=== PATIENT | male | born 1935 | race Caucasian/White ===

== ENCOUNTER → 2017-06-28 | Outpatient (CLI) | payer MEDICARE, BC ==
--- NOTE | 2017-06-28 16:17 | XR ---
EXAMINATION TYPE: XR pelvis AP view DATE OF EXAM: 06/28/2017 CLINICAL HISTORY: pain TECHNIQUE: Single view the pelvis is submitted. FINDINGS: No evidence for fracture, dislocation or bony lesion. Joint spaces are moderately narrowe d bilaterally. SI joints appear symmetric. Vascular calcifications noted. IMPRESSION: 1. No acute fracture or dislocation seen. ICD 10 NO FRACTURE, INITIAL EVALUATION
--- NOTE | 2017-06-28 16:18 | XR ---
EXAMINATION TYPE: XR lumbosacral spine min 4V DATE OF EXAM: 06/28/2017 CLINICAL HISTORY: pain COMPARISON: NONE TECHNIQUE: Frontal, lateral, and oblique images of the lumbar spine are obtained. FINDINGS: Severe degenerative disc disease at all levels with vacuum disc noted. There is endplate sc lerosis as well as moderate ventral and dorsal spondylosis. Severe lower lumbar facet joint arthropat hy. Rotoscoliosis convex to the right. Suspect lower lumbar foraminal encroachment bilaterally. Mild superior endplate loss of height at multiple levels likely nonacute in nature. IMPRESSION: Severe advanced degenerative changes.
== END | disposition home or self-care (01) ==
LOC: RADXRYALE 15:15
PROVIDERS: ATTEND Family Medicine
DX: M47.817 Spondylosis without myelopathy or radiculopathy, lumbosacral region (principal); C61 Malignant neoplasm of prostate
CPT/HCPCS: 72110; 72170

== ENCOUNTER 2017-07-03 13:03 | Inpatient (IN) | payer MEDICARE, BC ==
[2017-07-03] MEDS ORDERED: RX INFO: IV CONTRAST WAS GIVEN 1 EACH MISC MISCELLANE PRN (13:32)
[2017-07-03] MEDS ORDERED: SODIUM CHLORIDE 0.9% 1,000 ML IV STA (13:32)
[2017-07-03] MEDS ORDERED: PANTOPRAZOLE 40 MG/10 ML VIAL IVP STA (13:32)
[2017-07-03] MEDS ORDERED: MINERAL OIL 133 ML ENEMA RECTAL STA (13:32)
[2017-07-03] MEDS ORDERED: MAGNESIUM CITRATE 296 ML BOTTLE PO ONE (13:38)
--- NOTE | 2017-07-03 13:38 | ED ---
General Adult HPI - General Chief complaint: Extremity Injury, Lower Stated complaint: Hip Pain Time Seen by Provider: 07/03/17 13:19 Source: patient Mode of arrival: wheelchair Limitations: no limitations - History of Present Illness Initial comments: This 81-year-old white male presents with a complaint of some diffuse abdominal pain and rectal pressure as well as severe right hip pain. He states that he feels he is somewhat constipated and has not had a bowel movement in 2 days. He normally has a bowel movement once a day. He states that he is now having some difficulty with urination as well and thinks this is due to his constipation. He apparently was able to only pass "small palpable" earlier today. He states that there was a small amount of blood in his stool at that time. He relates that since 06/15/2017, he is had excruciating pain in his right hip. He states that he went to sit up in his chair and he developed severe pain in his right hip. He has had this continuously for the past 19 days. His been seen by his primary physician and had x-rays and also followed up with [facility]. He is been told that he needs a right hip replacement. He denies any trauma to the right hip. He apparently was taking some hydrocodone and believes this made him constipated. He denies any nausea vomiting or diarrhea or fever. He has been able to ambulate with a cane with significant difficulty and also has a walker at home. He denies any other complaints or modifying factors. - Related Data Home Medications Medication Instructions Recorded Confirmed Aspirin EC [Ecotrin Low Dose] 81 mg PO DAILY 07/03/17 07/03/17 Atorvastatin Calcium [Lipitor] 10 mg PO HS 07/03/17 07/03/17 Felodipine ER [Plendil] 5 mg PO DAILY 07/03/17 07/03/17 HYDROcodone/APAP 7.5-325MG [[place] 1 - 2 tab PO Q6HR PRN 07/03/17 07/03/17 7.5-325] predniSONE See Taper PO DAILY 07/03/17 07/03/17 Allergies Allergy/AdvReac Type Severity Reaction Status Date / Time No Known Allergies Allergy Verified 07/03/17 14:45 Review of Systems ROS Statement: Those systems with pertinent positive or pertinent negative responses have been documented in the HPI. ROS Other: All systems not noted in ROS Statement are negative. Past Medical History Past Medical History: Chest Pain / Angina History of Any Multi-Drug Resistant Organisms: None Reported Past Surgical History: Coronary Bypass/CABG Past Psychological History: No Psychological Hx Reported Smoking Status: Former smoker Past Alcohol Use History: Occasional Past Drug Use History: None Reported General Exam - General Exam Comments Initial Comments: GENERAL: The patient is well nourished and well hydrated. VITAL SIGNS: Heart rate, blood pressure, respiratory rate reviewed as recorded in nurse's notes. EYES: Pupils are round and reactive. Extraocular movements are intact. No conjunctival / lid redness or swelling. ENT: No external evidence of injury, swelling, or ecchymosis. Airway is patent. Throat is clear. NECK: Nontender. No swelling or evidence of injury. No subcutaneous emphysema. Trachea is midline. No thyroid mass. HEART: Regular rate and rhythm. Good peripheral pulses. LUNGS/CHEST: Breath sounds clear and equal bilaterally. No rales, rhonchi, or wheezes. No ecchymosis, subcutaneous emphysema, or tenderness. Patient is tachypneic. ABDOMEN: There is mild diffuse tenderness throughout the abdomen. No palpable masses or organomegaly. No peritoneal signs. No abdominal wall swelling or ecchymosis. EXTREMITIES: There is tenderness noted to the right hip upon palpation. There is, however, excellent range of motion of the joint without any significant difficulty. Normal muscle tone and function. No thoracolumbar tenderness. NEUROLOGIC: Sensation is grossly intact. Cranial nerve exam reveals face is symmetrical, tongue is midline, speech is clear. SKIN: No abrasions or ecchymosis is noted. No induration or masses noted. PSYCHIATRIC: Alert and oriented. Appropriate behavior and judgment. Rectal exam: There is some stool in the rectal vault the patient does have excruciating tenderness with any attempts at disimpaction. This stool is soft. It is bloody in nature as well. Limitations: no limitations Course Vital Signs 07/03/17 07/03/17 13:06 16:16 Temperature 96.7 F L 97.1 F L Pulse Rate 60 56 L Respiratory 17 16 Rate Blood Pressure 193/82 203/91 O2 Sat by Pulse 98 94 L Oximetry Medical Decision Making - Medical Decision Making The patient was seen and examined. All diagnostics were reviewed. An IV is started and he does receive some Protonix and IV fluids. An EKG is completed and this shows sinus bradycardia at a rate of 58 with a first-degree AV block. There is no acute ST-T wave changes. The laboratories reviewed and does show slight decrease in the CO2 but remainder of labs are essentially within normal limits. Since he was somewhat tachypneic initially a x-ray of the chest was done but this does not show any acute abnormalities. The computed tomography scan of the abdomen and pelvis does show a right femoral neck fracture. It also shows a significant amount of stool present in the rectal vault consistent with constipation. The patient receives a mineral oil enema and does have significant bowel movement. He is feeling much improved in this regard afterwards. He is still having the significant right hip pain. He receives 1 mg of Dilaudid IV with significant pain control. It is felt as though he would require admission to the hospital for further evaluation and treatment. He does have a history of a remote CABG. He was scheduled to see Dr. Meier yesterday but had to miss the appointment to see the orthopedic doctor instead. Case is discussed with Shelbie the ANIA with [facility] and they are agreeable to admission. It is felt as though the patient would require admission for a right hip replacement. It appears that his constipation issues are resolved at this time. He did have a small amount of blood on digital rectal examination with a positive Hemoccult but this is likely due to straining. He states that he did not have any further blood with his large bowel movement after the enema. - Lab Data Result diagrams: 07/03/17 13:57 07/03/17 13:57 Lab Results 07/03/17 07/03/17 07/03/17 Range/Units 13:57 13:57 13:57 WBC 9.3 (3.8-10.6) k/uL RBC 4.43 (4.30-5.90) m/uL Hgb 13.9 (13.0-17.5) gm/dL Hct 40.5 (39.0-53.0) % MCV 91.4 (80.0-100.0) fL MCH 31.3 (25.0-35.0) pg MCHC 34.3 (31.0-37.0) g/dL RDW 14.2 (11.5-15.5) % Plt Count 214 (150-450) k/uL Neutrophils % 84 % Lymphocytes % 9 % Monocytes % 5 % Eosinophils % 1 % Basophils % 0 % Neutrophils # 7.8 H (1.3-7.7) k/uL Lymphocytes # 0.9 L (1.0-4.8) k/uL Monocytes # 0.5 (0-1.0) k/uL Eosinophils # 0.1 (0-0.7) k/uL Basophils # 0.0 (0-0.2) k/uL PT 10.1 (9.0-12.0) sec INR 1.0 (<1.2) APTT 23.7 (22.0-30.0) sec Sodium 139 (137-145) mmol/L Potassium 4.2 (3.5-5.1) mmol/L Chloride 109 H (98-107) mmol/L Carbon Dioxide 20 L (22-30) mmol/L Anion Gap 10 mmol/L BUN 24 H (9-20) mg/dL Creatinine 0.89 (0.66-1.25) mg/dL Est GFR (MDRD) Af Amer >60 (>60 ml/min/1.73 sqM) Est GFR (MDRD) Non-Af >60 (>60 ml/min/1.73 sqM) Glucose 119 H (74-99) mg/dL Calcium 9.1 (8.4-10.2) mg/dL Total Bilirubin 0.7 (0.2-1.3) mg/dL AST 19 (17-59) U/L ALT 32 (21-72) U/L Alkaline Phosphatase 89 (38-126) U/L Total Protein 6.6 (6.3-8.2) g/dL Albumin 3.7 (3.5-5.0) g/dL Amylase 50 (30-110) U/L Lipase 129 (23-300) U/L Urine Color Urine Appearance (Clear) Urine pH (5.0-8.0) Ur Specific [place] (1.001-1.035) Urine Protein (Negative) Urine Glucose (UA) (Negative) Urine Ketones (Negative) Urine Blood (Negative) Urine Nitrite (Negative) Urine Bilirubin (Negative) Urine Urobilinogen (<2.0) mg/dL Ur Leukocyte Esterase (Negative) Stool Occult Blood (Negative) Blood Type Blood Type Recheck Antibody Screen Spec Expiration Date 07/03/17 07/03/17 07/03/17 Range/Units 13:57 14:05 16:05 WBC (3.8-10.6) k/uL RBC (4.30-5.90) m/uL Hgb (13.0-17.5) gm/dL Hct (39.0-53.0) % MCV (80.0-100.0) fL MCH (25.0-35.0) pg MCHC (31.0-37.0) g/dL RDW (11.5-15.5) % Plt Count (150-450) k/uL Neutrophils % % Lymphocytes % % Monocytes % % Eosinophils % % Basophils % % Neutrophils # (1.3-7.7) k/uL Lymphocytes # (1.0-4.8) k/uL Monocytes # (0-1.0) k/uL Eosinophils # (0-0.7) k/uL Basophils # (0-0.2) k/uL PT (9.0-12.0) sec INR (<1.2) APTT (22.0-30.0) sec Sodium (137-145) mmol/L Potassium (3.5-5.1) mmol/L Chloride (98-107) mmol/L Carbon Dioxide (22-30) mmol/L Anion Gap mmol/L BUN (9-20) mg/dL Creatinine (0.66-1.25) mg/dL Est GFR (MDRD) Af Amer (>60 ml/min/1.73 sqM) Est GFR (MDRD) Non-Af (>60 ml/min/1.73 sqM) Glucose (74-99) mg/dL Calcium (8.4-10.2) mg/dL Total Bilirubin (0.2-1.3) mg/dL AST (17-59) U/L ALT (21-72) U/L Alkaline Phosphatase (38-126) U/L Total Protein (6.3-8.2) g/dL Albumin (3.5-5.0) g/dL Amylase (30-110) U/L Lipase (23-300) U/L Urine Color Yellow Urine Appearance Clear (Clear) Urine pH 7.0 (5.0-8.0) Ur Specific [place] 1.037 H (1.001-1.035) Urine Protein Negative (Negative) Urine Glucose (UA) Negative (Negative) Urine Ketones Negative (Negative) Urine Blood Negative (Negative) Urine Nitrite Negative (Negative) Urine Bilirubin Negative (Negative) Urine Urobilinogen <2.0 (<2.0) mg/dL Ur Leukocyte Esterase Negative (Negative) Stool Occult Blood Positive (Negative) Blood Type A Negative Blood Type Recheck A Neg Antibody Screen NEGATIVE Spec Expiration Date 07/06/20171 Disposition Clinical Impression: Fracture of femoral neck, right, Constipation, Rectal bleed Disposition: ADMITTED IP TO THIS [facility] Condition: Fair Time of Disposition: 16:31 Decision Date: 07/03/17 Decision Time: 16:32
[2017-07-03 14:20] LABS: ALT 32 U/L (21-72); AST 19 U/L (17-59); Alkaline Phosphatase 89 U/L (38-126); Amylase 50 U/L (30-110); Anion Gap 10 mmol/L; Basophils % (A) 0 %; Blood Urea Nitrogen 24 mg/dL (9-20); CH 32.9; CHCM 36.1; Calcium 9.1 mg/dL (8.4-10.2); Carbon Dioxide 20 mmol/L (22-30); Chloride 109 mmol/L (98-107); Eosinophils # (A) 0.1 k/uL (0-0.7); Eosinophils % (A) 1 %; Glucose 119 mg/dL (74-99); HCT 40.5 % (39.0-53.0); HDW 2.64; HGB 13.9 gm/dL (13.0-17.5); Luc % (Auto) 1; Lymphocytes # (A) 0.9 k/uL (1.0-4.8); Lymphocytes % (A) 9 %; MCH 31.3 pg (25.0-35.0); MCHC 34.3 g/dL (31.0-37.0); MCV 91.4 fL (80.0-100.0); Mean Platelet Volume 7.5; Monocytes # (A) 0.5 k/uL (0-1.0); Monocytes % (A) 5 %; Neutrophils # (A) 7.8 k/uL (1.3-7.7); Neutrophils % (A) 84 %; Non-African American GFR(MDRD) >60 (>60 ml/min/1.73 sqM); Potassium 4.2 mmol/L (3.5-5.1); RBC 4.43 m/uL (4.30-5.90); RDW 14.2 % (11.5-15.5); Sodium 139 mmol/L (137-145); Total Bilirubin 0.7 mg/dL (0.2-1.3); Total Protein 6.6 g/dL (6.3-8.2); WBC 9.3 k/uL (3.8-10.6)
--- NOTE | 2017-07-03 14:24 | XR ---
EXAMINATION TYPE: XR chest 2V DATE OF EXAM: 07/03/2017 COMPARISON: 12/24/2010 HISTORY: Shortness of breath TECHNIQUE: Frontal and lateral views of the chest are obtained. FINDINGS: Scattered senescent parenchymal changes noted. Hyperinflation compatible with COPD. No evidence for infiltrate. No evidence for atelectasis. Heart size is stable. Mediastinal structures are stable and grossly unremarkable. No evidence for hilar prominence. Degenerative changes dorsal spine. IMPRESSION: 1. No evidence for acute pulmonary disease.
[2017-07-03 14:26] LABS: Partial Thromboplastin Time 23.7 sec (22.0-30.0); Prothrombin Time 10.1 sec (9.0-12.0)
--- NOTE | 2017-07-03 15:21 | CT ---
EXAMINATION TYPE: CT abdomen pelvis w con DATE OF EXAM: 07/03/2017 COMPARISON: NONE INDICATION: Rectal bleeding, right hip pain, pelvic pain and low back pain. DLP: 564.30 mGycm, Automated exposure control for dose reduction was used. CONTRAST: 100 mL of Omnipaque 300. Study performed without Oral Contrast TECHNIQUE: Axial images were obtained from above the diaphragm to the pubic rami in the axial plane a t 5 mm thick sections. Reconstructed images are reviewed on the computer in the coronal plane. FINDINGS: Limited CT sections are obtained the lung bases. No suspicious infiltrates or lung bases.. Coronary artery calcifications present. CT ABDOMEN: Liver: Normal Spleen: Normal Pancreas: Normal Adrenal glands: The adrenal glands are normal. Gallbladder: Normal Kidneys: No masses are evident. No hydronephrosis is present. No cysts are present. Delayed images were obtained through the kidneys, which remain unremarkable. Aorta: Vascular calcification is within the aorta. Inferior vena cava: Normal. CT PELVIS: Loops of bowel within the abdomen and pelvis are normal. There is a large fecal bolus at the leve l of rectum. Correlate for fecal impaction. Mild fecal debris is within the colon. No dilated small b owel loops are evident. Appendix: Normal as visualized. Urinary bladder: Normal. Genitourinary structures: Prostate is visualized. Correlate for prior surgery. Osseous structures: There appears to be an occult or pathologic fracture at the superior right femora l neck. This may be incomplete or be impacted at the inferior aspect of the femoral head. Clinical co rrelation is recommended. Sacroiliac joint degenerative changes are present. There appears to be sacr alization of L5 on the right. Scoliosis and degenerative disc changes are through the lumbar spine. IMPRESSIONS: 1. Fracture of the right femoral neck. This may be incomplete or impacted. Clinical correlation with history and pain is recommended. 2. Fecal bolus at the level the rectum. Correlate for impaction. 3. Degenerative changes through the lumbar spine including degenerative disc changes facet changes an d spondylosis.
[2017-07-03] MEDS ORDERED: HYDROmorphone 1 MG/ML 1 ML SYRINGE IVP STA (16:03)
[2017-07-03 16:17] LABS: Appearance,Urine Clear (Clear); Bilirubin,Urine Negative (Negative); Glucose,Urine (UA) Negative (Negative); Ketones,Urine Negative (Negative); Leukocyte Esterase,Urine Negative (Negative); Nitrite,Urine Negative (Negative); Protein,Urine Negative (Negative); Specific Gravity,Urine 1.037 (1.001-1.035); UA Billing (MACRO vs. MICRO) CHEM; Urobilinogen,Urine <2.0 mg/dL (<2.0)
[2017-07-03] MEDS ORDERED: HYDROmorphone 1 MG/ML 1 ML SYRINGE IV PRN (16:54)
[2017-07-03] MEDS ORDERED: NALOXONE 0.4 MG/ML 1 ML VIAL IV PRN (16:54)
[2017-07-03] MEDS ORDERED: ACETAMINOPHEN TAB 325 MG TAB PO PRN (16:54)
--- NOTE | 2017-07-03 18:00 | XR ---
EXAMINATION TYPE: XR Hip Complete RT DATE OF EXAM: 07/03/2017 CLINICAL HISTORY: pain TECHNIQUE: AP and frogleg views of the right hip are obtained. COMPARISON: None. FINDINGS: Partially displaced partially impacted right femoral neck fracture. Mild degenerative narro wing right hip joint space. No additional fracture seen. IMPRESSION: 1. Right femoral neck fracture. ICD 10 closed FRACTURE, INITIAL EVALUATION
[2017-07-03 18:17] VITALS: BMI 23.5
[2017-07-03] MEDS: ATORVASTATIN 10 MG TAB PO SCH (22:09)
[2017-07-04 06:51] LABS: Basophils % (A) 0 %; CH 32.6; CHCM 34.9; Eosinophils # (A) 0.1 k/uL (0-0.7); Eosinophils % (A) 1 %; HCT 39.7 % (39.0-53.0); HGB 13.2 gm/dL (13.0-17.5); Luc # (Auto) 0.16; Luc % (Auto) 2; Lymphocytes # (A) 1.1 k/uL (1.0-4.8); Lymphocytes % (A) 10 %; MCH 31.1 pg (25.0-35.0); MCHC 33.2 g/dL (31.0-37.0); MCV 93.9 fL (80.0-100.0); Mean Platelet Volume 7.3; Monocytes # (A) 0.7 k/uL (0-1.0); Monocytes % (A) 6 %; Neutrophils # (A) 8.7 k/uL (1.3-7.7); Neutrophils % (A) 81 %; RBC 4.23 m/uL (4.30-5.90); RDW 13.9 % (11.5-15.5); WBC 10.7 k/uL (3.8-10.6); WBC (Perox) 11.25
[2017-07-04 07:16] LABS: Anion Gap 6 mmol/L; Blood Urea Nitrogen 17 mg/dL (9-20); Calcium 9.1 mg/dL (8.4-10.2); Carbon Dioxide 24 mmol/L (22-30); Chloride 108 mmol/L (98-107); Glucose 101 mg/dL (74-99); Non-African American GFR(MDRD) >60 (>60 ml/min/1.73 sqM); Potassium 4.7 mmol/L (3.5-5.1); Sodium 138 mmol/L (137-145)
--- NOTE | 2017-07-04 08:43 | P.HPOR ---
History of Present Illness H&P Date: 07/04/17 This is an 81-year-old male who is admitted for right hip fracture. Patient states about 2-1/2 weeks ago he had sudden pain in the right hip. Patient denies any fall or any known cause of the pain. Patient states he has been ambulating but it is painful to walk on the right lower extremity. Patient states he presented to the emergency room on 07/03/2017 for abdominal pain and right hip pain. Patient states he has had x-rays from his PCP of the right hip that were found to be negative for fracture, but a CT scan in the emergency room showed right femoral neck fracture on 07/02/2017. Patient was then admitted for orthopedic evaluation. Patient denies any numbness, weakness, tingling, fever/chills. Review of Systems See HPI. Past Medical History Past Medical History: Chest Pain / Angina History of Any Multi-Drug Resistant Organisms: None Reported Past Surgical History: Coronary Bypass/CABG Past Psychological History: No Psychological Hx Reported Smoking Status: Former smoker Past Alcohol Use History: Occasional Past Drug Use History: None Reported Medications and Allergies Home Medications Medication Instructions Recorded Confirmed Type Aspirin EC [Ecotrin Low Dose] 81 mg PO DAILY 07/03/17 07/03/17 History Atorvastatin Calcium [Lipitor] 10 mg PO HS 07/03/17 07/03/17 History Felodipine ER [Plendil] 5 mg PO DAILY 07/03/17 07/03/17 History HYDROcodone/APAP 7.5-325MG [[place] 1 - 2 tab PO Q6HR PRN 07/03/17 07/03/17 History 7.5-325] predniSONE See Taper PO DAILY 07/03/17 07/03/17 History Allergies Allergy/AdvReac Type Severity Reaction Status Date / Time No Known Allergies Allergy Verified 07/03/17 14:45 Physical Examination Alert and oriented 3. Patient is in no acute distress. There is no deformity of the right lower extremity. There is no bruising, swelling, ecchymosis or tenderness to palpation of the right hip. Patient is able to flex and extend the right hip and knee. Calf is soft and nontender. Neurovascular status to the right lower extremity is intact. There is no tenderness or deformity of bilateral upper extremities or left lower extremity. Results X-rays of the right hip are reviewed showing subcapital fracture of the right femur. - Labs Labs: Abnormal Lab Results - Last 24 Hours (Table) 07/03/17 07/03/17 07/03/17 Range/Units 13:57 13:57 16:05 WBC (3.8-10.6) k/uL RBC (4.30-5.90) m/uL Neutrophils # 7.8 H (1.3-7.7) k/uL Lymphocytes # 0.9 L (1.0-4.8) k/uL Chloride 109 H (98-107) mmol/L Carbon Dioxide 20 L (22-30) mmol/L BUN 24 H (9-20) mg/dL Glucose 119 H (74-99) mg/dL Ur Specific [place] 1.037 H (1.001-1.035) 07/04/17 07/04/17 Range/Units 06:20 06:20 WBC 10.7 H (3.8-10.6) k/uL RBC 4.23 L (4.30-5.90) m/uL Neutrophils # 8.7 H (1.3-7.7) k/uL Lymphocytes # (1.0-4.8) k/uL Chloride 108 H (98-107) mmol/L Carbon Dioxide (22-30) mmol/L BUN (9-20) mg/dL Glucose 101 H (74-99) mg/dL Ur Specific [place] (1.001-1.035) H & H 07/03/17 07/04/17 Range/Units 13:57 06:20 Hgb 13.9 13.2 (13.0-17.5) gm/dL Hct 40.5 39.7 (39.0-53.0) % Coagulation 07/03/17 Range/Units 13:57 INR 1.0 (<1.2) Result Diagrams: 07/04/17 06:20 07/04/17 06:20 Assessment and Plan (1) Subcapital fracture of neck of right femur Status: Acute Plan: #1. Patient is to remain NPO and nonweightbearing to the right lower extremity #2. A right hemiarthroplasty is scheduled for 4 PM today. #3. Medial clearance pending.
[2017-07-04] MEDS ORDERED: amLODIPine 5 MG TAB PO SCH (09:00)
[2017-07-04] MEDS ORDERED: ENOXAPARIN 40 MG/0.4 ML SYRINGE SQ SCH (09:00)
[2017-07-04] MEDS ORDERED: predniSONE 10 MG TAB PO SCH (09:00)
[2017-07-04] MEDS: ASPIRIN 81 MG PO SCH (09:13)
[2017-07-04] MEDS: PANTOPRAZOLE 40 MG/10 ML VIAL IV SCH (09:13)
--- NOTE | 2017-07-04 13:00 | P.CONS ---
History of Present Illness - Reason for Consult Consult date: 07/04/17 Medical Management CAD,HTN Requesting physician: Troy Stout - Chief Complaint right hip pain, Right Femoral neck fracture - History of Present Illness This 81-year-old white male presents with a complaint of some diffuse abdominal pain and rectal pressure as well as severe right hip pain. He states that he feels he is somewhat constipated and has not had a bowel movement in 2 days. He normally has a bowel movement once a day. He states that he is now having some difficulty with urination as well and thinks this is due to his constipation. He apparently was able to only pass "small palpable" earlier today. He states that there was a small amount of blood in his stool at that time. Received enema, followed by normal bowel movement. He relates that since 06/15/2017, he is had excruciating pain in his right hip. He states that he went to sit up in his chair and he developed severe pain in his right hip. He has had this continuously for the past 19 days. His been seen by his primary physician and had x-rays and also [facility] with [facility] Computed tomography scan/xray reports right femoral neck fracture. He is been told that he needs a right hip replacement. He denies any trauma to the right hip. He apparently was taking some hydrocodone and believes this made him constipated. He denies any nausea vomiting or diarrhea or fever/chills. He has been able to ambulate with a cane with significant difficulty and also has a walker at home. Denies any numbness ,tingling.He denies any other complaints or modifying factors. EKG sinus rhythm with first-degree block. No ST elevation. Denies chest pain, palpitations or increasing shortness of breath. Review of Systems Review of systems: CONSTITUTIONAL: No fever, no malaise, no fatigue. HEENT: No recent visual problems or hearing problems. Denied any sore throat. CARDIOVASCULAR: No chest pain, orthopnea, PND, no palpitations, no syncope. PULMONARY: No shortness of breath, no cough, no hemoptysis. GASTROINTESTINAL: No diarrhea, no nausea, no vomiting, no abdominal pain. Normoactive bowel sounds. NEUROLOGICAL: No headaches, no weakness, no numbness. HEMATOLOGICAL: Denies any bleeding or petechiae. GENITOURINARY: Denies any burning micturition, frequency, or urgency. MUSCULOSKELETAL/RHEUMATOLOGICAL: Complains of right hip pain. ENDOCRINE: Denies any polyuria or polydipsia. PSYCHIATRIC: No anxiety, no depression The rest of the 14 point review of systems is negative. All systems: negative Past Medical History Past Medical History: Chest Pain / Angina, Hyperlipidemia Additional Past Medical History / Comment(s): History of prostate cancer, status post radiation treatment 3 years ago. 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 CABG 14 years ago. Echo of 06/20/2016 reporting normal LV function, EF 55%, mild-to- moderate aortic regurgitation, mild to moderate mitral regurgitation) Past Psychological History: No Psychological Hx Reported Smoking Status: Former smoker (The patient has smoked for approximately 30 years from ages [age], quit smoking 30 years ago.) Past Alcohol Use History: Occasional Past Drug Use History: None Reported Medications and Allergies Home Medications Medication Instructions Recorded Confirmed Type Aspirin EC [Ecotrin Low Dose] 81 mg PO DAILY 07/03/17 07/03/17 History Atorvastatin Calcium [Lipitor] 10 mg PO HS 07/03/17 07/03/17 History Felodipine ER [Plendil] 5 mg PO DAILY 07/03/17 07/03/17 History HYDROcodone/APAP 7.5-325MG [[place] 1 - 2 tab PO Q6HR PRN 07/03/17 07/03/17 History 7.5-325] predniSONE See Taper PO DAILY 07/03/17 07/03/17 History Allergies Allergy/AdvReac Type Severity Reaction Status Date / Time No Known Allergies Allergy Verified 07/03/17 14:45 Physical Exam Vitals: Vital Signs Temp Pulse Pulse Pulse Resp BP BP 07/04/17 11:10 99.0 F 54 L 16 130/56 07/04/17 09:57 99.1 F 56 L 15 125/54 07/04/17 08:11 53 L 07/04/17 07:12 99.3 F 53 L 16 141/63 07/04/17 00:40 98.3 F 60 16 145/66 07/03/17 18:55 97.4 F L 60 16 165/73 07/03/17 18:45 58 L 68 16 07/03/17 18:14 97.7 F 58 L 16 145/67 07/03/17 17:47 97.2 F L 68 18 118/64 07/03/17 17:16 57 L 16 143/64 07/03/17 16:16 97.1 F L 56 L 16 203/91 07/03/17 13:06 96.7 F L 60 17 193/82 Pulse Ox 07/04/17 11:10 97 07/04/17 09:57 97 07/04/17 08:11 07/04/17 07:12 07/04/17 00:40 97 07/03/17 18:55 92 L 07/03/17 18:45 07/03/17 18:14 98 07/03/17 17:47 96 07/03/17 17:16 96 07/03/17 16:16 94 L 07/03/17 13:06 98 Intake and Output 07/03/17 07/04/17 07/04/17 22:59 06:59 14:59 Output Total 200 300 300 Balance -200 -300 -300 Output: Urine 200 300 300 Other: # Voids 2 2 Weight 68.039 kg 68.039 kg Patient Weight 07/05/17 06:59 Weight 68.039 kg PHYSICAL EXAM: VITAL SIGNS: As above GENERAL: Sitting up in bed, no acute distress HEENT: Conjunctivae normal. eyes normal. NECK: No JVD. No thyroid enlargement. No LNs CARDIOVASCULAR: Regular S1, S2, positive systolic murmur, no rubs, no gallops RESPIRATION: Breath sounds diminished in the bases. No rhonchi or crackles. No bronchial breathing. ABDOMEN: Soft, nontender . No guarding. no masses palpable. No ascites, No hepatosplenomegaly.Bowel sounds heard. LEGS: No edema. no swelling PSYCHIATRY: Alert and oriented -3, mood and affect normal. NERVOUS SYSTEM: Cranial N 2-12 grossly normal. Moves all 4 limbs. No focal deficits. No sensory deficit. Skin: no ulcer no rash Joints: No active swelling. No inflammation. Lymphatic system. No LN neck axilla or groin. Results CBC & Chem 7: 07/04/17 06:20 07/04/17 06:20 Labs: Abnormal Lab Results - Last 24 Hours (Table) 07/03/17 07/03/17 07/03/17 Range/Units 13:57 13:57 16:05 WBC (3.8-10.6) k/uL RBC (4.30-5.90) m/uL Neutrophils # 7.8 H (1.3-7.7) k/uL Lymphocytes # 0.9 L (1.0-4.8) k/uL Chloride 109 H (98-107) mmol/L Carbon Dioxide 20 L (22-30) mmol/L BUN 24 H (9-20) mg/dL Glucose 119 H (74-99) mg/dL Ur Specific Lyles 1.037 H (1.001-1.035) 07/04/17 07/04/17 Range/Units 06:20 06:20 WBC 10.7 H (3.8-10.6) k/uL RBC 4.23 L (4.30-5.90) m/uL Neutrophils # 8.7 H (1.3-7.7) k/uL Lymphocytes # (1.0-4.8) k/uL Chloride 108 H (98-107) mmol/L Carbon Dioxide (22-30) mmol/L BUN (9-20) mg/dL Glucose 101 H (74-99) mg/dL Ur Specific Lyles (1.001-1.035) Assessment and Plan Plan: 1. Right femur neck fracture, surgical repair pending 2. CAD, history of CABG, denies history of CT 3. Mild to moderate mitral and aortic regurgitation, EF 55%. 4. History of nicotine dependence, smoked for 30 years, quit smoking 30 years ago 5. Possible COPD, chronic, not acute. 6. Constipation secondary to pain management/opioid use. Plan: Continue on current medication regime ,monitoring and symptomatic treatment. Preop clearance is given; patient is a low to intermediate risk. Functional status greater than 4 mets. Recommend holding Norvasc to avoid postoperative hypotension. Given patient's age would avoid opioids, narcotics, reccomend Ketrolac, GI prophylaxis with Pepcid. Anticoagulation and pain management per primary, orthopedic surgery. Thank you for allowing us to participate in the care of this pleasant gentleman. Further recommendations to follow. Please forward a copy of this consult to patient's primary care physician Dr. Becker. The impression and plan of care has been dictated as directed as a scribe. Dr.: I performed a H&P examination of this patient and discussed the same with the dictator. I agree with the dictator's note. Any additional findings/opinions/ etc. will be noted.
[2017-07-04] MEDS ORDERED: LACTATED RINGERS 1,000 ML IV ONE (15:11)
[2017-07-04] MEDS ORDERED: fentaNYL (PF) 50 MCG/ML 2 ML AMP ONE (16:04)
[2017-07-04] MEDS ORDERED: MIDAZOLAM 2 MG/2 ML VIAL ONE (16:04)
[2017-07-04] MEDS ORDERED: PROPOFOL 10 MG/ML 20 ML VIAL IV ONE (16:04)
[2017-07-04] MEDS ORDERED: KETAMINE 10 MG/ML 20 ML VIAL ONE (16:04)
[2017-07-04] MEDS ORDERED: ceFAZolin 3,000 MG in SODIUM CHLORIDE 0.9% IRRIGATIO 3,000 ML IRRIGATION ONE (16:25)
[2017-07-04] MEDS ORDERED: SODIUM CHLORIDE 0.9% 100 ML with ceFAZolin 2,000 MG IV ONE ×2 (16:25)
--- NOTE | 2017-07-04 17:09 | P.OP ---
Date of Procedure: 07/04/17 Preoperative Diagnosis: Subcapital fracture right hip Postoperative Diagnosis: Subcapital fracture right hip Procedure(s) Performed: Right hip hemiarthroplasty Implants: Medina and nephew Polarstem size 2 standard Medina [employer] Nephew tandem unipolar, 48 mm Medina [employer] Nephew tandem unipolar 12/14 taper sleeve, -3 mm All components were press-fit. Anesthesia: spinal Surgeon: Troy Stout Cashier Tube Room #1: Shelbie Hernandez Estimated Blood Loss (ml): 100 Pathology: other (Femoral head) Condition: stable Disposition: PACU Indications for Procedure: This is an 81-year-old gentleman sustained a fall onto his right hip. X-rays demonstrated a displaced fracture of the subcapital region of his right hip. After discussing the surgical and nonsurgical treatment options with him and his family at length, I recommended a right hip hemiarthroplasty. Informed consent was obtained. Operative Findings: The operative findings are consistent with a subcapital fracture of the right hip. Description of Procedure: Patient was seen and evaluated in the preoperative area, consent was reviewed and the operative site was marked with a skin marker. Patient was then brought to the operating room and given 2 g of Ancef intravenously. A spinal anesthetic was administered by the anesthesia department. Patient was then placed in a lateral decubitus position and held with a Montral hip positioner. The bony prominences were well-padded and an axillary roll was placed. The hip was then prepped and draped in the usual sterile fashion. A universal timeout was then performed which confirmed the patient's name, surgical site, ALLERGIES, and procedure. A standard anterolateral approach the hip was performed. Skin and subcutaneous tissues were sharply incised with an incision centered over the tip of the greater trochanter. The incision was carefully dissected down to the fascia. The fascia was then split in line with skin incision and a Charnley retractor was gently placed. The abductors were then identified, and the anterior one third of the abductors were released off the trochanter and one large sleeve. The fracture hematoma was evacuated and the proximal femur was exposed by externally rotating the femur. The fracture site was readily visualized. Next , using an osteotomy guide, the proximal femur was osteotomized at the appropriate level of the above the lesser trochanter. This bone was then removed. Attention was then turned to the femoral head. Using a corkscrew, the femoral head was removed from the acetabulum without incident. The acetabulum was inspected, and found to have no significant arthrosis. Femoral head was then measured. Attention was then redirected to the femur. Proximal femur was re-exposed and a box osteotome was used to lateralize the proximal femur. A hand cloth cutter was then used to locate the femoral canal. Sequential broaching was then performed to the appropriate size. The calcar was then planed and trial head and neck were placed. The hip was then gently reduced. Leg lengths were checked and found to be equal. Hip was then taken through a full range of motion was stable throughout. The hip was then gently dislocated with the aid of a bone hook. The trial head and neck were then removed. The femoral broach was then inspected and found to have a secure fit. The broach was then removed. The hip was then copiously irrigated with antibiotic solution with a pulse lavage. Components were then opened and the femoral stem was then impacted into the proximal femur. The trunnion was cleaned and dried, and the femoral head and neck were then impacted. Hip was again gently reduced. Again leg lengths were checked and found to be equal, and the hip was taken through a full range of motion and found to be stable. The hip was again irrigated with pulsatile lavage. The abductors were then repaired through drill holes to the bone to the greater trochanter, utilizing #5 Ethibond suture. Next the fascia was repaired with #2 strata fix suture. The subcutaneous tissue was then repaired with 3-0 Vicryl. The subcuticular tissue was then repaired with 3-0 strata fix suture. Skin was then closed with Dermabond tape. A sterile dressing was then applied and the patient was transported to the recovery room in stable condition. Cashier Tube Room ANIA Asif was required due to the complexity of surgery the need for skilled manager surgical. She assisted with positioning the patient , draping the patient, retraction during the surgery, and closure of the wound.
[2017-07-04] MEDS ORDERED: DIAZEPAM 5 MG TAB PO PRN ×2 (17:29)
[2017-07-04] MEDS ORDERED: hydrOXYzine PAMOATE 25 MG CAP PO PRN (17:29)
[2017-07-04] MEDS ORDERED: NALOXONE 0.4 MG/ML 1 ML VIAL IV PRN (17:29)
[2017-07-04] MEDS ORDERED: WARFARIN 5 MG TAB PO ONE (18:00)
--- NOTE | 2017-07-04 18:05 | XR ---
PROCEDURE: XR Hip Limited RT DATE AND TIME: 07/04/2017 5:48 PM REFERRING PHYSICIAN: Shelbie Hernandez CLINICAL INDICATION: PHH, s/p hemiarthroplasty TECHNIQUE: Department protocol. COMPARISON: 07/03/2017 at 5:51 PM FINDINGS: Single AP portable view of the right hip was obtained which shows right hip prosthesis with anatomic positioning and alignment on this single view. Generalized osteopenia and generalized ather osclerotic calcifications are noted. IMPRESSION: STATUS POST HEMIARTHROPLASTY; POSTOPERATIVE VIEW.
[2017-07-04] MEDS: KETOROLAC 30 MG/ML 1 ML VIAL IVP SCH (18:25)
[2017-07-04 18:39] LABS: Basophils % (A) 0 %; CH 32.7; Eosinophils # (A) 0.1 k/uL (0-0.7); Eosinophils % (A) 1 %; HCT 37.8 % (39.0-53.0); HDW 2.62; HGB 12.9 gm/dL (13.0-17.5); Luc # (Auto) 0.14; Luc % (Auto) 1; Lymphocytes # (A) 1.2 k/uL (1.0-4.8); Lymphocytes % (A) 10 %; MCH 32.2 pg (25.0-35.0); MCHC 34.2 g/dL (31.0-37.0); Mean Platelet Volume 7.5; Monocytes # (A) 0.7 k/uL (0-1.0); Monocytes % (A) 6 %; Neutrophils # (A) 9.8 k/uL (1.3-7.7); Neutrophils % (A) 83 %; RBC 4.03 m/uL (4.30-5.90); WBC 11.8 k/uL (3.8-10.6); WBC (Perox) 12.05
[2017-07-04] MEDS: SODIUM CHLORIDE 0.9% 1,000 ML IV SCH (21:39)
[2017-07-04] MEDS: ATORVASTATIN 10 MG TAB PO SCH (21:42)
[2017-07-05] MEDS: KETOROLAC 30 MG/ML 1 ML VIAL IVP SCH ×5 (00:37→23:19)
[2017-07-05] MEDS: ceFAZolin 2 GM in SODIUM CHLORIDE 0.9% 100 ML IVPB SCH ×2 (00:38→08:26)
[2017-07-05] MEDS: ONDANSETRON 4 MG/2 ML VIAL IVP PRN ×2 (00:40→20:01)
[2017-07-05 08:03] LABS: Basophils % (A) 0 %; CH 31.8; CHCM 34.1; Eosinophils # (A) 0.1 k/uL (0-0.7); Eosinophils % (A) 1 %; HCT 35.4 % (39.0-53.0); HDW 2.67; HGB 12.3 gm/dL (13.0-17.5); Luc # (Auto) 0.11; Luc % (Auto) 1; Lymphocytes # (A) 0.7 k/uL (1.0-4.8); Lymphocytes % (A) 8 %; MCH 32.6 pg (25.0-35.0); MCHC 34.8 g/dL (31.0-37.0); MCV 93.8 fL (80.0-100.0); Mean Platelet Volume 6.9; Monocytes # (A) 0.5 k/uL (0-1.0); Monocytes % (A) 6 %; Neutrophils # (A) 7.4 k/uL (1.3-7.7); Neutrophils % (A) 85 %; RBC 3.77 m/uL (4.30-5.90); RDW 13.4 % (11.5-15.5); WBC 8.8 k/uL (3.8-10.6); WBC (Perox) 9.33
[2017-07-05 08:12] LABS: INR 1.2 (<1.2); Prothrombin Time 12.2 sec (9.0-12.0)
[2017-07-05 08:15] LABS: Anion Gap 9 mmol/L; Blood Urea Nitrogen 18 mg/dL (9-20); Calcium 8.4 mg/dL (8.4-10.2); Carbon Dioxide 21 mmol/L (22-30); Chloride 107 mmol/L (98-107); Glucose 110 mg/dL (74-99); Non-African American GFR(MDRD) >60 (>60 ml/min/1.73 sqM); Potassium 4.6 mmol/L (3.5-5.1); Sodium 137 mmol/L (137-145)
[2017-07-05] MEDS: ASPIRIN 81 MG PO SCH (08:52)
[2017-07-05] MEDS: SODIUM CHLORIDE 0.9% 1,000 ML IV SCH (08:52)
[2017-07-05] MEDS: PANTOPRAZOLE 40 MG/10 ML VIAL IV SCH (08:52)
--- NOTE | 2017-07-05 09:29 | P.PN ---
Subjective Principal diagnosis: S/P right hemiarthroplasty, right subcapital hip fracture This is a pleasant 81yo male who is post right hemiarthroplasty. This is postoperative day #1. Patient states he has not been out of bed with therapy yet. Patient states his pain is under control. Patient denies any fever/chills , numbness, weakness or tingling. Objective - Vital Signs Vital signs: Vital Signs Temp 97.9 F 07/05/17 08:00 Pulse 58 L 07/05/17 08:00 Resp 16 07/05/17 08:00 BP 112/55 07/05/17 08:00 Pulse Ox 96 07/05/17 08:00 Intake & Output 07/04/17 07/05/17 07/05/17 18:59 06:59 18:59 Intake Total 601 Output Total 650 300 Balance -49 -300 Weight 68.039 kg Intake: IV 601 Output: Urine 550 300 Estimated Blood Loss 100 Other: # Voids 2 # Bowel Movements 1 - Exam Vital signs are stable. Patient is in no acute distress and is alert and oriented 3. Calf is soft and nontender. Incision is clean, dry, and intact. Neurovascular status intact. Patient has full foot and ankle motion. - Labs CBC & Chem 7: 07/05/17 07:18 07/05/17 07:18 Labs: Abnormal Lab Results - Last 24 Hours (Table) 07/04/17 07/05/17 07/05/17 Range/Units 18:15 07:18 07:18 WBC 11.8 H (3.8-10.6) k/uL RBC 4.03 L 3.77 L (4.30-5.90) m/uL Hgb 12.9 L 12.3 L (13.0-17.5) gm/dL Hct 37.8 L 35.4 L (39.0-53.0) % Neutrophils # 9.8 H (1.3-7.7) k/uL Lymphocytes # 0.7 L (1.0-4.8) k/uL PT (9.0-12.0) sec INR (<1.2) Carbon Dioxide 21 L (22-30) mmol/L Glucose 110 H (74-99) mg/dL 07/05/17 Range/Units 07:18 WBC (3.8-10.6) k/uL RBC (4.30-5.90) m/uL Hgb (13.0-17.5) gm/dL Hct (39.0-53.0) % Neutrophils # (1.3-7.7) k/uL Lymphocytes # (1.0-4.8) k/uL PT 12.2 H (9.0-12.0) sec INR 1.2 H (<1.2) Carbon Dioxide (22-30) mmol/L Glucose (74-99) mg/dL Assessment and Plan (1) Subcapital fracture of neck of right femur Status: Acute Plan: #1. Weightbearing as tolerated to the right lower extremity. #2. Continue heparin precautions with abductor pillow. #3. Continue Coumadin for anticoagulation. #4. Discontinue Lovenox and aspirin if okay with internal medicine. #5. Continue daily dressing changes and routine postoperative care. #6. Likely discharged home today or tomorrow.
[2017-07-05] MEDS: HYDROcodone/APAP 5-325MG 1 EACH TAB PO PRN ×2 (10:33→20:02)
[2017-07-05] MEDS ORDERED: traMADol 50 MG TAB PO PRN (15:40)
--- NOTE | 2017-07-05 15:40 | P.PN ---
Subjective Progress note being dictated for Dr. Alvarez. Interval history:This 81-year-old white male presents with a complaint of some diffuse abdominal pain and rectal pressure as well as severe right hip pain. He states that he feels he is somewhat constipated and has not had a bowel movement in 2 days. He normally has a bowel movement once a day. He states that he is now having some difficulty with urination as well and thinks this is due to his constipation. He apparently was able to only pass "small palpable" earlier today. He states that there was a small amount of blood in his stool at that time. Received enema, followed by normal bowel movement. He relates that since 06/15/2017, he is had excruciating pain in his right hip. He states that he went to sit up in his chair and he developed severe pain in his right hip. He has had this continuously for the past 19 days. His been seen by his primary physician and had x-rays and also followed up with [facility]. Computed tomography scan/xray reports right femoral neck fracture. He is been told that he needs a right hip replacement. He denies any trauma to the right hip. He apparently was taking some hydrocodone and believes this made him constipated. He denies any nausea vomiting or diarrhea or fever/ chills. He has been able to ambulate with a cane with significant difficulty and also has a walker at home. Denies any numbness ,tingling.He denies any other complaints or modifying factors. EKG sinus rhythm with first-degree block. No ST elevation. Denies chest pain, palpitations or increasing shortness of breath. 07/05/2017 status post right hemiarthroplasty, postop day #1. Sitting up in chair, pain controlled. Passing flatus, no bowel movement. Denies chest pain, palpitations or increasing shortness of breath. Anticoagulated on Coumadin as per orthopedics. Hemoglobin 12.3. Objective - Vital Signs Vital signs: Vital Signs Temp 98.1 F 07/05/17 15:14 Pulse 69 07/05/17 15:14 Resp 16 07/05/17 15:14 BP 152/56 07/05/17 15:14 Pulse Ox 96 07/05/17 15:14 Intake & Output 07/04/17 07/05/17 07/05/17 18:59 06:59 18:59 Intake Total 601 200 Output Total 650 300 Balance -49 -300 200 Weight 68.039 kg 68.039 kg Intake: IV 601 Intake, IV Titration 200 Amount Sodium Chloride 0.9% 1, 200 000 ml @ 65 mls/hr IV . [id number] [facility] Rx#:[id number] Output: Urine 550 300 Estimated Blood Loss 100 Other: # Voids 2 # Bowel Movements 1 - Exam VITAL SIGNS: As above GENERAL: Sitting up in chair, no acute distress HEENT: Conjunctivae normal. eyes normal. NECK: No JVD. No thyroid enlargement. No LNs CARDIOVASCULAR: Regular S1, S2, positive systolic murmur, no rubs, no gallops RESPIRATION: Breath sounds diminished in the bases. No rhonchi or crackles. No bronchial breathing. ABDOMEN: Soft, nontender . No guarding. no masses palpable. No ascites, No hepatosplenomegaly.Bowel sounds heard. LEGs: Status post surgery, extremity warm, flexing foot using foot sales floor associate. PSYCHIATRY: Alert and oriented -3, mood and affect normal. NERVOUS SYSTEM: Cranial N 2-12 grossly normal. Moves all 4 limbs. No focal deficits. No sensory deficit. Skin: no ulcer no rash Joints: No active swelling. No inflammation. Lymphatic system. No LN neck axilla or groin. - Labs CBC & Chem 7: 07/05/17 07:18 07/05/17 07:18 Labs: Abnormal Lab Results - Last 24 Hours (Table) 07/04/17 07/05/17 07/05/17 Range/Units 18:15 07:18 07:18 WBC 11.8 H (3.8-10.6) k/uL RBC 4.03 L 3.77 L (4.30-5.90) m/uL Hgb 12.9 L 12.3 L (13.0-17.5) gm/dL Hct 37.8 L 35.4 L (39.0-53.0) % Neutrophils # 9.8 H (1.3-7.7) k/uL Lymphocytes # 0.7 L (1.0-4.8) k/uL PT (9.0-12.0) sec INR (<1.2) Carbon Dioxide 21 L (22-30) mmol/L Glucose 110 H (74-99) mg/dL 07/05/17 Range/Units 07:18 WBC (3.8-10.6) k/uL RBC (4.30-5.90) m/uL Hgb (13.0-17.5) gm/dL Hct (39.0-53.0) % Neutrophils # (1.3-7.7) k/uL Lymphocytes # (1.0-4.8) k/uL PT 12.2 H (9.0-12.0) sec INR 1.2 H (<1.2) Carbon Dioxide (22-30) mmol/L Glucose (74-99) mg/dL Assessment and Plan Plan: 1. Right femur neck fracture, status post right hemiarthroplasty 2. CAD, history of CABG, denies history of AL 3. Mild to moderate mitral and aortic regurgitation, EF 55%. 4. History of nicotine dependence, smoked for 30 years, quit smoking 30 years ago 5. Possible COPD, chronic, not acute. 6. Constipation secondary to pain management/opioid use. Plan: Continue on current medication regime ,monitoring and symptomatic treatment. PT/OT. Given patient's age would avoid opioids, narcotics, recomend Ketrolac. GI prophylaxis in place .Anticoagulation and pain management per primary, orthopedic surgery. Further recommendations to follow. Discharge planning in progress per orthopedics , possibly a subacute rehab. The impression and plan of care has been dictated as directed as a scribe. : I performed a H&P examination of this patient and discussed the same with the dictator. I agree with the dictator's note. Any additional findings/opinions/ etc. will be noted.
[2017-07-05] MEDS ORDERED: WARFARIN 5 MG TAB PO ONE (18:00)
[2017-07-05] MEDS: ATORVASTATIN 10 MG TAB PO SCH (20:01)
[2017-07-06] MEDS: SODIUM CHLORIDE 0.9% 1,000 ML IV SCH ×2 (02:35→16:58)
[2017-07-06] MEDS: KETOROLAC 30 MG/ML 1 ML VIAL IVP SCH ×4 (04:55→23:19)
[2017-07-06] MEDS: HYDROcodone/APAP 5-325MG 1 EACH TAB PO PRN (06:23)
[2017-07-06] MEDS ORDERED: PANTOPRAZOLE 40 MG TABLET PO SCH (07:30)
[2017-07-06] MEDS ORDERED: HYDROcodone/APAP 7.5-325MG 1 EACH TAB PO PRN (08:18)
[2017-07-06] MEDS: HYDROcodone/APAP 7.5-325MG 1 EACH TAB PO PRN (08:40)
--- NOTE | 2017-07-06 08:42 | P.PN ---
Subjective Principal diagnosis: S/P right hemiarthroplasty, right subcapital hip fracture This is a pleasant 81yo male who is post right hemiarthroplasty after sustaining a right hip fracture. This is postoperative day #2. Patient complains of increased pain in the hip today. Patient states he was able to get out of bed yesterday and walk to the bathroom. Patient denies any fever/chills, numbness, weakness or tingling. Objective - Vital Signs Vital signs: Vital Signs Temp 99.3 F 07/06/17 07:15 Pulse 73 07/06/17 07:15 Resp 16 07/06/17 07:15 BP 129/62 07/06/17 07:15 Pulse Ox 93 L 07/06/17 07:15 Intake & Output 07/05/17 07/06/17 07/06/17 18:59 06:59 18:59 Intake Total 200 130 Output Total 900 250 Balance 200 -770 -250 Weight 68.039 kg Intake: Intake, IV Titration 200 130 Amount Sodium Chloride 0.9% 1, 200 130 000 ml @ 65 mls/hr IV . [id number] [facility] Rx#:[id number] Output: Urine 900 250 Uretheral ([place]) 400 250 - Exam Vital signs are stable. Patient is in no acute distress and is alert and oriented 3. Calf is soft and nontender. Dressing is clean, dry, and intact. Neurovascular status intact. Patient has full foot and ankle motion. - Labs CBC & Chem 7: 07/05/17 07:18 07/05/17 07:18 Assessment and Plan (1) Subcapital fracture of neck of right femur Status: Acute Plan: #1. Weightbearing as tolerated to the right lower extremity. #2. Continue hip precautions with abductor pillow. #3. Continue pain control and Coumadin for anticoagulation. #4. Continue daily dressing changes and routine postoperative care. #5. Discharge home or to rehab in the future.
[2017-07-06 13:19] LABS: Basophils % (A) 0 %; CH 32.9; Eosinophils # (A) 0.1 k/uL (0-0.7); Eosinophils % (A) 1 %; HCT 35.3 % (39.0-53.0); HDW 2.57; HGB 11.8 gm/dL (13.0-17.5); Luc # (Auto) 0.15; Luc % (Auto) 1; Lymphocytes # (A) 0.8 k/uL (1.0-4.8); Lymphocytes % (A) 7 %; MCH 32.4 pg (25.0-35.0); MCHC 33.3 g/dL (31.0-37.0); MCV 97.3 fL (80.0-100.0); Mean Platelet Volume 7.3; Monocytes # (A) 0.7 k/uL (0-1.0); Monocytes % (A) 7 %; Neutrophils # (A) 8.7 k/uL (1.3-7.7); Neutrophils % (A) 83 %; RBC 3.63 m/uL (4.30-5.90); WBC 10.5 k/uL (3.8-10.6); WBC (Perox) 11.19
[2017-07-06 13:22] LABS: INR 1.4 (<1.2); Prothrombin Time 13.7 sec (9.0-12.0)
--- NOTE | 2017-07-06 16:36 | P.PN ---
Subjective Progress note being dictated for Dr. Alvarez. Interval history:This 81-year-old white male presents with a complaint of some diffuse abdominal pain and rectal pressure as well as severe right hip pain. He states that he feels he is somewhat constipated and has not had a bowel movement in 2 days. He normally has a bowel movement once a day. He states that he is now having some difficulty with urination as well and thinks this is due to his constipation. He apparently was able to only pass "small palpable" earlier today. He states that there was a small amount of blood in his stool at that time. Received enema, followed by normal bowel movement. He relates that since 06/15/2017, he is had excruciating pain in his right hip. He states that he went to sit up in his chair and he developed severe pain in his right hip. He has had this continuously for the past 19 days. His been seen by his primary physician and had x-rays and also [facility]. Computed tomography scan/xray reports right femoral neck fracture. He is been told that he needs a right hip replacement. He denies any trauma to the right hip. He apparently was taking some hydrocodone and believes this made him constipated. He denies any nausea vomiting or diarrhea or fever/ chills. He has been able to ambulate with a cane with significant difficulty and also has a walker at home. Denies any numbness ,tingling.He denies any other complaints or modifying factors. EKG sinus rhythm with first-degree block. No ST elevation. Denies chest pain, palpitations or increasing shortness of breath. 07/05/2017 status post right hemiarthroplasty, postop day #1. Sitting up in chair, pain controlled. Passing flatus, no bowel movement. Denies chest pain, palpitations or increasing shortness of breath. Anticoagulated on Coumadin as per orthopedics. Hemoglobin 12.3. 07/06/2017 sitting up in chair, increased pain today with pain management adjusted to [place]. Good diet intake with no nausea or vomiting. No bowel movement, passing flatus. Anticoagulated on Coumadin. T-max 99.3, normal WBC. Incentive spirometer up to 2200. Denies chest pain, palpitations or increasing shortness of breath. Objective - Vital Signs Vital signs: Vital Signs Temp 99.3 F 07/06/17 07:15 Pulse 73 07/06/17 07:15 Resp 16 07/06/17 07:15 BP 129/62 07/06/17 07:15 Pulse Ox 93 L 07/06/17 07:15 Intake & Output 07/05/17 07/06/17 07/06/17 18:59 06:59 18:59 Intake Total 200 130 Output Total 900 250 Balance 200 -770 -250 Weight 68.039 kg Intake: Intake, IV Titration 200 130 Amount Sodium Chloride 0.9% 1, 200 130 000 ml @ 65 mls/hr IV . [id number] TREVOR Rx#:[id number] Output: Urine 900 250 Uretheral ([place]) 400 250 - Labs CBC & Chem 7: 07/06/17 12:59 07/05/17 07:18 Assessment and Plan Plan: 1. Right femur neck fracture, status post right hemiarthroplasty 2. CAD, history of CABG, denies history of MO 3. Mild to moderate mitral and aortic regurgitation, EF 55%. 4. History of nicotine dependence, smoked for 30 years, quit smoking 30 years ago 5. Possible COPD, chronic, not acute. 6. Constipation secondary to pain management/opioid use. Plan: Continue on current medication regime ,monitoring and symptomatic treatment. Aggressive pulmonary toileting, incentive spirometer. PT/OT. Anticoagulation and pain management per primary, orthopedic surgery. Further recommendations to follow. Discharge planning in progress per orthopedics , possibly a subacute rehab. The impression and plan of care has been dictated as directed as a scribe. : I performed a H&P examination of this patient and discussed the same with the dictator. I agree with the dictator's note. Any additional findings/opinions/ etc. will be noted.
[2017-07-06] MEDS ORDERED: WARFARIN 5 MG TAB PO ONE (18:00)
[2017-07-06] MEDS: ATORVASTATIN 10 MG TAB PO SCH (20:11)
[2017-07-07] MEDS: KETOROLAC 30 MG/ML 1 ML VIAL IVP SCH (05:37)
[2017-07-07] MEDS: HYDROcodone/APAP 7.5-325MG 1 EACH TAB PO PRN (05:39)
[2017-07-07 07:43] LABS: Basophils % (A) 0 %; CH 32.9; CHCM 34.2; Eosinophils # (A) 0.1 k/uL (0-0.7); Eosinophils % (A) 1 %; HCT 33.4 % (39.0-53.0); HDW 2.56; Luc # (Auto) 0.09; Luc % (Auto) 1; Lymphocytes # (A) 0.7 k/uL (1.0-4.8); Lymphocytes % (A) 10 %; MCH 31.8 pg (25.0-35.0); MCHC 32.9 g/dL (31.0-37.0); MCV 96.7 fL (80.0-100.0); Mean Platelet Volume 7.4; Monocytes # (A) 0.5 k/uL (0-1.0); Monocytes % (A) 8 %; Neutrophils # (A) 5.5 k/uL (1.3-7.7); Neutrophils % (A) 80 %; RBC 3.45 m/uL (4.30-5.90); RDW 13.6 % (11.5-15.5); WBC 6.8 k/uL (3.8-10.6); WBC (Perox) 7.16
[2017-07-07 08:04] LABS: Anion Gap 6 mmol/L; Blood Urea Nitrogen 15 mg/dL (9-20); Calcium 8.3 mg/dL (8.4-10.2); Carbon Dioxide 23 mmol/L (22-30); Chloride 103 mmol/L (98-107); Glucose 98 mg/dL (74-99); Non-African American GFR(MDRD) >60 (>60 ml/min/1.73 sqM); Potassium 4.8 mmol/L (3.5-5.1); Sodium 132 mmol/L (137-145)
[2017-07-07] MEDS: ONDANSETRON 4 MG/2 ML VIAL IVP PRN (08:30)
--- NOTE | 2017-07-07 09:23 | P.DS ---
Providers Date of admission: 07/03/17 16:54 Expected date of discharge: 07/07/17 Attending physician: Troy Stout Consults: 07/04/17 08:37 Consult Physician Stat Consulting Provider: Benoit Luna Reason/Comments: Medical clearance for right hemiarthroplasty Do you want consulting provider notified?: Yes Primary care physician: Lizzy Becker Hospital Course: This 81-year-old female that suffered a fall and subsequent right hip fracture on 07/03/2017. On 07/04/2017 she underwent a right hip hemiarthroplasty which she tolerated well without complication. Her postoperative hospital course has remained without complication. On day of discharge she is afebrile, vital signs stable, labs within acceptable ranges, tolerating by mouth meds and diet, voiding without difficulty, positive flatus, denies abdominal pain or calf pain , pain is controlled on oral pain medication and has no new complaints. Wound is benign, neurovascular status is intact, calf is soft and nontender, abdomen soft and nontender. Review of systems is negative for numbness, tingling, fever , chills, chest pain, shortness breath, nausea, vomiting, dizziness, headaches, slurred speech or other. Procedures: Right hip hemiarthroplasty Patient Condition at Discharge: Fair Plan - Discharge Summary New Discharge Prescriptions: New HYDROcodone/APAP 5-325MG [[place] 5-325] 1 - 2 tab PO Q4-6H PRN #90 tab PRN Reason: Pain Sennosides-Docusate Sodium [Senokot-S] 1 tab PO BID #60 tablet Warfarin Sodium [Coumadin] 2.5 mg PO DAILY #30 tablet No Action predniSONE See Taper PO DAILY HYDROcodone/APAP 7.5-325MG [[place] 7.5-325] 1 - 2 tab PO Q6HR PRN PRN Reason: Pain Atorvastatin Calcium [Lipitor] 10 mg PO HS Felodipine ER [Plendil] 5 mg PO DAILY Aspirin EC [Ecotrin Low Dose] 81 mg PO DAILY Discharge Medication List Aspirin EC [Ecotrin Low Dose] 81 mg PO DAILY 07/03/17 [History] Atorvastatin Calcium [Lipitor] 10 mg PO HS 07/03/17 [History] Felodipine ER [Plendil] 5 mg PO DAILY 07/03/17 [History] HYDROcodone/APAP 7.5-325MG [[place] 7.5-325] 1 - 2 tab PO Q6HR PRN 07/03/17 [ History] predniSONE See Taper PO DAILY 07/03/17 [History] HYDROcodone/APAP 5-325MG [[place] 5-325] 1 - 2 tab PO Q4-6H PRN #90 tab 07/05/17 [ Rx] Sennosides-Docusate Sodium [Senokot-S] 1 tab PO BID #60 tablet 07/05/17 [Rx] Warfarin Sodium [Coumadin] 2.5 mg PO DAILY #30 tablet 07/05/17 [Rx] Follow up Appointment(s)/Referral(s): Troy Stout DO [Doctor of Osteopathic Medicine] - 10 Days Ambulatory/Diagnostic Orders: Prothrombin Time INR [LAB.AMB] Time Frame: 4 Weeks, Location: Determined By Patient Activity/Diet/Wound Care/Special Instructions: Weightbearing as tolerated with walker May shower after 2 days if no drainage from the incision Continue use of abductor pillow for 6 weeks Follow-up with [facility] in 10 days, call [phone] with any questions or concerns Discharge Disposition: TRANSFER TO SNF/ECF
[2017-07-07] MEDS ORDERED: LOPERAMIDE 2 MG CAP PO STA (11:35)
[2017-07-07] MEDS ORDERED: PANTOPRAZOLE 40 MG/10 ML VIAL IVP SCH ×2 (12:00→21:00)
[2017-07-07] MEDS ORDERED: HYDROcodone/APAP 5-325MG 1 EACH TAB PO PRN (16:19)
[2017-07-07 17:07] LABS: INR 1.7 (<1.2); Prothrombin Time 16.8 sec (9.0-12.0)
[2017-07-07 17:09] LABS: Bilirubin, Delta 0.1 mg/dL (0.0-0.2); Total Bilirubin 0.6 mg/dL (0.2-1.3)
[2017-07-07] MEDS: LOPERAMIDE 2 MG CAP PO SCH ×2 (17:34→20:32)
[2017-07-07] MEDS ORDERED: WARFARIN 5 MG TAB PO ONE (18:00)
--- NOTE | 2017-07-07 19:38 | PN ---
PROGRESS NOTE DATE OF SERVICE: 07/07/2017 INTERVAL HISTORY: This 81-year-old gentleman who was admitted with right hip femoral neck fracture had right hip hemiarthroplasty. The patient also receiving PT/OT evaluation. Patient is slated to go to rehab today. Hemoglobin is 11 at this time. Sodium is 132, INR is 1.4. However, the patient is complaining of nausea and vomiting, not feeling well and as well as diarrhea overnight. Patient being closely monitored. PAST MEDICAL HISTORY: Reviewed. REVIEW OF SYSTEMS: Cardiovascular: No angina or palpitations. Respiratory: As mentioned earlier. GI: No nausea or vomiting. : No dysuria. Nervous system: No numbness, weakness. CURRENT MEDICATIONS ARE: Reviewed and include: 1. Tylenol 650 q.6h p.r.n. 2. [place] 7.5. 3. Lipitor 10 mg. 4. Valium. 5. Toradol 30 mg. 6. Imodium. 7. Coumadin. 8. Zofran. 9. Protonix. 10.Ultram. PHYSICAL EXAM: Patient is alert, oriented x2. Pulse 89, blood pressure 119/64, respirations 18, temperature 98.2, pulse ox 97% on room air. HEENT: Conjunctivae normal. Oral mucosa moist. Neck is no jugular venous distention. No carotid bruit. No lymph node enlargement. Cardiovascular system: S1, S2 muffled. No S3, no S4. RESPIRATORY: Breath sounds diminished in the bases. A few scattered rhonchi. No crackles. ABDOMEN: Soft, nontender. No mass palpable. Legs: Status post arthroplasty. Nervous system: Higher functions as mentioned earlier. Moves all four limbs. No focal deficits. Lymphatics: No lymph nodes palpable in the neck, axillae or groin. Skin no ulcer, rash or bleeding. LAB STUDIES: WBC 6.8, hemoglobin 11, sodium 132. ASSESSMENT: 1. Status post right femoral neck fracture and right hemiarthroplasty. 2. Coronary artery disease, coronary artery bypass grafting history. 3. Nausea, vomiting, possible acute gastritis. 4. Hyponatremia mild. 5. Mild to moderate mitral and aortic regurgitation. Ejection fraction 55%. 6. History of nicotine dependence. 7. Chronic obstructive pulmonary disease. RECOMMENDATIONS AND DISCUSSION: This 81-year-old gentleman who presented with multiple complex medical issues. We will monitor the patient closely. Continue the current management, Continue symptomatic treatment. Avoid NSAIDS. Otherwise, I would recommend proton pump inhibitors. Cut down the dose of [place] and cautious IV fluids. Repeat labs. Stool for C difficile. Prognosis guarded. Plan liquid diet and once the patient is feeling better diet may be advanced. Prognosis guarded because of multiple complex medical issues. Further recommendations to follow. MMODL / IJN: [id number] /
[2017-07-07] MEDS: SODIUM CHLORIDE 0.9% 1,000 ML IV SCH ×2 (20:23→23:22)
[2017-07-07] MEDS: ATORVASTATIN 10 MG TAB PO SCH (20:31)
[2017-07-07] MEDS: PANTOPRAZOLE 40 MG TABLET PO SCH (20:42)
[2017-07-08 07:08] LABS: Basophils % (A) 0 %; CH 32.8; CHCM 34.4; Eosinophils # (A) 0.1 k/uL (0-0.7); Eosinophils % (A) 2 %; HCT 33.4 % (39.0-53.0); HGB 11.1 gm/dL (13.0-17.5); Luc % (Auto) 2; Lymphocytes # (A) 0.9 k/uL (1.0-4.8); Lymphocytes % (A) 14 %; MCH 31.8 pg (25.0-35.0); MCHC 33.1 g/dL (31.0-37.0); Mean Platelet Volume 7.8; Monocytes # (A) 0.5 k/uL (0-1.0); Monocytes % (A) 8 %; Neutrophils # (A) 4.8 k/uL (1.3-7.7); Neutrophils % (A) 75 %; RBC 3.47 m/uL (4.30-5.90); RDW 14.1 % (11.5-15.5); WBC 6.4 k/uL (3.8-10.6); WBC (Perox) 6.43
[2017-07-08 07:10] LABS: INR 2.3 (<1.2); Prothrombin Time 22.4 sec (9.0-12.0)
[2017-07-08 07:25] LABS: Anion Gap 5 mmol/L; Blood Urea Nitrogen 14 mg/dL (9-20); Calcium 8.6 mg/dL (8.4-10.2); Carbon Dioxide 24 mmol/L (22-30); Chloride 105 mmol/L (98-107); Glucose 94 mg/dL (74-99); Non-African American GFR(MDRD) >60 (>60 ml/min/1.73 sqM); Potassium 4.4 mmol/L (3.5-5.1); Sodium 134 mmol/L (137-145)
[2017-07-08 09:04] VITALS: BP 118/64; PULSE 66; RESP 18; TEMP 98.2
[2017-07-08] MEDS: PANTOPRAZOLE 40 MG TABLET PO SCH (09:10)
[2017-07-08] MEDS: LOPERAMIDE 2 MG CAP PO SCH ×2 (09:10→12:35)
[2017-07-08] MEDS ORDERED: WARFARIN 2.5 MG TAB PO SCH (18:00)
--- NOTE | 2017-07-08 18:07 | P.PN ---
Subjective Principal diagnosis: This 81-year-old gentleman with a past medical history multiple medical problems was admitted with a right-sided femoral fracture. Patient underwent a right hip hemiarthroplasty. Patient had significant nausea vomiting. Patient treated with Protonix IV. Patient improved significantly. The medications also suggested. PTOT saw the patient . Patient is being followed Dr. Rodriguez in the outpatient setting. He he'll be referred to be admitted large for continued rehab.. I also recommended the patient to follow-up with Dr. Rodriguez after [facility] to [facility]. Orthopedics also following the patient closely. DVT progress also suggested. I also recommended continue DVT and a monitored closely in the ECF also. Review of systems Cardio system no angina palpation,. Respirator system no cough hemoptysis. GI mentioned earlier no system. Assessment. Medication list reviewed necrosis were noted. On exam, alert and oriented x3. Vitals are noted please see chart HEENT: Conjunctivae normal. eyes normal. NECK: No JVD. No thyroid enlargement. No LNs CARDIOVASCULAR: S1, S2 muffled. No murmur RESPIRATION: Breath sounds diminished in the bases. No rhonchi or crackles. No bronchial breathing. ABDOMEN: Soft, nontender . No guarding. no masses palpable. No ascites, No hepatosplenomegaly.Bowel sounds heard. LEGS: No edema. no swelling NERVOUS SYSTEM: Cranial N 2-12 grossly normal. Moves all 4 limbs. No focal deficits. No sensory deficit. No signs of cerebellar dysfucntion. Skin: no ulcer no rash Joints: No active swelling. No inflammation. Lymphatic system. No LN neck axilla or groin. Final diagnoses 1. Status post right femoral neck fracture right hip hemiarthroplasty 2. CAD CABG 3. Nausea vomiting possible acute gastritis. 4. Hyponatremia mild. 5. [id number] mitral and aortic regurgitation ejection fraction 2%. 6. History and nicotine dependence 7. COPD Recommendations. In this 81-year-old gentleman who was admitted with the multiple medical issues I would recommend the patient to be transferred to [facility]. I would recommend to continue the home medications. Continue the DVT prophylaxis with Coumadin. Monitor PT/INR closely. Also recommended to Protonix by mouth twice a day. Close follow-up with the orthopedic surgery in the outpatient setting as mentioned earlier. Follow-up with the Dr. Rodriguez also immediately after discharge from ECF. Discuss with family. Objective - Vital Signs Vital signs: Vital Signs Temp 98.2 F 07/08/17 08:00 Pulse 66 07/08/17 08:00 Resp 18 07/08/17 08:00 BP 118/64 07/08/17 08:00 Pulse Ox 95 07/08/17 08:00 Intake & Output 07/07/17 07/08/17 07/08/17 18:59 06:59 18:59 Intake Total 300 1050 Output Total 600 1600 Balance -300 -550 Intake: Oral 300 1050 Output: Urine 600 1600 Other: # Voids 5 # Bowel Movements 1 - Labs CBC & Chem 7: 07/08/17 06:45 07/08/17 06:45 Labs: Abnormal Lab Results - Last 24 Hours (Table) 07/08/17 07/08/17 07/08/17 Range/Units 06:45 06:45 06:45 RBC 3.47 L (4.30-5.90) m/uL Hgb 11.1 L (13.0-17.5) gm/dL Hct 33.4 L (39.0-53.0) % Lymphocytes # 0.9 L (1.0-4.8) k/uL PT 22.4 H (9.0-12.0) sec INR 2.3 H (<1.2) Sodium 134 L (137-145) mmol/L
== END 2017-07-08 13:39 | DRG 470 ==
LOC: EC 13:03 → 3SUR 16:54
PROVIDERS: ADMIT Orthopaedic Surgery; ATTEND Orthopaedic Surgery
PROC: 0SR901A Replacement of Right Hip Joint with Metal Synthetic Substitute, Uncemented, Open Approach (ICD-10-PCS; principal; 2017-07-04 16:00)
DX: S72.011A Unspecified intracapsular fracture of right femur, initial encounter for closed fracture (principal); E87.1 Hypo-osmolality and hyponatremia; J44.9 Chronic obstructive pulmonary disease, unspecified; K62.5 Hemorrhage of anus and rectum; I44.0 Atrioventricular block, first degree; K59.00 Constipation, unspecified; I08.0 Rheumatic disorders of both mitral and aortic valves; I25.10 Atherosclerotic heart disease of native coronary artery without angina pectoris; I10 Essential (primary) hypertension; Z95.1 Presence of aortocoronary bypass graft; E78.5 Hyperlipidemia, unspecified; Z87.891 Personal history of nicotine dependence; Z79.82 Long term (current) use of aspirin; Z79.52 Long term (current) use of systemic steroids; Z79.899 Other long term (current) drug therapy; Z85.46 Personal history of malignant neoplasm of prostate; Z85.820 Personal history of malignant melanoma of skin; Z92.3 Personal history of irradiation; X50.9XXA Other and unspecified overexertion or strenuous movements or postures, initial encounter
CPT/HCPCS: 36415; 71020; 73501; 73502; 74177; 80048; 80053; 80076; 81003; 82150; 82272; 83690; 85025; 85610; 85730; 86850; 86900; 86901; 93005; 96361; 96374; 96375; 99285

== ENCOUNTER → 2017-12-14 | Outpatient (CLI) | payer MEDICARE, BC ==
--- NOTE | 2017-12-14 12:29 | XR ---
EXAMINATION TYPE: XR chest 2V DATE OF EXAM: 12/14/2017 COMPARISON: Prior chest x-ray July 03, 2017. HISTORY: Pre-MRI clearance. History of open heart surgery 2003. TECHNIQUE: Frontal and lateral views of the chest are obtained. FINDINGS: Sternal wires and mediastinal clips are redemonstrated. There is chronic parenchymal change without suspicious new focal air space opacity, pleural effusion, or pneumothorax seen. The cardiac silhouette size is stable and upper limits of normal with atherosclerotic thoracic aorta. The osse ous structures remain demineralized with underlying scoliosis and multilevel spurring and disc space narrowing. IMPRESSION: Chronic changes without acute cardiopulmonary process. No evidence of epicardial pacer w ires to prevent MRI study.
== END | disposition home or self-care (01) ==
LOC: RADXRMAIN 11:58
PROVIDERS: ATTEND Physical Medicine & Rehabilitation
DX: Z01.818 Encounter for other preprocedural examination (principal); J98.4 Other disorders of lung
CPT/HCPCS: 71046

== ENCOUNTER → 2019-05-07 | Outpatient (CLI) | payer MEDICARE, BC ==
--- NOTE | 2019-05-07 17:06 | MR ---
EXAMINATION TYPE: MR lumbar spine wo con DATE OF EXAM: 05/07/2019 COMPARISON: Plain film dated 06/28/2017 HISTORY: LBP, RLE radic TECHNIQUE: Multiplanar, multisequence images of the lumbar spine were acquired. L1-L2: Hypertrophic changes of the facets, ligamentum flavum causes posterior lateral mass effect on the thecal sac. Circumferential extension endplate disc complex results in foraminal encroachment gre ater on the left. Broad-based posterior disc bulge causes anterior mass effect on the thecal sac, mil d central stenosis. L2-L3: Hypertrophic changes of the facets, ligamentum flavum causes some posterior lateral mass effec t on the thecal sac greater from the right. No significant foraminal encroachment. Posterior extensio n of heart disc causes some mild anterior mass effect on the thecal sac, there is mild central stenos is. L3-L4: There is severe spinal stenosis. Facet arthropathy with hypertrophic change of the ligamentum flavum as well as posterior extension endplate disc complex combines to cause the spinal stenosis. Ci rcumferential extension endplate disc complex results in foraminal encroachment greater on the right than on the left. L4-L5: Spinal stenosis is contributed by the posterior extension of heart discs, hypertrophic changes at the facets and ligamentum flavum results in severe spinal stenosis. Circumferential extension of endplates encroaches on the foramen greater on the right than on the left. The facet arthropathy encr oaches somewhat on the lateral recess greater on the left. No disc herniation. L5-S1: Facet arthropathy changes are present. Hypertrophic changes of the facets noted, there is some encroachment on the left lateral recess. Circumferential extension endplate disc complex encroaches on the left neural foramen. No evident disc herniation. No significant spinal stenosis. Lumbar segments are intact. No paraspinal masses are identified. Conus medullaris has a normal appe arance. There is obliteration of the disc space at L4-5, partial ankylosis. There is a marked scolios is. There is multilevel spondylosis with endplate discogenic marrow signal change, loss of disc heigh t signal is present at intervertebral levels, partial ankylosis also present at L2-3. IMPRESSION: Multilevel spinal stenosis, facet arthropathy, degenerative disc disease as described.
== END | disposition home or self-care (01) ==
LOC: RADMRIMAIN 15:57
PROVIDERS: ATTEND Family Medicine
DX: M48.061 Spinal stenosis, lumbar region without neurogenic claudication (principal); M51.36 Other intervertebral disc degeneration, lumbar region; M46.96 Unspecified inflammatory spondylopathy, lumbar region
CPT/HCPCS: 72148

== ENCOUNTER → 2019-09-03 | Outpatient (CLI) | payer MEDICARE, BC ==
--- NOTE | 2019-09-03 15:05 | BD ---
EXAMINATION TYPE: Axial Bone Density DATE OF EXAM: 09/03/2019 COMPARISON: NONE CLINICAL HISTORY: M 78.08 Height: 67 inches Weight: 144 FRAX RISK QUESTIONS: Alcohol (3 or more units per day): no Family History (Parent hip fracture): does not know Glucocorticoids (More than 3mos): no (Ex: prednisone, prednisolone, methylprednisolone, dexamethasone, and hydrocortisone). History of Fracture in Adulthood: yes Secondary Osteoporosis: 1. Type 1 Diabetes: no 2. Hyperthyroidism: no 3. Menopause before 45: n/a 4. Malnutrition: no 5. Chronic liver disease: no Rheumatoid Arthritis: no Current Tobacco Use: no RISK FACTORS HISTORY OF: Hip Fracture (Right): yes When: 2016 Spine Fracture: no Surgery to lumbar spine: yes When: June 2019 Surgery to Hip(right): yes When: 2016 Family History of Osteoporosis: unsure Active: somewhat-uses walker Diet low in dairy products/other sources of calcium: somewhat, occasional servings Postmenopausal woman: n/a Take estrogen and/or progesterone medications: n/a Lost more than 2 inches in height since high school: unsure Frequent falls: no Poor Health: no, states patient, except for back & hip Hyperparathyroidism: no Adrenal Insufficiency: no MEDICATIONS: Prednisone or other steroids: no Thyroid Medications: no Osteoporosis Medications: no Additional Medications: cholesterol med, pain med, baby aspirin Additional History: osteoarthritis (patient bent over, difficult to measure height standing..measured with patient flat on back on table) EXAM MEASUREMENTS: Bone mineral densitometry was performed using the [employer] System. Bone mineral density NOT measured about the Lumbar spine because of recent lumbar back surgery Bone mineral density about the L hip (g/cm2): 0.799 T Score values are as follows: -----L Neck: -1.7 -----L Total: -2.0 Bone mineral density BASELINE Bone mineral density about the L Wrist (g/cm2): 0.531 T Score values are as follows: -----Dist. R+U: -0.9 -----Prox. R+U: -3.6 -----Radius total: -3.2 Bone mineral density BASELINE IMPRESSION: Osteoporosis (T Score less than -2.5). There is increased fracture risk and therapy is usually indicated based on age. Re-Screen 1-2 years. NOTE: T-SCORE=SD OF THE YOUNG ADULT MEAN.
== END | disposition home or self-care (01) ==
LOC: RADBDWWP 10:17
PROVIDERS: ATTEND Family Medicine
DX: M81.0 Age-related osteoporosis without current pathological fracture (principal)
CPT/HCPCS: 77080

== ENCOUNTER 2020-01-16 16:47 | Inpatient (IN) | payer MEDICARE, BC ==
[2020-01-16] MEDS ORDERED: SODIUM CHLORIDE 0.9% 500 ML 500 ML IV STA (17:08)
[2020-01-16 17:20] LABS: Basophils % (A) 0 %; Eosinophils % (A) 0 %; HCT 44.7 % (39.0-53.0); HGB 15.1 gm/dL (13.0-17.5); Lymphocytes # (A) 0.7 k/uL (1.0-4.8); Lymphocytes % (A) 15 %; MCH 30.6 pg (25.0-35.0); MCHC 33.8 g/dL (31.0-37.0); MCV 90.7 fL (80.0-100.0); Mean Platelet Volume 7.8; Monocytes # (A) 0.3 k/uL (0-1.0); Monocytes % (A) 7 %; Neutrophils # (A) 3.3 k/uL (1.3-7.7); Neutrophils % (A) 75 %; Platelet Count 199 k/uL (150-450); RBC 4.93 m/uL (4.30-5.90); RDW 14.5 % (11.5-15.5); WBC 4.4 k/uL (3.8-10.6)
[2020-01-16 17:31] LABS: Partial Thromboplastin Time 23.5 sec (22.0-30.0); Prothrombin Time 10.5 sec (9.0-12.0)
[2020-01-16 17:33] LABS: Albumin 4.4 g/dL (3.5-5.0); Calcium 9.5 mg/dL (8.4-10.2); Magnesium 1.8 mg/dL (1.6-2.3); Potassium 4.6 mmol/L (3.5-5.1); Total Protein 7.5 g/dL (6.3-8.2)
--- NOTE | 2020-01-16 17:50 | XR ---
EXAMINATION TYPE: XR chest 2V DATE OF EXAM: 01/16/2020 COMPARISON: 12/14/2017 HISTORY: 84-year-old male with weakness and cough TECHNIQUE: AP and lateral views FINDINGS: Median sternotomy wires are present with post-CABG clips in the mediastinum. Heart borderline enlarge d. Hazy peripheral densities likely relate to overlying soft tissue. Mild diffuse interstitial densit y is unchanged and appears chronic. Otherwise, no wilfredo consolidation or pleural effusion. IMPRESSION: Chronic appearing changes. Some hazy peripheral densities likely relate to overlying soft tissue. No definite acute process.
[2020-01-16] MEDS ORDERED: SODIUM CHLORIDE 0.9% 500 ML 500 ML IV ONE (18:14)
[2020-01-16] MEDS ORDERED: hydrALAZINE HCL 20 MG/ML 1 ML VIAL IVP STA (18:14)
[2020-01-16] MEDS ORDERED: HEPARIN SODIUM,PORCINE 5,000 UNIT/ML 1 ML VIAL IV PRN (18:25)
[2020-01-16] MEDS ORDERED: HEPARIN SODIUM,PORCINE 5,000 UNIT/ML 1 ML VIAL IV ONE (18:25)
[2020-01-16] MEDS ORDERED: ASPIRIN 325 MG TAB PO STA (19:07)
[2020-01-16] MEDS ORDERED: NALOXONE 0.4 MG/ML 1 ML VIAL IV PRN (19:14)
--- NOTE | 2020-01-16 19:14 | ED ---
General Adult HPI - General Chief complaint: Weakness Stated complaint: Nausea, vomiting Time Seen by Provider: 01/16/20 17:00 Source: patient, family, RN notes reviewed, old records reviewed Mode of arrival: ambulatory Limitations: physical limitation - History of Present Illness Initial comments: 84-year-old male presenting for evaluation of generalized weakness, nausea and vomiting. He's had 3 days of vomiting. Denies specific abdominal pain. He had a normal bowel movement today. No melena, no bright red rectal bleeding. Patient denying central chest pain. Reports a mild cough. Denies fever. Denies dyspnea. Denies dysuria or hematuria. Denies focal numbness or weakness. Denies headache. - Related Data Home Medications Medication Instructions Recorded Confirmed Aspirin EC [Ecotrin Low Dose] 81 mg PO DAILY 07/03/17 07/03/17 Atorvastatin Calcium [Lipitor] 10 mg PO HS 07/03/17 07/03/17 Felodipine ER [Plendil] 5 mg PO DAILY 07/03/17 07/03/17 predniSONE See Taper PO DAILY 07/03/17 07/03/17 Previous Rx's Medication Instructions Recorded Warfarin Sodium [Coumadin] 2.5 mg PO DAILY #30 tablet 07/05/17 Acetaminophen Tab [Tylenol] 650 mg PO Q6HR PRN tab 07/08/17 Loperamide [Imodium] 2 mg PO QID cap 07/08/17 Pantoprazole [Protonix] 40 mg PO AC-BID #0 tab 07/08/17 traMADol HCl [Ultram] 50 mg PO Q6H PRN #20 tab 07/08/17 Allergies Allergy/AdvReac Type Severity Reaction Status Date / Time No Known Allergies Allergy Verified 01/16/20 18:31 Review of Systems ROS Statement: Those systems with pertinent positive or pertinent negative responses have been documented in the HPI. ROS Other: All systems not noted in ROS Statement are negative. Past Medical History Past Medical History: Chest Pain / Angina, Hyperlipidemia, Hypertension, Prostate Disorder Additional Past Medical History / Comment(s): History of prostate cancer, status post radiation treatment 3 years ago. 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 History of Any Multi-Drug Resistant Organisms: None Reported Past Surgical History: Back Surgery, Coronary Bypass/CABG, Orthopedic Surgery Additional Past Surgical History / Comment(s): rt hip Past Psychological History: No Psychological Hx Reported Smoking Status: Former smoker Past Alcohol Use History: Occasional Past Drug Use History: None Reported General Exam Limitations: physical limitation General appearance: alert, in no apparent distress Head exam: Present: atraumatic, normocephalic Eye exam: Present: normal appearance, PERRL ENT exam: Present: mucous membranes dry Neck exam: Present: normal inspection. Absent: tenderness, meningismus Respiratory exam: Present: normal lung sounds bilaterally. Absent: respiratory distress, wheezes Cardiovascular Exam: Present: bradycardia, irregular rhythm GI/Abdominal exam: Present: soft. Absent: distended, tenderness, guarding Extremities exam: Present: normal inspection, normal capillary refill. Absent: pedal edema Neurological exam: Present: alert, oriented X3, CN II-XII intact. Absent: motor sensory deficit Psychiatric exam: Present: normal affect, normal mood Skin exam: Present: warm, dry, intact. Absent: cyanosis, diaphoretic Course Vital Signs 01/16/20 01/16/20 01/16/20 16:52 17:20 17:28 Temperature 97.9 F Pulse Rate 40 L 36 L 39 L Respiratory 22 18 18 Rate Blood Pressure 194/74 205/66 205/68 O2 Sat by Pulse 94 L 98 98 Oximetry 01/16/20 01/16/20 18:19 18:32 Temperature Pulse Rate 35 L Respiratory 20 Rate Blood Pressure 206/72 200/99 O2 Sat by Pulse 100 Oximetry - Reevaluation(s) Reevaluation #1: 01/16/20 19:08 (Reevaluation, patient resting comfortable, vital signs have improved with IV hydration and hydralazine, heart rate in the 50s which is improved from 39. EKG Findings - EKG Comments: EKG Findings:: Atrial flutter with bradycardia and variable AV block, incomplete left bundle branch block, rate of 39, QRS duration 108, QTC 450, no ST segment elevation. Medical Decision Making - Medical Decision Making 84 yo female presenting with generalized weakness, nausea vomiting. Patient is hypertensive and bradycardic on initial evaluation. He is on a calcium channel doretha, felodipine. No beta blockers. EKG shows atrial flutter with slow ventricular response around 40. He does appear dehydrated, is given IV hydration, he has improvement in blood pressure after IV hydration and hydralazine. Patient has a normal sinus, normal CMP, he has troponin elevation 0.058. Chest x-ray negative for focal pneumonia. Urinalysis pending EKG showing atrial flutter with no history. Given a troponin elevation, new onset atrial flutter, he started on heparin. He will be admitted for telemetry, close monitoring, serial cardiac enzymes. Case discussed with the physician pediatric assistant Sanjuana cool for [facility] - Lab Data Result diagrams: 01/16/20 17:09 01/16/20 17:09 Lab Results 01/16/20 01/16/20 01/16/20 Range/Units 17:09 17:09 17:09 WBC 4.4 (3.8-10.6) k/uL RBC 4.93 (4.30-5.90) m/uL Hgb 15.1 (13.0-17.5) gm/dL Hct 44.7 (39.0-53.0) % MCV 90.7 (80.0-100.0) fL MCH 30.6 (25.0-35.0) pg MCHC 33.8 (31.0-37.0) g/dL RDW 14.5 (11.5-15.5) % Plt Count 199 (150-450) k/uL Neutrophils % 75 % Lymphocytes % 15 % Monocytes % 7 % Eosinophils % 0 % Basophils % 0 % Neutrophils # 3.3 (1.3-7.7) k/uL Lymphocytes # 0.7 L (1.0-4.8) k/uL Monocytes # 0.3 (0-1.0) k/uL Eosinophils # 0.0 (0-0.7) k/uL Basophils # 0.0 (0-0.2) k/uL PT 10.5 (9.0-12.0) sec INR 1.0 (<1.2) APTT 23.5 (22.0-30.0) sec Sodium 138 (137-145) mmol/L Potassium 4.6 (3.5-5.1) mmol/L Chloride 103 (98-107) mmol/L Carbon Dioxide 22 (22-30) mmol/L Anion Gap 13 mmol/L BUN 19 (9-20) mg/dL Creatinine 0.90 (0.66-1.25) mg/dL Est GFR (CKD-EPI)AfAm 89 (>60 ml/min/1.73 sqM) Est GFR (CKD-EPI)NonAf 77 (>60 ml/min/1.73 sqM) Glucose 178 H (74-99) mg/dL Plasma Lactic Acid Joao (0.7-2.0) mmol/L Calcium 9.5 (8.4-10.2) mg/dL Magnesium 1.8 (1.6-2.3) mg/dL Total Bilirubin 1.0 (0.2-1.3) mg/dL AST 31 (17-59) U/L ALT 17 (4-49) U/L Alkaline Phosphatase 87 (38-126) U/L Troponin I (0.000-0.034) ng/mL Total Protein 7.5 (6.3-8.2) g/dL Albumin 4.4 (3.5-5.0) g/dL 01/16/20 01/16/20 Range/Units 17:09 17:09 WBC (3.8-10.6) k/uL RBC (4.30-5.90) m/uL Hgb (13.0-17.5) gm/dL Hct (39.0-53.0) % MCV (80.0-100.0) fL MCH (25.0-35.0) pg MCHC (31.0-37.0) g/dL RDW (11.5-15.5) % Plt Count (150-450) k/uL Neutrophils % % Lymphocytes % % Monocytes % % Eosinophils % % Basophils % % Neutrophils # (1.3-7.7) k/uL Lymphocytes # (1.0-4.8) k/uL Monocytes # (0-1.0) k/uL Eosinophils # (0-0.7) k/uL Basophils # (0-0.2) k/uL PT (9.0-12.0) sec INR (<1.2) APTT (22.0-30.0) sec Sodium (137-145) mmol/L Potassium (3.5-5.1) mmol/L Chloride (98-107) mmol/L Carbon Dioxide (22-30) mmol/L Anion Gap mmol/L BUN (9-20) mg/dL Creatinine (0.66-1.25) mg/dL Est GFR (CKD-EPI)AfAm (>60 ml/min/1.73 sqM) Est GFR (CKD-EPI)NonAf (>60 ml/min/1.73 sqM) Glucose (74-99) mg/dL Plasma Lactic Acid Joao 2.8 H* (0.7-2.0) mmol/L Calcium (8.4-10.2) mg/dL Magnesium (1.6-2.3) mg/dL Total Bilirubin (0.2-1.3) mg/dL AST (17-59) U/L ALT (4-49) U/L Alkaline Phosphatase (38-126) U/L Troponin I 0.058 H* (0.000-0.034) ng/mL Total Protein (6.3-8.2) g/dL Albumin (3.5-5.0) g/dL Critical Care Time Critical Care Time: Yes Total Critical Care Time: 35 Disposition Clinical Impression: Dehydration, Elevated troponin, New onset atrial flutter Disposition: ADMITTED IP TO THIS [facility] Condition: Stable Is patient prescribed a controlled substance at d/c from ED?: No Referrals: Lzizy Becker DO [Primary Care Provider] - 1-2 days Decision to Admit Reason: Admit from EC Decision Date: 01/16/20 Decision Time: 19:14
[2020-01-16] MEDS ORDERED: PANTOPRAZOLE 40 MG/10 ML VIAL IVP STA (19:16)
[2020-01-16] MEDS ORDERED: ONDANSETRON 4 MG/2 ML VIAL IVP STA (19:16)
[2020-01-16] MEDS ORDERED: MORPHINE SULFATE 4 MG/0.8 ML SYRINGE (INJ) IVP STA (19:17)
[2020-01-16] MEDS ORDERED: MORPHINE SULFATE 4 MG/ML SYRINGE IV STA (19:22)
[2020-01-16] MEDS: SODIUM CHLORIDE 0.9% 1,000 ML IV SCH (19:27)
[2020-01-16] MEDS: HEPARIN SOD,PORK IN 0.45% NACL 25,000 UNIT in 0.45% NACL 1 250ML.BAG IV SCH (19:37)
[2020-01-16 20:16] LABS: Appearance,Urine Clear (Clear); Bacteria,Urine Rare /hpf; Bilirubin,Urine Negative (Negative); Blood,Urine Small (Negative); Color,Urine Yellow; Glucose,Urine (UA) Negative (Negative); Hyaline Casts,Urine 7 /lpf (0-2); Ketones,Urine 2+ (Negative); Leukocyte Esterase,Urine Negative (Negative); Mucus,Urine Rare /hpf; Nitrite,Urine Negative (Negative); Protein,Urine 3+ (Negative); RBC,Urine 1 /hpf (0-5); Specific Gravity,Urine 1.021 (1.001-1.035); Urobilinogen,Urine <2.0 mg/dL (<2.0); WBC,Urine 1 /hpf (0-5)
[2020-01-16] MEDS: PANTOPRAZOLE 40 MG/10 ML VIAL IVP SCH (21:41)
[2020-01-17 06:28] LABS: Basophils % (A) 0 %; Eosinophils % (A) 0 %; HCT 38.7 % (39.0-53.0); HGB 13.1 gm/dL (13.0-17.5); Lymphocytes # (A) 0.9 k/uL (1.0-4.8); Lymphocytes % (A) 21 %; MCH 30.3 pg (25.0-35.0); MCHC 33.7 g/dL (31.0-37.0); Mean Platelet Volume 8.3; Monocytes # (A) 0.3 k/uL (0-1.0); Monocytes % (A) 7 %; Neutrophils # (A) 2.9 k/uL (1.3-7.7); Neutrophils % (A) 69 %; Platelet Count 192 k/uL (150-450); RBC 4.31 m/uL (4.30-5.90); RDW 14.5 % (11.5-15.5); WBC 4.1 k/uL (3.8-10.6)
[2020-01-17] MEDS: PANTOPRAZOLE 40 MG/10 ML VIAL IVP SCH ×2 (08:32→20:56)
[2020-01-17] MEDS: SODIUM CHLORIDE 0.9% 1,000 ML IV SCH ×2 (08:32→20:57)
[2020-01-17] MEDS ORDERED: ATROPINE SULFATE 0.1 MG/ML 10ML SYRINGE ONE (11:07)
[2020-01-17 11:43] LABS: African American GFR (CKD) >90 (>60 ml/min/1.73 sqM); Anion Gap 7 mmol/L; Blood Urea Nitrogen 21 mg/dL (9-20); Calcium 8.9 mg/dL (8.4-10.2); Carbon Dioxide 22 mmol/L (22-30); Chloride 109 mmol/L (98-107); Glucose 112 mg/dL (74-99); Non-African American GFR(CKD) 80 (>60 ml/min/1.73 sqM); Sodium 138 mmol/L (137-145)
[2020-01-17] MEDS: ONDANSETRON 4 MG/2 ML VIAL IVP PRN (11:45)
--- NOTE | 2020-01-17 12:26 | P.CRDCN ---
History of Present Illness History of present illness: HISTORY OF PRESENTING ILLNESS This is a pleasant 84-year-old male past medical history significant for coronary artery disease status post four-vessel bypass grafting in 2003, aortic stenosis, hypertension, dyslipidemia and paroxysmal atrial fibrillation. He follows in the office with Dr. Meier. We have been asked to see in consultation for bradycardia. He presented to the emergency department last evening with symptoms of nausea and vomiting with overall generalized weakness that has been going on for the previous 3 days. EKG obtained on arrival revealed atrial flutter with an incomplete left bundle branch block heart rate of 39. He is seen and examined sitting on the edge of the bed. He continues to complain of persistent nausea with no active vomiting. He denies symptoms of chest pain, shortness of breath or dizziness. Chest x-ray on arrival reveals so me before meals peripheral densities likely related to overlying soft tissue with no acute cardiopulmonary process. Laboratory data reviewed, WBC 4.1, hemoglobin 13.1, platelets 192, sodium 138, potassium 4.6, creatinine 0.9, lactic acid on admission 2. 8 repeat 1.6, magnesium 1.8, troponin 0.05, 0.082 and 0.104. Chronic daily cardiac medications include felodipine 2.5 mg daily, atorvastatin 10 mg at bedtime and aspirin 81 mg daily. Most recent echocardiogram obtained in the office February 2019 reveals preserved LV systolic function with ejection fraction 55%, no regional wall motion abnormalities, normal diastolic function, severely dilated left atrium, moderate aortic regurgitation and moderate aortic stenosis with a mean gradient across the valve of 15 mmHg and a valve area of 1.46 cm. REVIEW OF SYSTEMS At the time of my exam: CONSTITUTIONAL: Denies fever or chills. CARDIOVASCULAR: Denies chest pain, shortness of breath, orthopnea, PND or palpitations. RESPIRATORY: Denies cough. GASTROINTESTINAL: Complains of persistent nausea. Denies abdominal pain, diarrhea, constipation or vomiting. MUSCULOSKELETAL: Denies myalgias. NEUROLOGIC: Denies numbness, tingling or weakness. ENDOCRINE: Denies fatigue, weight change, polydipsia or polyurina. GENITOURINARY: Denies burning, hematuria or urgency with micturation. HEMATOLOGIC: Denies history of anemia or bleeding. PHYSICAL EXAMINATION Blood pressure 154/68 heart rate 40 afebrile and maintaining oxygen saturation on a zone cannula. CONSTITUTIONAL: No apparent distress. HEENT: Head is normocephalic. Pupils are equal, round. Sclerae anicteric. Mucous membranes of the mouth are moist. No JVD. No carotid bruit. CHEST EXAMINATION: Lungs are clear to auscultation. No chest wall tenderness is noted on palpation or with deep breathing. HEART EXAMINATION: Regular rate and rhythm, bradycardic. S1, S2 heard. Systolic ejection murmur at the base, no gallops or rub. ABDOMEN: Soft, nontender. Positive bowel sounds. EXTREMITIES: 2+ peripheral pulses, no lower extremity edema and no calf tenderness. NEUROLOGIC EXAMINATION: Patient is awake, alert and oriented x3. ASSESSMENT Chronic persistent typical atrial flutter with slow ventricular rate Troponin elevation associated with persistent nausea of unclear etiology, likely related to myocardial injury versus infarct. We will obtain echo to assess for wall motion abnormality. Lactic acidosis History of coronary artery disease status post bypass grafting Hypertension Dyslipidemia Aortic stenosis PLAN Continue heparin infusion pending echocardiogram. Give Zofran for relief of nausea. Continue to monitor on telemetry. Heart rates are improving slowly. Hold any heart rate lowering medications. Continue aspirin 81 mg daily and increase atorvastatin to 40 mg at bedtime. Further recommendations to follow based upon clinical course. Thank you kindly for this consultation. Nurse Practitioner note has been reviewed, I agree with a documented findings and plan of care. Patient was seen and examined. Past Medical History Past Medical History: Chest Pain / Angina, Hyperlipidemia, Hypertension, Prostate Disorder Additional Past Medical History / Comment(s): History of prostate cancer, status post radiation treatment 3 years ago. 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 History of Any Multi-Drug Resistant Organisms: None Reported Past Surgical History: Back Surgery, Coronary Bypass/CABG, Orthopedic Surgery Additional Past Surgical History / Comment(s): rt hip Past Psychological History: No Psychological Hx Reported Smoking Status: Former smoker Past Alcohol Use History: Occasional Past Drug Use History: None Reported Medications and Allergies Home Medications Medication Instructions Recorded Confirmed Type Aspirin EC [Ecotrin Low Dose] 81 mg PO DAILY 07/03/17 01/16/20 History Atorvastatin Calcium [Lipitor] 10 mg PO HS 07/03/17 01/16/20 History Felodipine ER [Plendil] 2.5 mg PO DAILY 01/16/20 01/16/20 History Gabapentin 600 mg PO TID PRN 01/16/20 01/16/20 History Allergies Allergy/AdvReac Type Severity Reaction Status Date / Time No Known Allergies Allergy Verified 01/16/20 19:09 Physical Exam Vitals: Vital Signs Temp Pulse Pulse Resp BP BP Pulse Ox 01/17/20 04:00 34 L 16 154/68 95 01/17/20 00:00 98.2 F 34 L 16 158/64 94 L 01/16/20 21:40 98.0 F 40 L 18 158/61 99 01/16/20 21:13 98.2 F 18 98 01/16/20 19:26 98.4 F 51 L 32 H 01/16/20 19:25 98.4 F 51 L 18 154/57 95 01/16/20 18:32 200/99 01/16/20 18:19 35 L 20 206/72 100 01/16/20 17:28 39 L 18 205/68 98 01/16/20 17:20 36 L 18 205/66 98 01/16/20 16:52 97.9 F 40 L 22 194/74 94 L Intake and Output 01/16/20 01/17/20 01/17/20 22:59 06:59 14:59 Intake Total 48.996 180 Output Total 1 250 Balance 47.996 -250 180 Intake: Intake, IV Titration 48.996 Amount Heparin Sod,Pork in 0.45% 48.996 NaCl 25,000 unit In 0.45 % NaCl 1 250ml.bag @ 12 UNITS/KG/HR 8.165 mls/hr IV .Q24H [facility] Rx#: [id number] Oral 180 Output: Urine 1 250 Other: Weight 68.039 kg 62.5 kg Results 01/17/20 05:24 01/17/20 05:42 Cardiac Enzymes 01/16/20 01/16/20 01/16/20 Range/Units 17:09 17:09 23:30 AST 31 (17-59) U/L Troponin I 0.058 H* 0.082 H* (0.000-0.034) ng/mL 01/17/20 Range/Units 05:24 AST (17-59) U/L Troponin I 0.104 H* (0.000-0.034) ng/mL Coagulation 01/16/20 01/17/20 Range/Units 17:09 02:09 PT 10.5 (9.0-12.0) sec APTT 23.5 64.1 H (22.0-30.0) sec CBC 01/16/20 01/17/20 Range/Units 17:09 05:24 WBC 4.4 4.1 (3.8-10.6) k/uL RBC 4.93 4.31 (4.30-5.90) m/uL Hgb 15.1 13.1 (13.0-17.5) gm/dL Hct 44.7 38.7 L (39.0-53.0) % Plt Count 199 192 (150-450) k/uL Comprehensive Metabolic Panel 01/16/20 Range/Units 17:09 Sodium 138 (137-145) mmol/L Potassium 4.6 (3.5-5.1) mmol/L Chloride 103 (98-107) mmol/L Carbon Dioxide 22 (22-30) mmol/L BUN 19 (9-20) mg/dL Creatinine 0.90 (0.66-1.25) mg/dL Glucose 178 H (74-99) mg/dL Calcium 9.5 (8.4-10.2) mg/dL AST 31 (17-59) U/L ALT 17 (4-49) U/L Alkaline Phosphatase 87 (38-126) U/L Total Protein 7.5 (6.3-8.2) g/dL Albumin 4.4 (3.5-5.0) g/dL Current Medications Generic Name Dose Route Start Last Admin Trade Name Freq PRN Reason Stop Dose Admin Acetaminophen 650 mg 01/16/20 19:14 Tylenol Tab PO Q6HR PRN Mild Pain or Fever > 100.5 Heparin Sodium (Porcine) 0 unit 01/16/20 18:25 Heparin IV PER PROTOCOL PRN Low PTT Protocol Sodium Chloride 1,000 mls @ 75 mls/hr 01/16/20 18:15 01/17/20 08:32 Saline 0.9% IV 75 mls/hr .[id number] [facility]REVOR Administration Heparin Sodium/Sodium Chloride 250 mls @ 8.165 mls/hr 01/16/20 18:30 01/16/20 19:37 25,000 unit/ Sodium Chloride IV 12 units/kg/hr .Q24H [facility] 8.165 mls/hr Administration Protocol 12 UNITS/KG/HR Naloxone HCl 0.2 mg 01/16/20 19:14 Narcan IV Q2M PRN Opioid Reversal Pantoprazole Sodium 40 mg 01/16/20 21:00 01/17/20 08:32 Protonix IVP 40 mg BID TREVOR Administration Intake and Output 01/16/20 01/17/20 01/17/20 22:59 06:59 14:59 Intake Total 48.996 180 Output Total 1 250 Balance 47.996 -250 180 Intake: Intake, IV Titration 48.996 Amount Heparin Sod,Pork in 0.45% 48.996 NaCl 25,000 unit In 0.45 % NaCl 1 250ml.bag @ 12 UNITS/KG/HR 8.165 mls/hr IV .Q24H [facility] Rx#: [id number] Oral 180 Output: Urine 1 250 Other: Weight 68.039 kg 62.5 kg 01/17/20 05:24 01/16/20 17:09
[2020-01-17] MEDS ORDERED: TRIMETHOBENZAMIDE 100 MG/ML 2 ML VIAL IM PRN (15:54)
--- NOTE | 2020-01-17 16:18 | P.HPIM ---
History of Present Illness H&P Date: 01/17/20 Chief Complaint: Nausea/vomiting/generalized weakness 84-year-old male past medical history significant for coronary artery disease status post four-vessel bypass grafting in 2003, aortic stenosis, hypertension, dyslipidemia and paroxysmal atrial fibrillation. He follows in the office with Dr. Meier. We have been asked to see in consultation for bradycardia. He presented to the emergency department last evening with symptoms of nausea and vomiting with overall generalized weakness that has been going on for the previous 3 days. EKG obtained on arrival revealed atrial flutter with an incomplete left bundle branch block heart rate of 39. He is seen and examined sitting on the edge of the bed. He continues to complain of persistent nausea with no active vomiting. He denies symptoms of chest pain, shortness of breath or dizziness. Chest x-ray on arrival reveals some before meals peripheral densities likely related to overlying soft tissue with no acute cardiopulmonary process. Laboratory data reviewed, WBC 4.1, hemoglobin 13.1, platelets 192, sodium 138, potassium 4.6, creatinine 0.9, lactic acid on admission 2. 8 repeat 1.6, magnesium 1.8, troponin 0.05, 0.082 and 0.104. Chronic daily cardiac medications include felodipine 2.5 mg daily, atorvastatin 10 mg at bedtime and aspirin 81 mg daily. Review of Systems REVIEW OF SYSTEMS: CONSTITUTIONAL: No fever, no malaise, no fatigue. HEENT: No recent visual problems or hearing problems. Denied any sore throat. CARDIOVASCULAR: No chest pain, orthopnea, PND, no palpitations, no syncope. PULMONARY: No shortness of breath, no cough, no hemoptysis. GASTROINTESTINAL: No diarrhea, no nausea, no vomiting, no abdominal pain. NEUROLOGICAL: No headaches, no weakness, no numbness. HEMATOLOGICAL: Denies any bleeding or petechiae. GENITOURINARY: Denies any burning micturition, frequency, or urgency. MUSCULOSKELETAL/RHEUMATOLOGICAL: Denies any joint pain, swelling, or any muscle pain. ENDOCRINE: Denies any polyuria or polydipsia. The rest of the 14-point review of systems is negative. Past Medical History Past Medical History: Chest Pain / Angina, Hyperlipidemia, Hypertension, Prostate Disorder Additional Past Medical History / Comment(s): History of prostate cancer, status post radiation treatment 3 years ago. 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 History of Any Multi-Drug Resistant Organisms: None Reported Past Surgical History: Back Surgery, Coronary Bypass/CABG, Orthopedic Surgery Additional Past Surgical History / Comment(s): rt hip Past Psychological History: No Psychological Hx Reported Smoking Status: Former smoker Past Alcohol Use History: Occasional Past Drug Use History: None Reported Medications and Allergies Home Medications Medication Instructions Recorded Confirmed Type Aspirin EC [Ecotrin Low Dose] 81 mg PO DAILY 07/03/17 01/16/20 History Atorvastatin Calcium [Lipitor] 10 mg PO HS 07/03/17 01/16/20 History Felodipine ER [Plendil] 2.5 mg PO DAILY 01/16/20 01/16/20 History Gabapentin 600 mg PO TID PRN 01/16/20 01/16/20 History Allergies Allergy/AdvReac Type Severity Reaction Status Date / Time No Known Allergies Allergy Verified 01/16/20 19:09 Physical Exam Vitals: Vital Signs Temp Pulse Pulse Resp BP BP Pulse Ox 01/17/20 04:00 34 L 16 154/68 95 01/17/20 00:00 98.2 F 34 L 16 158/64 94 L 01/16/20 21:40 98.0 F 40 L 18 158/61 99 01/16/20 21:13 98.2 F 18 98 01/16/20 19:26 98.4 F 51 L 32 H 01/16/20 19:25 98.4 F 51 L 18 154/57 95 01/16/20 18:32 200/99 01/16/20 18:19 35 L 20 206/72 100 01/16/20 17:28 39 L 18 205/68 98 01/16/20 17:20 36 L 18 205/66 98 01/16/20 16:52 97.9 F 40 L 22 194/74 94 L Intake and Output 01/16/20 01/17/20 01/17/20 22:59 06:59 14:59 Intake Total 48.996 180 Output Total 1 250 Balance 47.996 -250 180 Intake: Intake, IV Titration 48.996 Amount Heparin Sod,Pork in 0.45% 48.996 NaCl 25,000 unit In 0.45 % NaCl 1 250ml.bag @ 12 UNITS/KG/HR 8.165 mls/hr IV .Q24H [facility] Rx#: [id number] Oral 180 Output: Urine 1 250 Other: Weight 68.039 kg 62.5 kg Blood pressure 154/68 heart rate 40 afebrile and maintaining oxygen saturation on a zone cannula. CONSTITUTIONAL: No apparent distress. HEENT: Head is normocephalic. Pupils are equal, round. Sclerae anicteric. Mucous membranes of the mouth are moist. No JVD. No carotid bruit. CHEST EXAMINATION: Lungs are clear to auscultation. No chest wall tenderness is noted on palpation or with deep breathing. HEART EXAMINATION: Regular rate and rhythm, bradycardic. S1, S2 heard. Systolic ejection murmur at the base, no gallops or rub. ABDOMEN: Soft, nontender. Positive bowel sounds. EXTREMITIES: 2+ peripheral pulses, no lower extremity edema and no calf tenderness. NEUROLOGIC EXAMINATION: Patient is awake, alert and oriented x3. Results CBC & Chem 7: 01/17/20 05:24 01/17/20 05:42 Labs: Abnormal Lab Results - Last 24 Hours (Table) 01/16/20 01/16/20 01/16/20 Range/Units 17:09 17:09 17:09 Hct (39.0-53.0) % Lymphocytes # 0.7 L (1.0-4.8) k/uL APTT (22.0-30.0) sec Glucose 178 H (74-99) mg/dL Plasma Lactic Acid Joao 2.8 H* (0.7-2.0) mmol/L Troponin I (0.000-0.034) ng/mL Urine Protein (Negative) Urine Ketones (Negative) Urine Blood (Negative) Urine Bacteria (None) /hpf Hyaline Casts (0-2) /lpf Urine Mucus (None) /hpf 01/16/20 01/16/20 01/16/20 Range/Units 17:09 19:21 23:30 Hct (39.0-53.0) % Lymphocytes # (1.0-4.8) k/uL APTT (22.0-30.0) sec Glucose (74-99) mg/dL Plasma Lactic Acid Joao (0.7-2.0) mmol/L Troponin I 0.058 H* 0.082 H* (0.000-0.034) ng/mL Urine Protein 3+ H (Negative) Urine Ketones 2+ H (Negative) Urine Blood Small H (Negative) Urine Bacteria Rare H (None) /hpf Hyaline Casts 7 H (0-2) /lpf Urine Mucus Rare H (None) /hpf 01/17/20 01/17/20 01/17/20 Range/Units 02:09 05:24 05:24 Hct 38.7 L (39.0-53.0) % Lymphocytes # 0.9 L (1.0-4.8) k/uL APTT 64.1 H (22.0-30.0) sec Glucose (74-99) mg/dL Plasma Lactic Acid Joao (0.7-2.0) mmol/L Troponin I 0.104 H* (0.000-0.034) ng/mL Urine Protein (Negative) Urine Ketones (Negative) Urine Blood (Negative) Urine Bacteria (None) /hpf Hyaline Casts (0-2) /lpf Urine Mucus (None) /hpf Thrombosis Risk Factor Assmnt - Choose All That Apply Any of the Below Risk Factors Present?: No Each Risk Factor Represents 3 Points: Age 75 years or older Thrombosis Risk Factor Assessment Total Risk Factor Score: 3 Thrombosis Risk Factor Assessment Level: Moderate Risk Assessment and Plan Assessment: 1. Chronic persistent typical atrial flutter with slow ventricular rate - Cardiology is following and recommending to continue with IV heparin infusion; 2-D echo is ordered and pending; patient remains on telemetry 2. Troponin elevation associated with persistent nausea of unclear etiology, likely related to myocardial injury versus infarct. We will obtain echo to assess for wall motion abnormality. 3. History of coronary artery disease status post bypass grafting; continue with aspirin and statin therapy; patient not on any beta doretha therapy 4. Hypertension; stable without any antihypertensive therapy at this time 5. Dyslipidemia; atorvastatin increased to 40 mg by mouth daily at bedtime per cardiology recommendations 6. Aortic stenosis; most recent echocardiogram done in February 2019 revealing EF of 55% along with severely dilated left atrium moderate aortic regurgitation and stenosis DVT prophylaxis; IV heparin infusion CODE STATUS; full code Time with Patient: Greater than 30
[2020-01-17] MEDS: ATORVASTATIN 40 MG TAB PO SCH (20:56)
[2020-01-17] MEDS: HEPARIN SOD,PORK IN 0.45% NACL 25,000 UNIT in 0.45% NACL 1 250ML.BAG IV SCH ×2 (20:58→23:13)
[2020-01-17] MEDS ORDERED: hydrALAZINE HCL 20 MG/ML 1 ML VIAL IVP PRN (22:37)
[2020-01-17] MEDS: ACETAMINOPHEN TAB 325 MG TAB PO PRN (23:00)
--- NOTE | 2020-01-18 00:04 | XR ---
EXAMINATION TYPE: XR abdomen 1V DATE OF EXAM: 01/17/2020 COMPARISON: NONE HISTORY: Pain TECHNIQUE: Single view FINDINGS: There is no sign of intestinal obstruction or pneumoperitoneum. Fecal pattern is normal. Th ere is mild thoracolumbar dextroscoliosis. There is right hip prosthesis. Abdominal aorta is atheroma tous. There are no definite renal calcifications. IMPRESSION: Nonacute abdomen.
[2020-01-18 06:59] LABS: Basophils % (A) 0 %; Eosinophils % (A) 0 %; HGB 13.1 gm/dL (13.0-17.5); Lymphocytes # (A) 0.7 k/uL (1.0-4.8); Lymphocytes % (A) 13 %; MCH 29.7 pg (25.0-35.0); MCHC 32.8 g/dL (31.0-37.0); MCV 90.6 fL (80.0-100.0); Mean Platelet Volume 8.5; Monocytes # (A) 0.5 k/uL (0-1.0); Monocytes % (A) 8 %; Neutrophils # (A) 4.1 k/uL (1.3-7.7); Neutrophils % (A) 77 %; Platelet Count 206 k/uL (150-450); RBC 4.41 m/uL (4.30-5.90); RDW 14.5 % (11.5-15.5); WBC 5.4 k/uL (3.8-10.6)
[2020-01-18 07:46] LABS: African American GFR (CKD) >90 (>60 ml/min/1.73 sqM); Anion Gap 8 mmol/L; Blood Urea Nitrogen 16 mg/dL (9-20); Calcium 8.6 mg/dL (8.4-10.2); Carbon Dioxide 20 mmol/L (22-30); Chloride 110 mmol/L (98-107); Glucose 105 mg/dL (74-99); Non-African American GFR(CKD) 82 (>60 ml/min/1.73 sqM); Potassium 3.4 mmol/L (3.5-5.1); Sodium 138 mmol/L (137-145)
--- NOTE | 2020-01-18 10:35 | ECHOF ---
Referral Reason:aflutter/trudy MEASUREMENTS -------- HEIGHT: 167.6 cm WEIGHT: 62.1 kg BP: 138/69 RVIDd: 3.5 cm (< 3.3) IVSd: 1.5 cm (0.6 - 1.1) LVIDd: 4.5 cm (3.9 - 5.3) LVPWd: 1.5 cm (0.6 - 1.1) IVSs: 1.8 cm LVIDs: 3.3 cm LVPWs: 1.8 cm LA Diam: 4.6 cm (2.7 - 3.8) LAESV Index (A-L): 53.06 ml/m Ao Diam: 3.6 cm (2.0 - 3.7) AV Cusp: 1.7 cm (1.5 - 2.6) MV EXCURSION: 20.130 mm (> 18.000) MV EF SLOPE: 80 mm/s (70 - 150) EPSS: 1.0 cm AV maxP.78 mmHg AV meanP.08 mmHg AR PHT: 688 ms RAP: 5.00 mmHg RVSP: 47.46 mmHg TAPSE: 14.43 mm FINDINGS -------- The rhythm appears to be atrial flutter. Suboptimal image quality - poor subcostal views. The left ventricular size is normal. There is moderate concentric left ventricular hypertrophy. O verall left ventricular systolic function is mildly impaired with, an EF between 45 - 50 %. The right ventricle is mildly enlarged. Paradoxical motion of the right ventricular septum is consi stent with post operative status. LA is severely dilated >40 ml/m2 The right atrium is normal in size. Interatrial and interventricular septum intact. There is mild to moderate aortic valve sclerosis. There is mild aortic regurgitation. There is mi ld aortic stenosis present. Peak/mean gradient across the Aortic Valve is 20.78mmHg / 10.08mmHg. The mitral valve leaflets are mildly thickened. Moderate mitral annular calcification present. Mo derate mitral regurgitation is present. Iqgi-pc-ingdrn[place] tricuspid regurgitation present. There is moderate pulmonary hypertension. The r ight ventricular systolic pressure, as measured by Doppler, is 47.46mmHg. Moderate pulmonic regurgitation. The aortic root size is normal. IVC Not well visulized. There is no pericardial effusion. CONCLUSIONS -------- 1. The rhythm appears to be atrial flutter. 2. Suboptimal image quality - poor subcostal views. 3. The left ventricular size is normal. 4. There is moderate concentric left ventricular hypertrophy. 5. Overall left ventricular systolic function is mildly impaired with, an EF between 45 - 50 %. 6. The right ventricle is mildly enlarged. 7. Paradoxical motion of the right ventricular septum is consistent with post operative status. 8. LA is severely dilated >40 ml/m2 9. The right atrium is normal in size. 10. Interatrial and interventricular septum intact. 11. There is mild to moderate aortic valve sclerosis. 12. There is mild aortic stenosis present. 13. Peak/mean gradient across the Aortic Valve is 20.78mmHg / 10.08mmHg. 14. The mitral valve leaflets are mildly thickened. 15. Moderate mitral annular calcification present. 16. Moderate mitral regurgitation is present. 17. Mpac-un-lqkvcosc tricuspid regurgitation present. 18. There is moderate pulmonary hypertension. 19. The right ventricular systolic pressure, as measured by Doppler, is 47.46mmHg. 20. Moderate pulmonic regurgitation. 21. The aortic root size is normal. 22. IVC Not well visulized. 23. There is no pericardial effusion. LIMOUSINE DRIVER: Noemi Espinal RDCS
[2020-01-18] MEDS: amLODIPine 5 MG TAB PO SCH (10:55)
[2020-01-18] MEDS: ASPIRIN 81 MG PO SCH (10:55)
[2020-01-18] MEDS: LOSARTAN 50 MG TAB PO SCH (10:56)
[2020-01-18] MEDS: PANTOPRAZOLE 40 MG/10 ML VIAL IVP SCH ×2 (10:56→19:59)
--- NOTE | 2020-01-18 11:42 | P.PN ---
Subjective HISTORY OF PRESENTING ILLNESS This is a pleasant 84-year-old male past medical history significant for coronary artery disease status post four-vessel bypass grafting in 2003, aortic stenosis, hypertension, dyslipidemia and paroxysmal atrial fibrillation. He follows in the office with Dr. Meier. Patient was seen and examined laying flat in bed. He continues to have persistent nausea with no vomiting. He denies chest pain, dizziness or palpitations. He is generally overall quite weak and unable to sit up without assistance. Blood pressure 175/64 heart rate 42 afebrile maintaining oxygen saturation on room air. Telemetry tracings reviewed and reveal persistent atrial flutter with slow ventricular rate. Laboratory data reviewed, CBC unremarkable, sodium 138, potassium 3.4, creatinine 0.77. Currently maintained on heparin infusion, aspirin 81 mg daily and atorvastatin 40 mg at bedtime. PHYSICAL EXAMINATION CONSTITUTIONAL: No apparent distress. HEENT: Head is normocephalic. Pupils are equal, round. Sclerae anicteric. Mucous membranes of the mouth are moist. No JVD. No carotid bruit. CHEST EXAMINATION: Lungs are clear to auscultation. No chest wall tenderness is noted on palpation or with deep breathing. HEART EXAMINATION: Regular rate and rhythm, bradycardic. S1, S2 heard. Systolic ejection murmur at the base, no gallops or rub. EXTREMITIES: 2+ peripheral pulses, no lower extremity edema and no calf tenderness. ASSESSMENT Chronic persistent typical atrial flutter with slow ventricular rate Troponin elevation associated with persistent nausea of unclear etiology, likely related to myocardial injury versus infarct. We will obtain echo to assess for wall motion abnormality. Lactic acidosis History of coronary artery disease status post bypass grafting Hypertension Dyslipidemia Aortic stenosis PLAN Initiate amlodipine 5 mg daily and losartan 50 mg daily for blood pressure control. Continue to hold beta blockers. Discontinue heparin infusion and initiated on subcu heparin. The patient does not want to be on long-term anticoagulation for his arrhythmia. Obtain stat troponin. If there is a significant rise in the troponin we will consider coronary angiography tomorrow. If troponin remains flat we will consider proceeding with single-chamber pacemaker implantation on Sunday. Nurse Practitioner note has been reviewed, I agree with a documented findings and plan of care. Patient was seen and examined. Objective - Vital Signs Vital signs: Vital Signs Temp 97.9 F 01/18/20 04:00 Pulse 42 L 01/18/20 04:00 Resp 20 01/18/20 04:00 BP 175/64 01/18/20 04:00 Pulse Ox 94 L 01/18/20 04:00 Intake & Output 01/17/20 01/18/20 01/18/20 18:59 06:59 18:59 Intake Total 180 325.354 67.77 Output Total 1150 1400 Balance -970 -1074.646 67.77 Weight 62.5 kg 62 kg Intake: Intake, IV Titration 225.354 67.77 Amount Heparin Sod,Pork in 0.45% 225.354 67.77 NaCl 25,000 unit In 0.45 % NaCl 1 250ml.bag @ 12 UNITS/KG/HR 8.165 mls/hr IV .Q24H [facility] Rx#: [id number] Oral 180 100 Output: Urine 1150 1400 Other: # Voids 3 2 - Labs CBC & Chem 7: 01/18/20 06:35 01/18/20 06:35 Labs: Abnormal Lab Results - Last 24 Hours (Table) 01/17/20 01/18/20 01/18/20 Range/Units 05:42 06:35 06:35 Lymphocytes # 0.7 L (1.0-4.8) k/uL APTT (22.0-30.0) sec Potassium 3.4 L (3.5-5.1) mmol/L Chloride 109 H 110 H (98-107) mmol/L Carbon Dioxide 20 L (22-30) mmol/L BUN 21 H (9-20) mg/dL Glucose 112 H 105 H (74-99) mg/dL 01/18/20 Range/Units 06:35 Lymphocytes # (1.0-4.8) k/uL APTT 113.5 H* (22.0-30.0) sec Potassium (3.5-5.1) mmol/L Chloride (98-107) mmol/L Carbon Dioxide (22-30) mmol/L BUN (9-20) mg/dL Glucose (74-99) mg/dL
--- NOTE | 2020-01-18 16:02 | P.PN ---
Subjective Progress Note Date: 01/18/20 Principal diagnosis: Typical atrial flutter with slow ventricular rate 84-year-old male past medical history significant for coronary artery disease status post four-vessel bypass grafting in 2003, aortic stenosis, hypertension, dyslipidemia and paroxysmal atrial fibrillation. He follows in the office with Dr. Meier. We have been asked to see in consultation for bradycardia. He presented to the emergency department last evening with symptoms of nausea and vomiting with overall generalized weakness that has been going on for the previous 3 days. EKG obtained on arrival revealed atrial flutter with an incomplete left bundle branch block heart rate of 39. 01/18/2020 Patient is seen and evaluated resting comfortably; continues to complain of nausea without any episodes of vomiting; remains weak and needs assistance to be able to sit up in bed Patient's blood pressure remains markedly elevated; cardiology is following and recommending to initiate amlodipine 5 mg daily and losartan 50 mg daily and continue to hold beta blockers; IV heparin has been discontinued and patient is started on subcu heparin for DVT prophylaxis; according to cardiology discussion with patient he does not want to be on long-term anticoagulation therapy for arrhythmias; cardiology is going to trend troponin with plan to consider coronary angiography tomorrow if troponin trends up; in case troponin remains flat patient is recommended to proceed with single-chamber pacemaker implantation on Sunday Objective - Vital Signs Vital signs: Vital Signs Temp 97.9 F 01/18/20 04:00 Pulse 42 L 01/18/20 04:00 Resp 20 01/18/20 04:00 BP 175/64 01/18/20 04:00 Pulse Ox 94 L 01/18/20 04:00 Intake & Output 01/17/20 01/18/20 01/18/20 18:59 06:59 18:59 Intake Total 180 325.354 67.77 Output Total 1150 1400 Balance -970 -1074.646 67.77 Weight 62.5 kg 62 kg Intake: Intake, IV Titration 225.354 67.77 Amount Heparin Sod,Pork in 0.45% 225.354 67.77 NaCl 25,000 unit In 0.45 % NaCl 1 250ml.bag @ 12 UNITS/KG/HR 8.165 mls/hr IV .Q24H [facility] Rx#: [id number] Oral 180 100 Output: Urine 1150 1400 Other: # Voids 3 2 - Exam CONSTITUTIONAL: No apparent distress. HEENT: Head is normocephalic. Pupils are equal, round. Sclerae anicteric. Mucous membranes of the mouth are moist. No JVD. No carotid bruit. CHEST EXAMINATION: Lungs are clear to auscultation. No chest wall tenderness is noted on palpation or with deep breathing. HEART EXAMINATION: Regular rate and rhythm, bradycardic. S1, S2 heard. Systolic ejection murmur at the base, no gallops or rub. ABDOMEN: Soft, nontender. Positive bowel sounds. EXTREMITIES: 2+ peripheral pulses, no lower extremity edema and no calf tenderness. NEUROLOGIC EXAMINATION: Patient is awake, alert and oriented x3. - Labs CBC & Chem 7: 01/18/20 06:35 01/18/20 06:35 Labs: Abnormal Lab Results - Last 24 Hours (Table) 01/17/20 01/18/20 01/18/20 Range/Units 05:42 06:35 06:35 Lymphocytes # 0.7 L (1.0-4.8) k/uL APTT (22.0-30.0) sec Potassium 3.4 L (3.5-5.1) mmol/L Chloride 109 H 110 H (98-107) mmol/L Carbon Dioxide 20 L (22-30) mmol/L BUN 21 H (9-20) mg/dL Glucose 112 H 105 H (74-99) mg/dL 01/18/20 Range/Units 06:35 Lymphocytes # (1.0-4.8) k/uL APTT 113.5 H* (22.0-30.0) sec Potassium (3.5-5.1) mmol/L Chloride (98-107) mmol/L Carbon Dioxide (22-30) mmol/L BUN (9-20) mg/dL Glucose (74-99) mg/dL Assessment and Plan Assessment: 1. Chronic persistent typical atrial flutter with slow ventricular rate - Cardiology is following and recommending to continue with IV heparin infusion; 2-D echo is ordered and pending; patient remains on telemetry 2. Troponin elevation associated with persistent nausea of unclear etiology, likely related to myocardial injury versus infarct. We will obtain echo to assess for wall motion abnormality. 3. History of coronary artery disease status post bypass grafting; continue with aspirin and statin therapy; patient not on any beta doretha therapy 4. Hypertension; stable without any antihypertensive therapy at this time 5. Dyslipidemia; atorvastatin increased to 40 mg by mouth daily at bedtime per cardiology recommendations 6. Aortic stenosis; most recent echocardiogram done in February 2019 revealing EF of 55% along with severely dilated left atrium moderate aortic regurgitation and stenosis DVT prophylaxis; IV heparin infusion CODE STATUS; full code Time with Patient: Greater than 30
[2020-01-18] MEDS: ATORVASTATIN 40 MG TAB PO SCH (19:59)
[2020-01-18] MEDS: HEPARIN SODIUM,PORCINE 5,000 UNIT/ML 1 ML VIAL SQ SCH (19:59)
[2020-01-18] MEDS ORDERED: amLODIPine 5 MG TAB PO STA (21:39)
[2020-01-18] MEDS: SODIUM CHLORIDE 0.9% 1,000 ML IV SCH (22:22)
[2020-01-19] MEDS: ONDANSETRON 4 MG/2 ML VIAL IVP PRN (03:20)
[2020-01-19 06:32] LABS: Basophils % (A) 0 %; Eosinophils % (A) 0 %; HCT 40.5 % (39.0-53.0); HGB 13.4 gm/dL (13.0-17.5); Lymphocytes # (A) 0.4 k/uL (1.0-4.8); Lymphocytes % (A) 9 %; MCH 29.6 pg (25.0-35.0); MCV 89.6 fL (80.0-100.0); Monocytes # (A) 0.4 k/uL (0-1.0); Monocytes % (A) 8 %; Neutrophils # (A) 4.1 k/uL (1.3-7.7); Neutrophils % (A) 82 %; Platelet Count 172 k/uL (150-450); RBC 4.52 m/uL (4.30-5.90); RDW 14.1 % (11.5-15.5)
[2020-01-19 06:41] LABS: African American GFR (CKD) >90 (>60 ml/min/1.73 sqM); Anion Gap 10 mmol/L; Blood Urea Nitrogen 14 mg/dL (9-20); Calcium 8.6 mg/dL (8.4-10.2); Carbon Dioxide 21 mmol/L (22-30); Chloride 106 mmol/L (98-107); Glucose 101 mg/dL (74-99); Non-African American GFR(CKD) 84 (>60 ml/min/1.73 sqM); Potassium 3.1 mmol/L (3.5-5.1); Sodium 137 mmol/L (137-145)
[2020-01-19] MEDS: HEPARIN SODIUM,PORCINE 5,000 UNIT/ML 1 ML VIAL SQ SCH ×2 (08:51→19:45)
[2020-01-19] MEDS: amLODIPine 5 MG TAB PO SCH (08:51)
[2020-01-19] MEDS: LOSARTAN 50 MG TAB PO SCH (08:51)
[2020-01-19] MEDS: PANTOPRAZOLE 40 MG/10 ML VIAL IVP SCH (08:51)
[2020-01-19] MEDS: ASPIRIN 81 MG PO SCH (08:51)
--- NOTE | 2020-01-19 09:20 | PN ---
PROGRESS NOTE This is a gentleman who came into the hospital with persistent nausea that seems to have improved but not resolved. He also has atrial fib, slow ventricular rate, mild aortic stenosis, CAD with prior bypass surgery. Ejection fraction is fairly well preserved in the 45% to 50% range. He remains in a flutter with rates in the 40s. He will benefit from a pacemaker, but complains of persistent nausea. I am recommending a GI evaluation and ultrasound of the abdomen and to supplement his potassium which is 3.1 today. Blood pressure is 110/70, pulse rate is about 40 per minute. JVD 1 cm, no carotid bruit, S1-S2 heard normally. Lungs reveal diminished air entry. Abdomen and lower extremity exam unchanged. Patient appears to be emaciated, malnourished somewhat. I will await further input from GI regarding his persistent nausea and also perform an abdominal ultrasound. Will consider a pacemaker tomorrow. Prognosis remains guarded. MMODL / IJN: [id number] /
--- NOTE | 2020-01-19 10:11 | US ---
EXAMINATION TYPE: US abdomen complete DATE OF EXAM: 01/19/2020 COMPARISON: NONE CLINICAL HISTORY: unexplained nausea. EXAM MEASUREMENTS: Liver Length: 14.6 cm Gallbladder Wall: 0.2 cm CBD: unable to visualize Spleen: unable to visualize Right Kidney: 10.0 x 5.2 x 5.3 cm Left Kidney: 10.7 x 5.5 x 5.1 cm Patient in pain, unable to cooperate with examiner in any way. Severe overlying bowel gas. Technicall y difficult, very limited study. Pancreas: Obscured by bowel gas Liver: very limited visualization shows, visualized intercostal only. Therefore there is difficulty in evaluating any heterogeneity of the hepatic parenchyma. There does appear to be slight decreased v isualization of the portal triads. This most commonly relates to hepatic steatosis although can be se en in other hepatocellular diseases. Gallbladder: very limited visualization, no wall thickening or sludge seen Evidence for sonographic Kelly's sign: no CBD: unable to visualize Spleen: unable to visualize Right Kidney: No hydronephrosis or masses seen, limited visualization Left Kidney: No hydronephrosis or masses seen, limited visualization Upper IVC: unable to visualize Abd Aorta: iliacs appear slightly prominent proximal not seen The proximal abdominal aorta is within normal limits. There is no evidence of cholelithiasis. Commo n bile duct is not seen. The visualized portions of the pancreas are homogenous. The spleen is nonvi sualized. Kidneys are symmetric and free of hydronephrosis. IMPRESSION: 1. Severely limited examination given patient inability to cooperate with the examination and severe overlying bowel gas. The liver appears mildly heterogenous, most commonly related to hepatic steatosi s although can be seen in other hepatocellular diseases. 2. Nonvisualization of the common bile duct. No cholelithiasis or biliary sludge seen. Sonographic Mu rphy sign was negative. 3. No gross evidence of hydronephrosis or nephrolithiasis of the kidneys. 4. Nonvisualization of the pancreas, spleen and inferior vena cava.
[2020-01-19] MEDS ORDERED: POTASSIUM CHLORIDE ER 20 MEQ TAB.ER PO SCH (13:00)
[2020-01-19] MEDS ORDERED: TRIMETHOBENZAMIDE 300 MG CAP PO PRN (13:59)
[2020-01-19] MEDS: POTASSIUM CHLORIDE 20 MEQ in WATER FOR INJECTION 1 100ML.BAG IVPB SCH ×3 (18:30→20:50)
[2020-01-19] MEDS: ONDANSETRON 4 MG/2 ML VIAL IVP SCH ×2 (18:31→22:51)
[2020-01-19] MEDS: PANTOPRAZOLE 40 MG TABLET PO SCH (18:31)
[2020-01-19] MEDS: SODIUM CHLORIDE 0.9% 1,000 ML IV SCH ×2 (19:42→22:51)
[2020-01-19] MEDS: ATORVASTATIN 40 MG TAB PO SCH (19:45)
[2020-01-19] MEDS ORDERED: Potassium Replacement Protocol 1 EACH MISC MISCELLANE PRN (23:45)
[2020-01-19] MEDS ORDERED: Magnesium Replacement Protocol 1 EACH MISC MISCELLANE PRN (23:45)
--- NOTE | 2020-01-19 23:47 | P.PN ---
Subjective 84-year-old male past medical history significant for coronary artery disease status post four-vessel bypass grafting in 2003, aortic stenosis, hypertension, dyslipidemia and paroxysmal atrial fibrillation. He follows in the office with Dr. Meier. We have been asked to see in consultation for bradycardia. He presented to the emergency department last evening with symptoms of nausea and vomiting with overall generalized weakness that has been going on for the previous 3 days. EKG obtained on arrival revealed atrial flutter with an incomplete left bundle branch block heart rate of 39. 01/18/2020 Patient is seen and evaluated resting comfortably; continues to complain of nausea without any episodes of vomiting; remains weak and needs assistance to be able to sit up in bed Patient's blood pressure remains markedly elevated; cardiology is following and recommending to initiate amlodipine 5 mg daily and losartan 50 mg daily and continue to hold beta blockers; IV heparin has been discontinued and patient is started on subcu heparin for DVT prophylaxis; according to cardiology discussion with patient he does not want to be on long-term anticoagulation therapy for arrhythmias; cardiology is going to trend troponin with plan to consider coronary angiography tomorrow if troponin trends up; in case troponin remains flat patient is recommended to proceed with single-chamber pacemaker implanta tion on Sunday01/19/2020 No new complaint. No chest pain or dyspnea. Patient looks emaciated and still complaining of from nausea but no abdominal pain. Patient is on Zofran and IM Tigan which is changed to oral pills as well. And we will GI consult upon cardiology recommendation. Possible pacemaker insertion per cardiology Follow-up potassium and magnesium Objective - Vital Signs Vital signs: Vital Signs Temp 98.5 F 01/19/20 03:24 Pulse 45 L 01/19/20 03:24 Resp 18 01/19/20 03:24 BP 168/78 01/19/20 03:24 Pulse Ox 96 01/19/20 03:24 Intake & Output 01/18/20 01/19/20 01/19/20 18:59 06:59 18:59 Intake Total 67.77 240 Output Total 800 600 Balance -732.23 -600 240 Weight 40 kg Intake: Intake, IV Titration 67.77 Amount Heparin Sod,Pork in 0.45% 67.77 NaCl 25,000 unit In 0.45 % NaCl 1 250ml.bag @ 12 UNITS/KG/HR 8.165 mls/hr IV .Q24H [facility] Rx#: [id number] Oral 240 Output: Urine 800 600 Other: # Voids 3 1 - Exam CONSTITUTIONAL: No apparent distress. HEENT: Head is normocephalic. Pupils are equal, round. Sclerae anicteric. Mucous membranes of the mouth are moist. No JVD. No carotid bruit. CHEST EXAMINATION: Lungs are clear to auscultation. No chest wall tenderness is noted on palpation or with deep breathing. HEART EXAMINATION: Regular rate and rhythm, bradycardic. S1, S2 heard. Systolic ejection murmur at the base, no gallops or rub. ABDOMEN: Soft, nontender. Positive bowel sounds. EXTREMITIES: 2+ peripheral pulses, no lower extremity edema and no calf tenderness. NEUROLOGIC EXAMINATION: Patient is awake, alert and oriented x3. - Labs CBC & Chem 7: 01/19/20 05:29 01/19/20 05:29 Labs: Abnormal Lab Results - Last 24 Hours (Table) 01/18/20 01/19/20 01/19/20 Range/Units 14:20 05:29 05:29 Lymphocytes # 0.4 L (1.0-4.8) k/uL APTT 31.3 H (22.0-30.0) sec Potassium 3.1 L (3.5-5.1) mmol/L Carbon Dioxide 21 L (22-30) mmol/L Glucose 101 H (74-99) mg/dL Assessment and Plan Assessment: 1. Chronic persistent typical atrial flutter with slow ventricular rate - Cardiology is following and recommending to continue , with recommendation of pacemaker tomorrow for cardiology. Continue subcutaneous heparin for now 2. Persistent nausea, continue with Zofran and Tigan. Call GI per mobile mechanic recommendation 3. History of coronary artery disease status post bypass grafting; continue with aspirin and statin therapy; patient not on any beta doretha therapy 4. Hypertension; stable without any antihypertensive therapy at this time 5. Dyslipidemia; atorvastatin increased to 40 mg by mouth daily at bedtime per cardiology recommendations 6. Aortic stenosis; most recent echocardiogram done in February 2019 revealing EF of 55% along with severely dilated left atrium moderate aortic regurgitation and stenosis DVT prophylaxis; IV heparin infusion CODE STATUS; full code
[2020-01-20] MEDS: PANTOPRAZOLE 40 MG TABLET PO SCH (05:08)
[2020-01-20] MEDS: ONDANSETRON 4 MG/2 ML VIAL IVP SCH ×4 (05:08→23:17)
[2020-01-20 05:48] LABS: Basophils % (A) 0 %; Eosinophils % (A) 0 %; HCT 40.4 % (39.0-53.0); HGB 13.4 gm/dL (13.0-17.5); Lymphocytes # (A) 0.6 k/uL (1.0-4.8); Lymphocytes % (A) 11 %; MCH 29.6 pg (25.0-35.0); MCHC 33.1 g/dL (31.0-37.0); MCV 89.5 fL (80.0-100.0); Monocytes # (A) 0.4 k/uL (0-1.0); Monocytes % (A) 7 %; Neutrophils # (A) 4.4 k/uL (1.3-7.7); Neutrophils % (A) 80 %; Platelet Count 165 k/uL (150-450); RBC 4.52 m/uL (4.30-5.90); RDW 14.2 % (11.5-15.5); WBC 5.5 k/uL (3.8-10.6)
[2020-01-20 06:08] LABS: African American GFR (CKD) >90 (>60 ml/min/1.73 sqM); Anion Gap 7 mmol/L; Blood Urea Nitrogen 18 mg/dL (9-20); Calcium 8.5 mg/dL (8.4-10.2); Carbon Dioxide 23 mmol/L (22-30); Chloride 107 mmol/L (98-107); Glucose 89 mg/dL (74-99); Non-African American GFR(CKD) 79 (>60 ml/min/1.73 sqM); Potassium 3.8 mmol/L (3.5-5.1); Sodium 137 mmol/L (137-145)
[2020-01-20] MEDS: HEPARIN SODIUM,PORCINE 5,000 UNIT/ML 1 ML VIAL SQ SCH ×2 (09:08→19:59)
[2020-01-20] MEDS: amLODIPine 5 MG TAB PO SCH (09:08)
[2020-01-20] MEDS: ASPIRIN 81 MG PO SCH (09:08)
[2020-01-20] MEDS: LOSARTAN 50 MG TAB PO SCH (09:08)
[2020-01-20] MEDS: SODIUM CHLORIDE 0.9% 1,000 ML IV SCH ×2 (09:44→23:17)
--- NOTE | 2020-01-20 10:35 | P.PN ---
Subjective Progress Note Date: 01/20/20 This is a pleasant 84-year-old male past medical history significant for coronary artery disease status post four-vessel bypass grafting in 2003, aortic stenosis, hypertension, dyslipidemia and paroxysmal atrial fibrillation. He follows in the office with Dr. Meier. Patient was seen and examined laying flat in bedthis morning. He denies abd pain or nausea this morning. He denies chest pain, dizziness or palpitations. He is generally overall quite weak and emaciated. He continues to be in atrial flutter this morning with a slow ventricular response, heart rate in the 40s. She was made yesterday, the patient would not be a good candidate for pacemaker implantation because of his frailty. Blood pressure 142/80 this morning. Laboratory data from this morning reviewed, white blood cell count 5.5, hemoglobin 13.4, platelet count 165. Sodium 137, potassium 3.8, BUN 18 and creatinine 0.8. Magnesium level 2.0. Objective - Vital Signs Vital signs: Vital Signs Temp 98.2 F 01/20/20 08:00 Pulse 44 L 01/20/20 08:00 Resp 20 01/20/20 04:00 BP 152/71 01/20/20 08:00 Pulse Ox 96 01/20/20 08:00 Intake & Output 01/19/20 01/20/20 01/20/20 18:59 06:59 18:59 Intake Total 240 Output Total 800 1180 Balance -560 -1180 Weight 62.2 kg Intake: Oral 240 Output: Urine 800 1180 Other: # Voids 2 - Exam PHYSICAL EXAMINATION: GENERAL: 64 year old gentleman, appears frail, emaciated HEENT: Head is atraumatic, normocephalic. Pupils equal, round. Sclera anicteric. Conjunctiva are clear. Mucous membranes of the mouth are moist. Neck is supple. There is no elevated jugular venous pressure. No carotid bruit is heard. HEART EXAMINATION: Heart S1 and S2 irregularly irregular a systolic ejection m urmur is heard CHEST EXAMINATION: Lungs are clear to auscultation and precussion. No chest wall tenderness is noted on palpation or with deep breathing. ABDOMEN: Soft, nontender. Bowel sounds are heard. No organomegaly noted. EXTREMITIES: 2+ peripheral pulses with no evidence of peripheral edema and no calf tenderness noted. NEUROLOGIC patient is awake, alert and oriented X3. . - Labs CBC & Chem 7: 01/20/20 05:27 01/20/20 05:25 Labs: Abnormal Lab Results - Last 24 Hours (Table) 01/20/20 Range/Units 05:27 Lymphocytes # 0.6 L (1.0-4.8) k/uL Assessment and Plan Plan: ASSESSMENT AND PLAN #1Chronic persistent typical atrial flutter with slow ventricular rate #2Lactic acidosis #3History of coronary artery disease status post bypass grafting #4Hypertension #5Dyslipidemia #6Aortic stenosis Plan From Cardiology's perspective, we will continue the patient on his current medications. He is not felt at this time to be a candidate for pacemaker implantation. DNP note has been reviewed, I agree with a documented findings and plan of care. Patient was seen and examined.
[2020-01-20] MEDS ORDERED: amLODIPine 5 MG TAB PO ONE (14:15)
--- NOTE | 2020-01-20 15:29 | XR ---
EXAMINATION TYPE: XR chest 1V portable DATE OF EXAM: 01/20/2020 HISTORY: Shortness of breath. COMPARISON: 01/16/2020 TECHNIQUE: Single view of the chest is submitted. FINDINGS: Demonstrated are scattered senescent parenchymal change. Persistent increased markings seen within the periphery of both mid lung zones. Correlate for possibl e underlying pneumonia. Correlate clinically and progress studies are advised. The heart is stable. Hilar and mediastinal structures are within normal limits. Degenerative changes are seen of the dorsal spine. IMPRESSION: 1. Persistent increased markings seen within the periphery of both mid lung zones. Correlate for pos sible underlying pneumonia. Correlate clinically and progress studies are advised.
[2020-01-20 15:32] LABS: ALT 14 U/L (4-49); AST 30 U/L (17-59); African American GFR (CKD) >90 (>60 ml/min/1.73 sqM); Albumin 2.9 g/dL (3.5-5.0); Alkaline Phosphatase 64 U/L (38-126); Anion Gap 8 mmol/L; Blood Urea Nitrogen 19 mg/dL (9-20); Calcium 8.2 mg/dL (8.4-10.2); Carbon Dioxide 24 mmol/L (22-30); Chloride 106 mmol/L (98-107); Glucose 102 mg/dL (74-99); Non-African American GFR(CKD) 82 (>60 ml/min/1.73 sqM); Potassium 3.5 mmol/L (3.5-5.1); Sodium 138 mmol/L (137-145); Total Bilirubin 1.2 mg/dL (0.2-1.3); Total Protein 5.7 g/dL (6.3-8.2)
--- NOTE | 2020-01-20 15:51 | PN ---
PROGRESS NOTE DATE OF SERVICE: 01/20/2020 This is an 84-year-old gentleman who was admitted with chronic persistent atrial fibrillation, atrial flutter, also had slow ventricular rate. Cardiology planning a cardiac pacemaker implantation originally, but however the patient continues to vomit and patient is extremely sick at this point. Cardiology is withholding the pacemaker implantation at this time. The Code status unknown at this time. The patient is slightly confused, unable to give a coherent history. The patient is extremely sick and unable to keep anything down. The chest x-ray done at the time of admission showed chronic appearing changes, hazy peripheral was also noted. PAST MEDICAL HISTORY: Reviewed. REVIEW OF SYSTEMS: Could not be taken. CURRENT MEDICATIONS: 1. Tylenol 650 q.6 p.r.n. 2. Norvasc 10 mg p.o. daily. 3. Aspirin 81 mg b.i.d. 4. Lipitor 40 mg q.h.s. 5. Heparin 5,000 subcu b.i.d. 6. Cozaar 50 mg p.o. daily. 7. Replacement protocols. 8. Narcan. 9. Zofran. 10.Protonix. 11.Tigan. PHYSICAL EXAMINATION: Patient is alert, oriented x2. Pulse 44, blood pressure 199/76, respiration 20, temperature 98.2, pulse ox 98% on room air skin: HEENT: Conjunctivae normal. NECK: No jugular venous distension. RESPIRATORY: Breath sounds diminished at the bases, a few scattered rhonchi, no crackles. ABDOMEN: Soft, nontender. No mass palpable. LEGS: No edema. NERVOUS SYSTEM: No focal deficits, mild diffuse weakness. SKIN: No ulcer, rash. LABS: At this time show WBC 5, hemoglobin IS 13.4 sodium 130, potassium 3.8. Troponin 0.113. ASSESSMENT: 1. Persistent atrial flutter with bradycardia. 2. Significant vomiting, possible acute gastroenteritis or gastritis r/o COVID- 19 change in mental status, metabolic encephalopathy, multifactorial. 3. Acute lactic acidosis. 4. Coronary artery disease, coronary artery bypass grafting. 5. Troponin 0.113, indeterminate. Rule out type 2 sny-AW-mnsafop-elevation myocardial infarction. 6. Hypokalemia, improved. 7. Hypertension. 8. Dyslipidemia. 9. Aortic stenosis. 10.History of prostate cancer radiation. 11.History of melanoma. 12.History of coronary artery disease, coronary artery bypass grafting. RECOMMENDATIONS: In this 84-year-old gentleman with a past medical history of multiple medical problems, will monitor the patient closely, continue with the current management and symptomatic treatment as mentioned earlier. Cardiology holding off the pacemaker at this time. I recommend COVID-19 testing also because of increased symptoms and a repeat chest x-ray also will be ordered. Otherwise, baseline evaluation of D-dimer, separate LDH is also ordered. Will continue to monitor. Prognosis guarded. Closely follow with Cardiology. Further recommendations to follow. Will talk with the family regarding the code status as well. MMODL / IJN: [id number] / AMI
[2020-01-20] MEDS: PANTOPRAZOLE 40 MG/10 ML VIAL IVP SCH ×2 (16:16→20:00)
--- NOTE | 2020-01-20 18:13 | P.CONS ---
History of Present Illness - Reason for Consult Consult date: 01/20/20 Nausea and vomiting Requesting physician: Henry E Sheet - Chief Complaint Weakness, nausea and vomiting - History of Present Illness 84-year-old male with a medical history significant for coronary artery disease status post CABG, aortic stenosis, hypertension, dyslipidemia and paroxysmal atrial fibrillation who presented to the hospital due to complaints of weakness, nausea and vomiting. EKG at that time revealed atrial flutter with an incomplete left bundle branch block and the patient has been seen by the cardiology service. The patient reports symptoms of nausea and vomiting for approximately 4 days. No further vomiting since presentation but the patient do es report he has remained nauseated. He denies any sick contacts, new medications or other triggers prior to developing the symptoms. He denies any fevers, change in bowel habits, diarrhea or abdominal pain. Ultrasound of the abdomen performed in evaluation was overall a poor study an x-ray of the abdomen was overall negative. WBC 5.5, hemoglobin 13.4, platelet count 265,000 with total bilirubin 1, alkaline phosphatase 87, AST 31 and ALTs 17. Review of Systems REVIEW OF SYSTEMS: CONSTITUTIONAL: Denies any fevers, chills, but does report overall weakness. CARDIOVASCULAR: Denies any chest pain, but does suffer from irregular heartbeat RESPIRATORY: Denies any shortness of breath, hemoptysis or cough. GENITOURINARY: No dysuria or hematuria. MUSCULOSKELETAL: No weakness reported. SKIN: Denies any new rashes or lesions, jaundice or pallor. PSYCHIATRIC: Denies any depression or anxiety. NEUROLOGY: Denies headache, denies any new focal deficits. EARS/NOSE/THROAT: No recent hearing change, congestion, nasal discharge or sore throat. EYES: No pain in eyes, discharge or change in vision. GASTROINTESTINAL: As per HPI. Past Medical History Past Medical History: Chest Pain / Angina, Hyperlipidemia, Hypertension, Prostate Disorder Additional Past Medical History / Comment(s): History of prostate cancer, status post radiation treatment 3 years ago. 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 History of Any Multi-Drug Resistant Organisms: None Reported Past Surgical History: Back Surgery, Coronary Bypass/CABG, Orthopedic Surgery Additional Past Surgical History / Comment(s): rt hip Past Psychological History: No Psychological Hx Reported Smoking Status: Former smoker Past Alcohol Use History: Occasional Past Drug Use History: None Reported Additional History: Family history: Reviewed with the patient and noncontributory to current medical presentation. Medications and Allergies Home Medications Medication Instructions Recorded Confirmed Type Aspirin EC [Ecotrin Low Dose] 81 mg PO DAILY 07/03/17 01/16/20 History Atorvastatin Calcium [Lipitor] 10 mg PO HS 07/03/17 01/16/20 History Felodipine ER [Plendil] 2.5 mg PO DAILY 01/16/20 01/16/20 History Gabapentin 600 mg PO TID PRN 01/16/20 01/16/20 History Allergies Allergy/AdvReac Type Severity Reaction Status Date / Time No Known Allergies Allergy Verified 01/16/20 19:09 Physical Exam Vitals: Vital Signs Temp Pulse Resp BP Pulse Ox 01/20/20 08:00 98.2 F 44 L 152/71 96 01/20/20 04:00 97.8 F 42 L 20 142/85 95 01/20/20 03:09 48 L 01/19/20 23:58 48 L 01/19/20 22:54 97.6 F 48 L 18 132/85 94 L 01/19/20 19:47 98.2 F 41 L 18 129/83 95 01/19/20 16:00 42 L 18 179/75 97 01/19/20 12:00 41 L 18 174/85 96 Intake and Output 01/19/20 01/20/20 01/20/20 22:59 06:59 14:59 Output Total 800 1180 Balance -800 -1180 Output: Urine 800 1180 Other: # Voids 2 Weight 62.2 kg On physical examination, patient appears comfortable in no apparent distress. HEAD: Normocephalic, atraumatic. EYES: No scleral icterus. No conjunctival injection. MOUTH: No lesions, tongue midline. NECK: Trachea midline, no gross abnormalities. CHEST: Decreased air entry in all lung henao. HEART: Irregularly irregular, S1-S2 appreciated. ABDOMEN: Soft, thin and nontender. Bowel sounds are positive. No organomegaly. No guarding or rigidity. EXTREMITIES: No pedal edema. SKIN: No rashes, no jaundice. NEUROLOGIC: Alert and interactive. Results CBC & Chem 7: 01/20/20 05:27 01/20/20 15:02 Labs: Abnormal Lab Results - Last 24 Hours (Table) 01/20/20 Range/Units 05:27 Lymphocytes # 0.6 L (1.0-4.8) k/uL US - abdomen: report reviewed (Ultrasound of the abdomen limited but grossly negative.) Assessment and Plan (1) Nausea and vomiting Narrative/Plan: 84-year-old male with multiple medical comorbidities and a significant past cardiac history who presented to the hospital with weakness, nausea and vomiting. He reports 4 days of symptoms of nausea and dry heaving. Currently no further vomiting reported but patient is still feeling somewhat nauseated. He denies any new medications prior to developing symptoms or sick contacts. No fevers, chills or change in bowel habits. Unknown etiology, may represent viral or bacterial gastroenteritis, nausea in the setting of GERD, less likely peptic ulcer disease or other etiology. Current Visit: Yes Status: Acute Code(s): R11.2 - NAUSEA WITH VOMITING, UNSPECIFIED SNOMED Code(s): 60123402 Plan: Supportive care Okay for diet as tolerated Protonix 40 mg daily added Zofran change to [id number] Tigan as needed for breakthrough nausea and Continue to monitor symptomatically No plan for endoscopic evaluation at this time Thank you for allowing us dysphagia in the care of the patient
[2020-01-20] MEDS: ATORVASTATIN 40 MG TAB PO SCH (19:59)
[2020-01-21] MEDS: ONDANSETRON 4 MG/2 ML VIAL IVP SCH ×2 (06:05→12:24)
[2020-01-21 06:17] LABS: Basophils % (A) 0 %; Eosinophils % (A) 1 %; HCT 39.3 % (39.0-53.0); HGB 13.4 gm/dL (13.0-17.5); Lymphocytes # (A) 0.7 k/uL (1.0-4.8); Lymphocytes % (A) 14 %; MCH 30.5 pg (25.0-35.0); MCV 89.7 fL (80.0-100.0); Mean Platelet Volume 7.8; Monocytes # (A) 0.3 k/uL (0-1.0); Monocytes % (A) 7 %; Neutrophils # (A) 3.7 k/uL (1.3-7.7); Neutrophils % (A) 76 %; Platelet Count 175 k/uL (150-450); RBC 4.39 m/uL (4.30-5.90); RDW 14.2 % (11.5-15.5); WBC 4.9 k/uL (3.8-10.6)
[2020-01-21] MEDS: LOSARTAN 50 MG TAB PO SCH (09:23)
[2020-01-21] MEDS: PANTOPRAZOLE 40 MG/10 ML VIAL IVP SCH ×2 (09:23→21:03)
[2020-01-21] MEDS: HEPARIN SODIUM,PORCINE 5,000 UNIT/ML 1 ML VIAL SQ SCH ×2 (09:23→21:03)
[2020-01-21] MEDS: amLODIPine 10 MG TAB PO SCH (09:23)
[2020-01-21 10:40] LABS: Erythrocyte Sedimentation Rate 9 mm/hr (0-15)
[2020-01-21] MEDS ORDERED: BISACODYL 10 MG SUPP RECTAL STA (11:43)
--- NOTE | 2020-01-21 11:43 | P.PN ---
Subjective Progress Note Date: 01/21/20 This is a pleasant 84-year-old male past medical history significant for coronary artery disease status post four-vessel bypass grafting in 2003, aortic stenosis, hypertension, dyslipidemia and paroxysmal atrial fibrillation. He follows in the office with Dr. Meier. Patient was seen and examined laying flat in bedthis morning. He denies abd pain or nausea this morning. He denies chest pain, dizziness or palpitations. He is generally overall quite weak and emaciated. He continues to be in atrial flutter this morning with a slow ventricular response, heart rate in the 40s. She was made yesterday, the patient would not be a good candidate for pacemaker implantation because of his frailty. Blood pressure 142/80 this morning. Laboratory data from this morning reviewed, white blood cell count 5.5, hemoglobin 13.4, platelet count 165. Sodium 137, potassium 3.8, BUN 18 and creatinine 0.8. Magnesium level 2.0. 01/21/2020 Patient seen and examined this morning, denies any vomiting, still has some mild nausea, extremely weak. He continues to be in an atrial flutter, heart rate mainly in the 50s, at times dipped down into the 40s. Patient's primary issue is not a cardiac problem. Dr. Lucero Malin spoke in detail with Dr. Luna. From our perspective we will continue current therapy and follow this patient along with you now on an as-needed basis only, Dr. Malin's recommendation is for Dr. Luna to speak with family regarding comfort measures. Objective - Vital Signs Vital signs: Vital Signs Temp 97.9 F 01/21/20 08:15 Pulse 45 L 01/21/20 08:15 Resp 20 01/21/20 08:15 BP 148/58 01/21/20 08:15 Pulse Ox 95 01/21/20 08:15 Intake & Output 01/20/20 01/21/20 01/21/20 18:59 06:59 18:59 Intake Total 1065 1160 Output Total 300 200 Balance 765 960 Weight 62.2 kg 62 kg Intake: IV 10 Invasive Line 2 10 Intake, IV Titration 825 600 Amount Sodium Chloride 0.9% 1, 825 600 000 ml @ 75 mls/hr IV . [id number] [facility] Rx#:[id number] Oral 240 550 Output: Urine 300 200 Other: Voiding Method Urinal - Exam PHYSICAL EXAMINATION: GENERAL: 64 year old gentleman, appears frail, emaciated HEENT: Head is atraumatic, normocephalic. Pupils equal, round. Sclera anicteric. Conjunctiva are clear. Mucous membranes of the mouth are moist. Neck is supple. There is no elevated jugular venous pressure. No carotid bruit is heard. HEART EXAMINATION: Heart S1 and S2 irregularly irregular a systolic ejection murmur is heard CHEST EXAMINATION: Lungs are clear to auscultation and precussion. No chest wall tenderness is noted on palpation or with deep breathing. ABDOMEN: Soft, nontender. Bowel sounds are heard. No organomegaly noted. EXTREMITIES: 2+ peripheral pulses with no evidence of peripheral edema and no calf tenderness noted. NEUROLOGIC patient is awake, alert and oriented X3. . - Labs CBC & Chem 7: 01/21/20 05:44 01/20/20 15:02 Labs: Abnormal Lab Results - Last 24 Hours (Table) 01/20/20 01/21/20 01/21/20 Range/Units 15:02 05:44 05:44 Lymphocytes # 0.7 L (1.0-4.8) k/uL D-Dimer 1.49 H (<0.60) mg/L FEU Glucose 102 H (74-99) mg/dL Calcium 8.2 L (8.4-10.2) mg/dL Lactate Dehydrogenase (313-618) U/L Total Protein 5.7 L (6.3-8.2) g/dL Albumin 2.9 L (3.5-5.0) g/dL 01/21/20 Range/Units 05:44 Lymphocytes # (1.0-4.8) k/uL D-Dimer (<0.60) mg/L FEU Glucose (74-99) mg/dL Calcium (8.4-10.2) mg/dL Lactate Dehydrogenase 690 H (313-618) U/L Total Protein (6.3-8.2) g/dL Albumin (3.5-5.0) g/dL Assessment and Plan Plan: ASSESSMENT AND PLAN #1Chronic persistent typical atrial flutter with slow ventricular rate #2Lactic acidosis #3History of coronary artery disease status post bypass grafting #4Hypertension #5Dyslipidemia #6Aortic stenosis Plan From Cardiology's perspective, we will continue the patient on his current medications. His primary problem is not cardiac in nature. We will follow this patient along with you now on an as-needed basis only. Please don't hesitate to call with any questions. DNP note has been reviewed, I agree with a documented findings and plan of care. Patient was seen and examined.
[2020-01-21] MEDS: TRIMETHOBENZAMIDE 300 MG CAP PO SCH ×2 (12:25→21:03)
[2020-01-21] MEDS: SODIUM CHLORIDE 0.9% 1,000 ML IV SCH (12:42)
--- NOTE | 2020-01-21 14:11 | XR ---
EXAMINATION TYPE: XR KUB portable DATE OF EXAM: 01/21/2020 COMPARISON: None INDICATION: Constipation TECHNIQUE: Single view abdomen supine view FINDINGS: There is a normal bowel gas pattern. Psoas margins are normal. No organomegaly is present. Postsurgical laminectomy is through the lumbar spine. Degenerative disc changes and spondylosis are p resent. Degenerative changes are at the sacroiliac joints greater on the left. There is a right hip p rosthesis. Narrowing of the left hip joint space and cam deformity is present. IMPRESSION: 1. Unremarkable Abdomen
--- NOTE | 2020-01-21 14:42 | PN ---
PROGRESS NOTE DATE OF SERVICE: 01/21/2020 This is an 84-year-old gentleman who was admitted with significant persistent nausea, vomiting, also had atrial flutter with low ventricular rate. Cardiology was initially planning a pacemaker implantation, but because of the multiple symptomatology at this time, the heart rate is maintained at 40 and Cardiology is only following the patient on a p.r.n. basis at this time. Troponin is indeterminate. Currently, the patient is severely nauseous. This nauseous episode started about 5 days prior to the admission according to the daughter, Tina whom I had a detailed discussion over the phone. The patient will be closely monitored at this time. The COVID-19 test is pending at this time. Chest x-ray was reviewed. Gastroenterology evaluation also ongoing at this time. PAST MEDICAL HISTORY: Reviewed. REVIEW OF SYSTEMS: CARDIOVASCULAR: As mentioned earlier. RESPIRATION: As mentioned earlier. GI: As mentioned earlier. : No dysuria. NERVOUS SYSTEM: No numbness or weakness. CURRENT MEDICATIONS: Reviewed and include: 1. Tylenol p.r.n. 2. Norvasc 10 mg p.o. daily. 3. Lipitor 40 mg q.h.s. 4. Heparin subcu b.i.d. 5. Cozaar 50 mg daily. 6. Replacement protocol. 7. Zofran. 8. Protonix. 9. Tigan. PHYSICAL EXAM: Patient is alert, oriented x3. The pulse is 43, blood pressure 173/83, respiration 20, temperature 98 degrees, pulse ox 94% on room air. HEENT: Conjunctivae normal. NECK: No jugular venous distension. CARDIOVASCULAR: S1, S2, muffled. RESPIRATION: Breath sounds diminished at the bases. Bilateral scattered rhonchi, no crackles. ABDOMEN: Soft, nontender. No mass palpable. LEGS: No edema, no swelling. NERVOUS SYSTEM: Higher functions as mentioned earlier. Moves all 4 limbs. No focal deficits. ABDOMEN: Soft, nontender. Bowel sounds diminished. NERVOUS SYSTEM: Diffusely week. LABS: At this time, WBC 4.2, hemoglobin 13.4. D-dimer is 1.49. The LDH is 690. The ESR is 9. Influenza negative, COVID-19 is pending. ASSESSMENT: 1. Incessant nausea, vomiting, possible acute gastritis or gastroenteritis, viral. 2. Rule out COVID-19. 3. Rule out peptic ulcer disease. 4. Congestive heart failure with chronic systolic dysfunction, ejection fraction 40% to 50%. 5. Change in mental status with acute metabolic encephalopathy, multifactorial. 6. Atrial flutter with bradycardia. 7. Lactic acidosis, present on admission. 8. Coronary artery disease, coronary artery bypass grafting history. 9. Troponin 0.0113, indeterminate. Rule out type 2 ykq-XO-pzpuyik-elevation myocardial infarction. 10.Hypokalemia, improved. 11.Hypertension. 12.Dyslipidemia. 13.Aortic stenosis. 14.History of prostate cancer with radiation. 15.History of melanoma. 16.History of coronary artery disease, coronary artery bypass grafting. 17.Aortic stenosis with peak and mean gradient 20/10. 18.Currently FULL CODE. RECOMMENDATION AND DISCUSSION: In this 84-year-old gentleman who presented with multiple complex medical issues, at this time I recommend to continue the current medications. Discussed at length with Dr. Gilmar Malin from Cardiology. Currently there is no indication for any pacemaker implantation. Ejection fraction was found to be 42%, mildly impaired. The patient has multiple minimal valvular abnormalities also. However, the patient is symptomatic from the gastroenterology point, despite symptomatic treatment, patient continues to have nausea, unable to keep anything down. I have recommended Gastroenterology evaluation and possible endoscopies. The COVID-19 is pending at this time and continue the rest of medications. See orders for further details. Protonix b.i.d., DVT prophylaxis and also discussed at length with, Tina, the daughter over the phone and who will discuss with the brother regarding the code status and will get back to us. The overall prognosis guarded. Further recommendations to follow. MMODL / IJN: [id number] /
--- NOTE | 2020-01-21 14:53 | CT ---
EXAMINATION TYPE: CT abdomen pelvis wo con DATE OF EXAM: 01/21/2020 COMPARISON: 07/03/2017 INDICATION: GI obstruction DLP: 731.5 mGycm, Automated exposure control for dose reduction was used. CONTRAST: 0 mL of Isovue 300. Study performed without Oral Contrast TECHNIQUE: Axial images were obtained from above the diaphragm to the pubic rami in the axial plane a t 5 mm thick sections. Reconstructed images are reviewed on the computer in the coronal plane. FINDINGS: Limited CT sections are obtained the lung bases. Some mild compressive atelectasis is within the dep endent portions of the lung bases bilaterally. Small right pleural effusion is present. Some minimal pleural calcifications along the posterior left lung base. Note is made of coronary artery calcificat ion. Heart size is mildly prominent.. CT ABDOMEN: Liver: Normal Spleen: Normal Pancreas: Normal Adrenal glands: The adrenal glands are normal. Gallbladder: Normal Kidneys: No masses are evident. No hydronephrosis is present. No cysts are present. There is a 0.4 cm calcification in the medial mid right kidney. This may extend superiorly and inferior to this loc ation could be associated with vascular calcification. More clearly vascular calcification is present bilaterally. No additional suspicious calcifications are evident. Aorta: Vascular calcification is within the aorta. Inferior vena cava: Normal. CT PELVIS: Loops of bowel within the abdomen and pelvis are normal. The studies performed without oral contr ast limiting bowel evaluation. Some diverticular changes are within the sigmoid colon beam hardening artifact limits the lower pelvis from a right hip prosthesis. No suspicious changes to suggest acute diverticulitis are evident. There may be some mild thickening of the rectum best visualized in the co stan plane. Consider some mild colitis. Appendix: There appears to be the appendix is normal. No suspicious dilated tubular structures or inf lammatory changes are evident. Urinary bladder: Normal. Genitourinary structures: Prostate contains few surgical clips. Osseous structures: No suspicious lytic or sclerotic lesions. Right hip prosthesis is present. Scolio sis is present. Degenerative sacroiliac joint degenerative changes are present. Facet hypertrophy can contribute to foraminal narrowing L4-5. Laminectomy has been performed through the lumbar spine. IMPRESSIONS: 1. No suspicious changes to suggest small bowel obstruction or colonic obstruction. A few diverticul i without acute diverticulitis are within the colon. Mild thickening of the rectum may be present. 2. Degenerative changes of the lumbar spine and scoliosis.
[2020-01-21] MEDS ORDERED: FELODIPINE 2.5 MG PO SCH (15:30)
--- NOTE | 2020-01-21 16:58 | P.PN ---
Subjective Progress Note Date: 01/21/20 Principal diagnosis: Nausea and vomiting Patient is seen lying in bed reporting that he still nauseated. No vomiting. He continues to report poor oral intake. No bowel movement for approximately 7 days per the patient. Objective - Vital Signs Vital signs: Vital Signs Temp 98.4 F 01/21/20 15:49 Pulse 43 L 01/21/20 15:49 Resp 20 01/21/20 15:49 BP 166/69 01/21/20 15:49 Pulse Ox 95 01/21/20 15:49 Intake & Output 01/20/20 01/21/20 01/21/20 18:59 06:59 18:59 Intake Total 1065 1160 Output Total 300 200 200 Balance 765 960 -200 Weight 62.2 kg 62 kg Intake: IV 10 Invasive Line 2 10 Intake, IV Titration 825 600 Amount Sodium Chloride 0.9% 1, 825 600 000 ml @ 75 mls/hr IV . [id number] [facility] Rx#:[id number] Oral 240 550 Output: Urine 300 200 200 Other: Voiding Method Urinal - Exam On physical examination, patient appears comfortable in no apparent distress. HEAD: Normocephalic, atraumatic. EYES: No scleral icterus. No conjunctival injection. MOUTH: No lesions, tongue midline. NECK: Trachea midline, no gross abnormalities. ABDOMEN: Soft, thin and nontender to palpation. Bowel sounds are positive. No organomegaly. No guarding or rigidity. EXTREMITIES: No pedal edema. SKIN: No rashes, no jaundice. NEUROLOGIC: Alert and oriented x3. No focal deficits. - Labs CBC & Chem 7: 01/21/20 05:44 01/20/20 15:02 Labs: Abnormal Lab Results - Last 24 Hours (Table) 01/20/20 01/21/20 01/21/20 Range/Units 14:11 05:44 05:44 Lymphocytes # 0.7 L (1.0-4.8) k/uL D-Dimer 1.49 H (<0.60) mg/L FEU Lactate Dehydrogenase (313-618) U/L Coronavirus (PCR) Detected H (Not Detected) 01/21/20 01/21/20 Range/Units 05:44 12:44 Lymphocytes # (1.0-4.8) k/uL D-Dimer (<0.60) mg/L FEU Lactate Dehydrogenase 690 H (313-618) U/L Coronavirus (PCR) Detected A (Not Detected) Assessment and Plan (1) Nausea and vomiting Narrative/Plan: 84-year-old male with multiple medical comorbidities and a significant past cardiac history who presented to the hospital with weakness, nausea and v omiting. He reports 4 days of symptoms of nausea and dry heaving. Currently no further vomiting reported but patient is still feeling somewhat nauseated. He denies any new medications prior to developing symptoms or sick contacts. No fevers, chills or change in bowel habits. Unknown etiology, may represent viral or bacterial gastroenteritis, nausea in the setting of GERD, less likely peptic ulcer disease or other etiology. Current Visit: Yes Status: Acute Code(s): R11.2 - NAUSEA WITH VOMITING, UNSPECIFIED SNOMED Code(s): 96180714 Plan: Supportive care Okay for diet as tolerated Protonix 40 mg twice a day Zofran change to [id number] Tigan changed to [id number] MiraLAX for bowel regimen 1 time Dulcolax suppository ordered Continue to monitor symptomatically No plan for endoscopic evaluation at this time Thank you for allowing us to participate in the care of the patient
[2020-01-21] MEDS: HYDROXYCHLOROQUINE SULFATE 200 MG TAB PO SCH (21:03)
[2020-01-21] MEDS: ATORVASTATIN 40 MG TAB PO SCH (21:03)
--- NOTE | 2020-01-22 01:00 | CONS ---
CONSULTATION DATE OF SERVICE: 01/21/2020 REASON FOR CONSULTATION: Positive COVID-19. HISTORY OF PRESENT ILLNESS: The patient is an 84-year-old man presenting to the ER about 5 days ago on 01/16/2020 with chief complaints of generalized weakness, nausea and vomiting. The patient apparently had been complaining of vomiting for 3 days before he presented to the hospital. Apparently he did have a normal bowel movement with no blood or mucus in the stool. No chest pain. He did have a mild cough and no fever. With these symptoms, the patient was evaluated by the ER physician and has been admitted to the hospital. The patient remains afebrile, with no fever recorded during this hospital stay. Oxygen saturations have been between 94% and 95%. He did not require any supplemental oxygen. The patient did have a normal white count. However, he did have lymphopenia from day 1. Troponin mildly elevated. LDH was checked today; 690. Lactic acid normal. No CRP or other testing was done. The patient did have a UA that was negative. The patient did have initial admission. No serological testing. However, on 01/20/2020 the patient did have influenza which was negative. The luna virus PCR came back positive. It was repeated and came back positive again. That prompted this infectious disease consultation for further management. The patient also had a CT of abdomen and pelvis completed today with no suspicious changes to suggest small bowel obstruction; diverticula but no diverticulitis. REVIEW OF SYSTEMS: Positive points have been mentioned in HPI. Rest of the systems are negative. PAST MEDICAL HISTORY: Hypertension, hyperlipidemia, prostate disorder/prostate cancer, status post radiation, melanoma and coronary artery disease. PAST SURGICAL HISTORY: Back surgery, coronary artery bypass grafting, right hip surgery. SOCIAL HISTORY: Remote history of smoking. Very rarely drinks. No drug use. FAMILY HISTORY: No pertinent findings noticed. ALLERGIES: NO KNOWN DRUG ALLERGIES. MEDICATIONS: The patient is currently on Tylenol, Norvasc, Lipitor, Rocephin, Cozaar, Narcan, Protonix, Tigan. PHYSICAL EXAMINATION: Blood pressure is 171/79 with a pulse of 43, temperature 98.4. He is 95% on room air. General description is an elderly male lying in bed in no distress. No tachypnea or accessory muscle of respiration use. HEENT examination shows slight pallor. No scleral icterus. Oral mucosa membrane is dry. No pharyngeal erythema or thrush. NECK: Trachea is central. No thyromegaly. LUNGS: Unlabored breathing. Clear to auscultation anteriorly. No wheeze or crackle. HEART: S1, S2. Regular rate and rhythm. ABDOMEN: Soft. No tenderness. EXTREMITIES: No edema of the feet. SKIN EXAMINATION: No rash or mass palpable. Neurologically the patient is awake and alert, oriented . Mood and affect normal. LABS: Hemoglobin 13.4, white count 4.9, BUN of 19, creatinine 0.77. Electrolytes have been normal. LDH was 690. Chest x-ray DIAGNOSTIC IMPRESSION AND PLAN: Patient presented to hospital with gastrointestinal symptoms of vomiting. No diarrhea. This patient also had mild cough; no worsening, though chest x-ray did show increased marking within the periphery of both lung zones with COVID-19 testing coming back positive x2. Elevated LDH, suspicious for acute COVID-19 infection. PLAN: 1. Will start the patient on Plaquenil 400 mg b.i.d. day 1 followed by 200 b.i.d. for 4 days. 2. and respiratory support. 3. Will follow on his clinical condition and further adjust medication if needed. Thank you for this consultation. Will follow this patient along with you. APOLINAR / RYANN: [id number] /
[2020-01-22 07:30] LABS: Basophils % (A) 0 %; Eosinophils # (A) 0.1 k/uL (0-0.7); Eosinophils % (A) 1 %; HGB 12.6 gm/dL (13.0-17.5); Lymphocytes # (A) 0.8 k/uL (1.0-4.8); Lymphocytes % (A) 18 %; MCH 30.5 pg (25.0-35.0); MCV 89.8 fL (80.0-100.0); Monocytes # (A) 0.4 k/uL (0-1.0); Monocytes % (A) 9 %; Neutrophils # (A) 3.2 k/uL (1.3-7.7); Neutrophils % (A) 70 %; Platelet Count 183 k/uL (150-450); RBC 4.12 m/uL (4.30-5.90); RDW 14.1 % (11.5-15.5); WBC 4.6 k/uL (3.8-10.6)
[2020-01-22] MEDS: HEPARIN SODIUM,PORCINE 5,000 UNIT/ML 1 ML VIAL SQ SCH ×2 (09:26→20:42)
[2020-01-22] MEDS: SODIUM CHLORIDE 0.9% 1,000 ML IV SCH ×2 (09:26→21:48)
[2020-01-22] MEDS: PANTOPRAZOLE 40 MG/10 ML VIAL IVP SCH ×2 (09:26→20:43)
[2020-01-22] MEDS: TRIMETHOBENZAMIDE 300 MG CAP PO SCH ×3 (09:27→20:42)
[2020-01-22] MEDS: LOSARTAN 50 MG TAB PO SCH (09:27)
[2020-01-22] MEDS: HYDROXYCHLOROQUINE SULFATE 200 MG TAB PO SCH ×2 (09:27→20:43)
[2020-01-22] MEDS: amLODIPine 10 MG TAB PO SCH (09:27)
--- NOTE | 2020-01-22 15:13 | PN ---
PROGRESS NOTE DATE OF SERVICE: 01/22/2020 This is an 84-year-old gentleman who was admitted with increased nausea, vomiting, and possible gastroenteritis, also is COVID positive. The patient started on Klor-Con per Infectious Disease recommendations. Abdominal CAT scan did not show any acute abnormality. Patient continues to be nauseous at this time. Gastroenterology is also following the patient closely. Endoscopy is on hold at this time. No chest pain. No palpitations. PAST MEDICAL HISTORY: Reviewed. REVIEW OF SYSTEMS: CARDIOVASCULAR: No angina. RESPIRATORY: As mentioned earlier. GI: As mentioned earlier. : No dysuria. NERVOUS SYSTEM: No numbness, weakness. CURRENT MEDICATIONS: Reviewed and include: 1. Tylenol p.r.n. 2. Norvasc 10 mg daily. 3. Lipitor 40 mg q.h.s. 4. Rocephin 1 g daily. 5. Hydroxychloroquine 200 mg p.o. b.i.d. 6. Cozaar 50 mg p.o. daily. 7. Replacement protocol Narcan. 8. Protonix 40 mg IV b.i.d. 9. Tigan p.r.n. PHYSICAL EXAM: Patient is alert, oriented x2. Pulse is 41, blood pressure 160/72, respiration 20, temperature 97.2, pulse ox 94% on room air. HEENT: Conjunctivae normal. NECK: No jugular venous distension. CARDIOVASCULAR SYSTEM: S1, S2, muffled. RESPIRATORY: Breath sounds diminished at the bases, a few rhonchi, no crackles. ABDOMEN: Soft, nontender. No mass palpable. LEGS: No edema, no swelling. NERVOUS SYSTEM: No focal deficit. Moves all 4 limbs. LABS: WBC is 4.2, hemoglobin is 12.6, ADH is 690. COVID-19 is positive. ASSESSMENT: 1. Intractable nausea, vomiting with possible acute gastritis and gastroenteritis and possibly viral. 2. COVID-19 positive. 3. Congestive heart failure with chronic systolic dysfunction, ejection fraction 40%- 50%. 4. Change in mental status with acute metabolic encephalopathy, multifactorial. 5. Atrial flutter with bradycardia, lactic acidosis present on admission. 6. Coronary artery disease, coronary artery bypass grafting history. 7. Troponin 0.0113, indeterminate, possible related COVID. Rule out myocarditis. 8. Hypokalemia, improved. 9. Hypertension. 10.Dyslipidemia. 11.Aortic stenosis. 12.History of prostate cancer with radiation. 13.History of melanoma. 14.History of coronary artery disease, coronary artery bypass grafting. 15.Aortic stenosis with peak and mean gradient 2810. 16.FULL CODE. RECOMMENDATION: In this 84-year-old gentleman with multiple complex medical issues, will monitor the patient closely, continue with the current management and symptomatic treatment. The patient has been started on high-dose chloroquine and the patient was given empiric antibiotics also for possible lower lobe infiltrates. Will continue to monitor. Address the diet when the patient has been asymptomatic. Otherwise, continue with Protonix. Closely follow with Gastroenterology. I would continue with IV fluids cautiously. The overall prognosis is guarded because of multiple complex medical issues. Further recommendations to follow. A copy of this will be forwarded to Dr. Becker who is the primary physician. APOLINAR / NIDIA: [id number] /
--- NOTE | 2020-01-22 20:02 | P.PN ---
Subjective Progress Note Date: 01/22/20 Principal diagnosis: Nausea and vomiting Patient continues to report nausea. Testing for coronavirus positive yesterday. Objective - Vital Signs Vital signs: Vital Signs Temp 97.2 F L 01/22/20 16:50 Pulse 52 L 01/22/20 16:50 Resp 18 01/22/20 16:50 BP 163/69 01/22/20 16:50 Pulse Ox 98 01/22/20 16:50 Intake & Output 01/22/20 01/22/20 01/23/20 06:59 18:59 06:59 Intake Total 250 Output Total 500 400 Balance -500 -150 Weight 62.5 kg Intake: Intake, IV Titration 100 Amount cefTRIAXone 1 gm In 100 Sodium Chloride 0.9% 50 ml @ 100 mls/hr IVPB Q24HR [facility] Rx#:[id number] Oral 150 Output: Urine 500 400 Other: Voiding Method Urinal # Voids 1 1 # Bowel Movements 0 - Exam Physical exam not performed due to Coronavirus, deferred to primary team. - Labs CBC & Chem 7: 01/22/20 06:38 01/20/20 15:02 Labs: Abnormal Lab Results - Last 24 Hours (Table) 01/22/20 Range/Units 06:38 RBC 4.12 L (4.30-5.90) m/uL Hgb 12.6 L (13.0-17.5) gm/dL Hct 37.0 L (39.0-53.0) % Lymphocytes # 0.8 L (1.0-4.8) k/uL Assessment and Plan (1) Nausea and vomiting Narrative/Plan: 84-year-old male with multiple medical comorbidities and a significant past cardiac history who presented to the hospital with weakness, nausea and vomiting. He reports 4 days of symptoms of nausea and dry heaving. Currently no further vomiting reported but patient is still feeling somewhat nauseated. He denies any new medications prior to developing symptoms or sick contacts. No fevers, chills or change in bowel habits. Unknown etiology, likely related to Darling virus with positive testing for Covid-19. Current Visit: Yes Status: Acute Code(s): R11.2 - NAUSEA WITH VOMITING, UNSPECIFIED SNOMED Code(s): 34836422 Plan: Supportive care Okay for diet as tolerated Protonix 40 mg twice a day Zofran and Tigan for anti emetic MiraLAX for bowel regimen Continue to monitor symptomatically No plan for endoscopic evaluation at this time Thank you for allowing us to participate in the care of the patient
[2020-01-22] MEDS: ATORVASTATIN 40 MG TAB PO SCH (20:42)
--- NOTE | 2020-01-22 22:50 | PN ---
PROGRESS NOTE DATE OF SERVICE: 01/22/2020 REASON FOR FOLLOWUP: Acute COVID-19 infection. INTERVAL HISTORY: The patient is currently afebrile. He is breathing comfortably; feeling weak and lethargic, though. No chest pain or shortness of breath. Occasional cough. No nausea, no vomiting or diarrhea. PHYSICAL EXAMINATION: Blood pressure 163/69 with a pulse of 51, temperature 97.2. He is 98% on room air. General description is an elderly male lying in bed in no distress. RESPIRATORY SYSTEM: Unlabored breathing with decreased intensity of breath sounds. No wheeze. HEART: S1, S2. Regular rate and rhythm. ABDOMEN: Soft. No tenderness. LABS: Hemoglobin is 12.6, white count 4.6, BUN of 19, creatinine 0.77. DIAGNOSTIC IMPRESSION AND PLAN: Patient with acute COVID-19 infection. Patient started on Plaquenil; to continue. Will add zinc and watch for any respiratory distress. Continue with supportive care. MMODL / IJN: [id number] /
[2020-01-23] MEDS: PANTOPRAZOLE 40 MG/10 ML VIAL IVP SCH ×2 (09:14→20:31)
[2020-01-23] MEDS: HYDROXYCHLOROQUINE SULFATE 200 MG TAB PO SCH ×2 (09:15→20:33)
[2020-01-23] MEDS: TRIMETHOBENZAMIDE 300 MG CAP PO SCH ×3 (09:15→20:30)
[2020-01-23] MEDS: LOSARTAN 50 MG TAB PO SCH (09:15)
[2020-01-23] MEDS: amLODIPine 10 MG TAB PO SCH (09:15)
[2020-01-23] MEDS: HEPARIN SODIUM,PORCINE 5,000 UNIT/ML 1 ML VIAL SQ SCH ×2 (09:15→20:31)
[2020-01-23] MEDS: ZINC SULFATE 220 MG CAP PO SCH (10:29)
[2020-01-23 11:04] LABS: Basophils % (A) 0 %; Eosinophils # (A) 0.1 k/uL (0-0.7); Eosinophils % (A) 2 %; HCT 38.2 % (39.0-53.0); HGB 12.8 gm/dL (13.0-17.5); Lymphocytes # (A) 0.8 k/uL (1.0-4.8); Lymphocytes % (A) 13 %; MCHC 33.4 g/dL (31.0-37.0); MCV 89.7 fL (80.0-100.0); Mean Platelet Volume 10.1; Monocytes # (A) 0.5 k/uL (0-1.0); Monocytes % (A) 8 %; Neutrophils # (A) 4.4 k/uL (1.3-7.7); Neutrophils % (A) 74 %; Platelet Count 191 k/uL (150-450); RBC 4.26 m/uL (4.30-5.90); WBC 5.9 k/uL (3.8-10.6)
[2020-01-23 11:10] LABS: ALT 15 U/L (4-49); AST 34 U/L (17-59); African American GFR (CKD) >90 (>60 ml/min/1.73 sqM); Albumin 2.5 g/dL (3.5-5.0); Alkaline Phosphatase 62 U/L (38-126); Anion Gap 6 mmol/L; Blood Urea Nitrogen 11 mg/dL (9-20); Calcium 8.1 mg/dL (8.4-10.2); Carbon Dioxide 23 mmol/L (22-30); Chloride 109 mmol/L (98-107); Glucose 88 mg/dL (74-99); Non-African American GFR(CKD) 88 (>60 ml/min/1.73 sqM); Potassium 3.2 mmol/L (3.5-5.1); Sodium 138 mmol/L (137-145); Total Bilirubin 0.9 mg/dL (0.2-1.3); Total Protein 5.2 g/dL (6.3-8.2)
[2020-01-23] MEDS: PROCHLORPERAZINE SUPPOSITORY 25 MG SUPP RECTAL SCH ×2 (11:14→20:31)
--- NOTE | 2020-01-23 11:22 | P.PN ---
Subjective Progress Note Date: 01/23/20 Principal diagnosis: Nausea and vomiting Patient continues to report nausea. Testing for coronavirus positive 2 days ago. Sitting up in chair today. Objective - Vital Signs Vital signs: Vital Signs Temp 98.2 F 01/23/20 03:00 Pulse 40 L 01/23/20 03:00 Resp 18 01/23/20 03:00 BP 168/82 01/23/20 03:00 Pulse Ox 96 01/23/20 03:00 Intake & Output 01/22/20 01/23/20 01/23/20 18:59 06:59 18:59 Intake Total 250 Output Total 400 125 150 Balance -150 -125 -150 Weight 61 kg Intake: Intake, IV Titration 100 Amount cefTRIAXone 1 gm In 100 Sodium Chloride 0.9% 50 ml @ 100 mls/hr IVPB Q24HR [facility] Rx#:[id number] Oral 150 Output: Urine 400 125 150 Other: Voiding Method Urinal # Voids 1 0 # Bowel Movements 0 - Exam Physical exam not performed due to Coronavirus, deferred to primary team. - Labs CBC & Chem 7: 01/23/20 07:20 01/23/20 07:20 Labs: Abnormal Lab Results - Last 24 Hours (Table) 01/23/20 01/23/20 Range/Units 07:20 07:20 RBC 4.26 L (4.30-5.90) m/uL Hgb 12.8 L (13.0-17.5) gm/dL Hct 38.2 L (39.0-53.0) % Lymphocytes # 0.8 L (1.0-4.8) k/uL Potassium 3.2 L (3.5-5.1) mmol/L Chloride 109 H (98-107) mmol/L Calcium 8.1 L (8.4-10.2) mg/dL Total Protein 5.2 L (6.3-8.2) g/dL Albumin 2.5 L (3.5-5.0) g/dL Assessment and Plan (1) Nausea and vomiting Narrative/Plan: 84-year-old male with multiple medical comorbidities and a significant past cardiac history who presented to the hospital with weakness, nausea and vomiting. He reports 4 days of symptoms of nausea and dry heaving. Currently no further vomiting reported but patient is still feeling somewhat nauseated. He denies any new medications prior to developing symptoms or sick contacts. No fevers, chills or change in bowel habits. Unknown etiology, likely related to Darling virus with positive testing for Covid-19. Current Visit: Yes Status: Acute Code(s): R11.2 - NAUSEA WITH VOMITING, UNSPECIFIED SNOMED Code(s): 10272369 Plan: Supportive care Okay for diet as tolerated Protonix 40 mg twice a day Zofran and Tigan for anti emetic Rectal Compazine noted today for nausea MiraLAX for bowel regimen Continue to monitor symptomatically No plan for endoscopic evaluation at this time Thank you for allowing us to participate in the care of the patient
[2020-01-23] MEDS ORDERED: Potassium Replacement Protocol 1 EACH MISC MISCELLANE PRN (13:55)
[2020-01-23] MEDS ORDERED: Magnesium Replacement Protocol 1 EACH MISC MISCELLANE PRN (13:55)
--- NOTE | 2020-01-23 15:44 | PN ---
PROGRESS NOTE DATE OF SERVICE: 01/23/2020 This is an 84-year-old gentleman who was admitted with significant nausea and vomiting, and code positive. The patient also had some minimal chest x-ray abnormality. Empiric antibiotics also have been given. Patient will be closely monitored. Gastroenterology following the patient closely as well as Infectious Disease. Patient is started on Klor-Con as well empirically. No chest pain. No palpitations. PAST MEDICAL HISTORY: Reviewed. REVIEW OF SYSTEMS: CARDIOVASCULAR SYSTEM: No angina. RESPIRATION: As mentioned earlier. GI: As mentioned earlier. ; No dysuria. NERVOUS SYSTEM: No numbness weakness. CURRENT MEDICATIONS: Reviewed and include: 1. Tylenol 650 q.6 p.r.n. 2. Norvasc 10 mg p.o. daily. 3. Lipitor 40 mg q.h.s. 4. Rocephin 1 g daily. 5. Heparin 5 subcu b.i.d. 6. Plaquenil 200 mg b.i.d. 7. Cozaar 50 mg p.o. daily. 8. Replacement protocols Narcan. 9. Protonix. 10.Compazine. 11.Tigan. 12.Zinc sulfate. PHYSICAL EXAM: Patient is alert and oriented x3. The pulse is 42, blood pressure 156/60, respiration 18, temperature 97.2, pulse ox 94% on room air. Conjunctivae normal. Oral mucosa moist. Neck is no jugular venous distension, no lymph enlargement. CARDIOVASCULAR SYSTEMS: S1, S2. RESPIRATIONS: Breath sounds diminished at the bases. A few scattered rhonchi. ABDOMEN: Soft, nontender, no mass palpable. LEGS: No edema. NERVOUS SYSTEM: No focal deficits. LABS: WBC 5.2, hemoglobin is 12.8 sodium is 138, potassium 3.2. ASSESSMENT: 1. Intractable nausea, vomiting with possible acute gastritis and gastroenteritis possibly secondary to COVID-19. 2. Congestive heart failure with chronic systolic dysfunction ejection fraction 40% - 50%. .. 3. Change in mental status with mild metabolic encephalopathy multifactorial. 4. Atrial flutter with bradycardia lactic acid lactic acidosis present on admission. 5. Coronary artery disease, coronary artery bypass grafting history. 6. Troponin 0.113, indeterminate, possibly secondary to comorbid myocarditis. 7. Hypokalemia, improved. 8. Hypertension. 9. Dyslipidemia. 10.Aortic stenosis history. 11.History of prostate cancer with radiation history of melanoma. 12.History of coronary artery disease, coronary artery bypass grafting. 13.Aortic stenosis with peak and mean gradient 28/10. 14.FULL CODE. RECOMMENDATION: 1. Comments: Continue current management and continue the antibiotics. Continue with potassium please also hypokalemia final diagnosis potassium supplementation and check the magnesium. Otherwise, continue rest of medications. Guarded prognosis. Further recommendations to follow. See orders for further details. MMODL / IJN: [id number] /
[2020-01-23] MEDS: SODIUM CHLORIDE 0.9% 1,000 ML IV SCH (15:58)
[2020-01-23] MEDS ORDERED: POTASSIUM CHLORIDE ER 20 MEQ TAB.ER PO STA (20:03)
[2020-01-23] MEDS: ATORVASTATIN 40 MG TAB PO SCH (20:31)
[2020-01-23] MEDS: ACETAMINOPHEN TAB 325 MG TAB PO PRN (20:31)
--- NOTE | 2020-01-23 23:38 | PN ---
PROGRESS NOTE DATE OF SERVICE: 01/23/2020 REASON FOR FOLLOWUP: Acute COVID-19 pneumonia. INTERVAL HISTORY: The patient is currently afebrile, has been breathing comfortably. Was complaining of not feeling that good and feeling nauseated, but no vomiting. No chest pain. Some shortness of breath. Minimal cough. No abdominal pain or diarrhea. PHYSICAL EXAMINATION: Blood pressure 162/66, pulse of 51, temperature 97.3. He is 96% on room air. General description is an elderly male lying in bed in no distress. RESPIRATORY SYSTEM: Unlabored breathing. Clear to auscultation anteriorly. HEART: S1, S2. Regular rate and rhythm. ABDOMEN: Soft. No tenderness. LABS: Hemoglobin is 12.8, white count of 5.9, BUN of 11, creatinine 0.66. DIAGNOSTIC IMPRESSION AND PLAN: Patient with acute COVID-19 infection. Patient is currently covered with Levaquin and zinc; to continue and will monitor his clinical course closely. MMODL / IJN: [id number] /
[2020-01-24] MEDS: SODIUM CHLORIDE 0.9% 1,000 ML IV SCH ×2 (05:55→22:54)
[2020-01-24 07:28] LABS: Potassium 3.1 mmol/L (3.5-5.1)
[2020-01-24 07:29] LABS: African American GFR (CKD) >90 (>60 ml/min/1.73 sqM); Anion Gap 9 mmol/L; Blood Urea Nitrogen 11 mg/dL (9-20); Calcium 8.3 mg/dL (8.4-10.2); Carbon Dioxide 21 mmol/L (22-30); Chloride 110 mmol/L (98-107); Glucose 72 mg/dL (74-99); Magnesium 1.8 mg/dL (1.6-2.3); Non-African American GFR(CKD) 86 (>60 ml/min/1.73 sqM); Sodium 140 mmol/L (137-145)
[2020-01-24] MEDS: PANTOPRAZOLE 40 MG/10 ML VIAL IVP SCH ×2 (08:57→20:59)
[2020-01-24] MEDS: LOSARTAN 50 MG TAB PO SCH (08:58)
[2020-01-24] MEDS: amLODIPine 10 MG TAB PO SCH (08:58)
[2020-01-24] MEDS: HEPARIN SODIUM,PORCINE 5,000 UNIT/ML 1 ML VIAL SQ SCH ×2 (08:58→20:59)
[2020-01-24] MEDS: PROCHLORPERAZINE SUPPOSITORY 25 MG SUPP RECTAL SCH ×2 (08:59→20:56)
[2020-01-24] MEDS: HYDROXYCHLOROQUINE SULFATE 200 MG TAB PO SCH ×2 (08:59→21:00)
[2020-01-24] MEDS: TRIMETHOBENZAMIDE 300 MG CAP PO SCH ×3 (09:00→21:00)
[2020-01-24] MEDS: ZINC SULFATE 220 MG CAP PO SCH (09:00)
[2020-01-24] MEDS ORDERED: Potassium Replacement Protocol 1 EACH MISC MISCELLANE PRN (11:17)
[2020-01-24] MEDS: POTASSIUM CHLORIDE 20 MEQ in WATER FOR INJECTION 1 100ML.BAG IVPB SCH ×3 (12:26→15:51)
--- NOTE | 2020-01-24 15:14 | PN ---
PROGRESS NOTE DATE OF SERVICE: 01/24/2020 This 84-year-old gentleman who was admitted with significant difficulty with vomiting and intestinal symptoms has COVID-19 positive. The patient is being treated symptomatically. The patient still has some nausea, but able to take some food. Patient is complaining of extreme weakness and tiredness. Potassium 3.1, which is being replaced. Magnesium is 1.8. PAST MEDICAL HISTORY: Reviewed. REVIEW OF SYSTEMS: CARDIOVASCULAR SYSTEM: No angina, palpitations. RESPIRATORY SYSTEM: As mentioned earlier. GI: As mentioned earlier. : No dysuria. NERVOUS SYSTEM: No numbness or weakness. CURRENT MEDICATIONS: Current medications are reviewed and include: 1. Tylenol p.r.n. 2. Norvasc 10 mg daily. 3. Lipitor 40 mg at bedtime. 4. Rocephin 1 gram daily. 5. Heparin subcu b.i.d. 6. Plaquenil 200 mg b.i.d. 7. Cozaar. 8. Replacement protocols. 9. Protonix. 10.Tigan. 11.Zinc. PHYSICAL EXAMINATION: Patient is alert, oriented x2. Pulse 52,blood pressure 163/79, respirations 16, temperature 98 degrees, pulse ox 97% on room air. HEENT: Conjunctivae normal. Oral mucous moist. NECK: No jugular venous distention. No carotid bruit. No lymph node enlargement. CARDIOVASCULAR: S1, S2 muffled. RESPIRATORY: Breath sounds diminished at the bases. A few scattered rhonchi and crackles. ABDOMEN: Soft, obese, nontender. LEGS: No edema, no swelling. NERVOUS SYSTEM: No focal deficits. LABS: WBC 5.9, hemoglobin 12.8, sodium 138, potassium 3.2, albumin is 2.5, total protein is 5.2. Coronavirus is positive. ASSESSMENT: 1. Intractable nausea and vomiting with possible acute gastritis and gastroenteritis possibly secondary to COVID-19. 2. Congestive heart failure with chronic systolic dysfunction, ejection fraction 40% to 50%. 3. Change in mental status with acute metabolic encephalopathy, multifactorial. 4. Atrial flutter with bradycardia. 5. Lactic acidosis present on admission, possibly secondary to sepsis. 6. Coronary artery disease, CABG history. 7. Troponin 0.113, indeterminate, possibly secondary to COVID-19 myocarditis. 8. Hypokalemia, improved. 9. Hypertension. 10.Dyslipidemia. 11.Aortic stenosis history. 12.History of prostate cancer with radiation history. 13.History of melanoma. 14.History of coronary artery disease, coronary artery bypass grafting. 15.History of aortic stenosis with peak and mean gradient 28/10. 16.FULL CODE. RECOMMENDATIONS AND DISCUSSION: I recommend to continue current medications, continue with symptomatic treatment. Continue with Protonix. Advance diet if the patient is able to tolerate. Patient is still on hydroxychloroquine as well as zinc also. Will continue to monitor closely with multiple consultants. Patient is also on empiric antibiotics. The pulse ox is rather maintained at this time. We will recommend PT, OT evaluation and possible ECF rehab once the patient is recovered. Further recommendations to follow. MMLOKIL / IJN: [id number] /
--- NOTE | 2020-01-24 19:50 | PN ---
PROGRESS NOTE DATE OF SERVICE: 01/24/2020 REASON FOR FOLLOWUP: Acute COVID-19 infection. INTERVAL HISTORY: The patient is currently afebrile. He is breathing comfortably on room air. Though has been complaining of nausea. No vomiting has been reported or any diarrhea. PHYSICAL EXAMINATION: Blood pressure 154/79 with a pulse of 50, temperature 98. He is 97% on room air. General description: The patient is an elderly male lying in bed in no distress. Respiratory system: Unlabored breathing. Clear to auscultation anteriorly. Heart S1, S2. Regular rate and rhythm. Abdomen soft, no tenderness. LABS: BUN of 11, creatinine 0.69, white count 5.9, mild neutropenia persists. DIAGNOSTIC IMPRESSION AND PLAN: Patient with acute Covid-19 infection in this patient currently covered with Plaquenil, Zinc, to continue. The patient did have persistent gastrointestinal symptoms, though CT was negative. Continue with symptomatic treatment with Tigan. Monitor clinical course closely. MMLOKIL / RYANN: [id number] /
--- NOTE | 2020-01-24 20:37 | P.PN ---
Subjective Progress Note Date: 01/24/20 Principal diagnosis: Nausea and vomiting Patient continues to receive treatment for positive testing for rotavirus. Continues to report frequent nausea. Poor oral intake. Objective - Vital Signs Vital signs: Vital Signs Temp 98 F 01/24/20 08:00 Pulse 52 L 01/24/20 08:00 Resp 16 01/24/20 11:42 BP 163/79 01/24/20 08:00 Pulse Ox 97 01/24/20 08:00 Intake & Output 01/23/20 01/24/20 01/24/20 18:59 06:59 18:59 Output Total 150 400 Balance -150 -400 Weight 61 kg 65.5 kg Output: Urine 150 400 Other: Voiding Method Urinal Urinal # Voids 0 1 - Exam Physical exam not performed due to Coronavirus, deferred to primary team. - Labs CBC & Chem 7: 01/23/20 07:20 01/24/20 06:35 Labs: Abnormal Lab Results - Last 24 Hours (Table) 01/24/20 Range/Units 06:35 Potassium 3.1 L (3.5-5.1) mmol/L Chloride 110 H (98-107) mmol/L Carbon Dioxide 21 L (22-30) mmol/L Glucose 72 L (74-99) mg/dL Calcium 8.3 L (8.4-10.2) mg/dL Assessment and Plan (1) Nausea and vomiting Narrative/Plan: 84-year-old male with multiple medical comorbidities and a significant past cardiac history who presented to the hospital with weakness, nausea and vomiting. He reports 4 days of symptoms of nausea and dry heaving. Currently no further vomiting reported but patient is still feeling somewhat nauseated. He denies any new medications prior to developing symptoms or sick contacts. No fevers, chills or change in bowel habits. Unknown etiology, likely related to Darling virus with positive testing for Covid-19. Current Visit: Yes Status: Acute Code(s): R11.2 - NAUSEA WITH VOMITING, UNSPECIFIED SNOMED Code(s): 09615849 Plan: Supportive care Okay for diet as tolerated Protonix 40 mg twice a day Tigan 3 times a day Rectal Compazine for breakthrough nausea MiraLAX for bowel regimen Continue to monitor symptomatically No plan for endoscopic evaluation at this time Thank you for allowing us to participate in the care of the patient
[2020-01-24] MEDS: ATORVASTATIN 40 MG TAB PO SCH (20:59)
[2020-01-25] MEDS: SODIUM CHLORIDE 0.9% 1,000 ML IV SCH ×2 (07:00→17:51)
[2020-01-25] MEDS ORDERED: Potassium Replacement Protocol 1 EACH MISC MISCELLANE PRN ×2 (07:37→16:59)
[2020-01-25] MEDS: PANTOPRAZOLE 40 MG/10 ML VIAL IVP SCH ×2 (08:27→21:10)
[2020-01-25] MEDS: HEPARIN SODIUM,PORCINE 5,000 UNIT/ML 1 ML VIAL SQ SCH ×2 (08:27→21:10)
[2020-01-25] MEDS: TRIMETHOBENZAMIDE 300 MG CAP PO SCH ×3 (08:28→21:10)
[2020-01-25] MEDS: POTASSIUM CHLORIDE ER 20 MEQ TAB.ER PO SCH ×4 (08:28→18:33)
[2020-01-25] MEDS: LOSARTAN 50 MG TAB PO SCH (08:28)
[2020-01-25] MEDS: PROCHLORPERAZINE SUPPOSITORY 25 MG SUPP RECTAL SCH (08:28)
[2020-01-25] MEDS: ZINC SULFATE 220 MG CAP PO SCH (08:28)
[2020-01-25] MEDS: amLODIPine 10 MG TAB PO SCH (08:28)
[2020-01-25] MEDS: hydrALAZINE HCL 20 MG/ML 1 ML VIAL IVP PRN (09:28)
[2020-01-25] MEDS: HYDROXYCHLOROQUINE SULFATE 200 MG TAB PO SCH ×2 (09:28→21:10)
[2020-01-25 09:52] LABS: African American GFR (CKD) >90 (>60 ml/min/1.73 sqM); Anion Gap 7 mmol/L; Blood Urea Nitrogen 12 mg/dL (9-20); Calcium 8.3 mg/dL (8.4-10.2); Carbon Dioxide 23 mmol/L (22-30); Chloride 109 mmol/L (98-107); Glucose 133 mg/dL (74-99); Non-African American GFR(CKD) >90 (>60 ml/min/1.73 sqM); Potassium 3.4 mmol/L (3.5-5.1); Sodium 139 mmol/L (137-145)
[2020-01-25] MEDS: HYDROcodone/APAP 5-325MG 1 EACH TAB PO PRN ×2 (13:22→21:10)
[2020-01-25 13:37] LABS: Potassium 3.5 mmol/L (3.5-5.1); Uric Acid 3.7 mg/dL (3.5-8.5)
[2020-01-25] MEDS ORDERED: PROCHLORPERAZINE SUPPOSITORY 25 MG SUPP RECTAL PRN (15:05)
--- NOTE | 2020-01-25 16:03 | XR ---
EXAMINATION TYPE: XR chest 1V portable DATE OF EXAM: 01/25/2020 HISTORY: Shortness of breath. COMPARISON: 01/20/2020 TECHNIQUE: Single view of the chest is submitted. FINDINGS: Demonstrated are scattered senescent parenchymal change. Bilateral infiltrates persist which may have increased right lower lobe. Correlate for pneumonia. The heart is stable. Hilar and mediastinal structures are within normal limits. Degenerative changes are seen of the dorsal spine. IMPRESSION: 1. Bilateral infiltrates persist which may have increased right lower lobe. Correlate for pneumonia.
--- NOTE | 2020-01-25 17:26 | PN ---
PROGRESS NOTE DATE OF SERVICE: 01/25/2020 This 84-year-old gentleman who was admitted with intractable nausea and vomiting, and Covid-19 possibly was not feeling well. The p.o. intake appears to be extremely reduced. Patient continues to be nauseous. Apparent vomiting is found. Multiple consultants are following the patient closely at this time. The potassium is 3.2, which is being corrected. PAST MEDICAL HISTORY: Reviewed. REVIEW OF SYSTEMS: Cardiovascular: No angina or palpitations. Respiratory system: As mentioned earlier. GI as mentioned earlier. no dysuria. Nervous system: Diffusely weak. CURRENT MEDICATIONS: 1. Tylenol 650 q.6h p.r.n. 2. [place] 5 mg b.i.d. 3. Norvasc 10 mg daily. 4. Lipitor 40 mg q.h.s. 5. Rocephin 1 g IV daily. 6. Heparin subcu b.i.d. 7. Apresoline. 8. Plaquenil 200 mg p.o. b.i.d. 9. Cozaar. 10.Replacement protocols. 11.IV fluids. 12.Tigan. PHYSICAL EXAM: Patient is alert, oriented x3. Pulse is 65. Blood pressure 140/66, respiration 18, temperature 97.4, pulse ox 94% on room air. HEENT is conjunctivae normal. Neck: No JVD. CARDIOVASCULAR: S1, S2 muffled RESPIRATION: Breath sounds diminished in the bases. Scattered rhonchi and crackles. ABDOMEN: Soft, nontender. LEGS: No edema. No swelling. NERVOUS SYSTEM: Diffusely weak. SKIN: No ulcers, rashes or bleeding. JOINTS: No active deforming arthropathy. LABS: At this time shows WBC 5.8, hemoglobin 12.9 and sodium 130, potassium 3.4. Other labs are noted. ASSESSMENT: 1. Intractable nausea vomiting with possible acute gastritis and gastroenteritis secondary to Covid-19. 2. Congestive heart failure with chronic systolic dysfunction ejection fraction 40-50 percent. 3. Change in mental status with acute metabolic encephalopathy multifactorial. 4. Atrial flutter with bradycardia. 5. Troponin 0.0113, indeterminate, possibly secondary to Covid myocarditis. 6. Atrial flutter with bradycardia. 7. Lactic acidosis on admission, possibly secondary to sepsis. 8. Coronary artery disease, coronary artery bypass grafting history. 9. Hypokalemia, improved. 10.Hypertension. 11.Dyslipidemia. 12.Aortic stenosis and history. 13.History of prostate cancer with radiation history. 14.History of melanoma. 15.History of coronary artery disease, coronary artery bypass grafting. 16.History of aortic stenosis with peak and mean gradient 2810. 17.FULL CODE. DISCUSSION AND RECOMMENDATIONS: This 84-year-old gentleman who presented with multiple complex medical issues, we will monitor the patient closely, continue the current medications, monitoring the patient. Covid-19 positive. I would recommend continue with diet and repeat labs. Continue to finish the dose of chloroquine. Otherwise, overall prognosis is extremely guarded because of multiple complex medical issues as mentioned above. Further recommendations to follow. MMODL / IJN: [id number] /
--- NOTE | 2020-01-25 17:52 | P.PN ---
Subjective Progress Note Date: 01/25/20 Principal diagnosis: Nausea and vomiting, Covid infection Patient continues to receive treatment for positive testing for coronavirus. Nausea is somewhat improved today. Tolerating some oral intake. Objective - Vital Signs Vital signs: Vital Signs Temp 98.1 F 01/25/20 03:10 Pulse 53 L 01/25/20 03:10 Resp 18 01/25/20 03:10 BP 158/79 01/25/20 03:10 Pulse Ox 96 01/25/20 03:10 Intake & Output 01/24/20 01/25/20 01/25/20 18:59 06:59 18:59 Intake Total 620 Output Total 400 225 350 Balance 220 -225 -350 Weight 64.8 kg Intake: Intake, IV Titration 600 Amount Sodium Chloride 0.9% 1, 600 000 ml @ 75 mls/hr IV . [id number] [facility] Rx#:[id number] Oral 20 Output: Urine 400 225 350 Other: Voiding Method Urinal Urinal # Voids 1 # Bowel Movements 0 - Exam Physical exam not performed due to Coronavirus, deferred to primary team. - Labs CBC & Chem 7: 01/23/20 07:20 01/25/20 13:06 Assessment and Plan (1) Nausea and vomiting Narrative/Plan: 84-year-old male with multiple medical comorbidities and a significant past cardiac history who presented to the hospital with weakness, nausea and vomiting. He reports 4 days of symptoms of nausea and dry heaving. Currently no further vomiting reported but patient is still feeling somewhat nauseated. He denies any new medications prior to developing symptoms or sick contacts. No fevers, chills or change in bowel habits. Unknown etiology, likely related to [place] virus with positive testing for Covid-19. Current Visit: Yes Status: Acute Code(s): R11.2 - NAUSEA WITH VOMITING, UNSPECIFIED SNOMED Code(s): 26638933 Plan: Supportive care Okay for diet as tolerated Protonix 40 mg twice a day Tigan 3 times a day Rectal Compazine for breakthrough nausea change to as needed MiraLAX for bowel regimen Continue to monitor symptomatically No plan for endoscopic evaluation at this time Thank you for allowing us to participate in the care of the patient
[2020-01-25] MEDS: ATORVASTATIN 40 MG TAB PO SCH (21:10)
--- NOTE | 2020-01-25 22:25 | PN ---
PROGRESS NOTE DATE OF SERVICE: 01/25/2020 REASON FOR FOLLOWUP: Acute COVID-19 pneumonia. INTERVAL HISTORY: The patient is currently afebrile. He seems to be more awake, alert, and is feeling better today, breathing comfortably. No chest pain, cough. No abdominal pain and no diarrhea. PHYSICAL EXAMINATION: Blood pressure 142/77 with a pulse of 65, temperature 98. He is 95% on room air. General description is an elderly male lying in bed in no distress. Respiratory system: Unlabored breathing, decreased breath sounds at the base. No wheeze. Heart: S1, S2. Regular rate and rhythm. Abdomen soft, no tenderness. LABS: BUN of 12, creatinine 0.61. DIAGNOSTIC IMPRESSION AND PLAN: Patient with acute COVID-19 pneumonia. The patient's chest x-ray did show bilateral ( ) slightly on the right side. The patient is covered with Plaquenil, zinc and Rocephin to continue and will monitor clinical course closely. MMODL / IJN: [id number] /
[2020-01-26] MEDS: SODIUM CHLORIDE 0.9% 1,000 ML IV SCH ×4 (04:38→21:16)
[2020-01-26 07:00] LABS: Potassium 3.9 mmol/L (3.5-5.1)
[2020-01-26 07:01] LABS: African American GFR (CKD) >90 (>60 ml/min/1.73 sqM); Anion Gap 5 mmol/L; Blood Urea Nitrogen 11 mg/dL (9-20); Calcium 8.2 mg/dL (8.4-10.2); Carbon Dioxide 20 mmol/L (22-30); Chloride 113 mmol/L (98-107); Glucose 100 mg/dL (74-99); Magnesium 1.8 mg/dL (1.6-2.3); Non-African American GFR(CKD) 89 (>60 ml/min/1.73 sqM); Sodium 138 mmol/L (137-145)
[2020-01-26 07:52] LABS: Basophils % (A) 0 %; Eosinophils % (A) 1 %; HCT 44.7 % (39.0-53.0); HGB 15.6 gm/dL (13.0-17.5); Lymphocytes # (A) 0.4 k/uL (1.0-4.8); Lymphocytes % (A) 7 %; MCH 31.5 pg (25.0-35.0); MCV 90.2 fL (80.0-100.0); Monocytes # (A) 0.5 k/uL (0-1.0); Monocytes % (A) 10 %; Neutrophils # (A) 4.3 k/uL (1.3-7.7); Neutrophils % (A) 81 %; Platelet Count 141 k/uL (150-450); RBC 4.96 m/uL (4.30-5.90); RDW 14.1 % (11.5-15.5); WBC 5.3 k/uL (3.8-10.6)
[2020-01-26 08:52] LABS: Poikilocytosis (M) Present
[2020-01-26] MEDS: HYDROXYCHLOROQUINE SULFATE 200 MG TAB PO SCH (09:53)
[2020-01-26] MEDS: HEPARIN SODIUM,PORCINE 5,000 UNIT/ML 1 ML VIAL SQ SCH ×2 (09:53→21:15)
[2020-01-26] MEDS: PANTOPRAZOLE 40 MG/10 ML VIAL IVP SCH ×2 (09:53→21:14)
[2020-01-26] MEDS: ZINC SULFATE 220 MG CAP PO SCH (09:53)
[2020-01-26] MEDS: amLODIPine 10 MG TAB PO SCH (09:53)
[2020-01-26] MEDS: LOSARTAN 50 MG TAB PO SCH (09:53)
--- NOTE | 2020-01-26 11:46 | PN ---
PROGRESS NOTE DATE OF DICTATION: 01/26/2020 The patient is an 84-year-old white male who was admitted to the hospital with nausea, vomiting, and diagnosed with COVID infection. He remains in isolation. History was obtained from the nursing staff. The patient apparently continues to complain of nausea and has been having decreased appetite. No obvious episodes of emesis. He denies any abdominal pain. No diarrhea. PHYSICAL EXAMINATION: On physical examination, vital signs show a blood pressure of 156/75, pulse rate 64, temperature 98.2. Rest of the physical examination deferred to the admitting physician. LABS: Labs from today WBC 5.3, hemoglobin 15.6, platelets 141. Basic metabolic panel is within normal limits. BUN is 11, creatinine 0.63. Blood sugar 100. IMPRESSION: 1. Persistent nausea for the last 10 days duration since diagnosed with acute COVID infection, symptoms are gradually improving. Remains on symptomatic therapy with Protonix 40 mg daily as well as Compazine suppositories and Tigan as needed. 2. COVID-19 pneumonia with secondary bacterial infection, presently on Rocephin. 3. History of hypertension. 4. Gastroesophageal reflux disease. RECOMMENDATIONS: 1. Continue with symptomatic and supportive care with proton pump inhibitors and antiemetics as above. 2. Continue with broad-spectrum antibiotics. 3. We will follow with you closely. 4. No plans on any endoscopic intervention. Thank you for this consultation. MMLOKIL / RYANN: [id number] /
--- NOTE | 2020-01-26 12:18 | CDI ---
Documentation Clarification Form Date: 01/26/2020 11:59:20 AM From: Haydee Gallegos CCS, CCDS Admit Date: 01/16/2020 07:14:00 PM Patient Name: Sally Hollingsworth Visit Number: [id number] Discharge Date: ATTENTION: The Clinical Documentation Specialists (CDI) and [facility] Coding Staff appreciate your assistance in clarifying documentation. Please respond to the clarification below the line at the bottom and electronically sign. The CDI & [facility] Coding staff will review the response and follow-up if needed. Please note: Queries are made part of the Legal Health Record. If you have any questions, please contact the author of this message via ITS. Dr. Sulema Malin: Per the 01/19 & 01/20 Cardiology Progress Note: "Patient appears to be emaciated, malnourished somewhat." "Not a good candidate for pacemaker implantation because of his frailty." History/Risk Factors: CAD status post CABG, Aortic stenosis, Hypertension, Hyperlipidemia & Paroxysmal Atrial Fibrillation. Clinical Indicators: Presented to the ED on 01/15 with nausea, vomiting & generalized weakness. Admitted initially with chronic persistent typical atrial flutter & elevated troponin associated with persistent nausea of unclear etiology. After study the patient is diagnosed with Sepsis due to COVID 19 pneumonia. 01/15 LAB: (WBC 4.4), Glucose 178^^, Lactic Acid 2.8^^, Troponin: 0.058^^, 0.082^^, 0.104^^. 01/19 & 01/20: COVID-10: Positive. Current BMI: 23.1 Treatment 01/15: O2, IV fluid 500 mls@999 mls/hr, IV Apresoline, IV fluid 1,000 mls@75 mls/hr, IV Heparin drip, IV Zofran, IV Protonix, IV Morphine. 01/20: IV Rocephin, po Plaquenil. 01/22: po Zinc Sulfate. Nursing Nutrition Assessment: Diet & Nutrition intake poor, Declined diet substitution, physically well-nourished, Wt 62.5 kg, Ht 5 ft 6 in; 97% ideal body weight. Meeting 75% of daily goal, needs supplements. 01/22 Assessment: Underweight. Continues to have poor intake. Consult: OT, Social Work Supplements: Ensure BID. In your professional opinion, can you please clarify if these findings signify one of the following conditions? Mild Protein-Calorie Malnutrition Moderate Protein-Calorie Malnutrition Other condition, please specify Unable to determine (Last Revision: April 2019) Unable to determine MTDD
[2020-01-26] MEDS: TRIMETHOBENZAMIDE 300 MG CAP PO SCH ×3 (12:42→21:10)
[2020-01-26] MEDS: HYDROcodone/APAP 5-325MG 1 EACH TAB PO PRN ×2 (12:45→21:58)
--- NOTE | 2020-01-26 16:28 | PN ---
PROGRESS NOTE DATE OF SERVICE: 01/26/2020 This 84-year-old gentleman who was admitted with nausea and vomiting was COVID-19 positive. The patient is still nauseous but would like to eat something more. Otherwise, the patient also has some respiratory shadows at this time, possibly acute on chronic abnormalities. The patient is on empiric antibiotics. Multiple consultants are following the patient closely. PT/OT is also evaluating the patient. longterm is requesting Dictation abruptly ends here. MMODL / IJN: [id number] /
--- NOTE | 2020-01-26 16:49 | PN ---
PROGRESS NOTE ADDENDUM TO PROGRESS NOTE (CONTINUED): FINAL DIAGNOSES: 1. Intractable nausea and vomiting with possible acute gastritis, gastroenteritis, secondary to COVID-19. 2. Congestive heart failure with chronic systolic dysfunction, ejection fraction 40% to 50%. 3. Troponin 0.113, indeterminate, possibly secondary to COVID myocarditis. 4. Atrial flutter with bradycardia, present on admission. 5. Change in mental status with acute metabolic encephalopathy, multifactorial. 6. Lactic acidosis on admission, possibly secondary to sepsis. 7. Coronary artery disease, coronary artery bypass grafting history. 8. Hypokalemia, improved. 9. Hypertension. 10.Dyslipidemia. 11.Aortic stenosis history. 12.History of prostate cancer with radiation history. 13.History of melanoma. 14.History of aortic stenosis with a peak and mean gradient of 28 and 10. 15.FULL CODE. RECOMMENDATIONS AND DISCUSSION: I recommend to continue current medications, continue with symptomatic treatment. Otherwise, advance the diet. PT/OT ECF rehab. COVID-19 test to be repeated before discharge per case technician and social security assessor. Will continue to monitor. Otherwise, prognosis guarded. Further recommendations to follow. MMODL / IJN: [id number] / MTDAnastasia
--- NOTE | 2020-01-26 18:49 | PN ---
PROGRESS NOTE DATE OF SERVICE: 01/26/2020 This 84-year-old gentleman who was admitted with intractable nausea and vomiting also had possible acute gastritis and gastroenteritis, possibly secondary to COVID-19. The patient is being treated symptomatically. REVIEW OF SYSTEMS: CARDIOVASCULAR SYSTEM: No angina or palpitations. RESPIRATORY SYSTEM: As mentioned earlier. GI: As mentioned earlier. : No dysuria, retention. NERVOUS SYSTEM: No numbness, weakness. CURRENT MEDICATIONS: Reviewed. They include: 1. Tylenol 650 q.6 p.r.n. 2. [place] 5 mg q.6 p.r.n. 3. Norvasc 10 mg p.o. daily. 4. Lipitor 40 mg at bedtime. 5. Rocephin 1 gram IV daily. 6. Heparin 5000 units subcutaneously b.i.d. 7. Apresoline 10 mg p.r.n. 8. Cozaar. 9. Replacement protocols. 10.Narcan. 11.Protonix. 12.Tigan. 13.Zinc. PHYSICAL EXAMINATION: Patient is alert, oriented x2. Pulse 60. Blood pressure 158/67, respiration 18, temperature 98.3, pulse ox 94% on room air. HEENT: Conjunctivae normal. NECK: No jugular venous distention. CARDIAC: S1, S2 muffled. RESPIRATORY: Breath sounds diminished at the bases. A few scatter rhonchi and crackles. ABDOMEN: Soft, non-tender. No mass palpable. LEGS: No edema. No swelling. NERVOUS SYSTEM: No focal deficit. LABORATORY DATA: Labs at this time show WBC 5.3, hemoglobin 15.6, platelets 141. Sodium 138, potassium 3.9. ASSESSMENT: 1. Intractable nausea and vomiting with possible acute gastritis and gastroenteritis secondary to COVID-19. 2. Congestive heart failure with chronic systolic dysfunction, ejection fraction 40% to 50%. 3. Change in mental status, metabolic encephalopathy, multifactorial. 4. Atrial flutter with bradycardia, present on admission. 5. Troponin 0.113, indeterminate, possibly secondary to COVID myocarditis. Dictation stopped here abruptly. MMODL / IJN: [id number] /
[2020-01-26] MEDS: ATORVASTATIN 40 MG TAB PO SCH (21:10)
[2020-01-26] MEDS: hydrALAZINE HCL 20 MG/ML 1 ML VIAL IVP PRN (21:59)
[2020-01-26] MEDS ORDERED: AZITHROMYCIN 500 MG in SODIUM CHLORIDE 0.9% 250 ML IVPB ONE (22:00)
--- NOTE | 2020-01-26 22:19 | PN ---
PROGRESS NOTE DATE OF SERVICE: 01/26/2020 REASON FOR FOLLOWUP: Acute COVID-19 pneumonia. INTERVAL HISTORY: The patient is currently afebrile, has been breathing comfortably. Still complaining of nausea but no vomiting. No abdominal pain. No chest pain or shortness of breath. Occasional cough. No diarrhea. PHYSICAL EXAMINATION: Blood pressure is 159/70 with a pulse of 60, temperature of 97.3. He is 97% on room air. General description is an elderly male lying in bed in no distress. RESPIRATORY SYSTEM: Unlabored breathing. Clear to auscultation anteriorly. HEART: S1, S2. Regular rate and rhythm. ABDOMEN: Soft. No tenderness. LABS: Hemoglobin is 15.3, white count 5.3. BUN of 11, creatinine 0.63. DIAGNOSTIC IMPRESSION AND PLAN: Patient with acute COVID-19 infection in this patient currently on treatment with Plaquenil, zinc, steroids. Chest x-ray with bilateral infiltrate persists, increased in right lower lobe. Patient will be monitored closely for respiratory distress and continue with supportive care. MMODL / IJN: [id number] /
[2020-01-27] MEDS: HEPARIN SODIUM,PORCINE 5,000 UNIT/ML 1 ML VIAL SQ SCH ×2 (08:41→21:31)
[2020-01-27] MEDS: amLODIPine 10 MG TAB PO SCH (08:41)
[2020-01-27] MEDS: ZINC SULFATE 220 MG CAP PO SCH (08:42)
[2020-01-27] MEDS: PANTOPRAZOLE 40 MG/10 ML VIAL IVP SCH (08:42)
[2020-01-27] MEDS: TRIMETHOBENZAMIDE 300 MG CAP PO SCH ×3 (08:42→21:35)
[2020-01-27] MEDS: LOSARTAN 50 MG TAB PO SCH (08:42)
[2020-01-27] MEDS ORDERED: ONDANSETRON 4 MG/2 ML VIAL IVP PRN (10:09)
[2020-01-27] MEDS ORDERED: POLYETHYLENE GLYCOL 3350 17 GM POWD.PACK PO SCH (10:15)
[2020-01-27] MEDS: ONDANSETRON 4 MG/2 ML VIAL IVP PRN ×2 (12:08→18:15)
[2020-01-27] MEDS: POLYETHYLENE GLYCOL 3350 17 GM POWD.PACK PO SCH ×2 (12:08→21:31)
--- NOTE | 2020-01-27 15:26 | PN ---
PROGRESS NOTE DATE OF SERVICE: 01/27/2020 REASON FOR FOLLOWUP: Acute COVID-19 infection. INTERVAL HISTORY: The patient is currently afebrile. Still complaining of some nausea, but no vomiting. No abdominal pain. No chest pain, shortness of breath or cough. PHYSICAL EXAMINATION: Blood pressure 150/67, pulse of 58, temperature 98.4. He is 92% on room air. General description is an elderly male, up in the chair in no distress. RESPIRATORY SYSTEM: Unlabored breathing, clear to auscultation anteriorly. HEART: S1, S2. Regular rate and rhythm. ABDOMEN: Soft, no tenderness. LABS: Hemoglobin is 15.4, white count 5.3, BUN of 11, creatinine 0.63. DIAGNOSTIC IMPRESSION AND PLAN: Patient with acute COVID-19 pneumonia for which the patient is currently on Plaquenil and zinc, to continue, not requiring any supplemental oxygen and no need for any open steroids use. Vanc will be added for added benefit and will monitor the clinical course closely. MMODL / IJN: [id number] /
--- NOTE | 2020-01-27 15:46 | XR ---
EXAMINATION TYPE: XR chest 1V portable DATE OF EXAM: 01/27/2020 Comparison: 01/25/2020 Clinical History: 84 year-old male shortness of breath, dyspnea Findings: Median sternotomy wires. Heart borderline enlarged. Diffuse interstitial density is unchanged. Some p atchy left basilar density is slightly increased. Possible trace effusion on the right. Impression: 1. Continued diffuse interstitial changes which may in part be chronic. Correlate for possible inters titial edema. 2. Some increased patchy atelectasis versus developing infiltrate at the left base. 3. Trace right effusion suspected.
--- NOTE | 2020-01-27 16:17 | PN ---
PROGRESS NOTE DATE OF SERVICE: 01/27/2020 This is a gentleman admitted with significant nausea, vomiting is COVID positive. The patient is still feeling and looking ill. P.o. intake appears to be low. The SARS COVI 2 was positive and the RT, PCR and system. PAST MEDICAL HISTORY: Reviewed. REVIEW OF SYSTEMS: CARDIOVASCULAR: As mentioned earlier. RESPIRATION: As mentioned earlier. GI: As mentioned earlier. : No dysuria. NERVOUS SYSTEM: As mentioned earlier. CURRENT MEDICATIONS: Reviewed and include: 1. Tylenol p.r.n. 2. [place] 5 mg q.6 p.r.n. 3. Norvasc 10 mg. 4. Lipitor 40 mg q.h.s. 5. Zithromax 250 mg daily. 6. Heparin. 7. Omeprazole. 8. Narcan. 9. Zofran. 10.Protonix. 11.MiraLAX. 12.Compazine. 13.Zinc. PHYSICAL EXAM: Patient is alert, oriented x2. Pulse 60, blood pressure 120/56, respirations 16, temperature 98.4, pulse ox 94% on 2 L. HEENT: Conjunctivae normal. NECK: No jugular venous distension. CARDIOVASCULAR: S1, S2, muffled. RESPIRATION: Breath sounds diminished at the bases, a few scattered rhonchi, no crackles. ABDOMEN: Soft, nontender. LEGS: No edema, no swelling. NERVOUS SYSTEM: No focal deficits. LABS: WBC is 5.2, hemoglobin is 15.2, sodium 138, potassium 3.9, luna virus is positive. ASSESSMENT: 1. Intractable nausea, vomiting with possible acute gastritis, gastroenteritis secondary to COVID-19. 2. Congestive heart failure with chronic systolic dysfunction, ejection fraction 45% to 50%. 3. Troponin 0.113, indeterminate, possibly secondary to COVID myocarditis. 4. Atrial flutter with bradycardia, present on admission. 5. Change in mental status with acute metabolic encephalopathy, multifactorial. 6. Lactic acidosis present on admission, possibly secondary to sepsis. 7. CAD, CABG. 8. Hypokalemia, improved. 9. Hypertension. 10.Dyslipidemia. 11.Aortic stenosis history. 12.History of prostate cancer with radiation history. 13.History of melanoma. 14.History of aortic stenosis with peak and mean gradient 28/10. 15.FULL CODE. RECOMMENDATION: Recommend to continue current management. Continue with PT, OT evaluation. Continue with the current symptomatic treatment. Please note the patient is COVID-19 positive in the PCR. Overall prognosis extremely guarded at this time. Further recommendations to follow. Will check a troponin also. Labs will be repeated. When the patient improves, recommend PT, OT evaluation, possible ECF rehab also. MMLOKIL / IJN: [id number] / MTDD
--- NOTE | 2020-01-27 16:41 | PN ---
PROGRESS NOTE DATE OF DICTATION: 01/27/2020 The patient is an 84-year-old white male admitted to the hospital with COVID-19 pneumonia and presently on broad-spectrum antibiotics. Since being admitted to the hospital, he has been having persistent intense nausea which is not improving. He is presently receiving Zofran, Tigan, and Compazine [id number] with not much help. As per the nursing staff, no episodes of emesis. He also remains on Protonix 40 mg twice daily. He complains of mild shortness of breath. He denies any chest pain. No coughing. PHYSICAL EXAMINATION: On physical examination, vital signs are stable. Blood pressure 113/67, pulse rate 58, temperature 98.4, O2 saturation 92%. Physical examination deferred to the attending physician. LABS: Labs from today: WBC 5.3, hemoglobin 15.6, platelets 141. BUN 11, creatinine 0.63. Coronavirus PCR positive. IMPRESSION: 1. Persistent nausea, probably related to medication. He is receiving multiple antiemetics with some relief in his symptoms. No emesis noted. He has decreased appetite, but tolerating diet reasonably well. 2. COVID-19 pneumonia on broad-spectrum antibiotics. RECOMMENDATIONS: 1. Continue with antiemetics as needed. 2. Small frequent meals. 3. Continue Protonix 40 mg daily. 4. Continue antibiotics as per infectious disease specialist. 5. Will follow with you closely. 6. No plans on any endoscopic intervention. Thank you for this consultation. MMODL / IJN: [id number] /
[2020-01-27] MEDS: PANTOPRAZOLE 40 MG TABLET PO SCH (18:10)
[2020-01-27] MEDS: AZITHROMYCIN 250 MG TAB PO SCH (18:11)
[2020-01-27] MEDS: ATORVASTATIN 40 MG TAB PO SCH (21:34)
[2020-01-27] MEDS: SODIUM CHLORIDE 0.9% 1,000 ML IV SCH (21:37)
[2020-01-27] MEDS: HYDROcodone/APAP 5-325MG 1 EACH TAB PO PRN (23:38)
[2020-01-28] MEDS: PANTOPRAZOLE 40 MG TABLET PO SCH ×2 (06:00→16:35)
[2020-01-28] MEDS: POLYETHYLENE GLYCOL 3350 17 GM POWD.PACK PO SCH ×2 (08:54→20:23)
[2020-01-28] MEDS: TRIMETHOBENZAMIDE 300 MG CAP PO SCH ×3 (08:54→21:23)
[2020-01-28] MEDS: HEPARIN SODIUM,PORCINE 5,000 UNIT/ML 1 ML VIAL SQ SCH ×2 (08:54→20:22)
[2020-01-28] MEDS: ZINC SULFATE 220 MG CAP PO SCH (08:55)
[2020-01-28] MEDS: amLODIPine 10 MG TAB PO SCH (08:55)
[2020-01-28] MEDS: LOSARTAN 50 MG TAB PO SCH (09:05)
--- NOTE | 2020-01-28 11:11 | P.PN ---
Subjective 84-year-old male was admitted for Covid 19. Patient has a sepsis seconded Covid 19 and cardio myopathy secondary to Covid 19. Patient repeat echo in 19 is positive patient will need disposition to subacute rehabilitation and for that he needs to negative PCR testing.patient received more than 7 days of antibiotics there is no evidence summary today quite pneumonia at this time Rocephin will be discontinued and azithromycin will be continued patient is bit bradycardic.cardiology is following the patient patient is not on any beta blockers if they recommend to discontinue azithromycin that'll be discontinued.patient nausea vomiting improved IV fluids will be discontinued Constitutional: Denied any fatigue denied any fever. Cardio vascular: denied any chest pain, palpitations Gastrointestinal denied any nausea vomiting Pulmonary: Denied any shortness of breath cough Neurologic denied any new focal deficits All inpatient medications were reviewed and appropriate changes in these medications as dictated in the interval history and assessment and plan. Objective - Vital Signs Vital signs: Vital Signs Temp 98.3 F 01/28/20 08:00 Pulse 48 L 01/28/20 08:00 Resp 18 01/28/20 08:00 BP 172/77 01/28/20 08:00 Pulse Ox 95 01/28/20 08:00 Intake & Output 01/27/20 01/28/20 01/28/20 18:59 06:59 18:59 Intake Total 610 Output Total 400 80 200 Balance 210 -80 -200 Weight 64.2 kg Intake: Intake, IV Titration 50 Amount cefTRIAXone 1 gm In 50 Sodium Chloride 0.9% 50 ml @ 100 mls/hr IVPB Q24HR [facility] Rx#:[id number] Oral 560 Output: Urine 400 80 200 Other: # Voids 1 1 # Bowel Movements 0 - Exam PHYSICAL EXAMINATION: GENERAL: The patient is alert and oriented x3, not in any acute distress. Well developed, well nourished. HEENT: Pupils are round and equally reacting to light. EOMI. No scleral icterus. No conjunctival pallor. Normocephalic, atraumatic. No pharyngeal erythema. No thyromegaly. CARDIOVASCULAR: S1 and S2 present. No murmurs, rubs, or gallops. PULMONARY: mild diffuse rhonchi or wheezing ABDOMEN: Soft, nontender, nondistended, normoactive bowel sounds. No palpable organomegaly. MUSCULOSKELETAL: No joint swelling or deformity. EXTREMITIES: No cyanosis, clubbing, or pedal edema. NEUROLOGICAL: Gross neurological examination did not reveal any focal deficits. SKIN: No rashes. - Labs CBC & Chem 7: 01/26/20 06:31 01/26/20 06:31 Labs: Abnormal Lab Results - Last 24 Hours (Table) 01/27/20 Range/Units 15:44 Troponin I 0.065 H* (0.000-0.034) ng/mL Assessment and Plan Plan: -sepsis secondary to Covid 19 and nausea secondary to that.nausea nor vomiting improved -atrial fibrillation with a slow ventricular rate. -Congestive heart failure unsure whether it's acute systolic dysfunction on chronic systolic dysfunction cannot really say patient of myocarditis is secondary to COVID Is a high possibility secondary to COVID Patient is not in heart failure exacerbation. IV fluids were discontinued patient is able to drink water. But has poor peripheral intake. -Troponin elevation secondary to : 819. 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
[2020-01-28] MEDS: HYDROcodone/APAP 5-325MG 1 EACH TAB PO PRN (11:17)
[2020-01-28] MEDS: AZITHROMYCIN 250 MG TAB PO SCH (16:35)
--- NOTE | 2020-01-28 17:08 | PN ---
PROGRESS NOTE DATE OF SERVICE: 01/28/2020 REASON FOR FOLLOWUP: Acute COVID-19 pneumonia. INTERVAL HISTORY: The patient is currently afebrile, he is breathing comfortably. Main symptom remains to be nausea, but no vomiting. Denies having any abdominal pain. No chest pain, no cough. PHYSICAL EXAMINATION: Blood pressure 150/82 with a pulse 50, temperature 98.3. General description is an elderly male, up in the chair in no distress. RESPIRATORY SYSTEM: Unlabored breathing, clear to auscultation anteriorly. HEART: S1, S2. Regular rate and rhythm. ABDOMEN: Soft, no tenderness. LABS: Hemoglobin is 15.7, white count 5.3, BUN of 11, creatinine 0.63. DIAGNOSTIC IMPRESSION AND PLAN: Patient with acute COVID-19 pneumonia. Patient completed by the course of Plaquenil. Currently on Rocephin to continue along with zinc and respiratory support and monitor clinical course closely. MMODL / IJN: [id number] /
--- NOTE | 2020-01-28 18:59 | PN ---
PROGRESS NOTE DATE OF DICTATION: 01/28/2020 This patient is an 84-year-old white male admitted to the hospital with COVID-19 pneumonia, and since admission to the hospital he has been having persistent nausea and vomiting. He is doing much better. He was started on Zofran yesterday in addition to Compazine and Tigan that he has been receiving around the clock. His oral intake is gradually improving. He still continues to complain of fatigue and weakness. He remains on broad-spectrum antibiotics for COVID-19 pneumonia. PHYSICAL EXAMINATION: Blood pressure 172/77, pulse rate 48, temperature 98.3. Examination was not done. It was referred to attending physician because of active COVID-19 pneumonia. IMPRESSION: 1. COVID-19 pneumonia, gradually improving. Remains on broad-spectrum antibiotics. 2. 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 3. Persistent nausea and vomiting which are gradually improving, presently on Zofran, Tigan and Compazine as needed. gradually improving. RECOMMENDATIONS: 1. Continue with symptomatic and supportive care. 2. Continue Protonix as well as Zofran for now. 3. Small frequent meals. 4. Thank you for this consultation. Will follow with you closely. MMODL / IJN: [id number] /
[2020-01-28] MEDS: ATORVASTATIN 40 MG TAB PO SCH (20:22)
[2020-01-28] MEDS: ONDANSETRON 4 MG/2 ML VIAL IVP PRN (20:29)
[2020-01-29] MEDS: HYDROcodone/APAP 5-325MG 1 EACH TAB PO PRN ×2 (04:47→22:04)
[2020-01-29 06:00] LABS: HCT 33.6 % (39.0-53.0); MCH 30.2 pg (25.0-35.0); MCHC 32.8 g/dL (31.0-37.0); MCV 91.8 fL (80.0-100.0); Mean Platelet Volume 7.9; Platelet Count 226 k/uL (150-450); RBC 3.66 m/uL (4.30-5.90); WBC 8.2 k/uL (3.8-10.6)
[2020-01-29 06:19] LABS: African American GFR (CKD) >90 (>60 ml/min/1.73 sqM); Anion Gap 8 mmol/L; Blood Urea Nitrogen 12 mg/dL (9-20); Carbon Dioxide 20 mmol/L (22-30); Chloride 114 mmol/L (98-107); Glucose 108 mg/dL (74-99); Non-African American GFR(CKD) 83 (>60 ml/min/1.73 sqM); Potassium 3.5 mmol/L (3.5-5.1); Sodium 142 mmol/L (137-145)
[2020-01-29] MEDS: PANTOPRAZOLE 40 MG TABLET PO SCH ×2 (06:27→16:58)
[2020-01-29] MEDS: POLYETHYLENE GLYCOL 3350 17 GM POWD.PACK PO SCH ×2 (09:04→21:59)
[2020-01-29] MEDS: HEPARIN SODIUM,PORCINE 5,000 UNIT/ML 1 ML VIAL SQ SCH ×2 (09:05→22:04)
[2020-01-29] MEDS: amLODIPine 10 MG TAB PO SCH (09:14)
[2020-01-29] MEDS: TRIMETHOBENZAMIDE 300 MG CAP PO SCH ×3 (09:14→22:04)
[2020-01-29] MEDS: ONDANSETRON 4 MG/2 ML VIAL IVP PRN (09:14)
[2020-01-29] MEDS: ZINC SULFATE 220 MG CAP PO SCH (09:14)
[2020-01-29] MEDS: ACETAMINOPHEN TAB 325 MG TAB PO PRN (09:15)
[2020-01-29] MEDS: LOSARTAN 50 MG TAB PO SCH (09:15)
--- NOTE | 2020-01-29 11:17 | P.PN ---
Subjective 84-year-old male was admitted for Covid 19. Patient has a sepsis seconded Covid 19 and cardio myopathy secondary to Covid 19. Patient repeat echo in is positive patient will need disposition to subacute rehabilitation and for that he needs to negative PCR testing.patient received more than 7 days of antibiotics there is no evidence summary today quite pneumonia at this time Rocephin will be discontinued and azithromycin will be continued patient is bit bradycardic.cardiology is following the patient patient is not on any beta blockers if they recommend to discontinue azithromycin that'll be discontinued.patient nausea vomiting improved IV fluids will be discontinued. 01/29/2020 Patient is having nausea vomiting again continue a symptomatically treatment a lot and abdominal x-ray. Constitutional: Denied any fatigue denied any fever. Cardio vascular: denied any chest pain, palpitations Gastrointestinal denied any nausea vomiting Pulmonary: Denied any shortness of breath cough Neurologic denied any new focal deficits All inpatient medications were reviewed and appropriate changes in these medications as dictated in the interval history and assessment and plan. Objective - Vital Signs Vital signs: Vital Signs Temp 99.1 F 01/29/20 08:00 Pulse 68 01/29/20 08:00 Resp 18 01/29/20 11:08 BP 155/70 01/29/20 08:00 Pulse Ox 95 01/29/20 08:00 Intake & Output 01/28/20 01/29/20 01/29/20 18:59 06:59 18:59 Intake Total 250 Output Total 200 250 Balance -200 0 Weight 63 kg Intake: IV 250 0.9@50mls/hr 250 Output: Urine 200 250 Other: # Voids 1 # Bowel Movements 1 - Exam PHYSICAL EXAMINATION: GENERAL: The patient is alert and oriented x3, not in any acute distress. Well developed, well nourished. HEENT: Pupils are round and equally reacting to light. EOMI. No scleral icterus. No conjunctival pallor. Normocephalic, atraumatic. No pharyngeal erythema. No thyromegaly. CARDIOVASCULAR: S1 and S2 present. No murmurs, rubs, or gallops. PULMONARY: mild diffuse rhonchi or wheezing ABDOMEN: Soft, nontender, nondistended, normoactive bowel sounds. No palpable organomegaly. MUSCULOSKELETAL: No joint swelling or deformity. EXTREMITIES: No cyanosis, clubbing, or pedal edema. NEUROLOGICAL: Gross neurological examination did not reveal any focal deficits. SKIN: No rashes. Note: Because of COVID 19 isolation, some of the history and physical exam findings or indirect and obtained from nursing staff, and other physician examinations to avoid unnecessary contact with the patient. - Labs CBC & Chem 7: 01/29/20 05:30 01/29/20 05:30 Labs: Abnormal Lab Results - Last 24 Hours (Table) 01/29/20 01/29/20 Range/Units 05:30 05:30 RBC 3.66 L (4.30-5.90) m/uL Hgb 11.0 L D (13.0-17.5) gm/dL Hct 33.6 L (39.0-53.0) % Chloride 114 H (98-107) mmol/L Carbon Dioxide 20 L (22-30) mmol/L Glucose 108 H (74-99) mg/dL Calcium 8.0 L (8.4-10.2) mg/dL Assessment and Plan Plan: -sepsis secondary to Covid 19 and nausea secondary to that.nausea nor vomiting was started having nausea vomiting, will obtain abdominal x-ray. -atrial fibrillation with a slow ventricular rate. -Congestive heart failure unsure whether it's acute systolic dysfunction on chronic systolic dysfunction cannot really say patient of myocarditis is secondary to COVID Is a high possibility secondary to COVID Patient is not in heart failure exacerbation. IV fluids were discontinued patient is able to drink water. But has poor peripheral intake. -Troponin elevation secondary to : 819. 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
--- NOTE | 2020-01-29 11:21 | XR ---
EXAMINATION TYPE: XR abdomen 2V DATE OF EXAM: 01/29/2020 HISTORY: Pain. Technique: 3 views of the abdomen are submitted. Comparison: None. Findings: There is no convincing evidence of pneumoperitoneum. The Bowel gas pattern is nonspecific and nonobstructive. No sizable air-fluid levels are seen. No mass effects are noted. No renal calcifications are identified. Severe degenerative changes lumbar spine with postoperative c hange. Postoperative changes right hip. IMPRESSION: 1. Nonspecific nonobstructive bowel gas pattern
[2020-01-29] MEDS: AZITHROMYCIN 250 MG TAB PO SCH (16:58)
--- NOTE | 2020-01-29 18:49 | PN ---
PROGRESS NOTE DATE OF DICTATION: 01/29/2020 This patient is an 84-year-old white male admitted to the hospital with acute COVID-19 infection. The patient since being in the hospital has been having intermittent episodes of nausea and vomiting. Yesterday he was doing well but today he has been having a small amount of emesis with every meal. He throws up about 15 to 20 mL of phlegm material following each meal. He remains on Tigan, Compazine suppository, Zofran as needed, as well as Protonix 40 mg twice daily. He received Plaquenil for a few days and he was started on azithromycin yesterday. PHYSICAL EXAMINATION: On physical examination, vital signs are stable. Blood pressure is 142/63, pulse rate 65, temperature 98.6. Physical examination is as per attending physician because of active COVID-19 infection. LABORATORY DATA: Labs from today: WBC 8.2, hemoglobin 11, platelets normal. Basic metabolic panel is within normal limits. IMPRESSION: 1. Active COVID-19 infection, on azithromycin. 2. Persistent nausea and vomiting for the last two weeks' duration. He remains on antiemetics as well as proton pump inhibitor with minimal improvement in his symptoms. 3. Possibly medication-related side effects. RECOMMENDATIONS: 1. Recommended small frequent meals. 2. Continue with antiemetics as needed. 3. Protonix 40 mg twice daily. 4. No plan for any endoscopic intervention at the present time because of active COVID- 19 infection. 5. Will follow with you closely. Thank you for this consultation. APOLINAR / RYANN: [id number] /
--- NOTE | 2020-01-29 19:26 | PN ---
PROGRESS NOTE DATE OF SERVICE: 01/29/2020 REASON FOR FOLLOWUP: Acute COVID-19 pneumonia. INTERVAL HISTORY: The patient is currently afebrile. He has been breathing comfortably on room air. Still complaining of feeling nausea. No vomiting has been reported or any diarrhea. PHYSICAL EXAMINATION: Blood pressure 142/63 with a pulse of 55, temperature 98.6. He is 94% on room air. General description is a elderly male up in the chair in no distress. RESPIRATORY SYSTEM: Unlabored breathing. Clear to auscultation anteriorly. HEART: S1, S2. Regular rate and rhythm. ABDOMEN: Soft. No tenderness. LABS: Hemoglobin is 11, white count 8.2. BUN of 12, creatinine 0.75. The patient did have abdominal x-rays, nonspecific, nonobstructive bowel gas pattern. DIAGNOSTIC IMPRESSION AND PLAN: Patient with acute COVID-19 pneumonia. Patient completed a 5-day course of Plaquenil along with zinc. Patient remains to be nauseous but no vomiting. He recently did have a CT of the abdomen and pelvis, which did not show any significant abnormality. Patient to continue with symptomatic treatment for above and we will monitor his clinical course closely. MMODL / IJN: [id number] /
[2020-01-29] MEDS: ATORVASTATIN 40 MG TAB PO SCH (21:58)
[2020-01-30] MEDS: PANTOPRAZOLE 40 MG TABLET PO SCH ×2 (06:26→17:15)
[2020-01-30 06:44] LABS: African American GFR (CKD) >90 (>60 ml/min/1.73 sqM); Anion Gap 4 mmol/L; Blood Urea Nitrogen 14 mg/dL (9-20); Calcium 8.4 mg/dL (8.4-10.2); Carbon Dioxide 22 mmol/L (22-30); Chloride 113 mmol/L (98-107); Glucose 103 mg/dL (74-99); Non-African American GFR(CKD) 84 (>60 ml/min/1.73 sqM); Potassium 3.5 mmol/L (3.5-5.1); Sodium 139 mmol/L (137-145)
[2020-01-30 06:46] LABS: Basophils % (A) 0 %; Eosinophils % (A) 0 %; HCT 33.9 % (39.0-53.0); HGB 11.1 gm/dL (13.0-17.5); Lymphocytes # (A) 0.7 k/uL (1.0-4.8); Lymphocytes % (A) 7 %; MCH 30.1 pg (25.0-35.0); MCHC 32.8 g/dL (31.0-37.0); MCV 91.8 fL (80.0-100.0); Mean Platelet Volume 7.7; Monocytes # (A) 0.6 k/uL (0-1.0); Monocytes % (A) 6 %; Neutrophils # (A) 8.2 k/uL (1.3-7.7); Neutrophils % (A) 84 %; Platelet Count 228 k/uL (150-450); RDW 13.9 % (11.5-15.5); WBC 9.8 k/uL (3.8-10.6)
[2020-01-30] MEDS: HYDROcodone/APAP 5-325MG 1 EACH TAB PO PRN ×2 (09:48→18:36)
[2020-01-30] MEDS: POLYETHYLENE GLYCOL 3350 17 GM POWD.PACK PO SCH ×2 (09:48→21:53)
[2020-01-30] MEDS: TRIMETHOBENZAMIDE 300 MG CAP PO SCH ×2 (09:50→17:15)
[2020-01-30] MEDS: ZINC SULFATE 220 MG CAP PO SCH (09:50)
[2020-01-30] MEDS: amLODIPine 10 MG TAB PO SCH (09:50)
[2020-01-30] MEDS: HEPARIN SODIUM,PORCINE 5,000 UNIT/ML 1 ML VIAL SQ SCH ×2 (09:50→21:53)
[2020-01-30] MEDS: LOSARTAN 50 MG TAB PO SCH (09:50)
--- NOTE | 2020-01-30 12:12 | P.PN ---
Subjective 84-year-old male was admitted for Covid 19. Patient has a sepsis seconded Covid 19 and cardio myopathy secondary to Covid 19. Patient repeat echo in is positive patient will need disposition to subacute rehabilitation and for that he needs to negative PCR testing.patient received more than 7 days of antibiotics there is no evidence summary today quite pneumonia at this time Rocephin will be discontinued and azithromycin will be continued patient is bit bradycardic.cardiology is following the patient patient is not on any beta blockers if they recommend to discontinue azithromycin that'll be discontinued.patient nausea vomiting improved IV fluids will be discontinued. 01/29/2020 Patient is having nausea vomiting again continue a symptomatically treatment a lot and abdominal x-ray. 01/30/2020 Patient is still nauseous. Patient did not receive nutrition for a while because of which nutrition services is recommending TPN or PPN midline will be ordered for that. Constitutional: Denied any fatigue denied any fever. Cardio vascular: denied any chest pain, palpitations Gastrointestinal denied any nausea vomiting Pulmonary: Denied any shortness of breath cough Neurologic denied any new focal deficits All inpatient medications were reviewed and appropriate changes in these medications as dictated in the interval history and assessment and plan. Objective - Vital Signs Vital signs: Vital Signs Temp 97.2 F L 01/30/20 08:10 Pulse 68 01/30/20 08:10 Resp 16 01/30/20 08:10 BP 173/74 01/30/20 08:10 Pulse Ox 91 L 01/30/20 08:10 Intake & Output 01/29/20 01/30/20 01/30/20 18:59 06:59 18:59 Intake Total 240 Output Total 600 150 Balance -360 -150 Weight 63 kg 68.5 kg Intake: Oral 240 Output: Urine 600 150 Other: Voiding Method Urinal # Voids 3 - Exam PHYSICAL EXAMINATION: GENERAL: The patient is alert and oriented x3, not in any acute distress. Well developed, well nourished. HEENT: Pupils are round and equally reacting to light. EOMI. No scleral icterus. No conjunctival pallor. Normocephalic, atraumatic. No pharyngeal erythema. No thyromegaly. CARDIOVASCULAR: S1 and S2 present. No murmurs, rubs, or gallops. PULMONARY: mild diffuse rhonchi or wheezing ABDOMEN: Soft, nontender, nondistended, normoactive bowel sounds. No palpable organomegaly. MUSCULOSKELETAL: No joint swelling or deformity. EXTREMITIES: No cyanosis, clubbing, or pedal edema. NEUROLOGICAL: Gross neurological examination did not reveal any focal deficits. SKIN: No rashes. Note: Because of COVID 19 isolation, some of the history and physical exam findings or indirect and obtained from nursing staff, and other physician examinations to avoid unnecessary contact with the patient. - Labs CBC & Chem 7: 01/30/20 06:15 01/30/20 06:15 Labs: Abnormal Lab Results - Last 24 Hours (Table) 01/30/20 01/30/20 Range/Units 06:15 06:15 RBC 3.70 L (4.30-5.90) m/uL Hgb 11.1 L (13.0-17.5) gm/dL Hct 33.9 L (39.0-53.0) % Neutrophils # 8.2 H (1.3-7.7) k/uL Lymphocytes # 0.7 L (1.0-4.8) k/uL Chloride 113 H (98-107) mmol/L Glucose 103 H (74-99) mg/dL Assessment and Plan Plan: -sepsis secondary to Covid 19, patient didn't vomit but still nauseous not eating much abdominal x-ray did not show any bowel obstruction -atrial fibrillation with a slow ventricular rate. -Congestive heart failure unsure whether it's acute systolic dysfunction on chronic systolic dysfunction cannot really say patient of myocarditis is secondary to COVID Is a high possibility secondary to COVID Patient is not in heart failure exacerbation. IV fluids were discontinued patient is able to drink water. But has poor peripheral intake. 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
[2020-01-30] MEDS: POTASSIUM CHLORIDE 10 MEQ in WATER FOR INJECTION 1 100ML.BAG IVPB SCH ×4 (12:49→17:15)
--- NOTE | 2020-01-30 14:45 | PN ---
PROGRESS NOTE DATE OF SERVICE: 01/30/2020 Patient is an 84-year-old white male with active: COVID-19 pneumonia with cardiomyopathy secondary to COVID infection. The patient has been nauseated since he has been in the hospital for the last 2 weeks. He has been on beta antiemetics as well as Protonix with minimal help. Apparently, the nursing staff yesterday gave him some of his medications in applesauce and he is feeling somewhat better. For the last 24 hours, did not have any further episodes of emesis. Currently, he is receiving Compazine every 6 hours and Protonix 40 mg twice daily. PHYSICAL EXAMINATION: He appears comfortable. Vital signs showed a blood pressure of 118/60, pulse rate 65, temperature 97.2. Physical examination was deferred to the attending physician because of active COVID-19 infection. LABS: From today WBC 9.8, hemoglobin 11.1, platelets normal. Basic metabolic panel is within normal limits. IMPRESSION: 1. Active COVID-19 pneumonia on Azithromycin, day #4. 2. Persistent nausea with emesis since being admitted to the hospital. Part of it could be related to COVID-19 infection, part of it could be related to medications that he has been receiving in the hospital. He remains on antiemetics and PPIs with some help. RECOMMENDATIONS: 1. Will continue with symptomatic and supportive care. 2. Agree with stopping the Azithromycin and hopefully this will improve some of his symptoms. 3. Increase oral intake but small frequent meals. 4. No plans on any endoscopic intervention. Will follow with you closely. Thank you for this consultation. MMODL / IJN: [id number] /
[2020-01-30] MEDS: FAT EMULSION 20% 250 ML IV SCH (17:15)
[2020-01-30] MEDS: AZITHROMYCIN 250 MG TAB PO SCH (17:15)
[2020-01-30] MEDS: MVI, ADULT NO.4 WITH VIT K 10 ML, TRACE (CONC-1ML/DOSE) 1 ML in AMINO ACID 4.25%-D10W+L... IV SCH ×3 (17:16)
[2020-01-30] MEDS: ATORVASTATIN 40 MG TAB PO SCH (21:53)
--- NOTE | 2020-01-31 00:19 | PN ---
PROGRESS NOTE DATE OF SERVICE: 01/30/2020 REASON FOR FOLLOWUP: Acute COVID-19 pneumonia. INTERVAL HISTORY: The patient is currently afebrile. Did mention feeling slightly better today. He is breathing comfortably. Some nausea but no vomiting has been reported or any diarrhea. PHYSICAL EXAMINATION: Blood pressure 153/73 with a pulse of 50, temperature 98. He is 94% on room air. General description: The patient is an elderly male up in the chair in no distress. Respiratory system: Unlabored breathing, decreased intense breath sounds. No wheeze. Heart S1, S2. Regular rate and rhythm. Abdomen soft, no tenderness. LABS: Hemoglobin 11.1, white count 9.8. BUN of 14, creatinine 0.72. DIAGNOSTIC IMPRESSION AND PLAN: Patient with acute COVID-19 pneumonia. The patient is completing a course of Plaquenil, currently on Zithromax, zinc to continue and monitor clinical course closely. MMODL / IJN: [id number] /
[2020-01-31] MEDS: TRIMETHOBENZAMIDE 300 MG CAP PO SCH ×2 (03:13→09:44)
[2020-01-31 06:37] LABS: Calcium 8.2 mg/dL (8.4-10.2); Magnesium 1.9 mg/dL (1.6-2.3); Phosphorus 3.1 mg/dL (2.5-4.5); Potassium 4.5 mmol/L (3.5-5.1)
[2020-01-31] MEDS: PANTOPRAZOLE 40 MG TABLET PO SCH ×2 (06:54→16:20)
[2020-01-31 07:02] LABS: Ionized Calcium 5.2 mg/dL (4.5-5.3)
[2020-01-31] MEDS: ZINC SULFATE 220 MG CAP PO SCH (09:45)
[2020-01-31] MEDS: HEPARIN SODIUM,PORCINE 5,000 UNIT/ML 1 ML VIAL SQ SCH ×2 (10:01→21:36)
[2020-01-31] MEDS: LOSARTAN 50 MG TAB PO SCH (10:01)
[2020-01-31] MEDS: POLYETHYLENE GLYCOL 3350 17 GM POWD.PACK PO SCH ×2 (10:01→21:33)
[2020-01-31] MEDS: amLODIPine 10 MG TAB PO SCH (10:02)
[2020-01-31] MEDS: HYDROcodone/APAP 5-325MG 1 EACH TAB PO PRN ×2 (10:13→23:36)
[2020-01-31] MEDS ORDERED: ACETAMINOPHEN IV (For NPO) 1,000 MG in EMPTY BAG 1 BAG IVPB ONE (10:30)
--- NOTE | 2020-01-31 10:47 | PN ---
PROGRESS NOTE DATE OF SERVICE: 01/31/2020 Patient is an 84-year-old pleasant white male admitted to the hospital with acute COVID- 19 infection as well as severe persistent nausea, despite being on proton pump inhibitors and different antiemetics. He still says that he has persistent nausea today, has barely eaten his breakfast. He denies any abdominal pain. He reports no headaches. No fever, chills, night sweats. PHYSICAL EXAMINATION: Blood pressure is 156/82, pulse 61, temperature 97.3. HEENT: Examination unremarkable. Conjunctivae are pink. Sclerae nonicteric. Oral cavity no lesions. HEART: Regular rate and rhythm. ABDOMEN,: Nondistended, nontender. Bowel sounds are positive. EXTREMITIES: No pedal edema. Neuro is alert, oriented to name and place. LABS: From today, basic metabolic panel is within normal limits. IMPRESSION: 1. COVID-19 pneumonia on Azithromycin. 2. Persistent nausea since hospitalization for the last 2 week's duration. No help with antiemetics or proton pump inhibitors. 3. History of hypercholesteremia. RECOMMENDATIONS: 1. Will obtain serum fasting cortisol tomorrow morning. 2. Stop medications if possible Azithromycin and hold off on the Lipitor if possible. 3. Will discontinue Tigan and Zofran for now. 4. Continue only with Compazine and Protonix and will follow with you closely. Thank you for this consultation. MMODL / IJN: [id number] /
--- NOTE | 2020-01-31 11:14 | P.PN ---
Subjective 84-year-old male was admitted for Covid 19. Patient has a sepsis seconded Covid 19 and cardio myopathy secondary to Covid 19. Patient repeat echo in is positive patient will need disposition to subacute rehabilitation and for that he needs to negative PCR testing.patient received more than 7 days of antibiotics there is no evidence summary today quite pneumonia at this time Rocephin will be discontinued and azithromycin will be continued patient is bit bradycardic.cardiology is following the patient patient is not on any beta blockers if they recommend to discontinue azithromycin that'll be discontinued.patient nausea vomiting improved IV fluids will be discontinued. 01/29/2020 Patient is having nausea vomiting again continue a symptomatically treatment a lot and abdominal x-ray. 01/30/2020 Patient is still nauseous. Patient did not receive nutrition for a while because of which nutrition services is recommending TPN or PPN midline will be ordered for that. 01/31/2020 Patient is still not tolerating oral diet not vomiting but still nauseous abdomen is soft continued peripheral parenteral nutrition Constitutional: Denied any fatigue denied any fever. Cardio vascular: denied any chest pain, palpitations Gastrointestinal denied any nausea vomiting Pulmonary: Denied any shortness of breath cough Neurologic denied any new focal deficits All inpatient medications were reviewed and appropriate changes in these medications as dictated in the interval history and assessment and plan. Objective - Vital Signs Vital signs: Vital Signs Temp 97.3 F L 01/31/20 08:00 Pulse 61 01/31/20 08:00 Resp 18 01/31/20 08:00 BP 156/66 01/31/20 08:00 Pulse Ox 94 L 01/31/20 08:00 Intake & Output 01/30/20 01/31/20 01/31/20 18:59 06:59 18:59 Intake Total 400 1306 Output Total 450 900 Balance -50 406 Weight 68.5 kg 49 kg Intake: IV 400 0.9@50mls/hr 400 Intake, IV Titration 400 666 Amount Fat Emulsion 20% 250 ml @ 166 20.833 mls/hr IV DAILY@ 1600 [facility] Rx#:[id number] Mvi, Adult No.4 with Vit 400 K 10 ml Trace (Conc-1Ml/ Dose) 1 ml In Amino Acid 4.25%-D10w+Lytes*E* 1,000 ml @ 50 mls/hr IV . [id number] [facility] Rx#:[id number] Potassium Chloride 10 meq 400 100 In Water For Injection 1 100ml.bag @ 100 mls/hr IVPB Q1HR [facility] Rx#: [id number] Oral 240 Output: Urine 450 900 Other: Voiding Method Urinal Urinal # Voids 2 - Exam PHYSICAL EXAMINATION: GENERAL: The patient is alert and oriented x3, not in any acute distress. Well developed, well nourished. HEENT: Pupils are round and equally reacting to light. EOMI. No scleral icterus. No conjunctival pallor. Normocephalic, atraumatic. No pharyngeal erythema. No thyromegaly. CARDIOVASCULAR: S1 and S2 present. No murmurs, rubs, or gallops. PULMONARY: mild diffuse rhonchi or wheezing ABDOMEN: Soft, nontender, nondistended, normoactive bowel sounds. No palpable organomegaly. MUSCULOSKELETAL: No joint swelling or deformity. EXTREMITIES: No cyanosis, clubbing, or pedal edema. NEUROLOGICAL: Gross neurological examination did not reveal any focal deficits. SKIN: No rashes. Note: Because of COVID 19 isolation, some of the history and physical exam findings or indirect and obtained from nursing staff, and other physician examinations to avoid unnecessary contact with the patient. - Labs CBC & Chem 7: 01/30/20 06:15 01/31/20 05:46 Labs: Abnormal Lab Results - Last 24 Hours (Table) 01/31/20 Range/Units 05:46 Chloride 114 H (98-107) mmol/L BUN 31 H (9-20) mg/dL Calcium 8.2 L (8.4-10.2) mg/dL Assessment and Plan Plan: -sepsis secondary to Covid 19, patient didn't vomit but still nauseous not eating much abdominal x-ray did not show any bowel obstruction -atrial fibrillation with a slow ventricular rate. -Congestive heart failure unsure whether it's acute systolic dysfunction on chronic systolic dysfunction cannot really say patient of myocarditis is secondary to COVID Is a high possibility secondary to COVID Patient is not in heart failure exacerbation. IV fluids were discontinued patient is able to drink water. But has poor peripheral intake. 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
[2020-01-31] MEDS: MVI, ADULT NO.4 WITH VIT K 10 ML, TRACE (CONC-1ML/DOSE) 1 ML in AMINO ACID 4.25%-D10W+L... IV SCH ×3 (16:18)
[2020-01-31] MEDS: FAT EMULSION 20% 250 ML IV SCH (16:19)
[2020-01-31] MEDS: AZITHROMYCIN 250 MG TAB PO SCH (16:20)
--- NOTE | 2020-01-31 23:14 | PN ---
PROGRESS NOTE DATE OF SERVICE: 01/31/2020 REASON FOR FOLLOWUP: Acute COVID-19 pneumonia. INTERVAL HISTORY: The patient is currently afebrile, has been breathing comfortably. Still complaining of nausea and though slightly improved compared to yesterday. No vomiting. No abdominal pain. No diarrhea. PHYSICAL EXAMINATION: Blood pressure 142/64 with a pulse of 54, temperature 98.4. He is 94% on room air. GENERAL DESCRIPTION: The patient is an elderly male lying in bed in no distress. Respiratory system: Unlabored breathing with decreased intensity of breath sounds. No wheeze. HEART: S1, S2. Regular rate and rhythm. ABDOMEN soft. No tenderness. LABS: Hemoglobin is 11.1, white count 9.8. BUN of 31, creatinine 0.91. DIAGNOSTIC IMPRESSION AND PLAN: Patient with acute Covid-19 pneumonia for which the patient completed his Plaquenil therapy and today he has completed a 5-day course of Zithromax in view of persistent nausea. We will discontinue the Zithromax. Continue zinc and monitor his clinical course closely. MMLOKIL / RYANN: [id number] /
[2020-02-01] MEDS: PANTOPRAZOLE 40 MG TABLET PO SCH ×2 (06:34→16:19)
[2020-02-01 07:02] LABS: African American GFR (CKD) >90 (>60 ml/min/1.73 sqM); Anion Gap 6 mmol/L; Blood Urea Nitrogen 16 mg/dL (9-20); Calcium 7.9 mg/dL (8.4-10.2); Carbon Dioxide 21 mmol/L (22-30); Chloride 110 mmol/L (98-107); Glucose 139 mg/dL (74-99); Magnesium 1.9 mg/dL (1.6-2.3); Non-African American GFR(CKD) 87 (>60 ml/min/1.73 sqM); Phosphorus 3.4 mg/dL (2.5-4.5); Potassium 3.8 mmol/L (3.5-5.1); Sodium 137 mmol/L (137-145)
[2020-02-01] MEDS: ZINC SULFATE 220 MG CAP PO SCH (08:45)
[2020-02-01] MEDS: amLODIPine 10 MG TAB PO SCH (08:45)
[2020-02-01] MEDS: LOSARTAN 50 MG TAB PO SCH (08:45)
[2020-02-01] MEDS: POLYETHYLENE GLYCOL 3350 17 GM POWD.PACK PO SCH ×2 (08:45→21:01)
[2020-02-01] MEDS: HEPARIN SODIUM,PORCINE 5,000 UNIT/ML 1 ML VIAL SQ SCH ×2 (08:45→21:00)
[2020-02-01] MEDS ORDERED: SCOPOLAMINE 1.5MG/72HR PATCH TRANSDERM STA (09:38)
--- NOTE | 2020-02-01 11:33 | PN ---
PROGRESS NOTE DATE OF DICTATION: 02/01/2020 The patient is an 84-year-old, pleasant, white male admitted to the hospital two weeks ago with acute COVID-19 infection and has been complaining of persistent nausea since admission to the hospital. He was tried on various antiemetics with no help. He was on Zofran, Compazine, and Tigan with no help. Yesterday the Zofran and Tigan were discontinued and he was advised to continue with Compazine suppositories q.6 hours. This morning he ate a little amount of oatmeal but threw up immediately. He continues to complain of persistent nausea, decreased appetite, and not feeling well. PHYSICAL EXAMINATION: Appears comfortable. He is lying in bed. VITAL SIGNS: Blood pressure is 165/72, pulse rate 86, temperature 98.2. HEENT: Unremarkable. Rest of the physical examination deferred to the attending physician. LABS: Labs done today: Basic metabolic panel is within normal limits. IMPRESSION: 1. Active COVID-19 infection. 2. Persistent nausea, decreased appetite, progressive weight loss, started on TPN three days ago. No help with Tigan, Compazine, and Zofran. Currently on Protonix 40 mg twice daily. Rule out adrenal insufficiency because of the persistent symptoms. 3. Protein-energy malnutrition, started on TPN three days ago. 4. History of congestive heart failure. 5. History of atrial fibrillation. RECOMMENDATIONS: 1. Continue with Protonix 40 mg q.12 hours and Compazine suppository every six hours around the clock. 2. We will start him on scopolamine patch to see if this helps with the nausea and vomiting. 3. We have requested for fasting serum cortisol tomorrow morning. 4. Continue with TPN. 5. We will follow with you closely. Thank you for this consultation. MMODL / IJN: [id number] /
[2020-02-01] MEDS: MVI, ADULT NO.4 WITH VIT K 10 ML, TRACE (CONC-1ML/DOSE) 1 ML in AMINO ACID 4.25%-D10W+L... IV SCH ×3 (12:17)
[2020-02-01] MEDS: PROCHLORPERAZINE SUPPOSITORY 25 MG SUPP RECTAL SCH ×2 (12:25→21:01)
[2020-02-01] MEDS: ACETAMINOPHEN IV (For NPO) 750 MG in EMPTY BAG 1 BAG IVPB SCH ×2 (12:29→18:39)
--- NOTE | 2020-02-01 13:39 | P.PN ---
Subjective 84-year-old male was admitted for Covid 19. Patient has a sepsis seconded Covid 19 and cardio myopathy secondary to Covid 19. Patient repeat echo in is positive patient will need disposition to subacute rehabilitation and for that he needs to negative PCR testing.patient received more than 7 days of antibiotics there is no evidence summary today quite pneumonia at this time Rocephin will be discontinued and azithromycin will be continued patient is bit bradycardic.cardiology is following the patient patient is not on any beta blockers if they recommend to discontinue azithromycin that'll be discontinued.patient nausea vomiting improved IV fluids will be discontinued. 01/29/2020 Patient is having nausea vomiting again continue a symptomatically treatment a lot and abdominal x-ray. 01/30/2020 Patient is still nauseous. Patient did not receive nutrition for a while because of which nutrition services is recommending TPN or PPN midline will be ordered for that. 01/31/2020 Patient is still not tolerating oral diet not vomiting but still nauseous abdomen is soft continued peripheral parenteral nutrition 02/01/2020 Patient remains nauseous patient has severe osteoarthritis using IV Tylenol for pain as patient cannot take oral medications Constitutional: Denied any fatigue denied any fever. Cardio vascular: denied any chest pain, palpitations Gastrointestinal patient does have nausea no abdominal pain Pulmonary: Denied any shortness of breath cough Neurologic denied any new focal deficits All inpatient medications were reviewed and appropriate changes in these medications as dictated in the interval history and assessment and plan. Objective - Vital Signs Vital signs: Vital Signs Temp 97.9 F 02/01/20 12:00 Pulse 61 02/01/20 12:00 Resp 20 02/01/20 12:00 BP 156/67 02/01/20 12:00 Pulse Ox 93 L 02/01/20 12:00 Intake & Output 01/31/20 02/01/20 02/01/20 18:59 06:59 18:59 Intake Total 1261 999.167 Output Total 670 Balance 591 999.167 Weight 50.5 kg Intake: IV 250 0.9@50mls/hr 250 Intake, IV Titration 1011 999.167 Amount Mvi, Adult No.4 with Vit 1011 999.167 K 10 ml Trace (Conc-1Ml/ Dose) 1 ml In Amino Acid 4.25%-D10w+Lytes*E* 1,000 ml @ 50 mls/hr IV . [id number] [facility] Rx#:[id number] Output: Urine 670 Other: Voiding Method Urinal # Voids 2 1 # Bowel Movements 1 - Exam PHYSICAL EXAMINATION: GENERAL: The patient is alert and oriented x3, not in any acute distress. Well developed, well nourished. HEENT: Pupils are round and equally reacting to light. EOMI. No scleral icterus. No conjunctival pallor. Normocephalic, atraumatic. No pharyngeal erythema. No thyromegaly. CARDIOVASCULAR: S1 and S2 present. No murmurs, rubs, or gallops. PULMONARY: mild diffuse rhonchi or wheezing ABDOMEN: Soft, nontender, nondistended, normoactive bowel sounds. No palpable o rganomegaly. MUSCULOSKELETAL: No joint swelling or deformity. EXTREMITIES: No cyanosis, clubbing, or pedal edema. NEUROLOGICAL: Gross neurological examination did not reveal any focal deficits. SKIN: No rashes. Note: Because of COVID 19 isolation, some of the history and physical exam findings or indirect and obtained from nursing staff, and other physician examinations to avoid unnecessary contact with the patient. - Labs CBC & Chem 7: 01/30/20 06:15 02/01/20 05:57 Labs: Abnormal Lab Results - Last 24 Hours (Table) 02/01/20 Range/Units 05:57 Chloride 110 H (98-107) mmol/L Carbon Dioxide 21 L (22-30) mmol/L Glucose 139 H (74-99) mg/dL Calcium 7.9 L (8.4-10.2) mg/dL Albumin 2.0 L (3.5-5.0) g/dL Assessment and Plan Plan: -sepsis secondary to Covid 19, patient didn't vomit but still nauseous not eating much abdominal x-ray did not show any bowel obstruction -atrial fibrillation with a slow ventricular rate. -Congestive heart failure unsure whether it's acute systolic dysfunction on chronic systolic dysfunction cannot really say patient of myocarditis is secondary to COVID Is a high possibility secondary to COVID Patient is not in heart failure exacerbation. IV fluids were discontinued patient is able to drink water. But has poor peripheral intake. 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
[2020-02-01] MEDS: FAT EMULSION 20% 250 ML IV SCH (16:19)
[2020-02-02] MEDS: ACETAMINOPHEN IV (For NPO) 750 MG in EMPTY BAG 1 BAG IVPB SCH ×2 (00:27→10:37)
[2020-02-02] MEDS: INSULIN ASPART (NovoLOG) 100 UNIT/ML VIAL SQ SCH ×4 (00:45→18:07)
[2020-02-02 00:53] LABS: Glucose,Whole Blood 162 mg/dL (75-99)
--- NOTE | 2020-02-02 01:21 | PN ---
PROGRESS NOTE DATE OF SERVICE: 02/01/2020 REASON FOR FOLLOWUP: COVID-19 pneumonia. INTERVAL HISTORY: The patient is currently afebrile. The patient has been breathing comfortably. Denies having any chest pain. Feeling slightly better. No further nausea. No vomiting. No diarrhea. PHYSICAL EXAMINATION: Blood pressure 154/64 with a pulse of 47, temperature 97.6. He is 95% on room air. General description is an elderly male lying in bed in no distress. RESPIRATORY SYSTEM: Unlabored breathing, decreased breath sounds at the bases. No wheeze. HEART: S1, S2. Regular rate and rhythm. ABDOMEN: Soft, no tenderness. LABS: BUN of 16, creatinine 0.67. DIAGNOSTIC IMPRESSION AND PLAN: 1. Patient with acute COVID-19 infection has been adequately treated. He has completed his Plaquenil and Zithromax therapy. Currently on room air. Will monitor the patient closely off antibiotic therapy. 2. Patient with nausea possible medication associated. Zithromax was completed yesterday. Will see clinical response. MMODL / IJN: [id number] /
[2020-02-02 06:19] LABS: Glucose,Whole Blood 141 mg/dL (75-99)
[2020-02-02 06:21] LABS: African American GFR (CKD) >90 (>60 ml/min/1.73 sqM); Anion Gap 6 mmol/L; Blood Urea Nitrogen 16 mg/dL (9-20); Calcium 7.9 mg/dL (8.4-10.2); Carbon Dioxide 21 mmol/L (22-30); Chloride 110 mmol/L (98-107); Glucose 133 mg/dL (74-99); Magnesium 1.9 mg/dL (1.6-2.3); Non-African American GFR(CKD) >90 (>60 ml/min/1.73 sqM); Phosphorus 3.7 mg/dL (2.5-4.5); Potassium 3.7 mmol/L (3.5-5.1); Sodium 137 mmol/L (137-145)
[2020-02-02] MEDS ORDERED: ACETAMINOPHEN IV (For NPO) 750 MG in EMPTY BAG 1 BAG IVPB SCH (06:30)
[2020-02-02] MEDS: PANTOPRAZOLE 40 MG TABLET PO SCH ×2 (06:44→18:09)
[2020-02-02] MEDS: HEPARIN SODIUM,PORCINE 5,000 UNIT/ML 1 ML VIAL SQ SCH ×2 (10:19→20:22)
[2020-02-02] MEDS: LOSARTAN 50 MG TAB PO SCH (10:19)
[2020-02-02] MEDS: amLODIPine 10 MG TAB PO SCH (10:19)
[2020-02-02] MEDS: ZINC SULFATE 220 MG CAP PO SCH (10:20)
[2020-02-02] MEDS: POLYETHYLENE GLYCOL 3350 17 GM POWD.PACK PO SCH ×2 (10:20→20:22)
[2020-02-02] MEDS: PROCHLORPERAZINE SUPPOSITORY 25 MG SUPP RECTAL SCH ×2 (10:38→20:23)
--- NOTE | 2020-02-02 10:42 | P.PN ---
Subjective 84-year-old male was admitted for Covid 19. Patient has a sepsis seconded Covid 19 and cardio myopathy secondary to Covid 19. Patient repeat echo in is positive patient will need disposition to subacute rehabilitation and for that he needs to negative PCR testing.patient received more than 7 days of antibiotics there is no evidence summary today quite pneumonia at this time Rocephin will be discontinued and azithromycin will be continued patient is bit bradycardic.cardiology is following the patient patient is not on any beta blockers if they recommend to discontinue azithromycin that'll be discontinued.patient nausea vomiting improved IV fluids will be discontinued. 01/29/2020 Patient is having nausea vomiting again continue a symptomatically treatment a lot and abdominal x-ray. 01/30/2020 Patient is still nauseous. Patient did not receive nutrition for a while because of which nutrition services is recommending TPN or PPN midline will be ordered for that. 01/31/2020 Patient is still not tolerating oral diet not vomiting but still nauseous abdomen is soft continued peripheral parenteral nutrition 02/01/2020 Patient remains nauseous patient has severe osteoarthritis using IV Tylenol for pain as patient cannot take oral medications 02/02/2020 Patient is still not able to eat or drink patient had a fall today with some bruises in the hip and knee area with no significant swelling suspicion is low for any fracture. Constitutional: Denied any fatigue denied any fever. Cardio vascular: denied any chest pain, palpitations Gastrointestinal patient does have nausea no abdominal pain Pulmonary: Denied any shortness of breath cough Neurologic denied any new focal deficits All inpatient medications were reviewed and appropriate changes in these medications as dictated in the interval history and assessment and plan. Objective - Vital Signs Vital signs: Vital Signs Temp 98.0 F 02/02/20 08:00 Pulse 46 L 02/02/20 08:00 Resp 18 02/02/20 08:00 BP 137/67 02/02/20 08:00 Pulse Ox 92 L 02/02/20 08:00 Intake & Output 02/01/20 02/02/20 02/02/20 18:59 06:59 18:59 Intake Total 999.955 116 8601 Output Total 800 425 Balance 199.167 -71 1300 Weight 47 kg 47 kg Intake: IV 250 50 0.9@50mls/hr 250 50 Intake, IV Titration 999.167 104 Amount Fat Emulsion 20% 250 ml @ 104 20.833 mls/hr IV DAILY@ 1600 [facility] Rx#:[id number] Mvi, Adult No.4 with Vit 999.167 K 10 ml Trace (Conc-1Ml/ Dose) 1 ml In Amino Acid 4.25%-D10w+Lytes*E* 1,000 ml @ 50 mls/hr IV . [id number] [facility] Rx#:[id number] Oral 0 0 Lipid 250 0.9@50mls/hr 250 Albumin 1000 0.9@50mls/hr 1000 Output: Urine 800 425 Other: Voiding Method Urinal Urinal Urinal # Voids 1 2 # Bowel Movements 1 1 - Exam PHYSICAL EXAMINATION: GENERAL: The patient is alert and oriented x3, not in any acute distress. Well developed, well nourished. HEENT: Pupils are round and equally reacting to light. EOMI. No scleral icterus. No conjunctival pallor. Normocephalic, atraumatic. No pharyngeal erythema. No thyromegaly. CARDIOVASCULAR: S1 and S2 present. No murmurs, rubs, or gallops. PULMONARY: mild diffuse rhonchi or wheezing ABDOMEN: Soft, nontender, nondistended, normoactive bowel sounds. No palpable organomegaly. MUSCULOSKELETAL: No joint swelling or deformity. EXTREMITIES: No cyanosis, clubbing, or pedal edema. NEUROLOGICAL: Gross neurological examination did not reveal any focal deficits. SKIN: No rashes. Note: Because of COVID 19 isolation, some of the history and physical exam findings or indirect and obtained from nursing staff, and other physician e xaminations to avoid unnecessary contact with the patient. - Labs CBC & Chem 7: 01/30/20 06:15 02/02/20 06:02 Labs: Abnormal Lab Results - Last 24 Hours (Table) 02/02/20 02/02/20 02/02/20 Range/Units 00:51 06:02 06:17 Chloride 110 H (98-107) mmol/L Carbon Dioxide 21 L (22-30) mmol/L Creatinine 0.60 L (0.66-1.25) mg/dL Glucose 133 H (74-99) mg/dL POC Glucose (mg/dL) 162 H 141 H (75-99) mg/dL Calcium 7.9 L (8.4-10.2) mg/dL Assessment and Plan Plan: -sepsis secondary to Covid 19, patient didn't vomit but still nauseous not eating much abdominal x-ray did not show any bowel obstruction -atrial fibrillation with a slow ventricular rate. -Mechanical fall with bruising no evidence of fracture -Congestive heart failure unsure whether it's acute systolic dysfunction on chronic systolic dysfunction cannot really say patient of myocarditis is secondary to COVID Is a high possibility secondary to COVID Patient is not in heart failure exacerbation. IV fluids were discontinued patient is able to drink water. But has poor peripheral intake. -Troponin elevation secondary to Covid -Toxic encephalopathy secondary to infection which improved lactic acidosis secondary to sepsis which improved creatinine bypass graft with CABG in the past -Dyslipidemia -Aortic stenosis -Moderate malnutrition patient was is on PPN Patient will need subacute rehabilitation but unfortunately we cannot discharge him at this time as his last covid 19 was positive 3 times during this hospitalization
[2020-02-02] MEDS: MVI, ADULT NO.4 WITH VIT K 10 ML, TRACE (CONC-1ML/DOSE) 1 ML in AMINO ACID 4.25%-D10W+L... IV SCH ×3 (10:55)
[2020-02-02] MEDS: 1: AMINO ACID 4.25%-D10W+LYTES*E* 1,000 ML 2: MVI, ADULT NO.4 WITH VIT K 10 ML, TRACE ( IV SCH ×3 (10:56)
[2020-02-02 12:00] LABS: Glucose,Whole Blood 142 mg/dL (75-99)
[2020-02-02] MEDS: FAT EMULSION 20% 250 ML IV SCH (16:39)
--- NOTE | 2020-02-02 17:01 | P.PN ---
Subjective Progress Note Date: 02/02/20 Principal diagnosis: Nausea and vomiting, Covid infection Patient has completed treatment for Darling virus infection. Continues to have persistent nausea. Mechanical fall yesterday. Objective - Vital Signs Vital signs: Vital Signs Temp 97.4 F L 02/02/20 15:55 Pulse 58 L 02/02/20 15:55 Resp 18 02/02/20 15:55 BP 133/63 02/02/20 15:55 Pulse Ox 97 02/02/20 15:55 Intake & Output 02/01/20 02/02/20 02/02/20 18:59 06:59 18:59 Intake Total 999.908 984 2539 Output Total 800 425 125 Balance 199.167 -71 2186 Weight 47 kg 47 kg Intake: IV 250 50 0.9@50mls/hr 250 50 Intake, IV Titration 999.821 916 0454 Amount Fat Emulsion 20% 250 ml @ 104 20.833 mls/hr IV DAILY@ 1600 [facility] Rx#:[id number] Mvi, Adult No.4 with Vit 680.470 4107 K 10 ml Trace (Conc-1Ml/ Dose) 1 ml In Amino Acid 4.25%-D10w+Lytes*E* 1,000 ml @ 50 mls/hr IV . [id number] [facility] Rx#:[id number] Oral 0 0 Lipid 250 0.9@50mls/hr 250 Albumin 1000 0.9@50mls/hr 1000 Output: Urine 800 425 125 Other: Voiding Method Urinal Urinal Urinal # Voids 1 2 # Bowel Movements 1 1 - Exam Physical exam not performed due to Coronavirus, deferred to primary team. - Labs CBC & Chem 7: 01/30/20 06:15 02/02/20 06:02 Labs: Abnormal Lab Results - Last 24 Hours (Table) 02/02/20 02/02/20 02/02/20 Range/Units 00:51 06:02 06:17 Chloride 110 H (98-107) mmol/L Carbon Dioxide 21 L (22-30) mmol/L Creatinine 0.60 L (0.66-1.25) mg/dL Glucose 133 H (74-99) mg/dL POC Glucose (mg/dL) 162 H 141 H (75-99) mg/dL Calcium 7.9 L (8.4-10.2) mg/dL 02/02/20 Range/Units 11:59 Chloride (98-107) mmol/L Carbon Dioxide (22-30) mmol/L Creatinine (0.66-1.25) mg/dL Glucose (74-99) mg/dL POC Glucose (mg/dL) 142 H (75-99) mg/dL Calcium (8.4-10.2) mg/dL Assessment and Plan (1) Nausea and vomiting Narrative/Plan: 84-year-old male with multiple medical comorbidities and a significant past cardiac history who presented to the hospital with weakness, nausea and vomiting. He reports 4 days of symptoms of nausea and dry heaving. Currently no further vomiting reported but patient is still feeling somewhat nauseated. He denies any new medications prior to developing symptoms or sick contacts. No fevers, chills or change in bowel habits. Unknown etiology, likely related to Darling virus with positive testing for Covid-19, cannot rule out a component of medication effect with antibiotics completed yesterday, patient has been restarted on antiemetics suppository. Current Visit: Yes Status: Acute Code(s): R11.2 - NAUSEA WITH VOMITING, UNSPECIFIED SNOMED Code(s): 66088781 Plan: Supportive care Okay for diet as tolerated Protonix 40 mg twice a day Rectal Compazine for nausea change to as needed MiraLAX for bowel regimen Continue to monitor symptomatically No plan for endoscopic evaluation at this time Thank you for allowing us to participate in the care of the patient
[2020-02-02 17:46] LABS: Glucose,Whole Blood 129 mg/dL (75-99)
--- NOTE | 2020-02-02 17:52 | PN ---
PROGRESS NOTE DATE OF SERVICE: 02/02/2020 REASON FOR FOLLOWUP: Acute COVID-19 pneumonia. INTERVAL HISTORY: The patient is currently afebrile, has been breathing comfortably. The patient denies having any chest pain. His diarrhea has improved. No vomiting. No abdominal pain or diarrhea. PHYSICAL EXAMINATION: Blood pressure is 133/63 with a pulse of 58, temperature 97.4. He is 97% on 3 L nasal cannula. General description is an elderly male lying in bed in no distress. RESPIRATORY SYSTEM: Unlabored breathing. Clear to auscultation anteriorly. HEART: S1, S2. Regular rate and rhythm. ABDOMEN: Soft. No tenderness. LABS: BUN of 16, creatinine 0.60. DIAGNOSTIC IMPRESSION AND PLAN: 1. Patient with acute COVID-19 pneumonia that has been adequately treated. Patient has completed his Zithromax and Plaquenil therapy, currently on zinc only. 2. Patient with persistent nausea, being monitored by GI Services, with no evidence of any acute infection further antibiotic therapy at this point. MMODL / IJN: [id number] /
[2020-02-03] MEDS: INSULIN ASPART (NovoLOG) 100 UNIT/ML VIAL SQ SCH ×5 (00:40→23:55)
[2020-02-03 00:43] LABS: Glucose,Whole Blood 110 mg/dL (75-99)
[2020-02-03 06:02] LABS: Glucose,Whole Blood 115 mg/dL (75-99)
[2020-02-03 06:40] LABS: African American GFR (CKD) >90 (>60 ml/min/1.73 sqM); Anion Gap 8 mmol/L; Blood Urea Nitrogen 15 mg/dL (9-20); Calcium 8.2 mg/dL (8.4-10.2); Carbon Dioxide 19 mmol/L (22-30); Chloride 111 mmol/L (98-107); Glucose 105 mg/dL (74-99); Non-African American GFR(CKD) 88 (>60 ml/min/1.73 sqM); Phosphorus 3.7 mg/dL (2.5-4.5); Potassium 3.9 mmol/L (3.5-5.1); Sodium 138 mmol/L (137-145)
[2020-02-03] MEDS: PANTOPRAZOLE 40 MG TABLET PO SCH ×2 (07:11→17:18)
[2020-02-03] MEDS: POLYETHYLENE GLYCOL 3350 17 GM POWD.PACK PO SCH ×2 (09:00→20:25)
[2020-02-03] MEDS: ZINC SULFATE 220 MG CAP PO SCH (09:02)
[2020-02-03] MEDS: HYDROcodone/APAP 5-325MG 1 EACH TAB PO PRN (09:02)
[2020-02-03] MEDS: amLODIPine 10 MG TAB PO SCH (09:02)
[2020-02-03] MEDS: LOSARTAN 50 MG TAB PO SCH (09:03)
[2020-02-03] MEDS: HEPARIN SODIUM,PORCINE 5,000 UNIT/ML 1 ML VIAL SQ SCH ×2 (09:03→20:25)
[2020-02-03] MEDS: PROCHLORPERAZINE SUPPOSITORY 25 MG SUPP RECTAL SCH ×2 (09:03→20:25)
[2020-02-03] MEDS: 1: AMINO ACID 4.25%-D10W+LYTES*E* 1,000 ML 2: MVI, ADULT NO.4 WITH VIT K 10 ML, TRACE ( IV SCH ×12 (10:13→21:23)
--- NOTE | 2020-02-03 11:46 | P.PN ---
Subjective 84-year-old male past medical history significant for coronary artery disease status post four-vessel bypass grafting in 2003, aortic stenosis, hypertension, dyslipidemia and paroxysmal atrial fibrillation. He follows in the office with Dr. Meier. Cardiology were planning for pacemaker insertion in view of his left bundle branch block and bradycardia, Shlomo that's consult after patient found to be covert positive with persistent nausea. Patient finish his treatment with Vicryl on Zithromax, and his pneumonia looks improving however he still have persistent nausea and decreased appetite. GI team on the case as well. And patient was started on TPN on 01/29 also patient is waiting to be tested negative for covert before he got accepted by the [facility], last week he has 3 positive test He fell 2 days ago with the bruise only. Vitas looks stable his still mildly bradycardiac with heart rate 47-67, blood pressure 143/65. His BMP is looks his stable with creatinine 0.6 and sodium and potassium are within normal limits, sugar controlled. Objective - Vital Signs Vital signs: Vital Signs Temp 98.0 F 02/03/20 03:59 Pulse 47 L 02/03/20 03:59 Resp 20 02/03/20 03:59 BP 143/65 02/03/20 03:59 Pulse Ox 94 L 02/03/20 03:59 Intake & Output 02/02/20 02/03/20 02/03/20 18:59 06:59 18:59 Intake Total 2321 2137 Output Total 125 100 1 Balance 2196 2036 -1 Weight 47 kg 46.8 kg Intake: IV 50 0.9@50mls/hr 50 Intake, IV Titration 1011 7 Amount Amino Acid 4.25%-D10w+ 1000 Lytes*E* 1,000 ml @ 83 mls/hr IV .BY [facility] Rx#:[id number] Fat Emulsion 20% 250 ml @ 207 20.833 mls/hr IV DAILY@ 1600 [facility] Rx#:[id number] Mvi, Adult No.4 with Vit 1011 K 10 ml Trace (Conc-1Ml/ Dose) 1 ml In Amino Acid 4.25%-D10w+Lytes*E* 1,000 ml @ 50 mls/hr IV . [id number] [facility] Rx#:[id number] Mvi, Adult No.4 with Vit 830 K 10 ml Trace (Conc-1Ml/ Dose) 1 ml In Amino Acid 4.25%-D10w+Lytes*E* 1,000 ml @ 83 mls/hr IV .[facility] Rx#: [id number] Oral 10 100 Lipid 250 0.9@50mls/hr 250 Albumin 1000 0.9@50mls/hr 1000 Output: Urine 125 100 Stool 1 Other: Voiding Method Urinal Urinal Diaper # Voids 1 - Exam -CONSTITUTIONAL: No apparent distress. Generally weak. Slowly responsive and hard hearing HEENT: Head is normocephalic. Pupils are equal, round. Sclerae anicteric. Mucous membranes of the mouth are moist. No JVD. No carotid bruit. CHEST EXAMINATION: Lungs are clear to auscultation. No chest wall tenderness is noted on palpation or with deep breathing. HEART EXAMINATION: Regular rate and rhythm, bradycardic. S1, S2 heard. Systolic ejection murmur at the base, no gallops or rub. ABDOMEN: Soft, nontender. Positive bowel sounds. EXTREMITIES: 2+ peripheral pulses, no lower extremity edema and no calf tenderness. NEUROLOGIC EXAMINATION: Patient is awake, alert and oriented x3. - Labs CBC & Chem 7: 01/30/20 06:15 02/03/20 05:47 Labs: Abnormal Lab Results - Last 24 Hours (Table) 02/02/20 02/02/20 02/03/20 Range/Units 11:59 17:45 00:40 Chloride (98-107) mmol/L Carbon Dioxide (22-30) mmol/L Creatinine (0.66-1.25) mg/dL Glucose (74-99) mg/dL POC Glucose (mg/dL) 142 H 129 H 110 H (75-99) mg/dL Calcium (8.4-10.2) mg/dL 02/03/20 02/03/20 Range/Units 05:47 06:00 Chloride 111 H (98-107) mmol/L Carbon Dioxide 19 L (22-30) mmol/L Creatinine 0.65 L (0.66-1.25) mg/dL Glucose 105 H (74-99) mg/dL POC Glucose (mg/dL) 115 H (75-99) mg/dL Calcium 8.2 L (8.4-10.2) mg/dL Assessment and Plan Assessment: -sepsis secondary to Covid 19, patient didn't vomit but still nauseous not eating much abdominal x-ray did not show any bowel obstruction. Advance diet slowly, continue with TPN , check abdominal x-ray -atrial fibrillation with a slow ventricular rate. -Mechanical fall with bruising no evidence of fracture -Congestive heart failure unsure whether it's acute systolic dysfunction on chronic systolic dysfunction cannot really say patient of myocarditis is secondary to COVID Is a high possibility secondary to COVID Patient is not in heart failure exacerbation. IV fluids were discontinued patient is able to drink water. But has poor peripheral intake. -Troponin elevation secondary to Covid -Toxic encephalopathy secondary to infection -Dyslipidemia -Aortic stenosis -Moderate malnutrition patient was is on PPN Patient will need subacute rehabilitation but unfortunately we cannot discharge him at this time as his last covid 19 was positive 3 times during this hospitalization DVT prophylaxis: Heparin subcutaneous GI prophylaxis on Protonix prognosis is guarded
[2020-02-03 11:59] LABS: Glucose,Whole Blood 164 mg/dL (75-99)
--- NOTE | 2020-02-03 12:19 | XR ---
EXAMINATION TYPE: XR KUB portable DATE OF EXAM: 02/03/2020 12:10 PM CLINICAL HISTORY: Nausea, vomiting, and decreased appetite TECHNIQUE: Single supine KUB image of the abdomen is obtained. COMPARISON: 01/21/2020. FINDINGS: The upper abdomen is not included on the images including the hemidiaphragms. In the mid an d lower abdomen no dilated large or small bowel. No abnormal calcifications. Sclerosis of the left sa croiliac joint is similar to the prior of 01/21/2020. Sclerosis is also seen of the left pubic bone. Th is also may be degenerative. Postsurgical changes of the lumbar spine are noted. Extensive degenerati ve changes of the visualized lumbosacral spine levoscoliosis are seen with diffuse osseous deminerali zation and moderate degenerative change of the left hip. The left cam deformity is also seen as well as right hip arthroplasty. Surgical clips are again noted in the pelvis. IMPRESSION: Nonobstructive bowel gas pattern in the visualized abdomen.
--- NOTE | 2020-02-03 12:41 | XR ---
EXAMINATION TYPE: XR Hip Limited RT DATE OF EXAM: 02/03/2020 CLINICAL HISTORY: Right hip pain after fall TECHNIQUE: AP and frogleg views of the right hip are obtained. COMPARISON: None. FINDINGS: There is a right hip arthroplasty that demonstrates mild periprosthetic lucency particularl y laterally near the greater trochanter however no cortical disruption is identified. The lesser troc hanter appears appropriately aligned. No dislocation of the right hip arthroplasty is seen. There is diffuse osseous demineralization of the osseous structures limiting evaluation for fracture. Surgical clips are seen in the pelvis. Moderate to severe atherosclerosis. IMPRESSION: No acute fracture or subluxation of the right hip or hip arthroplasty. Mild periprostheti c lucency can be seen in septic or aseptic loosening or particle disease.
--- NOTE | 2020-02-03 12:48 | XR ---
EXAMINATION TYPE: XR knee limited RT DATE OF EXAM: 02/03/2020 CLINICAL HISTORY: Right knee pain after fall TECHNIQUE: Frontal and lateral views of the right knee are obtained. COMPARISON: None. FINDINGS: Extensive patellofemoral arthropathy is seen with diffuse osseous demineralization. Small s uprapatellar joint effusion. Extensive atherosclerosis of the popliteal artery. No acute fracture is seen. Mild arthropathy of the medial and lateral compartments. Medial tibial spine appears slightly i rregular in could be from osteophytes or less likely fracture. IMPRESSION: 1. No definitive fracture seen however there is some irregularity of the medial tibial spine, which i s likely due to osteophytes however if there is point tenderness CT could assess for fracture. 2. 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 3. Small suprapatellar joint effusion.
--- NOTE | 2020-02-03 16:47 | PN ---
PROGRESS NOTE DATE OF SERVICE: 02/03/2020 REASON FOR FOLLOWUP: Pneumonia. INTERVAL HISTORY: Patient is currently afebrile. The patient is breathing comfortably. However, he is requiring supplemental oxygen. The patient denies having any chest pain or cough. Nausea has improved. No vomiting or diarrhea. PHYSICAL EXAMINATION: Blood pressure 152/70 with a pulse of 40, temperature 97.9. He is 94% on 3 L nasal cannula. General description is an elderly male lying in bed in no distress. RESPIRATORY SYSTEM: Unlabored breathing. Clear to auscultation anteriorly. HEART: S1, S2. Regular rate and rhythm. ABDOMEN: Soft. No tenderness. LABS: BUN of 15, creatinine 0.65. DIAGNOSTIC IMPRESSION AND PLAN: Patient with acute COVID-19 infection that has been treated. Patient completed his antibiotic therapy slight problem with hypoxemia, but no fever. The patient did have a KUB x-ray that shows non-obstructive gas pattern. The patient will continue to be monitored closely off antibiotic therapy. Continue with supportive care. MMODL / IJN: [id number] /
[2020-02-03] MEDS: FAT EMULSION 20% 250 ML IV SCH (17:12)
[2020-02-03 18:34] LABS: Glucose,Whole Blood 146 mg/dL (75-99)
--- NOTE | 2020-02-03 18:51 | P.PN ---
Subjective Progress Note Date: 02/03/20 Principal diagnosis: Nausea and vomiting, Covid infection Patient has completed treatment for Darling virus infection. Continues to have persistent nausea but no further vomiting. Oral nutrition remains poor. Objective - Vital Signs Vital signs: Vital Signs Temp 98.0 F 02/03/20 03:59 Pulse 47 L 02/03/20 03:59 Resp 20 02/03/20 03:59 BP 143/65 02/03/20 03:59 Pulse Ox 94 L 02/03/20 03:59 Intake & Output 02/02/20 02/03/20 02/03/20 18:59 06:59 18:59 Intake Total 2321 2137 Output Total 125 100 1 Balance 2195 2036 -1 Weight 47 kg 46.8 kg Intake: IV 50 0.9@50mls/hr 50 Intake, IV Titration 1011 2037 Amount Amino Acid 4.25%-D10w+ 1000 Lytes*E* 1,000 ml @ 83 mls/hr IV .BY DURATION [facility] Rx#:[id number] Fat Emulsion 20% 250 ml @ 207 20.833 mls/hr IV DAILY@ 1600 [facility] Rx#:[id number] Mvi, Adult No.4 with Vit 1011 K 10 ml Trace (Conc-1Ml/ Dose) 1 ml In Amino Acid 4.25%-D10w+Lytes*E* 1,000 ml @ 50 mls/hr IV . [id number] [facility] Rx#:[id number] Mvi, Adult No.4 with Vit 830 K 10 ml Trace (Conc-1Ml/ Dose) 1 ml In Amino Acid 4.25%-D10w+Lytes*E* 1,000 ml @ 83 mls/hr IV .BY DURATION [facility] Rx#: [id number] Oral 10 100 Lipid 250 0.9@50mls/hr 250 Albumin 1000 0.9@50mls/hr 1000 Output: Urine 125 100 Stool 1 Other: Voiding Method Urinal Urinal Diaper # Voids 1 - Exam Physical exam not performed due to Coronavirus, deferred to primary team. - Labs CBC & Chem 7: 01/30/20 06:15 02/03/20 05:47 Labs: Abnormal Lab Results - Last 24 Hours (Table) 04/20/20 04/20/20 04/21/20 Range/Units 11:59 17:45 00:40 Chloride (98-107) mmol/L Carbon Dioxide (22-30) mmol/L Creatinine (0.66-1.25) mg/dL Glucose (74-99) mg/dL POC Glucose (mg/dL) 142 H 129 H 110 H (75-99) mg/dL Calcium (8.4-10.2) mg/dL 02/03/20 02/03/20 Range/Units 05:47 06:00 Chloride 111 H (98-107) mmol/L Carbon Dioxide 19 L (22-30) mmol/L Creatinine 0.65 L (0.66-1.25) mg/dL Glucose 105 H (74-99) mg/dL POC Glucose (mg/dL) 115 H (75-99) mg/dL Calcium 8.2 L (8.4-10.2) mg/dL Assessment and Plan (1) Nausea and vomiting Narrative/Plan: 84-year-old male with multiple medical comorbidities and a significant past cardiac history who presented to the hospital with weakness, nausea and vomiting. He reports 4 days of symptoms of nausea and dry heaving. Currently no further vomiting reported but patient is still feeling somewhat nauseated. He denies any new medications prior to developing symptoms or sick contacts. No fevers, chills or change in bowel habits. Unknown etiology, likely related to Darling virus with positive testing for Covid-19, cannot rule out a component of medication effect with antibiotics completed yesterday, patient has been restarted on antiemetics suppository. Current Visit: Yes Status: Acute Code(s): R11.2 - NAUSEA WITH VOMITING, UNSPECIFIED SNOMED Code(s): 77215350 Plan: Supportive care Okay for diet as tolerated Protonix 40 mg twice a day Rectal Compazine for nausea change to as needed MiraLAX for bowel regimen Continue to monitor symptomatically No plan for endoscopic evaluation at this time Patient receiving total parenteral nutrition Thank you for allowing us to participate in the care of the patient
[2020-02-03 23:44] LABS: Glucose,Whole Blood 138 mg/dL (75-99)
[2020-02-04 06:11] LABS: Basophils % (A) 0 %; Eosinophils # (A) 0.2 k/uL (0-0.7); Eosinophils % (A) 3 %; HCT 32.7 % (39.0-53.0); HGB 10.6 gm/dL (13.0-17.5); Lymphocytes # (A) 1.1 k/uL (1.0-4.8); Lymphocytes % (A) 14 %; MCH 30.1 pg (25.0-35.0); MCHC 32.3 g/dL (31.0-37.0); MCV 93.1 fL (80.0-100.0); Mean Platelet Volume 8.4; Monocytes # (A) 0.5 k/uL (0-1.0); Monocytes % (A) 6 %; Neutrophils # (A) 5.5 k/uL (1.3-7.7); Neutrophils % (A) 74 %; Platelet Count 268 k/uL (150-450); RBC 3.51 m/uL (4.30-5.90); RDW 13.4 % (11.5-15.5); WBC 7.4 k/uL (3.8-10.6)
[2020-02-04 06:25] LABS: African American GFR (CKD) >90 (>60 ml/min/1.73 sqM); Anion Gap 9 mmol/L; Blood Urea Nitrogen 18 mg/dL (9-20); Carbon Dioxide 19 mmol/L (22-30); Chloride 110 mmol/L (98-107); Glucose 113 mg/dL (74-99); Magnesium 1.9 mg/dL (1.6-2.3); Non-African American GFR(CKD) 88 (>60 ml/min/1.73 sqM); Phosphorus 4.1 mg/dL (2.5-4.5); Potassium 4.3 mmol/L (3.5-5.1); Sodium 138 mmol/L (137-145)
[2020-02-04 06:33] LABS: Glucose,Whole Blood 104 mg/dL (75-99)
[2020-02-04] MEDS: INSULIN ASPART (NovoLOG) 100 UNIT/ML VIAL SQ SCH ×4 (06:37→23:49)
[2020-02-04] MEDS: PANTOPRAZOLE 40 MG TABLET PO SCH ×2 (06:37→17:16)
[2020-02-04] MEDS: POLYETHYLENE GLYCOL 3350 17 GM POWD.PACK PO SCH ×2 (09:11→19:35)
[2020-02-04] MEDS: LOSARTAN 50 MG TAB PO SCH (09:11)
[2020-02-04] MEDS: PROCHLORPERAZINE SUPPOSITORY 25 MG SUPP RECTAL SCH ×2 (09:11→21:03)
[2020-02-04] MEDS: ZINC SULFATE 220 MG CAP PO SCH (09:11)
[2020-02-04] MEDS: amLODIPine 10 MG TAB PO SCH (09:11)
[2020-02-04] MEDS: HEPARIN SODIUM,PORCINE 5,000 UNIT/ML 1 ML VIAL SQ SCH ×2 (09:12→21:03)
[2020-02-04] MEDS ORDERED: IOPAMIDOL CONTRAST (ORAL USE) VIAL PO PRN ×2 (11:10→11:15)
[2020-02-04] MEDS ORDERED: TRIMETHOBENZAMIDE 300 MG CAP PO PRN (11:11)
[2020-02-04] MEDS ORDERED: diphenhydrAMINE ELIXIR 25 MG/10 ML CUP PO PRN (11:18)
[2020-02-04 11:48] LABS: Glucose,Whole Blood 110 mg/dL (75-99)
--- NOTE | 2020-02-04 12:06 | XR ---
EXAMINATION TYPE: XR chest 1V DATE OF EXAM: 02/04/2020 COMPARISON: 01/27/2020 HISTORY: Nausea and vomiting TECHNIQUE: Single frontal view of the chest is obtained. FINDINGS: Peripherally oriented patchy opacities are seen in the mid lungs and at the lung bases. Re trocardiac opacity is also developed now obscuring the medial left hemidiaphragm. Cardiomediastinal s ilhouette is upper limits of normal size with post CABG change. Diffuse osseous demineralization is p resent. IMPRESSION: Peripheral basilar multifocal opacities. Consider multifocal pneumonia or atelectasis. Confluent pulm onary edema is much less likely given the peripheral distribution.
--- NOTE | 2020-02-04 12:24 | P.PN ---
Subjective 84-year-old male past medical history significant for coronary artery disease status post four-vessel bypass grafting in 2003, aortic stenosis, hypertension, dyslipidemia and paroxysmal atrial fibrillation. He follows in the office with Dr. Meier. Cardiology were planning for pacemaker insertion in view of his left bundle branch block and bradycardia, Shlomo that's consult after patient found to be covert positive with persistent nausea. Patient finish his treatment with Vicryl on Zithromax, and his pneumonia looks improving however he still have persistent nausea and decreased appetite. GI team on the case as well. And patient was started on TPN on 01/29 also patient is waiting to be tested negative for covert before he got accepted by the [facility], last week he has 3 positive test He fell 2 days ago with the bruise only. Vitas looks stable his still mildly bradycardiac with heart rate 47-67, blood pressure 143/65. His BMP is looks his stable with creatinine 0.6 and sodium and potassium are within normal limits, sugar controlled. 02/04/2020 Patient remains to have nausea and decreased appetite but no overt vomiting. He is slightly tachypneic with occasional cough although it's less frequent than on admission. His fully awake and oriented and denies chest pain or abdominal pain He had the distal bowel movements yesterday and today which were loose but no blood. He's afebrile but remains bradycardic, is saturating 95% on 3 L oxygen via nasal cannula. Labs including CBC and BMP looks stable, sugar controlled. Because of persistent symptoms with repeated chest x-ray which shows multifocal pneumonia, patient isn't known covert positive patient. We started him on Zosyn. With pulmonary consult Review of systems CONSTITUTIONAL: No fever, no malaise, no fatigue. HEENT: No recent visual problems or hearing problems. Denied any sore throat. CARDIOVASCULAR: No orthopnea, PND, no palpitations, no syncope. PULMONARY: no hemoptysis. NEUROLOGICAL: No headaches, no weakness, no numbness. HEMATOLOGICAL: Denies any bleeding or petechiae. GENITOURINARY: Denies any burning micturition, frequency, or urgency. MUSCULOSKELETAL/RHEUMATOLOGICAL: Denies any joint pain, swelling, or any muscle pain. ENDOCRINE: Denies any polyuria or polydipsia. Active Medications Generic Name Dose Route Start Last Admin Trade Name Freq PRN Reason Stop Dose Admin Hydrocodone Bitart/Acetaminophen 1 each 01/25/20 12:31 02/03/20 09:02 [place] 5-325 PO 1 each Q6HR PRN Administration Pain Amlodipine Besylate 10 mg 01/21/20 09:00 02/04/20 09:11 Norvasc PO 10 mg DAILY [facility] Administration Diphenhydramine HCl 12.5 mg 02/04/20 11:18 Benadryl Elixir PO TID PRN Nausea Heparin Sodium (Porcine) 5,000 unit 01/18/20 21:00 02/04/20 09:12 Heparin SQ 5,000 unit Q12HR [facility] Administration Fat Emulsion Intravenous 250 mls @ 20.833 mls/hr 01/30/20 16:00 02/03/20 17:12 Lipids 20% IV 20.833 mls/hr DAILY@1600 [facility] Administration Amino Ac/Electrol/Dextrose/Calcium 1,000 mls @ 83 mls/hr 02/02/20 11:00 02/03/20 21:22 Clinimix E 4.25%-D10% Solution IV 83 mls/hr .BY DURATION [facility] Administration Parenteral Vitamin Supplement 1,011 mls @ 83 mls/hr 02/02/20 11:00 02/03/20 21:23 10 ml/ Chromium/Copper/ IV Not Given Manganese/Seleni/Zn 1 ml/ .BY DURATION [facility] Amino Ac/Electrol/Dextrose/ Calcium Dextrose/Sodium Chloride 1,000 mls @ 50 mls/hr 02/04/20 11:30 Dextrose 5%-Ns Iv Soln IV 02/05/20 11:31 .Q20H [facility] Piperacillin Sod/Tazobactam 100 mls @ 25 mls/hr 02/04/20 13:00 Sod 3.375 gm/ Sodium Chloride IVPB Q8H [facility] Insulin Aspart 0 unit 02/02/20 00:00 02/04/20 11:57 Novolog SQ Not Given Q6H [facility] Protocol Iopamidol 30 ml 02/04/20 11:10 Isovue-300 (For Oral Use) PO 02/05/20 11:[address] Scan Losartan Potassium 100 mg 01/29/20 09:00 02/04/20 09:11 Cozaar PO 100 mg DAILY [facility] Administration Miscellaneous Information 1 each 01/23/20 13:55 Magnesium Per Protocol MISCELLANE DAILY PRN Per Protocol Protocol Miscellaneous Information 1 each 01/25/20 16:59 Potassium Per Protocol MISCELLANE DAILY PRN Per Protocol Protocol Naloxone HCl 0.2 mg 01/16/20 19:14 Narcan IV Q2M PRN Opioid Reversal Pantoprazole Sodium 40 mg 01/27/20 17:30 02/04/20 06:37 Protonix PO 40 mg AC-BID [facility] Administration Polyethylene Glycol 17 gm 01/27/20 10:30 02/04/20 09:11 Miralax PO Not Given BID [facility] Prochlorperazine Maleate 25 mg 02/01/20 09:30 02/04/20 09:11 Compazine RECTAL 25 mg BID [facility] Administration Zinc Sulfate 220 mg 01/23/20 09:00 02/04/20 09:11 Orazinc PO 220 mg DAILY [facility] Administration Objective - Vital Signs Vital signs: Vital Signs Temp 98.1 F 02/04/20 11:45 Pulse 54 L 02/04/20 11:50 Resp 20 02/04/20 11:50 BP 118/66 02/04/20 11:45 Pulse Ox 95 02/04/20 11:45 Intake & Output 02/03/20 02/04/20 02/04/20 18:59 06:59 18:59 Intake Total 2253.45 Output Total 202 Balance -2050.45 Weight 46.8 kg 49.5 kg Intake: Intake, IV Titration 2253.45 Amount Amino Acid 4.25%-D10w+ 925.45 Lytes*E* 1,000 ml @ 83 mls/hr IV .BY DURATION [facility] Rx#:[id number] Mvi, Adult No.4 with Vit 1328 K 10 ml Trace (Conc-1Ml/ Dose) 1 ml In Amino Acid 4.25%-D10w+Lytes*E* 1,000 ml @ 83 mls/hr IV .BY DURATION [facility] Rx#: [id number] Output: Urine 200 200 Stool 3 2 Other: Voiding Method Urinal Urinal Urinal Diaper Diaper Diaper # Voids 1 1 # Bowel Movements 2 - Exam -CONSTITUTIONAL: No apparent distress. Generally weak. Slowly responsive and hard hearing HEENT: Head is normocephalic. Pupils are equal, round. Sclerae anicteric. Mucous membranes of the mouth are moist. No JVD. No carotid bruit. CHEST EXAMINATION: Lungs are clear to auscultation. No chest wall tenderness is noted on palpation or with deep breathing. HEART EXAMINATION: Regular rate and rhythm, bradycardic. S1, S2 heard. Systolic ejection murmur at the base, no gallops or rub. ABDOMEN: Soft, nontender. Positive bowel sounds. EXTREMITIES: 2+ peripheral pulses, no lower extremity edema and no calf tenderness. NEUROLOGIC EXAMINATION: Patient is awake, alert and oriented x3. - Labs CBC & Chem 7: 02/04/20 05:23 02/04/20 05:23 Labs: Abnormal Lab Results - Last 24 Hours (Table) 02/03/20 02/03/20 02/04/20 Range/Units 18:32 23:43 05:23 RBC (4.30-5.90) m/uL Hgb (13.0-17.5) gm/dL Hct (39.0-53.0) % Chloride 110 H (98-107) mmol/L Carbon Dioxide 19 L (22-30) mmol/L Glucose 113 H (74-99) mg/dL POC Glucose (mg/dL) 146 H 138 H (75-99) mg/dL Calcium 8.0 L (8.4-10.2) mg/dL 02/04/20 02/04/20 02/04/20 Range/Units 05:23 06:27 11:47 RBC 3.51 L (4.30-5.90) m/uL Hgb 10.6 L (13.0-17.5) gm/dL Hct 32.7 L (39.0-53.0) % Chloride (98-107) mmol/L Carbon Dioxide (22-30) mmol/L Glucose (74-99) mg/dL POC Glucose (mg/dL) 104 H 110 H (75-99) mg/dL Calcium (8.4-10.2) mg/dL Assessment and Plan Assessment: -Bilateral multifocal pneumonia: Zosyn, Sputum Culture. Pulmonary Consult -sepsis secondary to Covid 19, patient didn't vomit but still nauseous not eating much abdominal x-ray did not show any bowel obstruction. Advance diet slowly, continue with TPN , check abdominal x-ray -atrial fibrillation with a slow ventricular rate. -Mechanical fall with bruising no evidence of fracture -Congestive heart failure unsure whether it's acute systolic dysfunction on ch ronic systolic dysfunction cannot really say patient of myocarditis is secondary to COVID Is a high possibility secondary to COVID Patient is not in heart failure exacerbation. IV fluids were discontinued patient is able to drink water. But has poor peripheral intake. 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
[2020-02-04] MEDS: PIPERACILLIN-TAZOBACTAM 3.375 GM in SODIUM CHLORIDE 0.9% 100 ML IVPB SCH ×2 (12:41→21:03)
[2020-02-04] MEDS: DEXTROSE 5%-0.9% NACL 1,000 ML IV SCH (12:42)
[2020-02-04] MEDS: FAT EMULSION 20% 250 ML IV SCH (14:58)
[2020-02-04] MEDS ORDERED: ACETAMINOPHEN TAB 325 MG TAB PO PRN (15:32)
--- NOTE | 2020-02-04 16:01 | P.CNPUL ---
History of Present Illness Consult date: 02/04/20 Requesting physician: Henry E Mary Lou Reason for consult: dyspnea Chief complaint: Mild dyspnea, ongoing nausea and vomiting History of present illness: 84-year-old white female patient of Dr. Rodriguez who was admitted to the hospital on 01/16/2020 for evaluation of generalized weakness, nausea and vomiting, mild cough, but no complaints of dyspnea. On presentation patient was also found to be in new onset atrial flutter with a bradycardic rate, mildly elevated troponin and dehydration. Admission chest x-ray on 01/16/2020 showed some hazy peripheral densities. Lab work showed no evidence of leukocytosis, white blood cell count 4.1, hemoglobin is 15, lymphocytosis with the wound, 0.7, initial lab work revealed unremarkable electrolytes and renal profile, 5 sets of cardiac troponins were completed, and troponins topped at 0.113. he was tested for COVID 19 and was found to be positive, influenza screen was negative, RSV was negative. Patient is having ongoing issues with nausea and vomiting and is unable to tolerate oral intake, he underwent GI evaluation, and conservative treatment was recommended, and patient is being considered for TPN initiation. From pulmonary perspective patient seems to calm and comfortable, worsening the patient's and initial evaluation today for Covid 19 infection, patient is awake and alert, he is resting in bed, answering questions appropriate, he denies any shortness of breath, or cough. Lately he is resting in bed with no gown on, but mentation seems to be appropriate. Today's chest x-ray shows a basilar multifocal opacities, with consideration of multifocal pneumonia or atelectasis, peripheral distribution. Patient is currently on 3 L of oxygen with pulse ox of 95%, hemodynamically stable, afebrile, he is on Zosyn for antibiotic coverage. n and completed treatment with the Plaquenil, azithromycin, ID service has been following. afebrile. Vital signs are stable. Review of Systems All systems: negative Constitutional: Denies chills, Denies fever Eyes: denies blurred vision, denies pain Ears, nose, mouth and throat: Denies headache, Denies sore throat Cardiovascular: Denies chest pain, Denies shortness of breath Respiratory: Denies cough Gastrointestinal: Reports nausea, Reports vomiting, Denies abdominal pain, Denies diarrhea Musculoskeletal: Denies myalgias Integumentary: Denies pruritus, Denies rash Neurological: Denies numbness, Denies weakness Psychiatric: Denies anxiety, Denies depression Endocrine: Denies fatigue, Denies weight change Past Medical History Past Medical History: Chest Pain / Angina, Hyperlipidemia, Hypertension, Prostate Disorder Additional Past Medical History / Comment(s): History of prostate cancer, status post radiation treatment 3 years ago. 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 History of Any Multi-Drug Resistant Organisms: None Reported Past Surgical History: Back Surgery, Coronary Bypass/CABG, Orthopedic Surgery Additional Past Surgical History / Comment(s): rt hip Past Psychological History: No Psychological Hx Reported Smoking Status: Former smoker Past Alcohol Use History: Occasional Past Drug Use History: None Reported Medications and Allergies Home Medications Medication Instructions Recorded Confirmed Type Aspirin EC [Ecotrin Low Dose] 81 mg PO DAILY 07/03/17 01/16/20 History Atorvastatin Calcium [Lipitor] 10 mg PO HS 07/03/17 01/16/20 History Felodipine ER [Plendil] 2.5 mg PO DAILY 01/16/20 01/16/20 History Gabapentin 600 mg PO TID PRN 01/16/20 01/16/20 History Allergies Allergy/AdvReac Type Severity Reaction Status Date / Time No Known Allergies Allergy Verified 01/16/20 19:09 Physical Exam Vitals: Vital Signs Temp Pulse Resp BP BP Pulse Ox 02/04/20 11:50 54 L 20 02/04/20 11:45 98.1 F 54 L 20 118/66 95 02/04/20 08:00 97.9 F 54 L 20 165/72 97 02/04/20 04:00 98.1 F 42 L 16 149/69 92 L 02/04/20 00:00 98.0 F 39 L 18 143/89 96 02/03/20 20:00 97.8 F 51 L 19 160/70 98 02/03/20 16:00 98.1 F 48 L 20 132/62 95 Intake and Output 02/04/20 02/04/20 02/04/20 06:59 14:59 22:59 Intake Total 1328 Output Total 202 1 Balance 1126 -1 Intake: Intake, IV Titration 1328 Amount Mvi, Adult No.4 with Vit 1328 K 10 ml Trace (Conc-1Ml/ Dose) 1 ml In Amino Acid 4.25%-D10w+Lytes*E* 1,000 ml @ 83 mls/hr IV .BY DURATION [facility], [facility] Rx#: [id number] Output: Urine 200 Stool 2 1 Other: Voiding Method Urinal Urinal Diaper Diaper # Voids 1 # Bowel Movements 1 Weight 49.5 kg GENERAL EXAM: Alert, very pleasant male, 64-year-old, resting in bed, currently has no gown on, he does have incontinence diaper on, but mentation seems to be appropriate, he is answering questions appropriately, he is currently on 3 L of oxygen, comfortable in no apparent distress. HEAD: Normocephalic/atraumatic. EYES: Normal reaction of pupils, equal size. Conjunctiva pink, sclera white. NOSE: Clear with pink turbinates. THROAT: No erythema or exudates. NECK: No masses, no JVD, no thyroid enlargement, no adenopathy. CHEST: No chest wall deformity. Symmetrical expansion. LUNGS: Equal air entry with no crackles, wheeze, rhonchi or dullness. CVS: Regular rate and rhythm, normal S1 and S2, no gallops, no murmurs, no rubs ABDOMEN: Soft, nontender. No hepatosplenomegaly, normal bowel sounds, no guarding or rigidity. EXTREMITIES: No clubbing, no edema, no cyanosis, 2+ pulses and upper and lower extremities. MUSCULOSKELETAL: Muscle strength and tone normal. SPINE: No scoliosis or deformity SKIN: No rashes CENTRAL NERVOUS SYSTEM: Alert and oriented -3. No focal deficits, tone is normal in all 4 extremities. PSYCHIATRIC: Alert and oriented -3. Appropriate affect. Intact judgment and insight. Results - Laboratory Findings CBC and BMP: 02/04/20 05:23 02/04/20 05:23 PT/INR, D-dimer PT 10.5 sec (9.0-12.0) 01/16/20 17:09 INR 1.0 (<1.2) 01/16/20 17:09 D-Dimer 1.49 mg/L FEU (<0.60) H 01/21/20 05:44 Abnormal lab findings: Abnormal Labs 01/16/20 01/16/20 01/16/20 17:09 17:09 17:09 RBC Hgb Hct Plt Count Neutrophils # Lymphocytes # 0.7 L APTT D-Dimer Potassium Chloride Carbon Dioxide BUN Creatinine Glucose 178 H POC Glucose (mg/dL) Plasma Lactic Acid Joao 2.8 H* Calcium Lactate Dehydrogenase Troponin I Total Protein Albumin Urine Protein Urine Ketones Urine Blood Urine Bacteria Hyaline Casts Urine Mucus Coronavirus (PCR) 01/16/20 01/16/20 01/16/20 17:09 19:21 23:30 RBC Hgb Hct Plt Count Neutrophils # Lymphocytes # APTT D-Dimer Potassium Chloride Carbon Dioxide BUN Creatinine Glucose POC Glucose (mg/dL) Plasma Lactic Acid Joao Calcium Lactate Dehydrogenase Troponin I 0.058 H* 0.082 H* Total Protein Albumin Urine Protein 3+ H Urine Ketones 2+ H Urine Blood Small H Urine Bacteria Rare H Hyaline Casts 7 H Urine Mucus Rare H Coronavirus (PCR) 01/17/20 01/17/20 01/17/20 02:09 05:24 05:24 RBC Hgb Hct 38.7 L Plt Count Neutrophils # Lymphocytes # 0.9 L APTT 64.1 H D-Dimer Potassium Chloride Carbon Dioxide BUN Creatinine Glucose POC Glucose (mg/dL) Plasma Lactic Acid Joao Calcium Lactate Dehydrogenase Troponin I 0.104 H* Total Protein Albumin Urine Protein Urine Ketones Urine Blood Urine Bacteria Hyaline Casts Urine Mucus Coronavirus (PCR) 01/17/20 01/18/20 01/18/20 05:42 06:35 06:35 RBC Hgb Hct Plt Count Neutrophils # Lymphocytes # 0.7 L APTT D-Dimer Potassium 3.4 L Chloride 109 H 110 H Carbon Dioxide 20 L BUN 21 H Creatinine Glucose 112 H 105 H POC Glucose (mg/dL) Plasma Lactic Acid Joao Calcium Lactate Dehydrogenase Troponin I Total Protein Albumin Urine Protein Urine Ketones Urine Blood Urine Bacteria Hyaline Casts Urine Mucus Coronavirus (PCR) 01/18/20 01/18/20 01/18/20 06:35 10:46 14:20 RBC Hgb Hct Plt Count Neutrophils # Lymphocytes # APTT 113.5 H* 31.3 H D-Dimer Potassium Chloride Carbon Dioxide BUN Creatinine Glucose POC Glucose (mg/dL) Plasma Lactic Acid Joao Calcium Lactate Dehydrogenase Troponin I 0.113 H* Total Protein Albumin Urine Protein Urine Ketones Urine Blood Urine Bacteria Hyaline Casts Urine Mucus Coronavirus (PCR) 01/19/20 01/19/20 01/20/20 05:29 05:29 05:27 RBC Hgb Hct Plt Count Neutrophils # Lymphocytes # 0.4 L 0.6 L APTT D-Dimer Potassium 3.1 L Chloride Carbon Dioxide 21 L BUN Creatinine Glucose 101 H POC Glucose (mg/dL) Plasma Lactic Acid Joao Calcium Lactate Dehydrogenase Troponin I Total Protein Albumin Urine Protein Urine Ketones Urine Blood Urine Bacteria Hyaline Casts Urine Mucus Coronavirus (PCR) 01/20/20 01/20/20 01/21/20 14:11 15:02 05:44 RBC Hgb Hct Plt Count Neutrophils # Lymphocytes # 0.7 L APTT D-Dimer Potassium Chloride Carbon Dioxide BUN Creatinine Glucose 102 H POC Glucose (mg/dL) Plasma Lactic Acid Joao Calcium 8.2 L Lactate Dehydrogenase Troponin I Total Protein 5.7 L Albumin 2.9 L Urine Protein Urine Ketones Urine Blood Urine Bacteria Hyaline Casts Urine Mucus Coronavirus (PCR) Detected H 01/21/20 01/21/20 01/21/20 05:44 05:44 12:44 RBC Hgb Hct Plt Count Neutrophils # Lymphocytes # APTT D-Dimer 1.49 H Potassium Chloride Carbon Dioxide BUN Creatinine Glucose POC Glucose (mg/dL) Plasma Lactic Acid Joao Calcium Lactate Dehydrogenase 690 H Troponin I Total Protein Albumin Urine Protein Urine Ketones Urine Blood Urine Bacteria Hyaline Casts Urine Mucus Coronavirus (PCR) Detected A 01/22/20 01/23/20 01/23/20 06:38 07:20 07:20 RBC 4.12 L 4.26 L Hgb 12.6 L 12.8 L Hct 37.0 L 38.2 L Plt Count Neutrophils # Lymphocytes # 0.8 L 0.8 L APTT D-Dimer Potassium 3.2 L Chloride 109 H Carbon Dioxide BUN Creatinine Glucose POC Glucose (mg/dL) Plasma Lactic Acid Joao Calcium 8.1 L Lactate Dehydrogenase Troponin I Total Protein 5.2 L Albumin 2.5 L Urine Protein Urine Ketones Urine Blood Urine Bacteria Hyaline Casts Urine Mucus Coronavirus (PCR) 01/24/20 01/25/20 01/26/20 06:35 09:22 06:31 RBC Hgb Hct Plt Count 141 L Neutrophils # Lymphocytes # 0.4 L APTT D-Dimer Potassium 3.1 L 3.4 L Chloride 110 H 109 H Carbon Dioxide 21 L BUN Creatinine 0.61 L Glucose 72 L 133 H POC Glucose (mg/dL) Plasma Lactic Acid Joao Calcium 8.3 L 8.3 L Lactate Dehydrogenase Troponin I Total Protein Albumin Urine Protein Urine Ketones Urine Blood Urine Bacteria Hyaline Casts Urine Mucus Coronavirus (PCR) 01/26/20 01/26/20 01/27/20 06:31 16:45 15:44 RBC Hgb Hct Plt Count Neutrophils # Lymphocytes # APTT D-Dimer Potassium Chloride 113 H Carbon Dioxide 20 L BUN Creatinine 0.63 L Glucose 100 H POC Glucose (mg/dL) Plasma Lactic Acid Joao Calcium 8.2 L Lactate Dehydrogenase Troponin I 0.065 H* Total Protein Albumin Urine Protein Urine Ketones Urine Blood Urine Bacteria Hyaline Casts Urine Mucus Coronavirus (PCR) Detected A 01/29/20 01/29/20 01/30/20 05:30 05:30 06:15 RBC 3.66 L Hgb 11.0 L D Hct 33.6 L Plt Count Neutrophils # Lymphocytes # APTT D-Dimer Potassium Chloride 114 H 113 H Carbon Dioxide 20 L BUN Creatinine Glucose 108 H 103 H POC Glucose (mg/dL) Plasma Lactic Acid Ojao Calcium 8.0 L Lactate Dehydrogenase Troponin I Total Protein Albumin Urine Protein Urine Ketones Urine Blood Urine Bacteria Hyaline Casts Urine Mucus Coronavirus (PCR) 01/30/20 01/31/20 02/01/20 06:15 05:46 05:57 RBC 3.70 L Hgb 11.1 L Hct 33.9 L Plt Count Neutrophils # 8.2 H Lymphocytes # 0.7 L APTT D-Dimer Potassium Chloride 114 H 110 H Carbon Dioxide 21 L BUN 31 H Creatinine Glucose 139 H POC Glucose (mg/dL) Plasma Lactic Acid Joao Calcium 8.2 L 7.9 L Lactate Dehydrogenase Troponin I Total Protein Albumin 2.0 L Urine Protein Urine Ketones Urine Blood Urine Bacteria Hyaline Casts Urine Mucus Coronavirus (PCR) 02/02/20 02/02/20 02/02/20 00:51 06:02 06:17 RBC Hgb Hct Plt Count Neutrophils # Lymphocytes # APTT D-Dimer Potassium Chloride 110 H Carbon Dioxide 21 L BUN Creatinine 0.60 L Glucose 133 H POC Glucose (mg/dL) 162 H 141 H Plasma Lactic Acid Joao Calcium 7.9 L Lactate Dehydrogenase Troponin I Total Protein Albumin Urine Protein Urine Ketones Urine Blood Urine Bacteria Hyaline Casts Urine Mucus Coronavirus (PCR) 02/02/20 02/02/20 02/03/20 11:59 17:45 00:40 RBC Hgb Hct Plt Count Neutrophils # Lymphocytes # APTT D-Dimer Potassium Chloride Carbon Dioxide BUN Creatinine Glucose POC Glucose (mg/dL) 142 H 129 H 110 H Plasma Lactic Acid Joao Calcium Lactate Dehydrogenase Troponin I Total Protein Albumin Urine Protein Urine Ketones Urine Blood Urine Bacteria Hyaline Casts Urine Mucus Coronavirus (PCR) 02/03/20 02/03/20 02/03/20 05:47 06:00 11:57 RBC Hgb Hct Plt Count Neutrophils # Lymphocytes # APTT D-Dimer Potassium Chloride 111 H Carbon Dioxide 19 L BUN Creatinine 0.65 L Glucose 105 H POC Glucose (mg/dL) 115 H 164 H Plasma Lactic Acid Joao Calcium 8.2 L Lactate Dehydrogenase Troponin I Total Protein Albumin Urine Protein Urine Ketones Urine Blood Urine Bacteria Hyaline Casts Urine Mucus Coronavirus (PCR) 02/03/20 02/03/20 02/04/20 18:32 23:43 05:23 RBC Hgb Hct Plt Count Neutrophils # Lymphocytes # APTT D-Dimer Potassium Chloride 110 H Carbon Dioxide 19 L BUN Creatinine Glucose 113 H POC Glucose (mg/dL) 146 H 138 H Plasma Lactic Acid Joao Calcium 8.0 L Lactate Dehydrogenase Troponin I Total Protein Albumin Urine Protein Urine Ketones Urine Blood Urine Bacteria Hyaline Casts Urine Mucus Coronavirus (PCR) 02/04/20 02/04/20 02/04/20 05:23 06:27 11:47 RBC 3.51 L Hgb 10.6 L Hct 32.7 L Plt Count Neutrophils # Lymphocytes # APTT D-Dimer Potassium Chloride Carbon Dioxide BUN Creatinine Glucose POC Glucose (mg/dL) 104 H 110 H Plasma Lactic Acid Joao Calcium Lactate Dehydrogenase Troponin I Total Protein Albumin Urine Protein Urine Ketones Urine Blood Urine Bacteria Hyaline Casts Urine Mucus Coronavirus (PCR) - Diagnostic Findings Chest x-ray: report reviewed, image reviewed Assessment and Plan Plan: Assessment: #1. Nausea and vomiting, persistent, related to Covid 19 related infection #2. Multifocal infiltrates, with peripheral distribution seen on a chest x-ray related to Covid 19 related pneumonitis #3. New onset atrial fibrillation with slow ventricular rate #4. Elevated troponins, rule out Covid 19 related myocarditis #5. Coronary artery disease, status post coronary artery bypass grafting in 2003 #6. History of aortic valve stenosis #7. Hypertension #8. Dyslipidemia #9. The mechanical fall at home #10. Acute exacerbation of congestive heart failure, with systolic dysfunction, echocardiogram was completed showing EF between 45-50%, [id number] aortic valve sclerosis, mild aortic regurgitation, mild aortic stenosis, moderate pulmonary hypertension and right-sided pressures of 47.4 mmHg Plan: Continue current medical coverage, patient has completed his treatment with Plaquenil, Zithromax. Patient is afebrile, hemodynamically stable, he denies any worsening shortness of breath, or cough. His chest x-ray still showing multifocal pneumonia. Continue to follow his clinical course, vital signs are stable, sitting dyspnea, patient is afebrile, patient is being considered for initiation of TPN infusion I performed a history & physical examination of the patient and discussed their management with my nurse practitioner, Sri Kimbrough. I reviewed the nurse practitioner's note and agree with the documented findings and plan of care. Lung sounds are positive for diminished breath sounds throughout the lung f ields. The findings and the impression was discussed with the patient. I attest to the documentation by the nurse practitioner. Time with Patient: Greater than 30
--- NOTE | 2020-02-04 17:43 | PN ---
PROGRESS NOTE DATE OF SERVICE: 02/04/2020 REASON FOR FOLLOWUP: Pneumonia. INTERVAL HISTORY: The patient is currently afebrile. He seems to be breathing comfortably. The patient has not developed increasing shortness of breath or cough. Not bringing up any sputum. No nausea, no vomiting. No abdominal pain or diarrhea. PHYSICAL EXAMINATION: Blood pressure is 124/65 with a pulse of 45, temperature 97.7. He is 94% on room air. General description is an elderly male lying in bed in no distress. RESPIRATORY SYSTEM: Unlabored breathing. Some coarse crackles at the bases. No wheeze. HEART: S1, S2. Regular rate and rhythm. ABDOMEN: Soft. No tenderness. LABS: Hemoglobin is 10.6, white count 7.4, BUN of 18, creatinine 0.66. DIAGNOSTIC IMPRESSION AND PLAN: Patient with acute COVID-19 pneumonia that has been treated, now with concern for possible Gram-negative pneumonia. Zosyn has been added. Will try to obtain a sputum sample and adjust medications further and monitor his clinical course closely. MMODL / IJN: [id number] /
[2020-02-04 18:41] LABS: Glucose,Whole Blood 110 mg/dL (75-99)
[2020-02-04] MEDS: 1: AMINO ACID 4.25%-D10W+LYTES*E* 1,000 ML 2: MVI, ADULT NO.4 WITH VIT K 10 ML, TRACE ( IV SCH ×3 (21:10)
[2020-02-04 23:51] LABS: Glucose,Whole Blood 137 mg/dL (75-99)
[2020-02-05] MEDS: PIPERACILLIN-TAZOBACTAM 3.375 GM in SODIUM CHLORIDE 0.9% 100 ML IVPB SCH ×3 (04:22→20:24)
[2020-02-05] MEDS: PANTOPRAZOLE 40 MG TABLET PO SCH ×2 (05:53→16:14)
[2020-02-05 05:56] LABS: Glucose,Whole Blood 178 mg/dL (75-99)
[2020-02-05] MEDS: INSULIN ASPART (NovoLOG) 100 UNIT/ML VIAL SQ SCH ×3 (06:03→16:49)
[2020-02-05] MEDS: DEXTROSE 5%-0.9% NACL 1,000 ML IV SCH (06:04)
[2020-02-05] MEDS: POLYETHYLENE GLYCOL 3350 17 GM POWD.PACK PO SCH ×2 (07:42→20:30)
[2020-02-05 08:08] LABS: African American GFR (CKD) >90 (>60 ml/min/1.73 sqM); Anion Gap 6 mmol/L; Blood Urea Nitrogen 16 mg/dL (9-20); Calcium 8.2 mg/dL (8.4-10.2); Carbon Dioxide 22 mmol/L (22-30); Chloride 109 mmol/L (98-107); Glucose 134 mg/dL (74-99); Non-African American GFR(CKD) 82 (>60 ml/min/1.73 sqM); Sodium 137 mmol/L (137-145)
[2020-02-05] MEDS: PROCHLORPERAZINE SUPPOSITORY 25 MG SUPP RECTAL SCH (09:40)
[2020-02-05] MEDS: amLODIPine 10 MG TAB PO SCH (09:40)
[2020-02-05] MEDS: ZINC SULFATE 220 MG CAP PO SCH (09:40)
[2020-02-05] MEDS: LOSARTAN 50 MG TAB PO SCH (09:40)
[2020-02-05] MEDS: HEPARIN SODIUM,PORCINE 5,000 UNIT/ML 1 ML VIAL SQ SCH ×2 (09:40→20:24)
[2020-02-05] MEDS ORDERED: METOCLOPRAMIDE 5 MG/ML 2 ML VIAL IVP PRN (10:46)
[2020-02-05] MEDS: IOPAMIDOL CONTRAST (ORAL USE) VIAL PO PRN ×2 (11:53→11:54)
[2020-02-05] MEDS ORDERED: DEXTROSE 5%-0.9% NACL 1,000 ML IV SCH (12:00)
[2020-02-05 12:01] LABS: Glucose,Whole Blood 117 mg/dL (75-99)
--- NOTE | 2020-02-05 14:03 | CT ---
EXAMINATION TYPE: CT abdomen pelvis w con DATE OF EXAM: 02/05/2020 COMPARISON: 01/21/2020 HISTORY: 84-year-old male decreased appetite and diarrhea TECHNIQUE: Contiguous axial scanning of the abdomen and pelvis following administration of 100 ml Iso kaitlynn 300 IV contrast. Delayed images through the kidneys and coronal/sagittal reconstructions perform ed. CT DLP: 1029.5 mGycm Automated exposure control for dose reduction was used. FINDINGS: Median sternotomy wires. Heart mildly enlarged. New moderate pleural effusions with adjacent atelecta sis. Some focal airspace opacities at inferior lingula and basilar right middle lobe. Tiny hiatal hernia. Some oral contrast material within the distal esophagus. There may be some underlying fatty infiltration of the liver. Nearly hydropic gallbladder measuring 4 .4 cm wide. Extensive motion artifacts and new generalized anasarca change. Portal venous system is patent. No biliary ductal dilatation. Allowing for the motion artifacts, adrenal glands, kidneys, spleen, and pancreas appear satisfactory. Moderate prostatic calcifications abdominal aorta and iliac arteries. No dilated small bowel, free fluid, or free air. Prominent fluid-filled small bowel loops right side of the abdomen, liquid stool throughout the colon. Brachytherapy seeds embedded in the prostate gland. At least moderate circumferential bladder wall th ickening. Most of the pelvis however is obscured due to artifact from patient's right hip total arthr oplasty. Bones: Osteopenia. Degenerative changes of the left hip and SI joints and a degenerative scoliosis of the visualized lumbar spine. Chronic injury to the right hamstrings origin. IMPRESSION: 1. NEW GENERALIZED ANASARCA AND MODERATE EFFUSIONS WITH ADJACENT ATELECTASIS. CORRELATE FOR FLUID OVE RLOAD STATE/CHF. 2. SOME RIGHT MIDDLE LOBE AND INFERIOR LINGULAR INFILTRATES ARE DIFFICULT TO EXCLUDE. CORRELATE TO EX CLUDE SYMPTOMS OF PNEUMONIA. 3. PROMINENT FLUID WITHIN RIGHT-SIDED SMALL BOWEL LOOPS AND LIQUID STOOL THROUGHOUT THE COLON. CORREL ATE FOR ENTERITIS. 4. GALLBLADDER IS HYDROPIC. THIS MAY RELATE TO FASTING STATE. IF RIGHT UPPER QUADRANT PAIN OR CONCERN FOR EARLY ACUTE CHOLECYSTITIS, FOLLOW-UP ULTRASOUND OR HIDA SCAN. 5. MOST OF THE PELVIS OBSCURED BY ARTIFACT FROM THE PATIENT'S RIGHT HIP TOTAL ARTHROPLASTY. HOWEVER, THERE SEEMS TO BE SOME BLADDER WALL THICKENING. CORRELATE TO EXCLUDE CYSTITIS.
[2020-02-05] MEDS ORDERED: FUROSEMIDE 10 MG/ML 4 ML VIAL IV STA (14:09)
--- NOTE | 2020-02-05 14:10 | P.PN ---
Subjective Progress Note Date: 02/05/20 Principal diagnosis: Mild dyspnea, nausea and vomiting 84-year-old white female patient of Dr. Rodriguez who was admitted to the hospital on 01/16/2020 for evaluation of generalized weakness, nausea and vomiting, mild cough, but no complaints of dyspnea. On presentation patient was also found to be in new onset atrial flutter with a bradycardic rate, mildly elevated troponin and dehydration. Admission chest x-ray on 01/16/2020 showed some hazy peripheral densities. Lab work showed no evidence of leukocytosis, white blood cell count 4.1, hemoglobin is 15, lymphocytosis with the wound, 0.7, initial lab work revealed unremarkable electrolytes and renal profile, 5 sets of cardiac troponins were completed, and troponins topped at 0.113. he was tested for COVID 19 and was found to be positive, influenza screen was negative, RSV was negative. Patient is having ongoing issues with nausea and vomiting and is unable to tolerate oral intake, he underwent GI evaluation, and conservative treatment was recommended, and patient is being considered for TPN initiation. From pulmonary perspective patient seems to calm and comfortable, worsening the patient's and initial evaluation today for Covid 19 infection, patient is awake and alert, he is resting in bed, answering questions appropriate, he denies any shortness of breath, or cough. Lately he is resting in bed with no gown on, but mentation seems to be appropriate. Today's chest x-ray shows a basilar multifocal opacities, with consideration of multifocal pneumonia or atelectasis, peripheral distribution. Patient is currently on 3 L of oxygen with pulse ox of 95%, hemodynamically stable, afebrile, he is on Zosyn for antibiotic coverage. n and completed treatment with the Plaquenil, azithromycin, ID service has been following. afebrile. Vital signs are stable. On 02/05/2020 patient seen in follow-up on selective care unit, awake and alert, resting comfortably in bed, currently on 3 L of oxygen with pulse ox of 96%, afebrile, hemodynamically stable, denies any acute distress, denies any worsening shortness of breath, does get short of breath with exertion, seems to be comfortable at rest. No cough or congestion. Today's labs have been reviewed, showing white blood cell count of 5.5, hemoglobin of 13.4, a lactose and renal profile are unremarkable. Patient continues on Zosyn for possibility of aspiration pneumonia, has been afebrile, clinically does not really complaining of any pulmonary symptoms. Patient is receiving fluids with D5 0.9 normal saline at a rate of 50 ML per hour. Patient will receive PICC line for infusion off TPN today. CT of abdomen and pelvis was obtained, and a bottom cuts of the lungs were reviewed with Dr. Canela, patient has bilateral small pleural effusions, we'll give the patient on dose of IV Lasix. Objective - Vital Signs Vital signs: Vital Signs Temp 97.6 F 02/05/20 08:00 Pulse 46 L 02/05/20 08:00 Resp 24 02/05/20 08:00 BP 142/67 02/05/20 08:00 Pulse Ox 96 02/05/20 08:00 Intake & Output 02/04/20 02/05/20 02/05/20 18:59 06:59 18:59 Intake Total 1484 1000 Output Total 1 450 100 Balance -1 1034 900 Weight 67 kg Intake: Intake, IV Titration 1484 1000 Amount Amino Acid 4.25%-D10w+ 1000 Lytes*E* 1,000 ml @ 83 mls/hr IV .BY DURATION TREVOR Rx#:[id number] Dextrose 5%-0.9% NaCl 1, 400 000 ml @ 50 mls/hr IV . Q20H TRE[facility]OR Rx#:[id number] Fat Emulsion 20% 250 ml @ 320 20.833 mls/hr IV DAILY@ 1600 TREVOR Rx#:[id number] Mvi, Adult No.4 with Vit 664 K 10 ml Trace (Conc-1Ml/ Dose) 1 ml In Amino Acid 4.25%-D10w+Lytes*E* 1,000 ml @ 83 mls/hr IV .BY DURATION TREVOR Rx#: [id number] Piperacillin-Tazobactam 3 100 .375 gm In Sodium Chloride 0.9% 100 ml @ 25 mls/hr IVPB Q8H TRE[facility]OR Rx#: [id number] Oral 0 Output: Urine 450 100 Stool 1 Other: Voiding Method Urinal Urinal Diaper Diaper # Voids 2 # Bowel Movements 1 1 - Exam GENERAL EXAM: Alert, very pleasant male, 64-year-old, resting in bed, currently has no gown on, he is answering questions appropriately, he is currently on 3 L of oxygen, comfortable in no apparent distress. HEAD: Normocephalic/atraumatic. EYES: Normal reaction of pupils, equal size. Conjunctiva pink, sclera white. NOSE: Clear with pink turbinates. THROAT: No erythema or exudates. NECK: No masses, no JVD, no thyroid enlargement, no adenopathy. CHEST: No chest wall deformity. Symmetrical expansion. LUNGS: Equal air entry with no crackles, wheeze, rhonchi or dullness. CVS: Regular rate and rhythm, normal S1 and S2, no gallops, no murmurs, no rubs ABDOMEN: Soft, nontender. No hepatosplenomegaly, normal bowel sounds, no guarding or rigidity. EXTREMITIES: No clubbing, no edema, no cyanosis, 2+ pulses and upper and lower extremities. MUSCULOSKELETAL: Muscle strength and tone normal. SPINE: No scoliosis or deformity SKIN: No rashes CENTRAL NERVOUS SYSTEM: Alert and oriented -3. No focal deficits, tone is normal in all 4 extremities. PSYCHIATRIC: Alert and oriented -3. Appropriate affect. Intact judgment and insight. - Labs CBC & Chem 7: 02/04/20 05:23 02/05/20 06:37 Labs: Abnormal Lab Results - Last 24 Hours (Table) 02/04/20 02/04/20 02/05/20 Range/Units 18:39 23:49 05:55 Chloride (98-107) mmol/L Glucose (74-99) mg/dL POC Glucose (mg/dL) 110 H 137 H 178 H (75-99) mg/dL Calcium (8.4-10.2) mg/dL Procalcitonin (0.02-0.09) ng/mL 02/05/20 02/05/20 02/05/20 Range/Units 06:37 06:37 11:54 Chloride 109 H (98-107) mmol/L Glucose 134 H (74-99) mg/dL POC Glucose (mg/dL) 117 H (75-99) mg/dL Calcium 8.2 L (8.4-10.2) mg/dL Procalcitonin 0.12 H (0.02-0.09) ng/mL Assessment and Plan Plan: Assessment: #1. Nausea and vomiting, persistent, related to Covid 19 related infection #2. Multifocal infiltrates, with peripheral distribution seen on a chest x-ray related to Covid 19 related pneumonitis #3. New onset atrial fibrillation with slow ventricular rate #4. Elevated troponins, rule out Covid 19 related myocarditis #5. Coronary artery disease, status post coronary artery bypass grafting in 2003 #6. History of aortic valve stenosis #7. Hypertension #8. Dyslipidemia #9. The mechanical fall at home #10. Acute exacerbation of congestive heart failure, with systolic dysfunction, echocardiogram was completed showing EF between 45-50%, [id number] aortic valve sclerosis, mild aortic regurgitation, mild aortic stenosis, moderate pulmonary hypertension and right-sided pressures of 47.4 mmHg #11. Bilateral pleural effusions, possible exacerbation of CHF with a mildly impaired systolic function, with echocardiogram showing EF of 45-50% Plan: Today's labs have been reviewed, bottom cuts of the lungs reviewed on the abdo celestino CT showing bilateral pleural effusions, place with thoracentesis, we'll give the patient 1 dose of IV Lasix, he denies any worsening dyspnea, his pro- calcitonin was noted, only mildly elevated, suspicion for aspiration pneumonia is low nevertheless patient continues on IV Zosyn, no leukocytosis, no fever or chills. We'll continue to follow. I performed a history & physical examination of the patient and discussed their management with my nurse practitioner, Sri Kimbrough. I reviewed the nurse practitioner's note and agree with the documented findings and plan of care. Lung sounds are positive for diminished breath sounds throughout the lung henao. The findings and the impression was discussed with the patient. I attest to the documentation by the nurse practitioner. Time with Patient: Less than 30
[2020-02-05 15:07] LABS: Appearance,Urine Clear (Clear); Bilirubin,Urine Negative (Negative); Blood,Urine Negative (Negative); Color,Urine Yellow; Glucose,Urine (UA) Negative (Negative); Ketones,Urine Negative (Negative); Leukocyte Esterase,Urine Negative (Negative); Nitrite,Urine Negative (Negative); Protein,Urine Negative (Negative); Urobilinogen,Urine <2.0 mg/dL (<2.0)
[2020-02-05 16:51] LABS: Glucose,Whole Blood 101 mg/dL (75-99)
[2020-02-05] MEDS: HYDROcodone/APAP 5-325MG 1 EACH TAB PO PRN (18:35)
[2020-02-05 19:54] LABS: Glucose,Whole Blood 131 mg/dL (75-99)
[2020-02-05] MEDS: MIRTAZAPINE 15 MG TAB PO SCH (20:24)
--- NOTE | 2020-02-05 22:03 | PN ---
PROGRESS NOTE DATE OF SERVICE: 02/05/2020 REASON FOR FOLLOWUP: Pneumonia. INTERVAL HISTORY: The patient is currently afebrile. The patient is breathing slightly comfortably. Denies having any chest pain. Some cough but less sputum. Some nausea but no vomiting and no diarrhea. PHYSICAL EXAMINATION: Blood pressure 139/65 with a pulse of 61, temperature 97.5. He is 96% on 3 L nasal cannula. General description is an elderly male lying in bed in no distress. RESPIRATORY SYSTEM: Unlabored breathing with decreased breath sounds at the base. No wheeze. HEART: S1, S2. Regular rate and rhythm. ABDOMEN: Soft. No tenderness. LABS: Hemoglobin urine has been negative. DIAGNOSTIC IMPRESSION AND PLAN: Patient with increased shortness of breath and cough concerning for possible aspiration pneumonia. Patient is covered with Zosyn; to continue. Try to obtain a sputum sample to narrow down antibiotics. Continue supportive care. MMODL / IJN: [id number] /
[2020-02-05] MEDS: METOCLOPRAMIDE 5 MG/ML 2 ML VIAL IVP SCH (22:47)
[2020-02-06] MEDS: INSULIN ASPART (NovoLOG) 100 UNIT/ML VIAL SQ SCH (01:33)
[2020-02-06] MEDS: PIPERACILLIN-TAZOBACTAM 3.375 GM in SODIUM CHLORIDE 0.9% 100 ML IVPB SCH ×3 (05:37→20:23)
[2020-02-06] MEDS: METOCLOPRAMIDE 5 MG/ML 2 ML VIAL IVP SCH ×3 (05:38→16:31)
[2020-02-06 05:58] LABS: Glucose,Whole Blood 100 mg/dL (75-99)
--- NOTE | 2020-02-06 08:09 | US ---
EXAMINATION TYPE: US liver DATE OF EXAM: 02/06/2020 COMPARISON: CT 02/05/2020 CLINICAL HISTORY: 84-year-old male r/o cholecystitis. Decreased appetite, diarrhea TECHNIQUE: Multiple sonographic images of the right upper quadrant are obtained. FINDINGS: EXAM MEASUREMENTS: Liver Length: 15.7 cm Gallbladder Wall: 0.3 cm CBD: 0.4 cm Right Kidney: 10.3 x 4.6 x 4.6 cm MARKETING SYSTEMS ANALYST NOTES: Technical limitations due to large amount of overlying bowel content Pancreas: Obscured by bowel gas Liver: visualized portions appear wnl Gallbladder: Hydropic at 4.4 cm wide. Nonmobile nodular echogenic areas posterior wall = 0.4cm. Bord debbi wall thickening of 3 mm. Evidence for sonographic Kelly's sign: no CBD: appears wnl as visualized Right Kidney: no evidence of hydronephrosis IMPRESSION: Hydropic gallbladder as seen on CT. No surrounding fluid or sonographic Kelly sign to clearly indica te acute cholecystitis at this time. Couple small 4 mm echogenic foci are nonmobile and could represe nt gallbladder wall polyps rather than calculi. Consider short interval follow-up.
[2020-02-06 08:28] LABS: African American GFR (CKD) >90 (>60 ml/min/1.73 sqM); Anion Gap 8 mmol/L; Blood Urea Nitrogen 13 mg/dL (9-20); Calcium 8.7 mg/dL (8.4-10.2); Carbon Dioxide 25 mmol/L (22-30); Chloride 107 mmol/L (98-107); Glucose 98 mg/dL (74-99); Non-African American GFR(CKD) 80 (>60 ml/min/1.73 sqM); Phosphorus 3.8 mg/dL (2.5-4.5); Sodium 140 mmol/L (137-145)
[2020-02-06] MEDS: PANTOPRAZOLE 40 MG TABLET PO SCH ×2 (08:54→16:29)
[2020-02-06] MEDS: LOSARTAN 50 MG TAB PO SCH (08:54)
[2020-02-06] MEDS: ZINC SULFATE 220 MG CAP PO SCH (08:54)
[2020-02-06] MEDS: amLODIPine 10 MG TAB PO SCH (08:55)
[2020-02-06] MEDS: POLYETHYLENE GLYCOL 3350 17 GM POWD.PACK PO SCH ×2 (08:55→20:25)
[2020-02-06] MEDS: HEPARIN SODIUM,PORCINE 5,000 UNIT/ML 1 ML VIAL SQ SCH ×2 (08:55→20:23)
--- NOTE | 2020-02-06 10:20 | P.PN ---
Subjective Progress Note Date: 02/06/20 Principal diagnosis: Nausea and vomiting, Covid infection Patient has completed treatment for Darling virus infection. Continues to have persistent nausea, but was able to eat applesauce this morning and take nutritional supplementation yesterday. Reports he just doesn't have an appetite. Objective - Vital Signs Vital signs: Vital Signs Temp 97.8 F 02/06/20 08:50 Pulse 62 02/06/20 08:50 Resp 24 02/06/20 08:50 BP 160/72 02/06/20 08:50 Pulse Ox 95 02/06/20 08:50 Intake & Output 02/05/20 02/06/20 02/06/20 18:59 06:59 18:59 Intake Total 1908 30 Output Total 106 104 Balance 1802 -74 Weight 65.2 kg Intake: IV 30 30 Invasive Line 1 30 30 Intake, IV Titration 1500 Amount Amino Acid 4.25%-D10w+ 1000 Lytes*E* 1,000 ml @ 83 mls/hr IV .BY DURATION [facility]RE[facility] Rx#:[id number] Dextrose 5%-0.9% NaCl 1, 300 000 ml @ 50 mls/hr IV . Q20H [facility] Rx#:[id number] Piperacillin-Tazobactam 3 200 .375 gm In Sodium Chloride 0.9% 100 ml @ 25 mls/hr IVPB Q8H [facility]RE[facility] Rx#: [id number] Oral 378 Output: Urine 100 100 Stool 6 4 Other: Voiding Method Urinal Urinal Diaper Diaper # Voids 2 # Bowel Movements 1 - Exam On physical examination, patient appears comfortable in no apparent distress. HEAD: Normocephalic, atraumatic. EYES: No scleral icterus. No conjunctival injection. MOUTH: No lesions, tongue midline. NECK: Trachea midline, no gross abnormalities. ABDOMEN: Soft, thin. Bowel sounds are positive. No organomegaly. No guarding or rigidity. EXTREMITIES: No pedal edema. SKIN: No rashes, no jaundice. NEUROLOGIC: Alert and oriented. - Labs CBC & Chem 7: 02/04/20 05:23 02/06/20 06:50 Labs: Abnormal Lab Results - Last 24 Hours (Table) 02/05/20 02/05/20 02/05/20 Range/Units 06:37 11:54 14:30 POC Glucose (mg/dL) 117 H (75-99) mg/dL Procalcitonin 0.12 H (0.02-0.09) ng/mL Ur Specific [place] 1.040 H (1.001-1.035) Stool Lactoferrin (NEGATIVE) 02/05/20 02/05/20 02/05/20 Range/Units 14:30 16:48 19:53 POC Glucose (mg/dL) 101 H 131 H (75-99) mg/dL Procalcitonin (0.02-0.09) ng/mL Ur Specific [place] (1.001-1.035) Stool Lactoferrin POSITIVE H (NEGATIVE) 02/06/20 Range/Units 05:56 POC Glucose (mg/dL) 100 H (75-99) mg/dL Procalcitonin (0.02-0.09) ng/mL Ur Specific [place] (1.001-1.035) Stool Lactoferrin (NEGATIVE) Microbiology - Last 24 Hours (Table) 02/05/20 14:30 Stool Culture - Preliminary Stool Assessment and Plan (1) Nausea and vomiting Narrative/Plan: 84-year-old male with multiple medical comorbidities and a significant past cardiac history who presented to the hospital with weakness, nausea and vomiting. He reports 4 days of symptoms of nausea and dry heaving. Currently no further vomiting reported but patient is still feeling somewhat nauseated. He denies any new medications prior to developing symptoms or sick contacts. No fevers, chills or change in bowel habits. Unknown etiology, likely related to Darling virus with positive testing for Covid-19, cannot rule out a component of medication effect with antibiotics completed yesterday, patient has been restarted on antiemetics suppository. Current Visit: Yes Status: Acute Code(s): R11.2 - NAUSEA WITH VOMITING, UNSPECIFIED SNOMED Code(s): 52814753 Plan: Supportive care Okay for diet as tolerated Protonix 40 mg twice a day Rectal Compazine for nausea Remeron added for appetite stimulation MiraLAX for bowel regimen Continue to monitor symptomatically No plan for endoscopic evaluation at this time Patient receiving total parenteral nutrition Thank you for allowing us to participate in the care of the patient
--- NOTE | 2020-02-06 11:04 | P.PN ---
Subjective 84-year-old male past medical history significant for coronary artery disease status post four-vessel bypass grafting in 2003, aortic stenosis, hypertension, dyslipidemia and paroxysmal atrial fibrillation. He follows in the office with Dr. Meier. Cardiology were planning for pacemaker insertion in view of his left bundle branch block and bradycardia, Shlomo that's consult after patient found to be covert positive with persistent nausea. Patient finish his treatment with Vicryl on Zithromax, and his pneumonia looks improving however he still have persistent nausea and decreased appetite. GI team on the case as well. And patient was started on TPN on 01/29 also patient is waiting to be tested negative for covert before he got accepted by the [facility], last week he has 3 positive test He fell 2 days ago with the bruise only. Vitas looks stable his still mildly bradycardiac with heart rate 47-67, blood pressure 143/65. His BMP is looks his stable with creatinine 0.6 and sodium and potassium are within normal limits, sugar controlled. 02/04/2020 Patient remains to have nausea and decreased appetite but no overt vomiting. He is slightly tachypneic with occasional cough although it's less frequent than on admission. His fully awake and oriented and denies chest pain or abdominal pain He had the distal bowel movements yesterday and today which were loose but no blood. He's afebrile but remains bradycardic, is saturating 95% on 3 L oxygen via nasal cannula. Labs including CBC and BMP looks stable, sugar controlled. Because of persistent symptoms with repeated chest x-ray which shows multifocal pneumonia, patient isn't known covert positive patient. We started him on Zosyn. With pulmonary consult 02/05/2020 Patient feels generally weak still has persistent nausea with some loose stool and some abdominal discomfort. He was on PPN and GI team recommended to stop the TPN We'll start the patient on gentle hydration with D5 normal saline at 50, change to Tegretol, also check CT of the abdomen and pelvis in the view of his persistent nausea, loose bowel movement and abdominal discomfort. I discussed the case with pulmonary service yesterday, patient looks like he has stable chest x-ray findings, his oxygen saturation remains the same at 3 L oxygen. No worsening dyspnea. Family decided to make the patient DO NOT RESUSCITATE today his pro-calcitonin is elevated at 0.12, mild. Patient remains on Zosyn for suspected infection or gastroenteritis with possible pulmonary infiltrate. he is hemodynamically stable with chronic bradycardia and asymptomatic. family decided to make the patient DO NOT RESUSCITATE today. 02/06/2020 Patient is awake, his nausea feels better today however he still have low appetite. PPN was stopped. CAT scan and liver ultrasound showing hydropic gallbladder. CAT scan also was suspicious for antritis, his still looks different is positive. Stool cultures pending IV fluid was stopped. Will encourage patient to eat and follow-up with him closely Objective - Vital Signs Vital signs: Vital Signs Temp 97.8 F 02/06/20 08:50 Pulse 62 02/06/20 08:50 Resp 24 02/06/20 08:51 BP 160/72 02/06/20 08:50 Pulse Ox 95 02/06/20 08:50 Intake & Output 02/05/20 02/06/20 02/06/20 18:59 06:59 18:59 Intake Total 1908 30 110 Output Total 106 104 Balance 1802 -74 110 Weight 65.2 kg Intake: IV 30 30 10 Invasive Line 1 30 30 10 Intake, IV Titration 1500 100 Amount Amino Acid 4.25%-D10w+ 1000 Lytes*E* 1,000 ml @ 83 mls/hr IV .BY DURATION TREVOR Rx#:[id number] Dextrose 5%-0.9% NaCl 1, 300 000 ml @ 50 mls/hr IV . Q20H [facility] Rx#:[id number] Piperacillin-Tazobactam 3 200 100 .375 gm In Sodium Chloride 0.9% 100 ml @ 25 mls/hr IVPB Q8H [facility] Rx#: [id number] Oral 378 Output: Urine 100 100 Stool 6 4 Other: Voiding Method Urinal Urinal Urinal Diaper Diaper Diaper # Voids 2 2 # Bowel Movements 1 - Exam -CONSTITUTIONAL: No apparent distress. Generally weak. Slowly responsive and hard hearing HEENT: Head is normocephalic. Pupils are equal, round. Sclerae anicteric. Mucous membranes of the mouth are moist. No JVD. No carotid bruit. CHEST EXAMINATION: Lungs are clear to auscultation. No chest wall tenderness is noted on palpation or with deep breathing. HEART EXAMINATION: Regular rate and rhythm, bradycardic. S1, S2 heard. Systolic ejection murmur at the base, no gallops or rub. ABDOMEN: Soft, nontender. Positive bowel sounds. EXTREMITIES: 2+ peripheral pulses, no lower extremity edema and no calf tenderness. NEUROLOGIC EXAMINATION: Patient is awake, alert and oriented x3. - Labs CBC & Chem 7: 02/04/20 05:23 02/06/20 06:50 Labs: Abnormal Lab Results - Last 24 Hours (Table) 02/05/20 02/05/20 02/05/20 Range/Units 06:37 11:54 14:30 POC Glucose (mg/dL) 117 H (75-99) mg/dL Procalcitonin 0.12 H (0.02-0.09) ng/mL Ur Specific [place] 1.040 H (1.001-1.035) Stool Lactoferrin (NEGATIVE) 02/05/20 02/05/20 02/05/20 Range/Units 14:30 16:48 19:53 POC Glucose (mg/dL) 101 H 131 H (75-99) mg/dL Procalcitonin (0.02-0.09) ng/mL Ur Specific [place] (1.001-1.035) Stool Lactoferrin POSITIVE H (NEGATIVE) 02/06/20 Range/Units 05:56 POC Glucose (mg/dL) 100 H (75-99) mg/dL Procalcitonin (0.02-0.09) ng/mL Ur Specific [place] (1.001-1.035) Stool Lactoferrin (NEGATIVE) Microbiology - Last 24 Hours (Table) 02/05/20 14:30 Stool Culture - Preliminary Stool Assessment and Plan Assessment: -Bilateral multifocal pneumonia: It looks his pulmonary findings are stable, however continue with Zosyn -Possible gastroenteritis with persistent nausea and loose bowel movement and abdominal discomfort. For this scan of the abdomen. In the meantime continue with Zosyn. -Distended gallbladder, rule out cholecystitis -sepsis secondary to Covid 19, patient didn't vomit but still nauseous not eating much abdominal x-ray did not show any bowel obstruction. Advance diet slowly, continue with TPN , check abdominal x-ray -atrial fibrillation with a slow ventricular rate. -Mechanical fall with bruising no evidence of fracture -Congestive heart failure unsure whether it's acute systolic dysfunction on chronic systolic dysfunction cannot really say patient of myocarditis is secondary to COVID Is a high possibility secondary to COVID Patient is not in heart failure exacerbation. IV fluids were discontinued patient is able to drink water. But has poor peripheral intake. -Troponin elevation secondary to Covid -Toxic encephalopathy secondary to infection -Dyslipidemia -Aortic stenosis -Moderate malnutrition patient was is on PPN DVT prophylaxis: Heparin subcutaneous GI prophylaxis on Protonix CODE STATUS, changed to DO NOT RESUSCITATE by family prognosis is guarded
[2020-02-06 11:35] VITALS: BMI 23.1
[2020-02-06 11:43] LABS: Glucose,Whole Blood 104 mg/dL (75-99)
--- NOTE | 2020-02-06 14:01 | P.PN ---
Subjective Progress Note Date: 02/06/20 Principal diagnosis: Nausea and vomiting, persistent, secondary to CoVID 19 infection 84-year-old white female patient of Dr. Rodriguez who was admitted to the hospital on 01/16/2020 for evaluation of generalized weakness, nausea and vomiting, mild cough, but no complaints of dyspnea. On presentation patient was also found to be in new onset atrial flutter with a bradycardic rate, mildly elevated troponin and dehydration. Admission chest x-ray on 01/16/2020 showed some hazy peripheral densities. Lab work showed no evidence of leukocytosis, white blood cell count 4.1, hemoglobin is 15, lymphocytosis with the wound, 0.7, initial lab work revealed unremarkable electrolytes and renal profile, 5 sets of cardiac troponins were completed, and troponins topped at 0.113. he was tested for COVID 19 and was found to be positive, influenza screen was negative, RSV was negative. Patient is having ongoing issues with nausea and vomiting and is unable to tolerate oral intake, he underwent GI evaluation, and conservative treatment was recommended, and patient is being considered for TPN initiation. From pulmonary perspective patient seems to calm and comfortable, worsening the patient's and initial evaluation today for Covid 19 infection, patient is awake and alert, he is resting in bed, answering questions appropriate, he denies any shortness of breath, or cough. Lately he is resting in bed with no gown on, but mentation seems to be appropriate. Today's chest x-ray shows a basilar multifocal opacities, with consideration of multifocal pneumonia or atelectasis, peripheral distribution. Patient is currently on 3 L of oxygen with pulse ox of 95%, hemodynamically stable, afebrile, he is on Zosyn for antibiotic coverage. n and completed treatment with the Plaquenil, azithromycin, ID service has been following. afebrile. Vital signs are stable. On 02/05/2020 patient seen in follow-up on selective care unit, awake and alert, resting comfortably in bed, currently on 3 L of oxygen with pulse ox of 96%, afebrile, hemodynamically stable, denies any acute distress, denies any worsening shortness of breath, does get short of breath with exertion, seems to be comfortable at rest. No cough or congestion. Today's labs have been reviewed, showing white blood cell count of 5.5, hemoglobin of 13.4, a lactose and renal profile are unremarkable. Patient continues on Zosyn for possibility of aspiration pneumonia, has been afebrile, clinically does not really complaining of any pulmonary symptoms. Patient is receiving fluids with D5 0.9 normal saline at a rate of 50 ML per hour. Patient will receive PICC line for infusion off TPN today. CT of abdomen and pelvis was obtained, and a bottom cuts of the lungs were reviewed with Dr. Canela, patient has bilateral small pleural effusions, we'll give the patient on dose of IV Lasix. The patient is seen today 02/06/2020 in follow-up in the selective care unit. He is currently resting comfortably in bed. Awake and alert in no acute distress. No current nausea or vomiting. No worsening shortness of breath, cough or congestion. He is maintaining O2 saturations in the 90s on room air. He's afebrile. Sodium 140. Potassium 4.0. Creatinine 0.83. Currently on Zosyn. Objective - Vital Signs Vital signs: Vital Signs Temp 97.6 F 02/06/20 12:00 Pulse 44 L 02/06/20 12:00 Resp 20 02/06/20 12:00 BP 159/69 02/06/20 12:00 Pulse Ox 96 02/06/20 12:00 Intake & Output 02/05/20 02/06/20 02/06/20 18:59 06:59 18:59 Intake Total 1908 30 230 Output Total 106 104 500 Balance 1802 -74 -270 Weight 65.2 kg 65.2 kg Intake: IV 30 30 10 Invasive Line 1 30 30 10 Intake, IV Titration 1500 100 Amount Amino Acid 4.25%-D10w+ 1000 Lytes*E* 1,000 ml @ 83 mls/hr IV .BY DURATION TREVOR Rx#:[id number] Dextrose 5%-0.9% NaCl 1, 300 000 ml @ 50 mls/hr IV . Q20H TREVOR Rx#:[id number] Piperacillin-Tazobactam 3 200 100 .375 gm In Sodium Chloride 0.9% 100 ml @ 25 mls/hr IVPB Q8H TREVOR Rx#: [id number] Oral 378 120 Output: Urine 100 100 500 Stool 6 4 Other: Voiding Method Urinal Urinal Urinal Diaper Diaper Diaper # Voids 2 2 # Bowel Movements 1 - Exam GENERAL EXAM: Alert, very pleasant male, 84-year-old, resting in bed, he is an swering questions appropriately, he is currently on room air, comfortable in no apparent distress. HEAD: Normocephalic/atraumatic. EYES: Normal reaction of pupils, equal size. Conjunctiva pink, sclera white. NOSE: Clear with pink turbinates. THROAT: No erythema or exudates. NECK: No masses, no JVD, no thyroid enlargement, no adenopathy. CHEST: No chest wall deformity. Symmetrical expansion. LUNGS: Equal air entry with no crackles, wheeze, rhonchi or dullness. CVS: Regular rate and rhythm, normal S1 and S2, no gallops, no murmurs, no rubs ABDOMEN: Soft, nontender. No hepatosplenomegaly, normal bowel sounds, no guarding or rigidity. EXTREMITIES: No clubbing, no edema, no cyanosis, 2+ pulses and upper and lower extremities. MUSCULOSKELETAL: Muscle strength and tone normal. SPINE: No scoliosis or deformity SKIN: No rashes CENTRAL NERVOUS SYSTEM: Alert and oriented -3. No focal deficits, tone is normal in all 4 extremities. PSYCHIATRIC: Alert and oriented -3. Appropriate affect. Intact judgment and insight. - Labs CBC & Chem 7: 02/04/20 05:23 02/06/20 06:50 Labs: Abnormal Lab Results - Last 24 Hours (Table) 02/05/20 02/05/20 02/05/20 Range/Units 14:30 14:30 16:48 POC Glucose (mg/dL) 101 H (75-99) mg/dL Ur Specific [place] 1.040 H (1.001-1.035) Stool Lactoferrin POSITIVE H (NEGATIVE) 02/05/20 02/06/20 02/06/20 Range/Units 19:53 05:56 11:40 POC Glucose (mg/dL) 131 H 100 H 104 H (75-99) mg/dL Ur Specific [place] (1.001-1.035) Stool Lactoferrin (NEGATIVE) Microbiology - Last 24 Hours (Table) 02/05/20 14:30 Stool Culture - Preliminary Stool Assessment and Plan Assessment: #1. Nausea and vomiting, persistent, related to Covid 19 related infection #2. Multifocal infiltrates, with peripheral distribution seen on a chest x-ray related to Covid 19 related pneumonitis #3. New onset atrial fibrillation with slow ventricular rate #4. Elevated troponins, rule out Covid 19 related myocarditis #5. Coronary artery disease, status post coronary artery bypass grafting in 2003 #6. History of aortic valve stenosis #7. Hypertension #8. Dyslipidemia #9. The mechanical fall at home #10. Acute exacerbation of congestive heart failure, with systolic dysfunction, echocardiogram was completed showing EF between 45-50%, [id number] aortic valve sclerosis, mild aortic regurgitation, mild aortic stenosis, moderate pulmonary hypertension and right-sided pressures of 47.4 mmHg #11. Bilateral pleural effusions, possible exacerbation of CHF with a mildly impaired systolic function, with echocardiogram showing EF of 45-50% Plan: The patient was seen and evaluated by Dr. Canela No pulmonary complaints, on room air Completing a course of Zosyn We will see as needed I, the cosigning physician, performed a history & physical examination of the patient. Lungs sounds are clear. Maintaining good O2 saturations in the 90s on room air. I discussed the assessment and plan of care with my nurse practitioner, Makenzie Ceja. I attest to the above note as dictated by her.
--- NOTE | 2020-02-06 14:59 | P.GSCN ---
History of Present Illness Consult date: 02/06/20 History of present illness: CHIEF COMPLAINT: Abnormal ultrasound of the gallbladder HISTORY OF PRESENT ILLNESS: The patient is a 84-year-old male with multiple medical comorbidities including coronavirus positive, ischemic cardiomyopathy, atrial fibrillation, history of elevated troponins, coronary artery disease four-vessel disease who has been hospitalized for over 3 weeks. During hospitalization, patient had nausea and vomiting for which gastroenterology team were consulted. Additionally, patient has anorexia. Initial ultrasound of the abdomen during her early hospitalization was unremarkable. A repeat ultrasound of the abdomen now demonstrates hydrops of the gallbladder. The time of my assessment, patient is resting comfortably in bed. Patient denies any abdominal pain. PAST MEDICAL HISTORY: See list. PAST SURGICAL HISTORY: See list. MEDICATIONS: See list. ALLERGIES: See list. SOCIAL HISTORY: See list. FAMILY HISTORY: See list. REVIEW OF ORGAN SYSTEMS: CONSTITUTIONAL: No fevers or chills. EYES: Denies any trouble with vision. HEENT: No difficulties with hearing. No nosebleeds. No difficulty swallowing. RESPIRATORY: Recent pneumonia with coronavirus CARDIOVASCULAR: Has extensive cardiac disease including history of atrial flutter, coronary artery disease. GASTROINTESTINAL: Has low appetite with anorexia. GENITOURINARY: History of prostate cancer and difficulty voiding. NEUROLOGICAL: Denies any numbness or tingling along the distal extremities. No seizure disorders or headaches. MUSCULOSKELETAL: Has back pain, stiffness or joint arthritis. SKIN: Past history of melanoma along the head. PSYCHIATRIC: Denies current depression or suicidal thoughts. ENDOCRINE: Denies current thyroid disorders. Denies any blood sugar glucose intolerance. HEME/LYMPHATIC: Denies any lumps and bumps around the neck. No recent deep venous thrombosis. ALLERGY/IMMUNOLOGY: No immunoglobulin therapy. No immune deficiencies. BREAST: Denies current breast lumps, pain or nipple discharge. PHYSICAL EXAM: VITALS: Reviewed CONSTITUTIONAL: Well developed and in no acute distress. EYES: Conjuctivae without sclera icterus. Pupils are equally round and reactive to light. Extraocular movements grossly intact. HEAD, EARS, NOSE, THROAT: Moist buccal mucosa. Head is atraumatic, normocephalic. Hears conversational speech. NECK: No thyroidomegaly. RESPIRATORY: Non-labored respirations and equal bilateral excursions. No gross wheezes. CARDIOVASCULAR: Irregular rate. Irregular rhythm. Extremities without moderate edema. ABDOMEN: Soft. Non-tender. Nondistended. LYMPH: No neck lymphadenopathy. MUSCULOSKELETAL: Nail and fingers with good capillary refill. SKIN: Warm and well perfused with good skin turgor. NEUROLOGIC: Cranial nerves II through XII grossly intact. No focal or lateralizing signs. PSYCH: Alert and oriented to person. Flat affect CLINCAL LABS: Reviewed. White blood cell count within normal limits at 1.4. LFTs within normal limits. Coronavirus positive IMAGING: Ultrasound independently reviewed a gallbladder demonstrating very small gallstones. Gallbladder wall within normal limits. No evidence of acute cholecystitis. RADIOLOGY: All images independently reviewed of the gallbladder with Common bile duct within normal limits. Gallbladder ultrasound including most recent including prior demonstrating normal common bile duct size. CT of the abdomen and pelvis independently reviewed demonstrating large bilateral pleural effusions. Gallbladder and distended. No evidence of free a ir. ASSESSMENT: 1. Abnormal ultrasound with hydrops of the gallbladder 2. History of chronic fasting, low appetite 3. Atrial flutter 4. History of coronary artery disease 5. Bilateral pleural effusions, large 6. Coronavirus positive PLAN: 1. With his decreased appetite, and fasting state, the gallbladder is expected to be distended especially in the fasting state. Clinically, patient denies any abdominal pain otherwise. On exam no evidence of abdominal pain as well. 2. Patient currently has large bilateral pleural effusions including coronavirus positive. With the patient's baseline cardiac history, he is extremely high risk with multiple comorbidities for any surgical intervention 3. As he is asymptomatic, recommend conservative management Thank you for this kind consultation. Past Medical History Past Medical History: Chest Pain / Angina, Hyperlipidemia, Hypertension, Prostate Disorder Additional Past Medical History / Comment(s): History of prostate cancer, status post radiation treatment 3 years ago. 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 History of Any Multi-Drug Resistant Organisms: None Reported Past Surgical History: Back Surgery, Coronary Bypass/CABG, Orthopedic Surgery Additional Past Surgical History / Comment(s): rt hip Past Psychological History: No Psychological Hx Reported Smoking Status: Former smoker Past Alcohol Use History: Occasional Past Drug Use History: None Reported Medications and Allergies Home Medications Medication Instructions Recorded Confirmed Type Aspirin EC [Ecotrin Low Dose] 81 mg PO DAILY 07/03/17 01/16/20 History Atorvastatin Calcium [Lipitor] 10 mg PO HS 07/03/17 01/16/20 History Felodipine ER [Plendil] 2.5 mg PO DAILY 01/16/20 01/16/20 History Gabapentin 600 mg PO TID PRN 01/16/20 01/16/20 History Allergies Allergy/AdvReac Type Severity Reaction Status Date / Time No Known Allergies Allergy Verified 01/16/20 19:09 Surgical - Exam Vital Signs Temp Pulse Resp BP Pulse Ox 97.9 F 40 L 22 194/74 94 L 01/16/20 16:52 01/16/20 16:52 01/16/20 16:52 01/16/20 16:52 01/16/20 16:52 Results - Labs 02/04/20 05:23 02/06/20 06:50 Abnormal Lab Results - Last 24 Hours (Table) 02/05/20 02/05/20 02/05/20 Range/Units 14:30 14:30 16:48 POC Glucose (mg/dL) 101 H (75-99) mg/dL Ur Specific [place] 1.040 H (1.001-1.035) Stool Lactoferrin POSITIVE H (NEGATIVE) 02/05/20 02/06/20 02/06/20 Range/Units 19:53 05:56 11:40 POC Glucose (mg/dL) 131 H 100 H 104 H (75-99) mg/dL Ur Specific [place] (1.001-1.035) Stool Lactoferrin (NEGATIVE) Microbiology - Last 24 Hours (Table) 02/05/20 14:30 Stool Culture - Preliminary Stool Diabetes panel 02/06/20 Range/Units 06:50 Sodium 140 (137-145) mmol/L Potassium 4.0 (3.5-5.1) mmol/L Chloride 107 (98-107) mmol/L Carbon Dioxide 25 (22-30) mmol/L BUN 13 (9-20) mg/dL Creatinine 0.83 (0.66-1.25) mg/dL Glucose 98 (74-99) mg/dL Calcium 8.7 (8.4-10.2) mg/dL Calcium panel 02/06/20 Range/Units 06:50 Calcium 8.7 (8.4-10.2) mg/dL Phosphorus 3.8 (2.5-4.5) mg/dL Pituitary panel 02/06/20 Range/Units 06:50 Sodium 140 (137-145) mmol/L Potassium 4.0 (3.5-5.1) mmol/L Chloride 107 (98-107) mmol/L Carbon Dioxide 25 (22-30) mmol/L BUN 13 (9-20) mg/dL Creatinine 0.83 (0.66-1.25) mg/dL Glucose 98 (74-99) mg/dL Calcium 8.7 (8.4-10.2) mg/dL Adrenal panel 02/06/20 Range/Units 06:50 Sodium 140 (137-145) mmol/L Potassium 4.0 (3.5-5.1) mmol/L Chloride 107 (98-107) mmol/L Carbon Dioxide 25 (22-30) mmol/L BUN 13 (9-20) mg/dL Creatinine 0.83 (0.66-1.25) mg/dL Glucose 98 (74-99) mg/dL Calcium 8.7 (8.4-10.2) mg/dL Assessment and Plan (1) Coronavirus infection Current Visit: Yes Status: Acute Code(s): B34.2 - CORONAVIRUS INFECTION, UNSPECIFIED SNOMED Code(s): 848819404 (2) 2019 novel coronavirus detected Current Visit: Yes Status: Acute Code(s): U07.1 - COVID-19 SNOMED Code(s): 860673909 (3) Bilateral pleural effusion Current Visit: Yes Status: Acute Code(s): J90 - PLEURAL EFFUSION, NOT ELSEWHERE CLASSIFIED SNOMED Code(s): 202113363 (4) Gallbladder polyp Current Visit: Yes Status: Acute Code(s): K82.4 - CHOLESTEROLOSIS OF GALLBLADDER SNOMED Code(s): 220618285 (5) Dehydration Current Visit: Yes Status: Acute Code(s): E86.0 - DEHYDRATION SNOMED Code(s): 49703947 (6) Elevated troponin Current Visit: Yes Status: Acute Code(s): R79.89 - OTHER SPECIFIED ABNORMAL FINDINGS OF BLOOD CHEMISTRY SNOMED Code(s): 933537875 (7) Nausea and vomiting Current Visit: Yes Status: Acute Code(s): R11.2 - NAUSEA WITH VOMITING, UNSPECIFIED SNOMED Code(s): 96271806 (8) New onset atrial flutter Current Visit: Yes Status: Acute Code(s): I48.92 - UNSPECIFIED ATRIAL FLUTTER SNOMED Code(s): 6459341
--- NOTE | 2020-02-06 17:29 | PN ---
PROGRESS NOTE DATE OF SERVICE: 02/06/2020 REASON FOR FOLLOWUP: Pneumonia. INTERVAL HISTORY: The patient is currently afebrile, has been breathing comfortably on room air. He is feeling better today. He did have a cough, though decreased intensity, not bringing up any sputum. No abdominal pain or diarrhea. PHYSICAL EXAMINATION: Blood pressure 140/52 with a pulse of 48, temperature 98.6. He is 97% on room air. General description is an elderly male lying in bed in no distress. RESPIRATORY SYSTEM: Unlabored breathing with decreased breath sounds at the base. No wheeze. HEART: S1, S2. Regular. ABDOMEN: Soft. No tenderness. LABS: BUN of 13, creatinine 0.83. DIAGNOSTIC IMPRESSION AND PLAN: 1. Patient with acute COVID-19 that has been adequately treated. 2. Patient with secondary possible Gram-negative aspiration pneumonia, clinically responding to Zosyn; to continue and transition to oral antibiotic on discharge and monitor his clinical course closely. MMODL / IJN: [id number] /
[2020-02-06] MEDS: MIRTAZAPINE 15 MG TAB PO SCH (20:23)
[2020-02-06 22:06] VITALS: RESP 18
[2020-02-06] MEDS: HYDROcodone/APAP 5-325MG 1 EACH TAB PO PRN (23:14)
[2020-02-07] MEDS: METOCLOPRAMIDE 5 MG/ML 2 ML VIAL IVP SCH ×3 (00:46→11:27)
[2020-02-07] MEDS: PIPERACILLIN-TAZOBACTAM 3.375 GM in SODIUM CHLORIDE 0.9% 100 ML IVPB SCH (05:09)
[2020-02-07] MEDS: PANTOPRAZOLE 40 MG TABLET PO SCH (06:14)
[2020-02-07] MEDS: POLYETHYLENE GLYCOL 3350 17 GM POWD.PACK PO SCH (08:25)
[2020-02-07] MEDS: HEPARIN SODIUM,PORCINE 5,000 UNIT/ML 1 ML VIAL SQ SCH (08:25)
[2020-02-07] MEDS: LOSARTAN 50 MG TAB PO SCH (08:25)
[2020-02-07] MEDS: ZINC SULFATE 220 MG CAP PO SCH (08:25)
[2020-02-07] MEDS: amLODIPine 10 MG TAB PO SCH (08:25)
[2020-02-07 09:01] LABS: Calcium 10.1 mg/dL (8.4-10.2); Magnesium 2.7 mg/dL (1.6-2.3); Potassium 4.7 mmol/L (3.5-5.1)
[2020-02-07 09:45] VITALS: BP 131/60; PULSE 51; TEMP 97.7
--- NOTE | 2020-02-07 11:57 | P.DS ---
Providers Date of admission: 01/16/20 19:14 Attending physician: Willow Ruano Consults: 01/16/20 19:15 Consult Physician Routine Consulting Provider: Owne Currie Consult Reason/Comments: New-onset atrial flutter, bradycardia, troponin elevation Do you want consulting provider notified?: Yes 01/19/20 14:01 Consult Physician Urgent Consulting Provider: Wilda Abbasi Consult Reason/Comments: Persistent nausea Do you want consulting provider notified?: Yes 01/21/20 14:44 Consult Physician Urgent Consulting Provider: Spring Mack Consult Reason/Comments: covid positive Do you want consulting provider notified?: Yes 02/04/20 19:09 Consult Physician Routine Consulting Provider: Ritu Canela Consult Reason/Comments: pna Do you want consulting provider notified?: Already Contacted 02/06/20 14:19 Consult Physician Urgent Consulting Provider: Nadine Hutchinson Consult Reason/Comments: Hydropic gallbladder, poor oral intake Do you want consulting provider notified?: Yes Primary care physician: Lizzy Becker Hospital Course: Diagnoses: -Resistant nausea and diarrhea suspicious for gastroenteritis with persistent nausea, no vomiting. Improved -decreased appetite, improving gradually every day -Distended gallbladder, related to prolonged fasting and nausea. With the small gallstones. No cholecystitis per surgery team evaluation -sepsis secondary to Covid-19 disease and SARS infection -Bilateral multifocal pneumonia: (New finding from 02/03 ) suspicious for aspiration pneumonia, It looks his pulmonary findings are stable, patient treat ed with Zosyn and switched to Augmentin upon discharge -atrial fibrillation with a slow ventricular rate.Bradycardia. Evaluated by soil surveyor with no intervention -Mechanical fall with bruising no evidence of fracture. X-ray of the hip and knee show no fracture -Congestive heart failure unsure whether it's acute systolic dysfunction on chronic systolic dysfunction cannot really say patient of myocarditis is secondary to COVID Is a high possibility secondary to COVID Patient is not in heart failure exacerbation. -Troponin elevation secondary to Covid-19 -Toxic encephalopathy secondary to infection , Improved and patient is awake and alert and oriented for several days -Dyslipidemia -Aortic stenosis -Moderate malnutrition patient was on PPN But stopped for the last 3 days Hospital course: 84-year-old male past medical history significant for coronary artery disease status post four-vessel bypass grafting in 2003, aortic stenosis, hypertension, dyslipidemia and paroxysmal atrial fibrillation. He follows in the office with Dr. Meier. Patient initially came because of bradycardia and left bundle branch block, cardiology team were planning for pacemaker however this procedure was canceled for persistent nausea. Later on patient was tested positive for Covid 19 and he was treated appropriately for that. His bradycardia remained stable and asymptomatic and then no more plans for pacemaker and patient can follow up with cardiology as an outpatient. Infectious disease evaluate the patient and patient was started on Plaquenil and zinc and finish his course of Plaquenil prior to discharge. His hospital course was complicated by a fall on 02/01, with bruising in the lower extremity, x-ray of the hip and knee show no fracture. Patient was followed also by mat machine operator who recommended to continue with conservative treatment. However patient had persistent nausea with decreased oral intake and was placed on PPN. His hospital course was complicated by aspiration pneumonia, with diarrhea suspicious for gastroenteritis. CT of the abdomen and pelvis with contrast showing anasarca with moderate diffusion, some right middle lobe and inferior lingular infiltrates, fluid within right side of small bowel suspicious for enteritis, gallbladder is hydropic which may be related to fasting state. Patient has been evaluated by surgeon who decided no cholecystitis and no need for treatment. Patient was treated with Zosyn. Patient is seen by pulmonary service as well. Gradually He showed interval improvement, his PPN was stopped and patient was started on Reglan scheduled dose and Remoron. prior to discharge his nausea subsided for more than 48 hours, diarrhea stopped and he has no loose bowel movements is yesterday. No abdominal pain, no vomiting. Patient appetite is improving gradually every day and today he was able to eat 10 bites of his meal during breakfast. Patient himself feels better and he wants to go to rehab today. History of feels generally weak and occasionally he takes [place] which make him little more lethargic but he is tolerating that well. No other new complaints Patient was cleared for discharge by all consultants including pulmonary, gastroenterology, surgery, infectious disease. Problems and management plan were discussed with the patient and he verbalized understanding and acceptance Patient was found stable and can be discharged to [facility] in regards prognosis however he needs follow-up as an outpatient. Patient was instructed to follow up with PCP within one week and patient agrees -Gen: patient is a AAOx3, no distress. Generally weak and thin build CVS: S1-S2, RRR, no murmur Lungs: B/L CTA, no wheezing Abdomen: soft, no distention, no tenderness, positive bowel sounds Extremity: no leg edema or induration Time spent more than 35 minutes Patient Condition at Discharge: Stable Plan - Discharge Summary Discharge Rx Participant: Yes New Discharge Prescriptions: New Amoxicillin/Potassium Clav [Augmentin 875-125 Tablet] 1 tab PO Q12HR 7 Days #14 tab Losartan [Cozaar] 100 mg PO DAILY tab Heparin Sodium,Porcine [Heparin Sodium] 5,000 unit SQ Q12HR vial Polyethylene Glycol 3350 [Miralax] 17 gm PO DAILY PRN powd.pack PRN Reason: Constipation HYDROcodone/APAP 5-325MG [[place] 5-325] 1 each PO Q12HR PRN 3 Days #4 tab PRN Reason: Pain amLODIPine [Norvasc] 10 mg PO DAILY tab Zinc Sulfate [Orazinc] 220 mg PO DAILY #21 cap Pantoprazole [Protonix] 40 mg PO AC-BID tablet. Metoclopramide HCl [Reglan] 5 mg PO TID 3 Days #9 tablet Metoclopramide [Reglan] 5 mg PO TID PRN #90 tab PRN Reason: Nausea And Vomiting Mirtazapine [Remeron] 7.5 mg PO HS #30 tab Acetaminophen Tab [Tylenol] 325 mg PO Q6HR PRN tab PRN Reason: Fever And/ Or Pain Continue Atorvastatin Calcium [Lipitor] 10 mg PO HS Aspirin EC [Ecotrin Low Dose] 81 mg PO DAILY Gabapentin 600 mg PO TID PRN PRN Reason: Pain Discontinued Felodipine ER [Plendil] 2.5 mg PO DAILY Discharge Medication List Aspirin EC [Ecotrin Low Dose] 81 mg PO DAILY 07/03/17 [History] Atorvastatin Calcium [Lipitor] 10 mg PO HS 07/03/17 [History] Gabapentin 600 mg PO TID PRN 01/16/20 [History] Acetaminophen Tab [Tylenol] 325 mg PO Q6HR PRN tab 02/07/20 [Rx] Amoxicillin/Potassium Clav [Augmentin 875-125 Tablet] 1 tab PO Q12HR 7 Days #14 tab 02/07/20 [Rx] HYDROcodone/APAP 5-325MG [[place] 5-325] 1 each PO Q12HR PRN 3 Days #4 tab 02/07/20 [Rx] Heparin Sodium,Porcine [Heparin Sodium] 5,000 unit SQ Q12HR vial 02/07/20 [Rx] Losartan [Cozaar] 100 mg PO DAILY tab 02/07/20 [Rx] Metoclopramide HCl [Reglan] 5 mg PO TID 3 Days #9 tablet 02/07/20 [Rx] Metoclopramide [Reglan] 5 mg PO TID PRN #90 tab 02/07/20 [Rx] Mirtazapine [Remeron] 7.5 mg PO HS #30 tab 02/07/20 [Rx] Pantoprazole [Protonix] 40 mg PO AC-BID tablet. 02/07/20 [Rx] Polyethylene Glycol 3350 [Miralax] 17 gm PO DAILY PRN powd.pack 02/07/20 [Rx] Zinc Sulfate [Orazinc] 220 mg PO DAILY #21 cap 02/07/20 [Rx] amLODIPine [Norvasc] 10 mg PO DAILY tab 02/07/20 [Rx] Follow up Appointment(s)/Referral(s): Lizzy Becker DO [Primary Care Provider[facility] - [facility]-2 Days Discharge Disposition: TRANSFER TO SNF/ECF
[2020-02-07] MEDS: HYDROcodone/APAP 5-325MG 1 EACH TAB PO PRN (12:13)
--- NOTE | 2020-02-07 14:02 | P.PN ---
Subjective Progress Note Date: 02/07/20 CHIEF COMPLAINT: Abnormal ultrasound of the gallbladder HISTORY OF PRESENT ILLNESS: The patient is a 84-year-old male with multiple medical comorbidities including coronavirus positive, ischemic cardiomyopathy, atrial fibrillation, history of elevated troponins, coronary artery disease four-vessel disease who has been hospitalized for over 3 weeks. He had a abnormal ultrasound demonstrating hydrops of the gallbladder. Patient reevaluated today. He still denies no abdominal pain. His main concern includes back pain. He is tolerating diet. REVIEW OF ORGAN SYSTEMS: No fevers or chills. No new chest pain. Complains of back pain. PHYSICAL EXAM: VITALS: Reviewed CONSTITUTIONAL: Well developed and in no acute distress. EYES: Conjuctivae without sclera icterus. Pupils are equally round and reactive to light. Extraocular movements grossly intact. HEAD, EARS, NOSE, THROAT: Moist buccal mucosa. Head is atraumatic, normocephalic. Hears conversational speech. NECK: No thyroidomegaly. RESPIRATORY: Non-labored respirations and equal bilateral excursions. No gross wheezes. CARDIOVASCULAR: Irregular rate. Irregular rhythm. Extremities without moderate edema. ABDOMEN: Soft. Non-tender. Nondistended. LYMPH: No neck lymphadenopathy. MUSCULOSKELETAL: Nail and fingers with good capillary refill. SKIN: Warm and well perfused with good skin turgor. NEUROLOGIC: Cranial nerves II through XII grossly intact. No focal or lateralizing signs. PSYCH: Alert and oriented to person. Flat affect CLINCAL LABS: Reviewed. White blood cell count within normal limits ASSESSMENT: 1. Abnormal ultrasound with hydrops of the gallbladder 2. History of chronic fasting, low appetite 3. Atrial flutter 4. History of coronary artery disease 5. Bilateral pleural effusions, large 6. Coronavirus positive PLAN: 1. Patient is clinically asymptomatic despite previous ultrasound findings. 2. Agreeable with discharge from a surgical standpoint Objective - Vital Signs Vital signs: Vital Signs Temp 97.7 F 02/07/20 08:22 Pulse 51 L 02/07/20 08:22 Resp 18 02/07/20 08:25 BP 131/60 02/07/20 08:22 Pulse Ox 96 02/07/20 08:22 Intake & Output 02/06/20 02/07/20 02/07/20 18:59 06:59 18:59 Intake Total 668 30 150 Output Total 700 300 Balance -32 30 -150 Weight 65.2 kg 65.8 kg Intake: IV 30 30 10 Invasive Line 1 30 30 10 Intake, IV Titration 100 Amount Piperacillin-Tazobactam 3 100 .375 gm In Sodium Chloride 0.9% 100 ml @ 25 mls/hr IVPB Q8H [facility] Rx#: [id number] Oral 538 140 Output: Urine 700 300 Other: Voiding Method Urinal Urinal Urinal Diaper Diaper Diaper # Voids 2 1 - Labs CBC & Chem 7: 02/04/20 05:23 02/07/20 06:48 Labs: Abnormal Lab Results - Last 24 Hours (Table) 02/07/20 Range/Units 06:48 Chloride 116 H (98-107) mmol/L Carbon Dioxide 19 L (22-30) mmol/L Magnesium 2.7 H (1.6-2.3) mg/dL Assessment and Plan (1) Coronavirus infection Current Visit: Yes Status: Acute Code(s): B34.2 - CORONAVIRUS INFECTION, UNSPECIFIED SNOMED Code(s): 413716146 (2) 2019 novel coronavirus detected Current Visit: Yes Status: Acute Code(s): U07.1 - COVID-19 SNOMED Code(s): 707300991 (3) Bilateral pleural effusion Current Visit: Yes Status: Acute Code(s): J90 - PLEURAL EFFUSION, NOT ELSEWHERE CLASSIFIED SNOMED Code(s): 886720615 (4) Gallbladder polyp Current Visit: Yes Status: Acute Code(s): K82.4 - CHOLESTEROLOSIS OF GALLBLADDER SNOMED Code(s): 767733791 (5) Dehydration Current Visit: Yes Status: Acute Code(s): E86.0 - DEHYDRATION SNOMED Code(s): 75377936 (6) Elevated troponin Current Visit: Yes Status: Acute Code(s): R79.89 - OTHER SPECIFIED ABNORMAL FINDINGS OF BLOOD CHEMISTRY SNOMED Code(s): 833163105 (7) Nausea and vomiting Current Visit: Yes Status: Acute Code(s): R11.2 - NAUSEA WITH VOMITING, UNSPECIFIED SNOMED Code(s): 84095686 (8) New onset atrial flutter Current Visit: Yes Status: Acute Code(s): I48.92 - UNSPECIFIED ATRIAL FLUTTER SNOMED Code(s): 2140811
--- NOTE | 2020-02-07 16:30 | P.PN ---
Progress Note - Text Progress Note Date: 02/07/20 REASON FOR FOLLOWUP: Pneumonia. INTERVAL HISTORY: The patient remains to be afebrile, the patient is breathing comfortably on room air. He is feeling better today. The patient denies any worsening cough, no sputum, no abdominal pain Nausea has improved no diarrhea PHYSICAL EXAMINATION: Blood pressure 131/60 with a pulse of 48, temperature 98.6. He is 97% on room air. General description is an elderly male lying in bed in no distress. RESPIRATORY SYSTEM: Unlabored breathing with decreased breath sounds at the base. No wheeze. HEART: S1, S2. Regular. ABDOMEN: Soft. No tenderness. LABS: Reviewed DIAGNOSTIC IMPRESSION AND PLAN: 1. Patient with acute COVID-19 that has been adequately treated. 2. Patient with secondary possible aspiration pneumonia, clinically responding to Zosyn will be transitioned to short course of oral Augmentin on discharge continue supportive care
--- NOTE | 2020-02-10 07:54 | CDI ---
Documentation Clarification Form Date: 02/10/20 From: Radha Dubon Phone: If you have a question about this query, please contact Laura Saravia, Twisting Machine Operator at [phone] between 8am and 5pm. Admit Date: 01/16/20 Discharge Date: 02/07/20 Patient Name: ITZEL HERNANDEZ Visit Number: [id number] ATTENTION: The Clinical Documentation Specialists (CDI) and [facility] Coding Staff appreciate your assistance in clarifying documentation. Please respond to the clarification below the line at the bottom and electronically sign. The CDI & [facility] Coding staff will review the response and follow-up if needed. Please note: Queries are made part of the Legal Health Record. If you have any questions, please contact the author of this message via ITS. Dear Dr. Sulema Malin, Patient presented with Troponin of: 0.028, 0.082, 0.104,0.113, 0.065 Patient history/risk factors: CAD, CABG, /AI, HTN w systolic CHF, PAF, bradycardis anticipating pacemaker placement Clinical indicators: Troponin elevation associated with persistent nausea of unclear etiology, likely related to myocardial injury vs infarct. Treatment: Echo to assess for wall motion abnormality In your professional opinion, can you please specify the diagnosis, if any, indicated by the above clinical indicators and treatment? Type II VA Non Q Wave VA Abnormal troponin Other, please specify Unable to determine Unable to determine MTDD
--- NOTE | 2020-02-10 11:02 | CDI ---
Documentation Clarification Form Date: 02/10/20 From: Radha Dubon Phone: If you have a question about this query, please contact Laura Saravia, Presentation Manager at [phone] between 8am and 5pm. Admit Date: 01/16/20 Discharge Date: 02/07/20 Patient Name: ITZEL HERNANDEZ Visit Number: [id number] ATTENTION: The Clinical Documentation Specialists (CDI) and [facility] Coding Staff appreciate your assistance in clarifying documentation. Please respond to the clarification below the line at the bottom and electronically sign. The CDI & [facility] Coding staff will review the response and follow-up if needed. Please note: Queries are made part of the Legal Health Record. If you have any questions, please contact the author of this message via ITS. Dear Dr. Figueroa Sheet, History/Risk Factors: COVID 19 W sepsis, viral pneumonia, viral gastroenteritis, PAF Clinical Indicators: Regular rate and rhythm, normal S1 and S2, no gallops, no murmurs, no rubs VS/Pulse OX: T-98.6, P-48, R-22, BP-140/62, O2-97 BNP (02/04): 1300 Echocardiogram Results: Left ventricular size is normal. There is moderate concentric left ventricular hypertrophy. Overall left ventricular systolic function is mildly impaired with, an EF between 45 - 50 %. The right ventricle is mildly enlarged. Chest X Ray (02/03): Peripheral basilar multifocal opacities. Consider multifocal pneumonia or atelectasis. Confluent pulmonary edema is much less likely given the peripheral distribution. Treatment: On 02/04-Lasix 40 mg IV once STA In your professional opinion, can you please clarify the acuity of CHF if known? Systolic Heart Failure: Acute Chronic Acute on Chronic Unable to Determine Other, please specify Acute systolic chf MTDD
== END 2020-02-07 14:50 | DRG 871 ==
LOC: EC 16:47 → 3SCARD 19:14
PROVIDERS: ADMIT Internal Medicine; ATTEND Internal Medicine
PROC: 3E0336Z Introduction of Nutritional Substance into Peripheral Vein, Percutaneous Approach (ICD-10-PCS; 2020-01-30)
PROC: 05HD33Z Insertion of Infusion Device into Right Cephalic Vein, Percutaneous Approach (ICD-10-PCS; principal; 2020-02-05 07:30)
DX: A41.89 Other specified sepsis (principal); U07.1 COVID-19; J69.0 Pneumonitis due to inhalation of food and vomit; I50.23 Acute on chronic systolic (congestive) heart failure; J15.6 Pneumonia due to other Gram-negative bacteria; G92 Toxic encephalopathy; I40.0 Infective myocarditis; J12.89 Other viral pneumonia; R64 Cachexia; E44.0 Moderate protein-calorie malnutrition; K82.1 Hydrops of gallbladder; E87.2 Acidosis; I48.3 Typical atrial flutter; Z66 Do not resuscitate; I27.20 Pulmonary hypertension, unspecified; I11.0 Hypertensive heart disease with heart failure; B33.24 Viral cardiomyopathy; A08.4 Viral intestinal infection, unspecified; I48.0 Paroxysmal atrial fibrillation; D72.810 Lymphocytopenia; E86.0 Dehydration; E87.6 Hypokalemia; R00.1 Bradycardia, unspecified; E78.5 Hyperlipidemia, unspecified; E78.00 Pure hypercholesterolemia, unspecified; S80.01XA Contusion of right knee, initial encounter; S70.01XA Contusion of right hip, initial encounter; I25.10 Atherosclerotic heart disease of native coronary artery without angina pectoris; I35.2 Nonrheumatic aortic (valve) stenosis with insufficiency; I44.7 Left bundle-branch block, unspecified; K80.20 Calculus of gallbladder without cholecystitis without obstruction; K21.9 Gastro-esophageal reflux disease without esophagitis; M19.90 Unspecified osteoarthritis, unspecified site; N42.9 Disorder of prostate, unspecified; R32 Unspecified urinary incontinence; R79.89 Other specified abnormal findings of blood chemistry; Z68.23 Body mass index [BMI] 23.0-23.9, adult; Z79.82 Long term (current) use of aspirin; Z79.899 Other long term (current) drug therapy; Z71.3 Dietary counseling and surveillance; Z95.1 Presence of aortocoronary bypass graft; Z87.891 Personal history of nicotine dependence; Z85.820 Personal history of malignant melanoma of skin; Z85.46 Personal history of malignant neoplasm of prostate; Z92.3 Personal history of irradiation; Z96.641 Presence of right artificial hip joint; Z98.890 Other specified postprocedural states; W18.30XA Fall on same level, unspecified, initial encounter; Y92.230 Patient room in hospital as the place of occurrence of the external cause
CPT/HCPCS: 36410; 36415; 71045; 71046; 73501; 74018; 74019; 74176; 74177; 76700; 76705; 76937; 80048; 80053; 81001; 81003; 82040; 82330; 82533; 83605; 83615; 83630; 83735; 83880; 84100; 84132; 84145; 84443; 84478; 84484; 84550; 85025; 85027; 85379; 85610; 85652; 85730; 87045; 87046; 87493; 87502; 87634; 87635; 93005; 93306; 96361; 96365; 96366; 96375; 96376; 99291

== ENCOUNTER 2021-01-07 16:22 | Inpatient (IN) | payer MEDICARE, BC ==
[2021-01-07] MEDS ORDERED: SODIUM CHLORIDE 0.9% 1,000 ML IV ONE (16:24)
[2021-01-07] MEDS ORDERED: LORazepam 2 MG/ML INJ IV STA (16:31)
--- NOTE | 2021-01-07 16:31 | ED ---
General Adult HPI - General Stated complaint: Unresponsive Time Seen by Provider: 01/07/21 16:23 Source: EMS, RN notes reviewed, old records reviewed Mode of arrival: EMS Limitations: language barrier, altered mental status, physical limitation - History of Present Illness Initial comments: 55-year-old male presenting as a democrat 1 altered mental status. Patient had been in his usual state of health up until yesterday. He received his second coronavirus vaccine. He had contracted coronavirus approximately one year ago. He had felt somewhat weak this morning and taken an afternoon nap to which he was unable to wake up. 911 was called and the patient was transported. He was agonal, bradycardic and hypotensive. He did withdraw to pain more so on the left than on the right. Minimal movement on the right. Patient is a DO NOT RESUSCITATE. I was able to discuss this with the patient's son-in-law who is at bedside who does confirm that he is a DO NOT RESUSCITATE and would not want aggressive life-saving measures. - Related Data Home Medications Medication Instructions Recorded Confirmed Atorvastatin Calcium [Lipitor] 20 mg PO DAILY 01/07/21 01/07/21 Gabapentin 600 mg PO TID 01/07/21 01/07/21 Previous Rx's Medication Instructions Recorded Losartan [Cozaar] 100 mg PO DAILY tab 02/07/20 Allergies Allergy/AdvReac Type Severity Reaction Status Date / Time No Known Allergies Allergy Verified 01/07/21 17:41 Review of Systems ROS Statement: Those systems with pertinent positive or pertinent negative responses have been documented in the HPI. ROS Other: All systems not noted in ROS Statement are negative. Past Medical History Past Medical History: Chest Pain / Angina, Hyperlipidemia, Hypertension, Prostate Disorder Additional Past Medical History / Comment(s): History of prostate cancer, status post radiation treatment 3 years ago. 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 History of Any Multi-Drug Resistant Organisms: None Reported Past Surgical History: Back Surgery, Coronary Bypass/CABG, Orthopedic Surgery Additional Past Surgical History / Comment(s): rt hip Past Psychological History: No Psychological Hx Reported Smoking Status: Never smoker Past Alcohol Use History: Occasional Past Drug Use History: None Reported General Exam Limitations: language barrier, altered mental status, physical limitation General appearance: obtunded, in distress Head exam: Present: atraumatic, normocephalic Eye exam: Present: PERRL (3 mm and reactive bilaterally) ENT exam: Present: mucous membranes dry Neck exam: Present: normal inspection. Absent: tenderness, meningismus Respiratory exam: Present: respiratory distress, decreased breath sounds (Agonal respirations) Cardiovascular Exam: Present: bradycardia, irregular rhythm (Bradycardic, rate of approximately 40 bpm) GI/Abdominal exam: Present: soft. Absent: distended, tenderness, guarding, rebound Extremities exam: Present: normal capillary refill, other. Absent: pedal edema Neurological exam: Present: motor sensory deficit (Patient withdraws to pain on the left, he does not have significant movement on the right at all.). Absent: alert, oriented X3, CN II-XII intact Skin exam: Present: warm, dry, intact. Absent: cyanosis, diaphoretic Course Vital Signs 01/07/21 01/07/21 01/07/21 16:24 16:44 16:47 Temperature 98.2 F Pulse Rate 67 36 L 79 Respiratory 18 24 Rate Blood Pressure 145/77 187/97 O2 Sat by Pulse 96 100 Oximetry 01/07/21 01/07/21 17:23 17:49 Temperature 98 F Pulse Rate 77 60 Respiratory 12 18 Rate Blood Pressure 192/84 160/81 O2 Sat by Pulse 96 98 Oximetry EKG Findings - EKG Comments: EKG Findings:: A flutter with variable AV block frequent PVC rate of appro ximately 40. QRS duration 108, QTC 489. Repeat EKG at 1750, atrial flutter with 41 AV block left axis deviation, rate of 68, QRS duration 100, QTC 474 PVC. Medical Decision Making - Medical Decision Making 85-year-old male presenting with altered mental status. Upon arrival patient is bradycardic, hypotensive with agonal respirations. He is a DO NOT RESUSCITATE DO NOT INTUBATE. There is high suspicion for intracranial hemorrhage, taken i mmediately to computed tomography scan which shows chronic changes, volume loss, no intracranial hemorrhage or mass effect. Laboratory studies reveal normal CBC, CMP and venous gas show bicarb of 14. He has some minimal lactic acid of 2.9. Urinalysis pending. Coronavirus pending. He did receive coronavirus vaccine yesterday and has interstitial pneumonia pattern on x-ray consistent with coronavirus. He does begin to have spontaneous movement while in the emergency department. Moving both legs. He will not follow commands. His heart rate and respirations are abnormal. Case discussed with Dr. Ruano who will admit. Patient will be monitored on seizure precautions, he is treated for seizure with both Ativan and Keppra. There is a possibility of CVA. Neurology has been placed on consult for both possibility of seizure versus CVA. His prognosis is discussed with his son-in-law who is at bedside is in contact with the remainder of the family. - Lab Data Result diagrams: 01/07/21 16:24 01/07/21 16:24 Lab Results 01/07/21 01/07/21 01/07/21 Range/Units 16:24 16:24 16:24 WBC 8.9 (3.8-10.6) k/uL RBC 4.61 (4.30-5.90) m/uL Hgb 14.2 (13.0-17.5) gm/dL Hct 42.9 (39.0-53.0) % MCV 93.0 (80.0-100.0) fL MCH 30.7 (25.0-35.0) pg MCHC 33.1 (31.0-37.0) g/dL RDW 15.3 (11.5-15.5) % Plt Count 183 (150-450) k/uL MPV 8.0 Neutrophils % 87 % Lymphocytes % 8 % Monocytes % 4 % Eosinophils % 0 % Basophils % 0 % Neutrophils # 7.8 H (1.3-7.7) k/uL Lymphocytes # 0.7 L (1.0-4.8) k/uL Monocytes # 0.3 (0-1.0) k/uL Eosinophils # 0.0 (0-0.7) k/uL Basophils # 0.0 (0-0.2) k/uL PT 10.9 (9.0-12.0) sec INR 1.0 (<1.2) APTT 21.9 L (22.0-30.0) sec VBG pH (7.31-7.41) VBG pCO2 (37-51) mmHg VBG HCO3 (24-28) mmol/L Sodium 137 (137-145) mmol/L Potassium 5.7 H (3.5-5.1) mmol/L Chloride 111 H (98-107) mmol/L Carbon Dioxide 14 L (22-30) mmol/L Anion Gap 12 mmol/L BUN 19 (9-20) mg/dL Creatinine 1.13 (0.66-1.25) mg/dL Est GFR (CKD-EPI)AfAm 68 (>60 ml/min/1.73 sqM) Est GFR (CKD-EPI)NonAf 58 (>60 ml/min/1.73 sqM) Glucose 167 H (74-99) mg/dL POC Glucose (mg/dL) (75-99) mg/dL POC Glu Transformer Mechanic ID Plasma Lactic Acid Joao (0.7-2.0) mmol/L Calcium 9.1 (8.4-10.2) mg/dL Magnesium 2.0 (1.6-2.3) mg/dL Total Bilirubin 1.9 H (0.2-1.3) mg/dL AST 53 (17-59) U/L ALT 22 (4-49) U/L Alkaline Phosphatase 135 H (38-126) U/L Ammonia (<30) umol/L Creatine Kinase 81 (55-170) U/L Troponin I (0.000-0.034) ng/mL Total Protein 8.0 (6.3-8.2) g/dL Albumin 4.1 (3.5-5.0) g/dL Serum Alcohol <10 mg/dL 01/07/21 01/07/21 01/07/21 Range/Units 16:24 16:24 16:24 WBC (3.8-10.6) k/uL RBC (4.30-5.90) m/uL Hgb (13.0-17.5) gm/dL Hct (39.0-53.0) % MCV (80.0-100.0) fL MCH (25.0-35.0) pg MCHC (31.0-37.0) g/dL RDW (11.5-15.5) % Plt Count (150-450) k/uL MPV Neutrophils % % Lymphocytes % % Monocytes % % Eosinophils % % Basophils % % Neutrophils # (1.3-7.7) k/uL Lymphocytes # (1.0-4.8) k/uL Monocytes # (0-1.0) k/uL Eosinophils # (0-0.7) k/uL Basophils # (0-0.2) k/uL PT (9.0-12.0) sec INR (<1.2) APTT (22.0-30.0) sec VBG pH 7.38 (7.31-7.41) VBG pCO2 28 L (37-51) mmHg VBG HCO3 16 L (24-28) mmol/L Sodium (137-145) mmol/L Potassium (3.5-5.1) mmol/L Chloride (98-107) mmol/L Carbon Dioxide (22-30) mmol/L Anion Gap mmol/L BUN (9-20) mg/dL Creatinine (0.66-1.25) mg/dL Est GFR (CKD-EPI)AfAm (>60 ml/min/1.73 sqM) Est GFR (CKD-EPI)NonAf (>60 ml/min/1.73 sqM) Glucose (74-99) mg/dL POC Glucose (mg/dL) (75-99) mg/dL POC Glu Transformer Mechanic ID Plasma Lactic Acid Joao (0.7-2.0) mmol/L Calcium (8.4-10.2) mg/dL Magnesium (1.6-2.3) mg/dL Total Bilirubin (0.2-1.3) mg/dL AST (17-59) U/L ALT (4-49) U/L Alkaline Phosphatase (38-126) U/L Ammonia <9 (<30) umol/L Creatine Kinase (55-170) U/L Troponin I 0.145 H* (0.000-0.034) ng/mL Total Protein (6.3-8.2) g/dL Albumin (3.5-5.0) g/dL Serum Alcohol mg/dL 01/07/21 01/07/21 Range/Units 16:24 16:47 WBC (3.8-10.6) k/uL RBC (4.30-5.90) m/uL Hgb (13.0-17.5) gm/dL Hct (39.0-53.0) % MCV (80.0-100.0) fL MCH (25.0-35.0) pg MCHC (31.0-37.0) g/dL RDW (11.5-15.5) % Plt Count (150-450) k/uL MPV Neutrophils % % Lymphocytes % % Monocytes % % Eosinophils % % Basophils % % Neutrophils # (1.3-7.7) k/uL Lymphocytes # (1.0-4.8) k/uL Monocytes # (0-1.0) k/uL Eosinophils # (0-0.7) k/uL Basophils # (0-0.2) k/uL PT (9.0-12.0) sec INR (<1.2) APTT (22.0-30.0) sec VBG pH (7.31-7.41) VBG pCO2 (37-51) mmHg VBG HCO3 (24-28) mmol/L Sodium (137-145) mmol/L Potassium (3.5-5.1) mmol/L Chloride (98-107) mmol/L Carbon Dioxide (22-30) mmol/L Anion Gap mmol/L BUN (9-20) mg/dL Creatinine (0.66-1.25) mg/dL Est GFR (CKD-EPI)AfAm (>60 ml/min/1.73 sqM) Est GFR (CKD-EPI)NonAf (>60 ml/min/1.73 sqM) Glucose (74-99) mg/dL POC Glucose (mg/dL) 153 H (75-99) mg/dL POC Glu Transformer Mechanic ID [place] Plasma Lactic Acid Joao 2.9 H* (0.7-2.0) mmol/L Calcium (8.4-10.2) mg/dL Magnesium (1.6-2.3) mg/dL Total Bilirubin (0.2-1.3) mg/dL AST (17-59) U/L ALT (4-49) U/L Alkaline Phosphatase (38-126) U/L Ammonia (<30) umol/L Creatine Kinase (55-170) U/L Troponin I (0.000-0.034) ng/mL Total Protein (6.3-8.2) g/dL Albumin (3.5-5.0) g/dL Serum Alcohol mg/dL Critical Care Time Critical Care Time: Yes Total Critical Care Time: 35 Disposition Clinical Impression: AMS (altered mental status), CVA (cerebral vascular accident), Bradycardia Disposition: ADMITTED IP TO THIS HOSP Condition: Serious Is patient prescribed a controlled substance at d/c from ED?: No Referrals: Lizzy Becker DO [Primary Care Provider] - 1-2 days Decision to Admit Reason: Admit from EC Decision Date: 01/07/21 Decision Time: 17:55
[2021-01-07] MEDS ORDERED: ATROPINE SULFATE 0.1 MG/ML 10ML SYRINGE IV STA (16:43)
[2021-01-07 16:49] LABS: Glucose,Whole Blood 153 mg/dL (75-99)
[2021-01-07 16:59] LABS: Basophils % (A) 0 %; Eosinophils % (A) 0 %; HCT 42.9 % (39.0-53.0); HGB 14.2 gm/dL (13.0-17.5); Lymphocytes # (A) 0.7 k/uL (1.0-4.8); Lymphocytes % (A) 8 %; MCH 30.7 pg (25.0-35.0); MCHC 33.1 g/dL (31.0-37.0); Monocytes # (A) 0.3 k/uL (0-1.0); Monocytes % (A) 4 %; Neutrophils # (A) 7.8 k/uL (1.3-7.7); Neutrophils % (A) 87 %; Platelet Count 183 k/uL (150-450); RBC 4.61 m/uL (4.30-5.90); RDW 15.3 % (11.5-15.5); WBC 8.9 k/uL (3.8-10.6)
[2021-01-07 17:01] LABS: VBG PH 7.38 (7.31-7.41)
[2021-01-07] MEDS ORDERED: levETIRAcetam IV 1,500 MG in SALINE 1 100ML.BAG IVPB STA (17:03)
--- NOTE | 2021-01-07 17:08 | CT ---
EXAM: CT brain wo con CLINICAL HISTORY: Altered mental status. COMPARISON: 12/24/2010 TECHNIQUE: Contiguous axial noncontrast images of the brain were obtained. Coronal and sagittal refor mats were generated and reviewed. Imaging dose reduction technique were utilized per protocol. FINDINGS: There is no evidence for intracranial hemorrhage, mass effect, midline shift or acute large vessel te rritory infarct. There is moderate white matter disease and parenchymal volume loss. Ventricular size and configuration is within normal limits for degree of parenchymal volume. The paranasal sinuses are clear. The mastoid air cells are clear. No evidence for calvarial fracture. IMPRESSION: No acute intracranial abnormality. Chronic microvascular ischemic changes.
[2021-01-07 17:16] LABS: Prothrombin Time 10.9 sec (9.0-12.0)
[2021-01-07 17:17] LABS: ALT 22 U/L (4-49); AST 53 U/L (17-59); African American GFR (CKD) 68 (>60 ml/min/1.73 sqM); Albumin 4.1 g/dL (3.5-5.0); Alcohol <10 mg/dL; Alkaline Phosphatase 135 U/L (38-126); Anion Gap 12 mmol/L; Blood Urea Nitrogen 19 mg/dL (9-20); Calcium 9.1 mg/dL (8.4-10.2); Carbon Dioxide 14 mmol/L (22-30); Chloride 111 mmol/L (98-107); Creatine Kinase 81 U/L (55-170); Glucose 167 mg/dL (74-99); Non-African American GFR(CKD) 58 (>60 ml/min/1.73 sqM); Sodium 137 mmol/L (137-145); Total Bilirubin 1.9 mg/dL (0.2-1.3)
--- NOTE | 2021-01-07 17:24 | XR ---
EXAMINATION TYPE: XR chest 1V portable DATE OF EXAM: 01/07/2021 COMPARISON: 04/21/2020. HISTORY: Altered mental status. TECHNIQUE: Single frontal view of the chest is obtained. FINDINGS: There is diffuse moderate hazy and streaky opacities. No pleural effusion, or pneumothorax seen. Cardiomegaly and CABG noted. The osseous structures are intact. IMPRESSION: Diffuse opacities may represent pulmonary edema with superimposed infiltrate not exclude d.
[2021-01-07 17:25] LABS: Potassium 5.7 mmol/L (3.5-5.1)
[2021-01-07 17:28] LABS: Partial Thromboplastin Time 21.9 sec (22.0-30.0)
[2021-01-07] MEDS ORDERED: NALOXONE 0.4 MG/ML 1 ML VIAL IV PRN (17:47)
--- NOTE | 2021-01-07 21:05 | P.HPIM ---
History of Present Illness H&P Date: 01/07/21 Chief Complaint: Altered mental status Patient is a 85-year-old male with a known history of hypertension, hyperlipidemia, prostate cancer status post radiation 3 years ago, coronary artery disease status post CABG and history of COVID-19 infection in 2019 was brought to the hospital by EMS due to altered mental status and unresponsiveness. According to his son at bedside patient was in his usual state of health until yesterday. Patient and his did receive their second dose of COVID-19 vaccine yesterday. Patient felt somewhat weak this morning and took a nap along with his . When his woke up later, patient was unresponsive. EMS was called and on that he was agonal, bradycardic and hypotensive. Patient had only minimal movement on the right side. Was not responsive to painful stimuli. Patient's CODE STATUS is DNR as per his son at bedside. Patient has been afebrile. Denies any complaints of chest pain or shortness of breath to the family. On admission blood pressure was 160/81 mmHg and pulse ox 98% on 2 L oxygen via nasal cannula. Patient was found to be bradycardic. He was given atropine x1. Patient was also given Ativan for possible seizures and was started on Keppra. CT head showed no acute intracranial abnormality. Chronic microvascular ischemic changes. Chest x-ray showed diffuse opacities may represent pulmonary edema with superimposed infiltrate not excluded. EKG showed atrial flutter with variable AV block with PVCs. Prolonged QT Laboratory data showed will BC 8.9 hemoglobin 14.1 platelets 183 lymphocytes 0.7 ABG showed pH of 7.38, PCO2 28 and bicarb is 16 Sodium 137 potassium 5.7 hemolyzed sample, bicarb is 14 BUN 19 creatinine 1.13, lactic acid 2.9 magnesium 2.0, bilirubin 1.9 Troponin 0 0.145 Coronavirus PCR not detected Review of Systems Complete review of systems could not be obtained from the patient. Past Medical History Past Medical History: Chest Pain / Angina, Hyperlipidemia, Hypertension, Prostate Disorder Additional Past Medical History / Comment(s): History of prostate cancer, status post radiation treatment 3 years ago. 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 History of Any Multi-Drug Resistant Organisms: None Reported Past Surgical History: Back Surgery, Coronary Bypass/CABG, Orthopedic Surgery Additional Past Surgical History / Comment(s): rt hip Past Psychological History: No Psychological Hx Reported Smoking Status: Never smoker Past Alcohol Use History: Occasional Past Drug Use History: None Reported Medications and Allergies Home Medications Medication Instructions Recorded Confirmed Type Losartan [Cozaar] 100 mg PO DAILY tab 02/07/20 01/07/21 Rx Atorvastatin Calcium [Lipitor] 20 mg PO DAILY 01/07/21 01/07/21 History Gabapentin 600 mg PO TID 01/07/21 01/07/21 History Allergies Allergy/AdvReac Type Severity Reaction Status Date / Time No Known Allergies Allergy Verified 01/07/21 17:41 Physical Exam Vitals: Vital Signs Temp Pulse Resp BP Pulse Ox 01/07/21 20:32 26 H 01/07/21 20:24 98.4 F 50 L 24 167/82 99 01/07/21 19:58 51 L 22 179/90 98 01/07/21 18:32 98.8 F 53 L 21 174/79 98 01/07/21 17:49 60 18 160/81 98 01/07/21 17:23 98 F 77 12 192/84 96 01/07/21 16:47 79 24 187/97 100 01/07/21 16:44 36 L 01/07/21 16:24 98.2 F 67 18 145/77 96 Intake and Output 01/07/21 01/07/21 01/07/21 06:59 14:59 22:59 Other: Weight 60.328 kg PHYSICAL EXAMINATION: Patient is lying in the bed, no acute distress.Unresponsive. Agonal breathing. HEENT: Normocephalic. Neck is supple. Pupils reactive. Nostrils clear. Oral cavity is moist. Ears reveal no drainage. Neck reveals no JVD, carotid bruits, or thyromegaly. CHEST EXAMINATION: Trachea is central. Symmetrical expansion. Bibasilar diminished air entry and diffuse crackles present. No wheezing. CARDIAC: Normal S1, S2 with no gallops. No murmurs ABDOMEN: Soft. Bowel sounds present. No organomegaly. No abdominal bruits. Extremities: reveal no edema. No clubbing or cyanosis Neurologically Patient is lying in the bed unresponsive. Patient is able to withdraw his right leg with painful stimuli. Skin: No rash or skin lesions. Psychiatric: Coperative. Could not be assessed. Musculoskeletal: No joint swelling or deformity. Results CBC & Chem 7: 01/07/21 16:24 01/07/21 16:24 Labs: Abnormal Lab Results - Last 24 Hours (Table) 01/07/21 01/07/21 01/07/21 Range/Units 16:24 16:24 16:24 Neutrophils # 7.8 H (1.3-7.7) k/uL Lymphocytes # 0.7 L (1.0-4.8) k/uL APTT 21.9 L (22.0-30.0) sec VBG pCO2 (37-51) mmHg VBG HCO3 (24-28) mmol/L Potassium 5.7 H (3.5-5.1) mmol/L Chloride 111 H (98-107) mmol/L Carbon Dioxide 14 L (22-30) mmol/L Glucose 167 H (74-99) mg/dL POC Glucose (mg/dL) (75-99) mg/dL Plasma Lactic Acid Joao (0.7-2.0) mmol/L Total Bilirubin 1.9 H (0.2-1.3) mg/dL Alkaline Phosphatase 135 H (38-126) U/L Troponin I (0.000-0.034) ng/mL 01/07/21 01/07/21 01/07/21 Range/Units 16:24 16:24 16:24 Neutrophils # (1.3-7.7) k/uL Lymphocytes # (1.0-4.8) k/uL APTT (22.0-30.0) sec VBG pCO2 28 L (37-51) mmHg VBG HCO3 16 L (24-28) mmol/L Potassium (3.5-5.1) mmol/L Chloride (98-107) mmol/L Carbon Dioxide (22-30) mmol/L Glucose (74-99) mg/dL POC Glucose (mg/dL) (75-99) mg/dL Plasma Lactic Acid Joao 2.9 H* (0.7-2.0) mmol/L Total Bilirubin (0.2-1.3) mg/dL Alkaline Phosphatase (38-126) U/L Troponin I 0.145 H* (0.000-0.034) ng/mL 01/07/21 Range/Units 16:47 Neutrophils # (1.3-7.7) k/uL Lymphocytes # (1.0-4.8) k/uL APTT (22.0-30.0) sec VBG pCO2 (37-51) mmHg VBG HCO3 (24-28) mmol/L Potassium (3.5-5.1) mmol/L Chloride (98-107) mmol/L Carbon Dioxide (22-30) mmol/L Glucose (74-99) mg/dL POC Glucose (mg/dL) 153 H (75-99) mg/dL Plasma Lactic Acid Joao (0.7-2.0) mmol/L Total Bilirubin (0.2-1.3) mg/dL Alkaline Phosphatase (38-126) U/L Troponin I (0.000-0.034) ng/mL Thrombosis Risk Factor Assmnt - DVT/VTE Prophylaxis DVT/VTE Prophylaxis: Pharmacologic Prophylaxis ordered Assessment and Plan Assessment: Altered mental status with unresponsiveness. Possible postictal versus acute CVA. CT head is negative. Patient was started on Keppra. Lactic acidosis Mildly elevated troponin level Bradycardia when seen by EMS and currently atrial flutter with variable AV block. History of COVID-19 infection in 2020 Coronary disease history of CABG History of prostate cancer DVT prophylaxis with heparin subcu CODE STATUS is DNR/DNI Plan: Patient was admitted to the hospital due to unresponsiveness and bradycardia. Patient has lactic acidosis and elevated troponin level. Was started on Keppra for possible seizures. Continue with seizure and fall precautions. Continue with telemetry monitoring and was given IV fluid bolus follow-up lactic acid level. Currently saturating at 2 L via nasal cannula. Continue to monitor closely. Repeat CBC and BMP. cardiology and neurology was consulted. Further recommendations based on the clinical course. Prognosis is guarded at this time. Discussed with his son at bedside in detail. Time with Patient: Greater than 30
--- NOTE | 2021-01-07 22:22 | P.CNNES ---
History of Present Illness Consult date: 01/07/21 Requesting physician: Honorio Harrison Reason for Consult: Altered mental status, seizure vs CVA? History of Present Illness: Patient is a 85-year-old male who received second dose of luna virus vaccine (Moderna) yesterday, was feeling tired rest of the day but otherwise was OK. This morning he was "not okay"her son. He was very lethargic, less responsive, therefore patient's stepson brought him to the hospital. Patient's stepson states that he got slightly sick after the first dose but not very bad, lasted only one day. Patient apparently also suffered from luna virus infection a year ago in January 2020. Patient appears very lethargic, gargling, congested. He only withdraws to pain. Patient apparently is DO NOT RESUSCITATE, DO NOT INTUBATE. Patient was noted to have some agonal respiration. Patient was given Ativan, Keppra and breathing has improved. Patient has history of hypertension. CT head showed no acute intracranial abnormality. Chronic microvascular ischemic changes. Chest x-ray showed diffuse opacities may represent pulmonary edema with superimposed infiltrate not excluded. EKG shows atrial flutter with variable AV block. Blood test shows normal CBC, PT/PTT, VBG with pH 7.38, pCO2 28. Sodium 137 potassium 5.7, renal functions are normal. Calcium 9.1, hepatic panel normal. Troponin is mildly elevated. Blood alcohol level negative. Luna virus negative. Review of Systems ROS unobtainable: due to mental status Past Medical History Past Medical History: Chest Pain / Angina, Hyperlipidemia, Hypertension, Prostate Disorder Additional Past Medical History / Comment(s): History of prostate cancer, status post radiation treatment 3 years ago. 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 History of Any Multi-Drug Resistant Organisms: None Reported Past Surgical History: Back Surgery, Coronary Bypass/CABG, Orthopedic Surgery Additional Past Surgical History / Comment(s): rt hip Past Psychological History: No Psychological Hx Reported Smoking Status: Never smoker Past Alcohol Use History: Occasional Past Drug Use History: None Reported Medications and Allergies Home Medications Medication Instructions Recorded Confirmed Type Losartan [Cozaar] 100 mg PO DAILY tab 02/07/20 01/07/21 Rx Atorvastatin Calcium [Lipitor] 20 mg PO DAILY 01/07/21 01/07/21 History Gabapentin 600 mg PO TID 01/07/21 01/07/21 History Allergies Allergy/AdvReac Type Severity Reaction Status Date / Time No Known Allergies Allergy Verified 01/07/21 17:41 Physical Examination - Vital Signs Vital Signs: Vital Signs Temp Pulse Pulse Resp BP BP Pulse Ox 01/07/21 21:33 46 L 18 01/07/21 21:26 46 L 18 140/82 96 01/07/21 20:32 26 H 01/07/21 20:24 98.4 F 50 L 24 167/82 99 01/07/21 19:58 51 L 22 179/90 98 01/07/21 18:32 98.8 F 53 L 21 174/79 98 01/07/21 17:49 60 18 160/81 98 01/07/21 17:23 98 F 77 12 192/84 96 01/07/21 16:47 79 24 187/97 100 01/07/21 16:44 36 L 01/07/21 16:24 98.2 F 67 18 145/77 96 Intake and Output 01/07/21 01/07/21 01/07/21 06:59 14:59 22:59 Other: Weight 60.328 kg On examination patient is an elderly male, who is lethargic, obtunded, not responding to calling his name. He is appearing ill, congested. Pupils are round and reacting, visual henao could not be tested. Gaze is in the midline. Oculocephalics are slightly present. Face is symmetric. Tongue cannot be checked. Hearing cannot be checked. Patient moves his hand equally to painful stimuli. Wiggles his feet to painful stimuli equally. Reflexes are diminished and plantars are upgoing. Tone is equal bilaterally. No obvious seizure-like activity noted. Cerebellar functions cannot be checked. Gait cannot be checked. No obvious bruit, S1 and S2 audible. Results - Laboratory Findings CBC and BMP: 01/07/21 16:24 01/07/21 16:24 Abnormal Lab Findings: Abnormal Labs 01/07/21 01/07/21 01/07/21 16:24 16:24 16:24 Neutrophils # 7.8 H Lymphocytes # 0.7 L APTT 21.9 L VBG pCO2 VBG HCO3 Potassium 5.7 H Chloride 111 H Carbon Dioxide 14 L Glucose 167 H POC Glucose (mg/dL) Plasma Lactic Acid Joao Total Bilirubin 1.9 H Alkaline Phosphatase 135 H Troponin I 01/07/21 01/07/21 01/07/21 16:24 16:24 16:24 Neutrophils # Lymphocytes # APTT VBG pCO2 28 L VBG HCO3 16 L Potassium Chloride Carbon Dioxide Glucose POC Glucose (mg/dL) Plasma Lactic Acid Joao 2.9 H* Total Bilirubin Alkaline Phosphatase Troponin I 0.145 H* 01/07/21 01/07/21 16:47 20:39 Neutrophils # Lymphocytes # APTT VBG pCO2 VBG HCO3 Potassium Chloride Carbon Dioxide Glucose POC Glucose (mg/dL) 153 H Plasma Lactic Acid Joao 2.2 H* Total Bilirubin Alkaline Phosphatase Troponin I Assessment and Plan Assessment: * Altered mental status with unresponsiveness, possible toxic metabolic encephalopathy. Patient has received second dose of luna virus vaccination yesterday. Uncertain if encephalopathy related to the vaccination. CVA also a possibility given presence of atrial flutter. Limited examination is relatively nonfocal. Seizure also in the differential. * History of Covid-19 infection in January 2020. * Elevated cardiac enzymes, history of CAD, CABG * History of prostate cancer * CODE STATUS is DO NOT RESUSCITATE/DO NOT INTUBATE. Plan: * EEG in the morning. * If mentation does not improve, would recommend repeat CT head in a.m. * Patient has been placed on Keppra. * Management of underlying cardiopulmonary condition as per IM. Need for anticoagulation for atrial flutter as per IM. * Patient started on aspirin. * Discussed with patient's son in detail.
[2021-01-08] MEDS: SCOPOLAMINE 1.5MG/72HR PATCH TRANSDERM SCH (00:26)
[2021-01-08] MEDS ORDERED: ONDANSETRON 4 MG/2 ML VIAL IVP PRN (01:45)
[2021-01-08] MEDS ORDERED: LORazepam 2 MG/ML INJ IV PRN (01:45)
[2021-01-08] MEDS: HEPARIN SODIUM,PORCINE 5,000 UNIT/ML 1 ML VIAL SQ SCH ×2 (02:06→10:13)
[2021-01-08] MEDS: MORPHINE SULFATE 2 MG/ML SYRINGE IV PRN ×2 (02:11→02:55)
[2021-01-08] MEDS: ATROPINE OPHTH SOLN 1% 5ML BTL SUBLINGUAL PRN (02:56)
[2021-01-08] MEDS: MORPHINE SULFATE (100 MG/2 ML) 100 MG in SODIUM CHLORIDE 0.9% 100 ML IV SCH (03:56)
[2021-01-08] MEDS ORDERED: levETIRAcetam IV 750 MG in SODIUM CHLORIDE 0.9% 100 ML IVPB SCH (06:00)
[2021-01-08] MEDS ORDERED: ASPIRIN 81 MG PO SCH (09:00)
--- NOTE | 2021-01-08 14:40 | ECHOF ---
Referral Reason:trop elevated MEASUREMENTS -------- HEIGHT: 180.3 cm WEIGHT: 60.3 kg BP: 140/82 IVSd: 1.4 cm (0.6 - 1.1) LVIDd: 5.5 cm (3.9 - 5.3) LVPWd: 1.4 cm (0.6 - 1.1) EDV(Teich): 149 ml IVSs: 1.8 cm LVIDs: 4.6 cm LVPWs: 1.5 cm %IVS Thck: 34 % ESV(Teich): 100 ml EF(Teich): 33 % %FS: 16 % SV(Teich): 49 ml LA Diam: 4.4 cm (2.7 - 3.8) RVIDd: 3.4 cm (< 3.3) LALs A4C: 7.7 cm LAAs A4C: 31.1 cm LAESV A-L A4C: 106 ml LAESV MOD A4C: 103 ml LALs A2C: 7.0 cm LAAs A2C: 25.5 cm LAESV A-L A2C: 79 ml LAESV MOD A2C: 76 ml LAESV(A-L): 96 ml LAESV Index (A-L): 54.08 ml/m HR_2Ch_Q: 72 bpm HR_4Ch_Q: 65 bpm LVVED_2Ch_Q: 97 ml LVVED_4Ch_Q: 85 ml LVVED_BiP_Q: 88 ml LVVES_2Ch_Q: 58 ml LVVES_4Ch_Q: 50 ml LVVES_BiP_Q: 51 ml LVEF_2Ch_Q: 40 % LVEF_4Ch_Q: 42 % LVEF_BiP_Q: 42 % LVSV_2Ch_Q: 39 ml LVSV_4Ch_Q: 36 ml LVSV_BiP_Q: 37 ml LVCO_2Ch_Q: 2.8 l/min LVCO_4Ch_Q: 2.3 l/min LVCO_BiP_Q: 2.7 l/min LVLs_2Ch_Q: 8.0 cm LVLs_4Ch_Q: 6.7 cm LVLd_2Ch_Q: 8.8 cm LVLd_4Ch_Q: 7.8 cm Ao Diam: 3.7 cm (2.0 - 3.7) AV Cusp: 1.3 cm (1.5 - 2.6) EPSS: 1.0 cm MV DecT: 148 ms MV PHT: 30 ms MVA By PHT: 7.4 cm LVOT Vmax: 1.53 m/s LVOT maxP.47 mmHg AV Vmax: 2.32 m/s AV maxP.48 mmHg AV Vmax: 2.36 m/s AV Vmean: 1.62 m/s AV maxP.20 mmHg AV meanP.05 mmHg AV Env.Ti: 275 ms AV VTI: 44.5 cm AR Vmax: 4.03 m/s AR maxP.94 mmHg AR PHT: 797 ms AR Dec Time: 2747 ms AR Dec [place]: 1.5 m/s TR Vmax: 3.32 m/s TR maxP.03 mmHg RAP: 5.00 mmHg RVSP: 49.03 mmHg MV EF SLOPE: 49.51 mm/s (70 - 150) MV EXCURSION: 24.30 mm (> 18.000) FINDINGS -------- Suboptimal image quality - poor subcostal views. The left ventricular size is normal. There is moderate concentric left ventricular hypertrophy. O verall left ventricular systolic function is moderately impaired with, an EF between 35 - 40 %. The right ventricle is mildly enlarged. LA is severely dilated >40 ml/m2 The right atrium is normal in size. There is mild aortic valve sclerosis. There is mild aortic regurgitation. There is mild aortic st enosis present. Peak/mean gradient across the Aortic Valve is 22.20mmHg / 12.05mmHg. The mitral valve leaflets are mildly thickened. Moderate mitral annular calcification present. Mi ld mitral regurgitation is present. [id number] tricuspid regurgitation present. There is moderate pulmonary hypertension. The r ight ventricular systolic pressure, as measured by Doppler, is 49.03mmHg. Trace/mild (physiologic) pulmonic regurgitation. The aortic root size is normal. IVC Not well visulized. There is no pericardial effusion. CONCLUSIONS -------- 1. The left ventricular size is normal. 2. There is moderate concentric left ventricular hypertrophy. 3. Overall left ventricular systolic function is moderately impaired with, an EF between 35 - 40 %. 4. The right ventricle is mildly enlarged. 5. LA is severely dilated >40 ml/m2 6. There is mild aortic valve sclerosis. 7. There is mild aortic regurgitation. 8. There is mild aortic stenosis present. 9. Peak/mean gradient across the Aortic Valve is 22.20mmHg / 12.05mmHg. 10. The mitral valve leaflets are mildly thickened. 11. Moderate mitral annular calcification present. 12. Mild mitral regurgitation is present. 13. [id number] tricuspid regurgitation present. 14. There is moderate pulmonary hypertension. 15. The right ventricular systolic pressure, as measured by Doppler, is 49.03mmHg. 16. Trace/mild (physiologic) pulmonic regurgitation. 17. There is no pericardial effusion. PROGRAM TRAINER: Noemi Espinal RDCS
--- NOTE | 2021-01-08 22:30 | P.PN ---
Subjective Progress Note Date: 01/08/21 Patient is a 85-year-old male with a known history of hypertension, hyperlipidemia, prostate cancer status post radiation 3 years ago, coronary artery disease status post CABG and history of COVID-19 infection in 2019 was brought to the hospital by EMS due to altered mental status and unresponsiveness. According to his son at bedside patient was in his usual state of health until yesterday. Patient and his did receive their second dose of COVID-19 vaccine yesterday. Patient felt somewhat weak this morning and took a nap along with his . When his woke up later, patient was unresponsive. EMS was called and on that he was agonal, bradycardic and hypotensive. Patient had only minimal movement on the right side. Was not responsive to painful stimuli. Patient's CODE STATUS is DNR as per his son at bedside. Patient has been afebrile. Denies any complaints of chest pain or shortness of breath to the family. On admission blood pressure was 160/81 mmHg and pulse ox 98% on 2 L oxygen via nasal cannula. Patient was found to be bradycardic. He was given atropine x1. Patient was also given Ativan for possible seizures and was started on Keppra. CT head showed no acute intracranial abnormality. Chronic microvascular ischemic changes. Chest x-ray showed diffuse opacities may represent pulmonary edema with superimposed infiltrate not excluded. EKG showed atrial flutter with variable AV block with PVCs. Prolonged QT Laboratory data showed will BC 8.9 hemoglobin 14.1 platelets 183 lymphocytes 0.7 ABG showed pH of 7.38, PCO2 28 and bicarb is 16 Sodium 137 potassium 5.7 hemolyzed sample, bicarb is 14 BUN 19 creatinine 1.13, lactic acid 2.9 magnesium 2.0, bilirubin 1.9 Troponin 0 0.145 Coronavirus PCR not detected 01/08/2021 Patient is currently lying in the bed comfortably. Course of this has been changed to comfort measures as per family request. Patient is being continued on morphine drip. Arise patient is still having elevated lactic acid level. Afebrile. 2D echocardiogram was done this morning showed left ventricular systolic dysfunction ejection fraction 35 to 40% and LA is severely dilated. Moderate pulmonary hypertension and moderate mitral annular calcification present. No pericardial effusion. Discussed the family and all the questions were answered. Patient is being continued on comfort measures. Objective - Vital Signs Vital signs: Vital Signs Temp 98.4 F 01/07/21 20:24 Pulse 46 L 01/08/21 01:15 Resp 18 01/08/21 01:15 BP 140/82 01/07/21 21:26 Pulse Ox 96 01/07/21 21:26 Intake & Output 01/07/21 01/08/21 01/08/21 18:59 06:59 18:59 Intake Total 1.53 5.35 Balance 1.53 5.35 Weight 60.328 kg 60.328 kg Intake: Intake, IV Titration 1.53 5.35 Amount Morphine Sulfate (100 mg/ 1.53 5.35 2 ml) 100 mg In Sodium Chloride 0.9% 100 ml @ 1 MG/HR 1.02 mls/hr IV . Q24H [facility] Rx#:[id number] Other: # Voids 0 - Exam PHYSICAL EXAMINATION: Patient is lying in the bed, no acute distress.Unresponsive. HEENT: Normocephalic. Neck is supple. Pupils reactive. Nostrils clear. Oral cavity is moist. Ears reveal no drainage. Neck reveals no JVD, carotid bruits, or thyromegaly. CHEST EXAMINATION: Trachea is central. Symmetrical expansion. Bibasilar d iminished air entry and diffuse crackles present. No wheezing. CARDIAC: Normal S1, S2 with no gallops. No murmurs ABDOMEN: Soft. Bowel sounds present. No organomegaly. No abdominal bruits. Extremities: reveal no edema. No clubbing or cyanosis Neurologically Patient is lying in the bed unresponsive. Skin: No rash or skin lesions. Psychiatric: Could not be assessed. Musculoskeletal: No joint swelling or deformity. - Labs CBC & Chem 7: 01/07/21 16:24 01/07/21 16:24 Labs: Abnormal Lab Results - Last 24 Hours (Table) 01/07/21 01/07/21 01/07/21 Range/Units 16:24 16:24 16:24 Neutrophils # 7.8 H (1.3-7.7) k/uL Lymphocytes # 0.7 L (1.0-4.8) k/uL APTT 21.9 L (22.0-30.0) sec VBG pCO2 (37-51) mmHg VBG HCO3 (24-28) mmol/L Potassium 5.7 H (3.5-5.1) mmol/L Chloride 111 H (98-107) mmol/L Carbon Dioxide 14 L (22-30) mmol/L Glucose 167 H (74-99) mg/dL POC Glucose (mg/dL) (75-99) mg/dL Plasma Lactic Acid Joao (0.7-2.0) mmol/L Total Bilirubin 1.9 H (0.2-1.3) mg/dL Alkaline Phosphatase 135 H (38-126) U/L Troponin I (0.000-0.034) ng/mL 01/07/21 01/07/21 01/07/21 Range/Units 16:24 16:24 16:24 Neutrophils # (1.3-7.7) k/uL Lymphocytes # (1.0-4.8) k/uL APTT (22.0-30.0) sec VBG pCO2 28 L (37-51) mmHg VBG HCO3 16 L (24-28) mmol/L Potassium (3.5-5.1) mmol/L Chloride (98-107) mmol/L Carbon Dioxide (22-30) mmol/L Glucose (74-99) mg/dL POC Glucose (mg/dL) (75-99) mg/dL Plasma Lactic Acid Joao 2.9 H* (0.7-2.0) mmol/L Total Bilirubin (0.2-1.3) mg/dL Alkaline Phosphatase (38-126) U/L Troponin I 0.145 H* (0.000-0.034) ng/mL 01/07/21 01/07/21 01/08/21 Range/Units 16:47 20:39 00:39 Neutrophils # (1.3-7.7) k/uL Lymphocytes # (1.0-4.8) k/uL APTT (22.0-30.0) sec VBG pCO2 (37-51) mmHg VBG HCO3 (24-28) mmol/L Potassium (3.5-5.1) mmol/L Chloride (98-107) mmol/L Carbon Dioxide (22-30) mmol/L Glucose (74-99) mg/dL POC Glucose (mg/dL) 153 H (75-99) mg/dL Plasma Lactic Acid Joao 2.2 H* 2.9 H* (0.7-2.0) mmol/L Total Bilirubin (0.2-1.3) mg/dL Alkaline Phosphatase (38-126) U/L Troponin I (0.000-0.034) ng/mL Assessment and Plan Assessment: Altered mental status with unresponsiveness. Possible postictal versus acute CVA. CT head is negative. Patient was started on Keppra. Lactic acidosis Mildly elevated troponin level Bradycardia when seen by EMS and currently atrial flutter with variable AV block. History of COVID-19 infection in 2019 Coronary disease history of CABG History of prostate cancer DVT prophylaxis with heparin subcu CODE STATUS is Comfort measures. Plan: Patient was admitted to the hospital due to unresponsiveness and bradycardia. Patient has lactic acidosis and elevated troponin level. Was started on Keppra for possible seizures. Continue with seizure and fall precautions. Continue with telemetry monitoring and was given IV fluid bolus follow-up lactic acid level. Currently saturating at 2 L via nasal cannula. cardiology and neurology was consulted. Further recommendations based on the clinical course. Prognosis is guarded at this time. Discussed with his son at bedside in detail. Time with Patient: Greater than 30
[2021-01-09] MEDS: MORPHINE SULFATE (100 MG/2 ML) 100 MG in SODIUM CHLORIDE 0.9% 100 ML IV SCH ×2 (03:20→20:14)
[2021-01-09 19:52] VITALS: PULSE 60
--- NOTE | 2021-01-10 00:46 | P.PN ---
Subjective Progress Note Date: 01/09/21 Principal diagnosis: Altered mental status with unresponsiveness. Possible postictal versus acute CVA. Patient is a 85-year-old male with a known history of hypertension, hyper lipidemia, prostate cancer status post radiation 3 years ago, coronary artery disease status post CABG and history of COVID-19 infection in 2019 was brought to the hospital by EMS due to altered mental status and unresponsiveness. According to his son at bedside patient was in his usual state of health until yesterday. Patient and his did receive their second dose of COVID-19 vaccine yesterday. Patient felt somewhat weak this morning and took a nap along with his . When his woke up later, patient was unresponsive. EMS was called and on that he was agonal, bradycardic and hypotensive. Patient had only minimal movement on the right side. Was not responsive to painful stimuli. Patient's CODE STATUS is DNR as per his son at bedside. Patient has been afebrile. Denies any complaints of chest pain or shortness of breath to the family. On admission blood pressure was 160/81 mmHg and pulse ox 98% on 2 L oxygen via nasal cannula. Patient was found to be bradycardic. He was given atropine x1. Patient was also given Ativan for possible seizures and was started on Keppra. CT head showed no acute intracranial abnormality. Chronic microvascular ischemic changes. Chest x-ray showed diffuse opacities may represent pulmonary edema with superimposed infiltrate not excluded. EKG showed atrial flutter with variable AV block with PVCs. Prolonged QT Laboratory data showed will BC 8.9 hemoglobin 14.1 platelets 183 lymphocytes 0.7 ABG showed pH of 7.38, PCO2 28 and bicarb is 16 Sodium 137 potassium 5.7 hemolyzed sample, bicarb is 14 BUN 19 creatinine 1.13, lactic acid 2.9 magnesium 2.0, bilirubin 1.9 Troponin 0 0.145 Coronavirus PCR not detected 01/08/2021 Patient is currently lying in the bed comfortably. Course of this has been changed to comfort measures as per family request. Patient is being continued on morphine drip. Arise patient is still having elevated lactic acid level. Afebrile. 2D echocardiogram was done this morning showed left ventricular systolic dysfunction ejection fraction 35 to 40% and LA is severely dilated. Moderate pulmonary hypertension and moderate mitral annular calcification present. No pericardial effusion. Discussed the family and all the questions were answered. Patient is being continued on comfort measures. 01/01/2021 Patient is lying in the bed. Not oriented and does not respond to verbal stimuli. Continued on comfort measures on the morphine drip. Discussed with his son in detail and all questions were answered.. Objective - Vital Signs Vital signs: Vital Signs Temp 101.1 F H 01/09/21 08:31 Pulse 80 01/09/21 08:31 Resp 10 L 01/09/21 08:31 BP 89/53 01/09/21 08:31 Pulse Ox 83 L 01/09/21 08:31 Intake & Output 01/08/21 01/09/21 01/09/21 18:59 06:59 18:59 Intake Total 45.35 80.467 0 Output Total 500 400 Balance -454.65 80.467 -400 Intake: IV 40 morphine sulfate in 40 sodium chloride Intake, IV Titration 5.35 80.467 Amount Morphine Sulfate (100 mg/ 5.35 80.467 2 ml) 100 mg In Sodium Chloride 0.9% 100 ml @ 1 MG/HR 1.02 mls/hr IV . Q24H [facility] Rx#:[id number] Oral 0 Output: Urine 500 400 Other: Voiding Method Indwelling Catheter Indwelling Catheter Indwelling Catheter - Exam PHYSICAL EXAMINATION: Patient is lying in the bed, no acute distress.Unresponsive. HEENT: Normocephalic. Neck is supple. Pupils reactive. Nostrils clear. Oral cavity is moist. Ears reveal no drainage. Neck reveals no JVD, carotid bruits, or thyromegaly. CHEST EXAMINATION: Trachea is central. Symmetrical expansion. Bibasilar diminished air entry and diffuse crackles present. No wheezing. CARDIAC: Normal S1, S2 with no gallops. No murmurs ABDOMEN: Soft. Bowel sounds present. No organomegaly. No abdominal bruits. Extremities: reveal no edema. No clubbing or cyanosis Neurologically Patient is lying in the bed unresponsive. Skin: No rash or skin lesions. Psychiatric: Could not be assessed. Musculoskeletal: No joint swelling or deformity. - Labs CBC & Chem 7: 01/07/21 16:24 01/07/21 16:24 Assessment and Plan Assessment: Altered mental status with unresponsiveness. Possible postictal versus acute CVA. CT head is negative. Patient was started on Keppra. s/p Covid 19 Vaccine second dose Lactic acidosis Mildly elevated troponin level Bradycardia when seen by EMS and currently atrial flutter with variable AV block. History of COVID-19 infection in 2019 Coronary disease history of CABG History of prostate cancer DVT prophylaxis with heparin subcu CODE STATUS is Comfort measures. Plan: Patient was admitted to the hospital due to unresponsiveness and bradycardia. Patient has lactic acidosis and elevated troponin level. Was started on Keppra for possible seizures. Continue with seizure and fall precautions. Continue with telemetry monitoring and was given IV fluid bolus follow-up lactic acid level. Currently saturating at 2 L via nasal cannula. cardiology and neurology was consulted. Further recommendations based on the clinical course. Prognosis is guarded at this time. Discussed with his son at bedside in detail.
[2021-01-10] MEDS: ATROPINE OPHTH SOLN 1% 5ML BTL SUBLINGUAL PRN (01:46)
[2021-01-10] MEDS: SCOPOLAMINE 1.5MG/72HR PATCH TRANSDERM SCH (01:51)
[2021-01-10 06:02] VITALS: BP 73/45; RESP 8; TEMP 102.7
--- NOTE | 2021-01-24 21:41 | P.DS ---
Providers Date of admission: 01/07/21 17:48 Expected date of discharge: 01/10/21 Attending physician: Willow Ruano Consults: 01/07/21 17:47 Consult Physician Routine Consulting Provider: Lia Eldridge Consult Reason/Comments: AMS, seizure vs CVA? Do you want consulting provider notified?: Yes Primary care physician: Lizzy Becker Hospital Course: Diagnosis Altered mental status with unresponsiveness. Possible prolonged postictal versus acute CVA vs Acute Metabolic encephalopathy. CT head is negative. Patient was started on Keppra. s/p Covid 19 Vaccine second dose Lactic acidosis Mildly elevated troponin level Bradycardia when seen by EMS and currently atrial flutter with variable AV block. History of COVID-19 infection in 2019 Coronary disease history of CABG History of prostate cancer DVT prophylaxis with heparin subcu CODE STATUS is Comfort measures. Hospital course Patient is a 85-year-old male with a known history of hypertension, hyperlipidemia, prostate cancer status post radiation 3 years ago, coronary artery disease status post CABG and history of COVID-19 infection in 2019 was brought to the hospital by EMS due to altered mental status and unresponsiveness. According to his son at bedside patient was in his usual state of health until yesterday. Patient and his did receive their second dose of COVID-19 vaccine yesterday. Patient felt somewhat weak this morning and took a nap along with his . When his woke up later, patient was unresponsive. EMS was called and on that he was agonal, bradycardic and hypotensive. Patient had only minimal movement on the right side. Was not responsive to painful stimuli. Patient's CODE STATUS is DNR as per his son at bedside. Patient has been afebrile. Denies any complaints of chest pain or shortness of breath to the family. On admission blood pressure was 160/81 mmHg and pulse ox 98% on 2 L oxygen via nasal cannula. Patient was found to be bradycardic. He was given atropine x1. Patient was also given Ativan for possible seizures and was started on Keppra. CT head showed no acute intracranial abnormality. Chronic microvascular ischemic changes. Chest x-ray showed diffuse opacities may represent pulmonary edema with superimposed infiltrate not excluded. EKG showed atrial flutter with variable AV block with PVCs. Prolonged QT Laboratory data showed will BC 8.9 hemoglobin 14.1 platelets 183 lymphocytes 0.7 ABG showed pH of 7.38, PCO2 28 and bicarb is 16 Sodium 137 potassium 5.7 hemolyzed sample, bicarb is 14 BUN 19 creatinine 1.13, lactic acid 2.9 magnesium 2.0, bilirubin 1.9 Troponin 0 0.145 Coronavirus PCR not detected 01/08/2021 Patient is currently lying in the bed comfortably. Course of this has been changed to comfort measures as per family request. Patient is being continued on morphine drip. Arise patient is still having elevated lactic acid level. Afebrile. 2D echocardiogram was done this morning showed left ventricular systolic dysfunction ejection fraction 35 to 40% and LA is severely dilated. Moderate pulmonary hypertension and moderate mitral annular calcification present. No pericardial effusion. Discussed the family and all the questions were answered. Patient is being continued on comfort measures. 01/09/2021 Patient is lying in the bed. Not oriented and does not respond to verbal stimuli. Continued on comfort measures on the morphine drip. Discussed with his son in detail and all questions were answered.. 01/10/2021 Patient was continued comfort measures and was started on morphine drip for pain control. Patient was pronounced at 06:15. Family has been notified. Patient Condition at Discharge: Undetermined Plan - Discharge Summary New Discharge Prescriptions: No Action Losartan [Cozaar] 100 mg PO DAILY tab Gabapentin 600 mg PO TID Atorvastatin Calcium [Lipitor] 20 mg PO DAILY Discharge Medication List Losartan [Cozaar] 100 mg PO DAILY tab 02/07/20 [Rx] Atorvastatin Calcium [Lipitor] 20 mg PO DAILY 01/07/21 [History] Gabapentin 600 mg PO TID 01/07/21 [History] Follow up Appointment(s)/Referral(s): Lizzy Becker DO [Primary Care Provider] - 1-2 days Discharge Disposition: - Preliminary Cause of Preliminary Cause of : Metabolic encephalopathy
== END 2021-01-10 12:03 | disposition expired | DRG 64 ==
LOC: EC 16:22 → 3SCARD 17:48
PROVIDERS: ADMIT Internal Medicine; ATTEND Internal Medicine
DX: I63.9 Cerebral infarction, unspecified (principal); G93.41 Metabolic encephalopathy; I48.92 Unspecified atrial flutter; E87.2 Acidosis; R00.1 Bradycardia, unspecified; I95.9 Hypotension, unspecified; Z66 Do not resuscitate; Z51.5 Encounter for palliative care; Z20.822 Contact with and (suspected) exposure to COVID-19; E78.5 Hyperlipidemia, unspecified; I10 Essential (primary) hypertension; Z85.46 Personal history of malignant neoplasm of prostate; Z92.3 Personal history of irradiation; Z95.1 Presence of aortocoronary bypass graft; Z86.16 Personal history of COVID-19; I27.20 Pulmonary hypertension, unspecified; R77.8 Other specified abnormalities of plasma proteins; I25.10 Atherosclerotic heart disease of native coronary artery without angina pectoris; I44.30 Unspecified atrioventricular block; R56.9 Unspecified convulsions; Z85.820 Personal history of malignant melanoma of skin
CPT/HCPCS: 36415; 70450; 71045; 80053; 80320; 82140; 82550; 82803; 83605; 83735; 84484; 85025; 85610; 85730; 87635; 93005; 93306; 96361; 96374; 96375; 99291